=== PATIENT | female | born 1960 | race Caucasian/White ===

== ENCOUNTER 2020-12-08 20:52 | Emergency (ER) | payer BC, SELFPAY ==
[2020-12-08 21:22] VITALS: BMI 28.2
--- NOTE | 2020-12-08 21:22 | PC.NURSE ---
pt brought to [facility] while awaiting a room to be cleaned.
[2020-12-08 22:10] VITALS: BP 157/81; PULSE 82; RESP 16; TEMP 36.7; O2SAT 98; BMI 37.5
--- NOTE | 2020-12-08 22:42 | ED_ITS ---
HPI - Animal Bite General: Chief Complaint: Animal Bite Stated Complaint: Dog Bite Rt Pinky Time Seen by Provider: 12/08/20 22:42 History of Present Illness: HPI narrative: 60-year-old female comes in today with injury to the right index finger. Patient's 6-week-old puppy had become entrapped in the chair and they were working to get the pipe the out of the chair when it bit down on her right index finger. Patient had 3 superficial lacerations to the finger that she was unable to get to stop bleeding until she got to the ER. Patient was concerned that they may have further bleeding and waited to be seen by provider. Patient reports that her tetanus is up-to-date. 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 Review of Systems General: Reports: 10 or more systems reviewed and unremarkable except in HPI and below Skin/Breast: Reports: other (Laceration right index finger) Physical Exam Const: COMMON NORMALS: no acute distress and patient oriented x3 GENERAL APPEARANCE: cooperative HENMT: COMMON NORMALS: normocephalic and Normal external nose present HEAD & SCALP: normal to inspection and normocephalic NOSE: Normal external nose present Eye: GENERAL EYE: appearance normal, both eyes and all related structures Neck/C-Spine: COMMON NORMALS: full ROM Chest: COMMONS NORMALS: normal inspection of the chest Resp: COMMON NORMALS: normal respiratory effort EFFORT & INSPECTION: Yes able to speak in complete sentences Cardio: COMMON NORMALS: regular rate and regular rhythm RATE: regular rate RHYTHM: regular rhythm GI: COMMON NORMALS: non-tender Extremity: COMMON NORMALS: normal to inspection Neuro: COMMON NORMALS: patient oriented x3 and moves all extremities Psych: COMMON NORMALS: mental status grossly normal and cooperative Skin: NARRATIVE SKIN EXAM: 3 superficial lacerations are noted to the distal right finger on the pad. No foreign bodies are noted. Normal range of motion is noted. Course Vital Signs: Vital signs: Vital Signs Temperature 98.0 F 12/08/20 22:10 Pulse Rate 80 12/08/20 23:29 Respiratory Rate 22 H 12/08/20 23:29 Blood Pressure 157/81 12/08/20 22:10 Pulse Oximetry 94 12/08/20 23:29 MDM - Animal Bite MDM Narrative: Medical decision making narrative: Patient came in for evaluation of injuries sustained from her dog. On exam there is 3 superficial 5 to 10 mm lacerations to the distal pad of the right index finger. No tendon injury or foreign bodies were noted. Patient's tetanus shot was up-to-date. Patient was not concerned about rabies and did not wish for prophylaxis exposure therapy. Reviewed exam with patient with recommendations for treatment with Augmentin for prophylaxis antibiotic therapy. Wound was cleaned and approximated with Steri-Strips. Patient reported understanding of care plan and need for follow-up or return. Discharge Plan Discharge Patient Disposition: Home Clinical Impression: Dog bite Qualifiers: Encounter type: initial encounter Qualified Code(s): W54.0XXA - Bitten by dog, initial encounter Condition: Stable Prescriptions: New Augmentin 875-125 mg tablet 1 tab PO BID Qty: 10 RF: 0 Discharge Orders: Discharge ED (Routine); Ordered 12/08/20 Ordered By: Bobby Mendoza Discharge Diet: Usual diet Discharge Activity: Increase activity as tolerated Patient Instructions: Puncture Wound (ED), Opioid Safety Activity Restrictions/Additional Instructions: Monitor site for signs of infection. Monitor pet for signs of illness. Follow- up with primary care for further instruction. Return to the ER for new concerns. Coding Level of Care Code ED Adaptive Physical Education Teacher for Sylwia Coker
--- NOTE | 2020-12-08 22:49 | PC.NURSE ---
bleeding has now stopped
[2020-12-08 23:29] VITALS: PULSE 80; RESP 22; O2SAT 94
[2020-12-08] MEDS: amoxicillin-clav 875-125 mg Tablet 1 TAB PO (23:31)
== END 2020-12-08 23:31 | disposition home or self-care (01) ==
PROVIDERS: Emergency Provider Nurse Practitioner Family
DX: S60.470A Other superficial bite of right index finger, initial encounter (principal); W54.0XXA Bitten by dog, initial encounter
CPT/HCPCS: 99282

== ENCOUNTER 2023-01-17 08:57 | Outpatient (CLI) | payer BC, SELFPAY ==
--- NOTE | 2023-01-17 09:11 | MM_ITS ---
WS: [id number] BILATERAL SCREENING DIGITAL TOMOSYNTHESIS MAMMOGRAM WITH CAD HISTORY: SCREEN COMPARISON: 08/15/2019, 05/30/2018 Bilateral CC and MLO views with tomosynthesis and synthetic mammography submitted. Computer aided det ection analyzed. Breast composition: There are scattered areas of fibroglandular density. No suspicious masses, microc alcifications or architectural distortion. Several small nodules are noted within the upper outer nelsy drant of the RIGHT breast which are stable. No new mass or nodule or calcification. IMPRESSION: MM/[place] [id number] BI-RADS: 2-Benign FOLLOW UP: 1 Year Follow-up
== END 2023-01-17 08:58 | disposition home or self-care (01) ==
LOC: RAD 08:58
PROVIDERS: PCP Internal Medicine; Visit Provider Internal Medicine
DX: Z12.31 Encounter for screening mammogram for malignant neoplasm of breast (principal)
CPT/HCPCS: 77063; 77067

== ENCOUNTER 2024-02-25 10:53 | Outpatient (CLI) | payer BC, SELFPAY ==
--- NOTE | 2024-02-25 11:02 | XRR_ITS ---
PROCEDURE INFORMATION: Exam: XR Lumbosacral Spine Exam date and time: 02/25/2024 11:15 AM Age: 63 years old Clinical indication: Low back pain; Prior surgery; Surgery date: 6+ months; Surgery type: Low back discs, RT hip muscle; Additional info: Low back pain, verbal taken from [facility] TECHNIQUE: Imaging protocol: Radiologic exam of the lumbosacral spine. Views: 2 or 3 views. COMPARISON: CR XR hip BI 3-4V wo/[place] [id number] 02/25/2024 11:15 AM FINDINGS: Bones/joints: Disc space narrowing and spurring L2 through S1. Minimal anterolisthesis of L3 on L4. The pedicles are intact. There is no evidence of fracture or acute bone destruction. Soft tissues: Unremarkable. XR/XR lumbar spine 2-3V* [id number] IMPRESSION: Degenerative disc disease.
--- NOTE | 2024-02-25 11:05 | XRR_ITS ---
PROCEDURE INFORMATION: Exam: XR Bilateral Hips Exam date and time: 02/25/2024 11:15 AM Age: 63 years old Clinical indication: Hip pain; Bilateral; Prior surgery; Surgery date: 6+ months; Surgery type: Low back discs, RT hip muscle; Additional info: Pain in left and right hips, verbal taken from [facility] TECHNIQUE: Imaging protocol: Radiologic exam of the bilateral hips. Views: 2 views of hips with pelvis when performed. COMPARISON: CR XR lumbar spine 2-3V* [id number] 02/25/2024 11:15 AM FINDINGS: Bones/joints: Unremarkable. No acute fracture. No fracture, lytic, or sclerotic bone lesion. Only mild arthritic changes. Soft tissues: Unremarkable. XR/XR hip BI 3-4V wo/w pel [id number] IMPRESSION: No significant abnormality.
== END 2024-02-25 10:54 | disposition home or self-care (01) ==
LOC: RAD 10:55
PROVIDERS: PCP Nurse Practitioner Family; Visit Provider Nurse Practitioner Family
DX: M25.551 Pain in right hip (principal); M25.552 Pain in left hip; M51.379 Other intervertebral disc degeneration, lumbosacral region without mention of lumbar back pain or lower extremity pain; M48.07 Spinal stenosis, lumbosacral region; M43.16 Spondylolisthesis, lumbar region; Z98.890 Other specified postprocedural states; R93.89 Abnormal findings on diagnostic imaging of other specified body structures
CPT/HCPCS: 72100; 73522

== ENCOUNTER → 2024-03-18 08:26 | Outpatient (BNVA) | payer BC, SELFPAY | PROVIDERS: PCP Nurse Practitioner Family; Visit Provider Orthopaedic Surgery | DX: M54.50 Low back pain, unspecified (principal) | CPT/HCPCS: 72110 ==

== ENCOUNTER 2024-03-20 12:52 | Outpatient (CLI) | payer BC, SELFPAY ==
--- NOTE | 2024-03-20 13:00 | MR_ITS ---
WS: [id number] MRI LUMBAR SPINE NONCONTRAST HISTORY: Back Pain COMPARISON: Radiograph 03/18/2024 TECHNIQUE: Sagittal and axial multisequence imaging is submitted. Slight straightening of the normal lumbar lordosis with slight reversal of the curvature at L4-5. L2 anterolisthesis by 2 mm. L3 anterolisthesis by 3 mm. Disc spaces are narrowed and desiccated throughout the lumbar spine. No marrow edema or acute fracture. Conus terminates normally at L1-2 disc level. L1-L2: Mild facet arthritis. No stenosis. L2-L3: Large central disc extrusion migrating cephalad from the parent disc. Disc extends 1.6 cm superiorly from the parent disc. At the level of the parent disc there is a large central and bilateral subarticular disc protrusion completely effacing the thecal sac and distorting the nerve roots. Bilateral fluid in the facet joints. Additional LEFT foraminal disc protrusion causing moderate LEFT foraminal stenosis. Mild RIGHT foraminal stenosis. L3-L4: Severe annular disc bulging with marked ligamentum flavum and facet arthropathy. Thecal sac is being distorted. Small amount of fluid in the LEFT facet joint. RIGHT foraminal disc osteophyte complex causing severe stenosis. Severe central and bilateral subarticular recess and mild LEFT foraminal stenosis. L4-L5: Mild annular disc bulging with a central fissure. Large LEFT hemilaminectomy defect. Ligamentum flavum and facet arthritis. Encroachment upon the subarticular recesses with mild bilateral foraminal stenosis. L5-S1: Diffuse annular disc bulging asymmetric to the LEFT. Diffuse osteophytic ridging. There is significant contact on the bilateral S1 nerve roots, LEFT greater than RIGHT. Moderate central with mild bilateral foraminal stenosis. RIGHT hemilaminectomy defect. Paravertebral soft tissues are negative. MR/MR lumbar spine wo con* [id number] IMPRESSION: 1. L2-3: Large central disc extrusion has migrated cephalad from the parent di sc. Disc extends 1.6 cm superiorly. 2. L2-3: At the level of the disc there is a large disc protrusion extending s ubarticular with complete effacement of the thecal sac and distortion of the ne rve roots. Severe central stenosis and subarticular recess stenosis. Additional smaller LEFT foraminal disc protrusion causing moderate LEFT foraminal stenosi s. 3. L3-4: Severe central, bilateral subarticular recess and RIGHT foraminal martin nosis. Mild LEFT foraminal stenosis. Stenosis due to combination of facet joint arthritis disc disease and ligamentum flavum hypertrophy. 4. L4-5: Large LEFT hemilaminectomy defect. Subarticular recess encroachment b y facet joint arthritis. Mild foraminal stenosis. 5. L5-S1: RIGHT hemilaminectomy defect. Marked disc contact bilaterally on the S1 nerve roots, LEFT greater than RIGHT. Moderate central with bilateral subar ticular recess and mild foraminal stenosis. Greater stenosis contacting the LEF T S1 nerve root.
== END 2024-03-20 12:53 | disposition home or self-care (01) ==
PROVIDERS: PCP Nurse Practitioner Family; Visit Provider Orthopaedic Surgery
DX: M51.26 Other intervertebral disc displacement, lumbar region (principal); R93.7 Abnormal findings on diagnostic imaging of other parts of musculoskeletal system; M48.061 Spinal stenosis, lumbar region without neurogenic claudication; M47.896 Other spondylosis, lumbar region; M96.89 Other intraoperative and postprocedural complications and disorders of the musculoskeletal system; M48.07 Spinal stenosis, lumbosacral region; M25.78 Osteophyte, vertebrae; M51.369 Other intervertebral disc degeneration, lumbar region without mention of lumbar back pain or lower extremity pain; M51.379 Other intervertebral disc degeneration, lumbosacral region without mention of lumbar back pain or lower extremity pain
CPT/HCPCS: 72148

== ENCOUNTER → 2024-03-25 09:30 | Outpatient (BNVA) | payer BC, SELFPAY | PROVIDERS: PCP Nurse Practitioner Family; Visit Provider Orthopaedic Surgery | DX: M43.16 Spondylolisthesis, lumbar region (principal) | CPT/HCPCS: 36415; 80053; 81001; 83036; 85025 ==

== ENCOUNTER → 2024-04-22 09:09 | Outpatient (BNVA) | payer BC, SELFPAY | PROVIDERS: PCP Nurse Practitioner Family; Visit Provider Family Medicine | DX: Z01.818 Encounter for other preprocedural examination (principal); R94.31 Abnormal electrocardiogram [ECG] [EKG] | CPT/HCPCS: 80048; 81003; 85025; 93005 ==

== ENCOUNTER 2024-04-23 08:52 | Outpatient (CLI) | payer BC, SELFPAY ==
--- NOTE | 2024-04-23 08:54 | MM_ITS ---
WS: [id number] BILATERAL SCREENING DIGITAL TOMOSYNTHESIS MAMMOGRAM WITH CAD HISTORY: SCREENING COMPARISON: 01/17/2023, 08/15/2019 Bilateral CC and MLO views with tomosynthesis and synthetic mammography submitted. Computer aided detection analyzed. Breast composition: There are scattered areas of fibroglandular density. No suspicious masses, microcalcifications or architectural distortion. MM/MM scr BI tomosynthesis [id number] IMPRESSION: BI-RADS: 2 - Benign. FOLLOW UP: 1 Year Follow-up
== END 2024-04-23 08:53 | disposition home or self-care (01) ==
PROVIDERS: PCP Nurse Practitioner Family; Visit Provider Family Medicine
DX: Z12.31 Encounter for screening mammogram for malignant neoplasm of breast (principal); R92.323 Mammographic fibroglandular density, bilateral breasts
CPT/HCPCS: 77063; 77067

== ENCOUNTER 2024-05-28 16:12 | Outpatient (CLI) | payer BC, SELFPAY ==
[2024-05-28 16:40] LABS: Basophils # 0.1 10^3/uL (0.0-0.1); Basophils % 0.7 %; Eosinophils # 0.1 10^3/uL (0.0-0.8); Hematocrit 36.8 % (36-47); Lymphocytes # 2.1 10^3/uL (0.8-4.8); Lymphocytes % 30.3 %; Mean Corpuscular HGB Conc 32.6 g/dL (30-55); Mean Corpuscular Hemoglobin 29.3 pg (27-33); Mean Platelet Volume 10.9 fL (7.4-10.4); Monocytes # 0.5 10^3/uL (0.2-0.9); Monocytes % 6.6 %; Neutrophils # 4.17 10^3/uL (1.8-7.7); Neutrophils % 59.7 %; Nucleated Red Blood Cells % 0 %; Platelet Count 237 10^3/cmm (157-399); Red Blood Count 4.09 10^6/uL (3.85-5.65); Red Cell Distribution Width 12.8 % (12.1-15.1); White Blood Count 6.99 10^3/uL (3.29-11.43)
[2024-05-28 17:05] LABS: Bilirubin Urine Negative (Negative); Blood Urine Negative (Negative); Glucose Urine UA Negative (Normal); Ketones Urine Negative (Negative); Leukocyte Esterase Urine 1+ (Negative); Nitrate Urine Negative (Negative); Protein Urine Negative (Negative); Specific Gravity, Urine 1.011 (1.005-1.030); Urine Appearance Clear (CLEAR); Urine Color Yellow (Yellow)
[2024-05-28 17:11] LABS: Add Urine Microscopic? YES; Bacteria Urine None Seen /hpf; Hyaline Casts Urine 0-4 /lpf; RBC Urine 0-2 /hpf (0-2); Squamous Epithelial Cell Urine 0-5 /hpf (0-5)
[2024-05-28 17:47] LABS: Alanine Aminotransferase 25 U/L (0-33); Albumin Level 4.2 g/dL (3.5-5.2); Alkaline Phosphatase 99 U/L (35-105); Aspartate Amino Transferase 17 U/L (0-32); Blood Urea Nitrogen 12 mg/dL (8-23); Calcium 9.5 mg/dL (8.5-10.5); Carbon Dioxide 25 mmol/L (22-29); Chloride 100 mmol/L (98-107); Globulin 2.8 g/dL (1.3-4.6); Glomerular Filtration Rate 125.4 mL/min (90-130); Glucose 162 mg/dL (65-115); Osmolality Calculated 289 mOsm/kg (285-295); Sodium 138 mmol/L (136-145); Total Bilirubin 0.2 mg/dL (0.15-1.2)
[2024-05-28 20:45] LABS: Estmated Average Glucose 180; Hemoglobin A1C 7.9 % (4.0-6.0)
== END 2024-05-28 16:13 | disposition home or self-care (01) ==
LOC: LAB 16:15
PROVIDERS: PCP Nurse Practitioner Family; Visit Provider Orthopaedic Surgery
DX: Z01.818 Encounter for other preprocedural examination (principal)
CPT/HCPCS: 36415; 80053; 81001; 83036; 85025

== ENCOUNTER 2024-06-04 13:47 | Inpatient (IN) | payer BC, SELFPAY ==
[2024-06-04] VITALS (11 sets, daily range): BP systolic 126–160; BP diastolic 76–93; PULSE 84–102; RESP 16–18; TEMP 36.3–37.3; O2SAT 93–99; BMI 43.7; BMI 43.6
--- NOTE | 2024-06-04 | XR_ITS ---
WS: [id number] Lumbar spine, C-arm fluoroscopy views, 06/04/2024 Clinical Data: MICAELA PICS Comparison: Lumbar spine, 03/18/2024 Findings: Dr. Castro performed a posterior lumbar fusion. XR/XR lumbar spine 2-3V* [id number] Impression: Posterior lumbar fusion.
--- NOTE | 2024-06-04 10:16 | P.HP_ITS ---
Same Day Surgery H&P Indication for Procedure/HPI DATE OF PROCEDURE: June 04, 2024 CHIEF COMPLAINT/INDICATIONFOR SURGICAL PROCEDURE: Back and leg pain PREOP DIAGNOSIS: Lumbar stenosis with neurogenic claudication; L3-4 spondyl olisthesis PLANNED PROCEDURE: Operation Date: 06/04/24 12:05 Proposed Procedures p Posterior Lumbar Interbody Fusion PLIF(Not Applicable) - Laurent Castro DO s Lumbopelvic Fixation(Not Applicable) - Laurent Castro, DO Medications/Allergies* Home Medications ?Medication ?Instructions ?Recorded ?Confirmed ?Type atorvastatin 20 mg tablet 20 mg PO DAILY 08/18/2305/07 History carvedilol 3.125 mg tablet 3.125 mg PO BID 08/18/23 History cholecalciferol (vitamin D3) 1,250 1,250 mcg PO .WEEKL Y 08/18/23 06/03/24 History mcg (50,000 unit) capsule glipizide 10 mg tablet 10 mg PO DAILY 08/18/2305/07 History losartan 50 mg-hydrochlorothiazide 1 tab PO DAILY 08/0506/03/24 History 12.5 mg tablet meloxicam 7.5 mg tablet 7.5 mg PO BID 08/18/2306/03 History metformin 1,000 mg tablet 1,000 mg PO BID 08/18/23 History pioglitazone 45 mg tablet (Actos) 45 mg PO DAILY 08/1706/03/24 History antiarthritic combination no.2 900 1,500 mg PO DAILY 0 04/22/24 06/03/24 History mg tablet (glucosamine-chondroitin) gabapentin 100 mg capsule 200 mg PO BID 04/22/2406/03 History omeprazole 40 mg capsule,delayed 40 mg PO DAILY 06/03/24 History release semaglutide 1 mg/dose (4 mg/3 mL) 1 mg SUBCUT .WEEKLY 04/22/24 06/03/24 History subcutaneous pen injector (Ozempic) Allergies/Adverse Reactions Allergy/AdvReac Type Severity Reaction Status Date / Time codeine Allergy ADR-Nausea Verified 06/04/24 10:11 Pertinent History/Comorbid Conditions* Social History Smoking and tobacco/nicotine status: never used tobacco/nicotine Pertinent Exam Findings alert, oriented x 3 and procedure specific exam findings Recommendations Risks and benefits of procedure reviewed Surgery/Procedure today Coding Level of Care Code Acute Code for Chg Fwd
--- NOTE | 2024-06-04 10:16 | W.PM.OPSFHP ---
Same Day Surgery H&P Indication for Procedure/HPI DATE OF PROCEDURE: June 04, 2024 CHIEF COMPLAINT/INDICATIONFOR SURGICAL PROCEDURE: Back and leg pain PREOP DIAGNOSIS: Lumbar stenosis with neurogenic claudication; L3-4 spondylolisthesis PLANNED PROCEDURE: Operation Date: 06/04/24 12:05 Proposed Procedures p Posterior Lumbar Interbody Fusion PLIF(Not Applicable) - Laurent Castro DO s Lumbopelvic Fixation(Not Applicable) - Laurent Castro, DO Medications/Allergies* Home Medications ?Medication ?Instructions ?Recorded ?Confirmed ?Type atorvastatin 20 mg tablet 20 mg PO DAILY 08/18/23 06/03/24 History carvedilol 3.125 mg tablet 3.125 mg PO BID 08/18/23 06/03/24 History cholecalciferol (vitamin D3) 1,250 1,250 mcg PO .WEEKLY 08/18/23 06/03/24 History mcg (50,000 unit) capsule glipizide 10 mg tablet 10 mg PO DAILY 08/18/23 06/03/24 History losartan 50 mg-hydrochlorothiazide 1 tab PO DAILY 08/18/23 06/03/24 History 12.5 mg tablet meloxicam 7.5 mg tablet 7.5 mg PO BID 08/18/23 06/03/24 History metformin 1,000 mg tablet 1,000 mg PO BID 08/18/23 06/03/24 History pioglitazone 45 mg tablet (Actos) 45 mg PO DAILY 08/18/23 06/03/24 History antiarthritic combination no.2 900 1,500 mg PO DAILY 04/22/24 06/03/24 History mg tablet (glucosamine-chondroitin) gabapentin 100 mg capsule 200 mg PO BID 04/22/24 06/03/24 History omeprazole 40 mg capsule,delayed 40 mg PO DAILY 04/22/24 06/03/24 History release semaglutide 1 mg/dose (4 mg/3 mL) 1 mg SUBCUT .WEEKLY 04/22/24 06/03/24 History subcutaneous pen injector (Ozempic) Allergies/Adverse Reactions Allergy/AdvReac Type Severity Reaction Status Date / Time codeine Allergy ADR-Nausea Verified 06/04/24 10:11 Pertinent History/Comorbid Conditions* Social History Smoking and tobacco/nicotine status: never used tobacco/nicotine Pertinent Exam Findings alert, oriented x 3 and procedure specific exam findings Recommendations Risks and benefits of procedure reviewed Surgery/Procedure today Coding Level of Care Code Acute Code for Chg Fwd
--- NOTE | 2024-06-04 10:17 | ANES.PREANE2 ---
Pre-Anesthetic Assessment Height/Weight: Height 1.65 m Preop Diagnosis: Lumbar stenosis with neurogenic claudication; L3-4 spondylolisthesis Operation Date: 06/04/24 12:05 Proposed Procedures p Posterior Lumbar Interbody Fusion PLIF(Not Applicable) - Laurent Castro DO s Lumbopelvic Fixation(Not Applicable) - Laurent Castro DO Familial anesthetic complications: None Was Beta Marco taken within 24 hours: N/A Was Clonidine taken within 24 hours: N/A Last intake: > 8 hrs Social No alcohol and No tobacco Exam alert, oriented x 3, clear to auscultation bilaterally and regular rate & rhythm Airway Mallampati: Class III Dentition: full CV/HEM Coronary Artery Disease and Hypertension GI Gastroesophageal Reflux Disease Metabolic Diabetes Mellitus and Hyperlipidemia Anesthetic Plan ASA status: 3 Anesthesia: General Risk of > 500 ml blood loss (7ml/kg in children): Yes, adequate IV access and fluids planned Medications/Allergies Home Medications ?Medication ?Instructions ?Recorded ?Confirmed ?Last Taken ?Type atorvastatin 20 mg tablet 20 mg PO DAILY 08/18/23 06/03/24 06/03/24 History carvedilol 3.125 mg tablet 3.125 mg PO BID 08/18/23 06/04/24 06/04/24 History cholecalciferol (vitamin D3) 1,250 1,250 mcg PO .WEEKLY 08/18/23 06/03/24 06/01/24 History mcg (50,000 unit) capsule glipizide 10 mg tablet 10 mg PO DAILY 08/18/23 06/03/24 06/03/24 History ibuprofen 800 mg tablet 800 mg PO Q8H PRN pain #45 tabs 08/18/23 06/03/24 05/28/24 Rx losartan 50 mg-hydrochlorothiazide 1 tab PO DAILY 08/18/23 06/03/24 06/03/24 History 12.5 mg tablet meloxicam 7.5 mg tablet 7.5 mg PO BID 08/18/23 06/03/24 05/28/24 History metformin 1,000 mg tablet 1,000 mg PO BID 08/18/23 06/03/24 06/03/24 History methocarbamol 750 mg tablet 750 mg PO Q8H PRN pain #45 tabs 08/18/23 06/03/24 Unknown Rx pioglitazone 45 mg tablet (Actos) 45 mg PO DAILY 08/18/23 06/03/24 06/03/24 History Bone Growth Stimulator #1 ea 04/01/24 04/22/24 Unknown Rx antiarthritic combination no.2 900 1,500 mg PO DAILY 04/22/24 06/03/24 06/03/24 History mg tablet (glucosamine-chondroitin) gabapentin 100 mg capsule 200 mg PO BID 04/22/24 06/04/24 06/04/24 History omeprazole 40 mg capsule,delayed 40 mg PO DAILY 04/22/24 06/03/24 06/02/24 History release semaglutide 1 mg/dose (4 mg/3 mL) 1 mg SUBCUT .WEEKLY 04/22/24 06/03/24 05/25/24 History subcutaneous pen injector (Ozempic) Allergies Allergy/AdvReac Type Severity Reaction Status Date / Time codeine Allergy ADR-Nausea Verified 06/04/24 10:11 [facility] Anesthesia Social History Smoking and tobacco/nicotine status: never used tobacco/nicotine
[2024-06-04 10:38] LABS: Glucose Point of Care 168 mg/dL (70-110)
[2024-06-04] MEDS: sodium chloride 0.9% 1,000 ML 30 ML IV (10:48)
[2024-06-04] MEDS: ceFAZolin 2,000 mg SDV 2000 MG IVP ×3 (11:30→20:47)
--- NOTE | 2024-06-04 12:25 | PC.NURSE ---
called daughter and notified her of surgical start.
[2024-06-04] MEDS: lidocaine-epi 1% 20 mL INJ INJECTION (12:55)
[2024-06-04] MEDS: VANCOMYCIN ADD-Vantage 1,000 MG VIAL 1000 MG XX ×2 (12:56→18:20)
--- NOTE | 2024-06-04 13:35 | PC.NURSE ---
Patient's daughter called and notified of surgical progress
--- NOTE | 2024-06-04 14:46 | PC.NURSE ---
Patient's daughter called and notified of surgical progress
[2024-06-04] MEDS: heparin, porcine 1,000 unit/mL INJ 10 mL 10000 UNIT XX (14:56)
--- NOTE | 2024-06-04 16:05 | PC.NURSE ---
Family Update Called and spoke with patient's daughter, Noelle, with update on surgery. Questions answered, no further questions from family.
--- NOTE | 2024-06-04 18:37 | PM.OP ---
Operative Report Date of procedure: June 04, 2024 Pre-op diagnosis: Lumbar stenosis with neurogenic claudication; L3-4 spondylolisthesis Post-op diagnosis: same Procedure done: 1. L5/S1 Interbody fusion with posterolateral fusion 2. L3-4 interbody fusion with posterolateral fusion 3. L2-3 interbody fusion with posterior lateral fusion 4. Interbody cage at L2-3 5. Interbody cage at L 3/4 6. Interbody cage placed at L5-S1 7. L2 to pelvis fusion 8. L2-S1 posterior spine instrumentation 9. Lumbopelvic instrumentation 10. Use of computer navigation stereotactic for spine 11. Bone marrow aspirate from right iliac crest 12. L2-3 laminectomy with facetectomies for purpose of decompression 13. L3/4 laminectomy and facetectomies for purpose of decompression and removal of L4-5 14. L4/5 laminectomy with facetectomies and discectomy for purpose of decompression and removal of osteo mesh cage 15. Use of allograft Surgeon: Laurent Castro DO Estimated blood loss (mL): 450 Procedure: 1. L5/S1 Interbody fusion with posterolateral fusion 2. L3-4 interbody fusion with posterolateral fusion 3. L2-3 interbody fusion with posterior lateral fusion 4. Interbody cage at L2-3 5. Interbody cage at L 3/4 6. Interbody cage placed at L5-S1 7. L2 to pelvis fusion 8. L2-S1 posterior spine instrumentation 9. Lumbopelvic instrumentation 10. Use of computer navigation stereotactic for spine 11. Bone marrow aspirate from right iliac crest 12. L2-3 laminectomy with facetectomies for purpose of decompression 13. L3/4 laminectomy and facetectomies for purpose of decompression and removal of L4-5 14. L4/5 laminectomy with facetectomies and discectomy for purpose of decompression and removal of osteo mesh cage 15. Use of allograft Patient brought to the operative suite after undergoing anesthesia was placed in the prone position. All areas impingement well-padded. Patient is prepped and draped in normal sterile fashion. Skin incisions made using the previous skin incision extending slightly above and below. The thoracolumbar fascia was split and subperiosteal dissection was made out to the transverse process of L2 to L5 bilaterally as well as the sacral ala bilaterally. Attention was brought to doing the interbody cage at L5-S1. This was done by using the ostiaomesh from spineology. Skin incision was made lateral to the disc base on AP fluoroscopy. The starting pin was inserted this has the ability to have neurostimulation. Ensured that the nerve was not compromised during the procedure. The neurostimulator tube was docked in Codman's triangle. This was just anterior to the transverse process. And lateral to the facet joint. The tube was then placed over the neurostimulator. This is the working tube that I will be working through to place the cage. A drill was then inserted under AP and lateral fluoroscopy. This was then followed by mello. Shaver was backed in and out in order to get good endplate scraping. And then the forward pushing and the backward pushing scrapers of the endplates were then used. Pituitaries used to remove bone graft. The space was then irrigated. Then the Kingman mesh was then inserted into the disc base. AP lateral fluoroscopy ensured there is good position. And then the ostial mesh was packed with bone graft 12 segments or 2 tubes were used in order to facilitate placement of the L5-S1 interbody cage. Attention was brought to doing the interbody cage at L4/5. This was done by using the ostiaomesh from spineology. Skin incision was made lateral to the disc base on AP fluoroscopy. The starting pin was inserted this has the ability to have neurostimulation. Ensured that the nerve was not compromised during the procedure. The neurostimulator tube was docked in Codman's triangle. This was just anterior to the transverse process. And lateral to the facet joint. The tube was then placed over the neurostimulator. This is the working tube that I will be working through to place the cage. A drill was then inserted under AP and lateral fluoroscopy. This was then followed by mello. Shaver was backed in and out in order to get good endplate scraping. And then the forward pushing and the backward pushing scrapers of the endplates were then used. Pituitaries used to remove bone graft. The space was then irrigated. Then the Kingman mesh was then inserted into the disc base. AP lateral fluoroscopy ensured there is good position. And then the ostial mesh was packed with bone graft 12 segments or 3 tubes were used in order to facilitate placement of the L4/5 interbody cage. I was concerned over the break in the endplate there is going to loosen. When I went posteriorly my plan was to remove the osteo mesh cage and place a metal cage. Next attension was was brought to the bone marrow aspirate. This was done by using the [employer] bone marrow aspiration kit. The iliac crest was identified and through a separate incision through the fascia and the bone marrow aspiration kit was inserted into the right iliac crest. Bone marrow aspirate was taken 20 cc. This was mixed with the allograft. Next attention was brought to placing the fiducial for the C-arm. This is going to be used for the computer navigation. 2 pins were placed into the right iliac crest which were later moved to the end of the case. The fiducial was attached. C-arm was brought in and then spun around the patient. The information from C arm was then later used after is loaded the computer for the placement of pedicle screws. Next attention was brought to placing the pedicle screws. This was done at L2 bilaterally, L3 bilaterally L4 bilaterally, L5 bilaterally and S1 bilaterally. The computer navigated awl was inserted into the pedicle. Followed by the pedicle feeler. Followed by placement of the screws using the computer navigation. At all these levels. Next attention was placing the iliac screws. This was done using the computer navigated awl. This is placed through the ala across the SI joint into the iliac crest. Then followed by the pedicle feeler. Followed by computer navigated tap. 80 mm 9.5 millimeter pedicle screws were then placed into the iliac crest. This was done bilaterally. Once all the screws were placed attention was then brought to doing the laminectomy at L3-4. At this point the spinous process was taken down at L3-4. High-speed bur was used to take down the laminectomy. The facet joints were also taken down using the high-speed bur burring completely out so that the L3 nerves were identified. The facet was taken down and the medial aspect of the facet up to the pedicle was taken down bilaterally of the L4 pedicle. Using Kerrison rongeur. Ligamentum flavum was taken down as far as the kidney there was scarring. However the dura was completely opened and felt to be adequately decompressed. The L3 nerves were traced around the L3 pedicle out where the foramen was in the L4 nerves were traced around the L4 pedicles. The L4 nerve was reflected medially. Discectomy was performed nik used up to size 7. Starting with a 6 shaver. Size 8 trial was inserted felt to be good fit. A size 8 cage was then placed after placing the bone graft anteriorly and then bone graft in the cage. Laminectomy was performed at L4 at the L4-5 level. Lamina was taken down with a high-speed bur at L4 medial aspect of facet joints were taken down the high-speed bur curved. Kerrison we reviewed used to remove the remaining bone. The ligament flavum was taken down from L4-L5. The L4 nerve roots were traced out the L4-5 foramen and the L5 nerve was traced around the L5 pedicles bilaterally. The disc base was identified. In the ostia mesh cage was identified. And musty mesh was cut out with a knife cutting the mesh. And then the bone graft was removed along with the mesh cage. Attempts were made to place a cage with a shaver because it able to shave up to 15 it was loose I did not feel would be safe to place a cage with the endplate failure. At this point I just left the space open. Laminectomy was then performed L2/3. Again the high-speed bur was used to take down the lamina of L2 the medial aspect of facet joints were taken down with a high-speed bur curved curette and Kerrisons were used to take the remaining bone down the ligament flavum was taken down from L2/3. L3 nerve was traced around the L3 pedicle as the L2 nerve roots were traced out the L2/3 foramen. The L3 nerve root was then reflected medially on the left side. Discectomy was performed using a knife followed by nik. Nik were used starting at size [address] up to size 7. A size 8 trial was used felt to be good size cage and then a size 8 Maitland cage was inserted into the L2/3 disc space. This was then tamped into good position on the vertebral body which is confirmed under C-arm guidance. Wounds were then irrigated. The caroline was then attached from L2, L3, L4, L5, S1 and into the iliac screw completing the lumbopelvic fixation. This was done bilaterally. The screw caps were then torqued into position. This was done bilaterally. Next attention was brought to decorticating the transverse processes of L2 bilaterally L3 bilaterally L4 bilaterally L5 bilaterally and sacral ala bilaterally as well as the SI joints. Osteoamp bone graft was then packed into the gutters. Vancomycin powder was placed deep drain was placed and wound was closed in layered fashion with Vicryl and Monocryl. Sterile dressings were applied patient was transferred to the PACU in stable condition.
--- NOTE | 2024-06-04 18:54 | XRR_ITS ---
PROCEDURE INFORMATION: Exam: XR Lumbosacral Spine Exam date and time: 06/04/2024 8:27 PM Age: 63 years old Clinical indication: Pain; Other: Post op; Prior surgery; Surgery date: Post-operative (0-2 days); Surgery type: Lspine; Additional info: Postop TECHNIQUE: Imaging protocol: Radiologic exam of the lumbosacral spine. Views: 2 or 3 views. COMPARISON: MR lumbar spine wo con* [id number] 03/20/2024 1:24 PM FINDINGS: Limitations: Limited assessment of the lateral view due to patient body habitus. Bones/joints: Lumbosacral fusion as well as several interbody cage graft. Hardware appears intact without complication. No definite acute fracture. Vertebral body heights appear to be maintained. Soft tissues: Unremarkable. XR/XR lumbar spine 2-3V* [id number] IMPRESSION: Posterior instrumented lumbosacral fusion without apparent complication.
--- NOTE | 2024-06-04 19:40 | ANE.PACU2 ---
Inpatient post-anesthesia follow up: Airway intact: Yes Vital signs: Temperature 99.2 F Pulse Rate 121 Respiratory Rate 18 Blood Pressure 93/58 Pulse Oximetry 96 Oxygen Delivery Me thod Room Air Oxygen Flow Rate 3 Fraction of Inspir ed Oxygen Hydration adequate: Yes Nausea and vomiting: No Pain level: 4 Mental status: Baseline
[2024-06-04] MEDS: HYDROcodone-acetaminophen 5-325 mg Tablet PO (20:46)
[2024-06-04] MEDS: gabapentin 100 mg Capsule 200 MG PO (20:46)
[2024-06-04 20:47] LABS: Glucose Point of Care 248 mg/dL (70-110)
[2024-06-04] MEDS: methocarbamol 750 mg Tablet PO (20:47)
[2024-06-04] MEDS: metformin 500 mg Tablet 1000 MG PO (20:47)
[2024-06-04] MEDS: lactated ringers 1,000 ML 90 ML IV (21:00)
[2024-06-05] VITALS (14 sets, daily range): BP systolic 93–147; BP diastolic 55–93; PULSE 81–132; RESP 13–20; TEMP 36.6–38.1; O2SAT 92–99
[2024-06-05] MEDS: ketorolac 30 mg/mL INJ IVP ×2 (00:21→20:09)
[2024-06-05] MEDS: ondansetron 2 mg/ML SDV 2 mL 4 MG IVP ×2 (00:22→20:09)
[2024-06-05] MEDS: morphine 4 mg/mL SDV 1 mL 2 MG IVP ×2 (00:22→20:08)
[2024-06-05] MEDS: ceFAZolin 2,000 mg SDV 2000 MG IVP ×2 (04:55→13:51)
[2024-06-05] MEDS: lactated ringers 1,000 ML 90 ML IV ×2 (04:58→18:12)
--- NOTE | 2024-06-05 05:09 | PC.NURSE ---
This nurse contacted Dr. Castro that patient was complaining of not being able to move her left foot and toes. Patient has feeling in foot with good color and pulses. Dr. Castro said to keep kinney catheter until she is able to get up. This nurse will continue to monitor patient.
[2024-06-05 06:02] LABS: Hematocrit 25.9 % (36-47)
[2024-06-05 06:14] LABS: Glucose Point of Care 167 mg/dL (70-110)
[2024-06-05] MEDS: sodium chloride 0.9% 1,000 ML 999 ML IV (08:37)
--- NOTE | 2024-06-05 08:42 | P.PN_ITS ---
Subjective 2 Subjective: Patient is complaining of pain however blood pressure is less we can give her pain meds. Patient blood pressure is 95 over 50s. Vitals/I&O/Wt Last Vital Signs Temp 99.2 F 06/05/24 03:55 Pulse 124 H 06/05/24 08:19 Resp 20 H 06/05/24 08:19 BP 98/58 06/05/24 08:19 Pulse Ox 96 06/05/24 08:19 O2 Del Method Room Air 06/05/24 08:19 O2 Flow Rate 3 06/05/24 01:07 06/04/24 06/05/24 06/05/24 22:59 06:59 14:59 Intake Total 1900 / 1900 717 / 2617 120 / 120 Output Total 1650 / 1650 775 / 2425 Balance 250 / 250 -58 / 192 120 / 120 Weight last 48 hrs Weight 267 lb Weight 267 lb 1.6 oz Weight 262 lb 1.6 oz Weight 263 lb Physical Exam 2 Narrative: Patient unable to dorsiflex her left foot. Otherwise sensations intact. Urinary Catheter Management: Berger: Cath Placed During This Visit: yes Reason for Continuing Indwelling Catheter: Other Urinary Catheter Date of Insertion: 06/04/24 Urinary Catheter Time of Insertion: 11:30 Data 06/05/24 05:10 A&P Assessment and plan (1) Status post lumbar spinal fusion: Patient is postop day 1 lumbar fusion. Up with PT DC Berger DC Hemovac drain Hold blood pressure meds Fluid bolus PDMP PDMP Reviewed: Not Reviewed Attestations 2 Medical Necessity Statement*: Pain control Coding Level of Care Code Acute Code for Chg Fwd Diagnoses Status post lumbar spinal fusion Z98.1
[2024-06-05] MEDS: metformin 500 mg Tablet 1000 MG PO ×2 (09:04→18:10)
[2024-06-05] MEDS: docusate sodium 100 mg Capsule PO ×2 (09:05→18:10)
[2024-06-05] MEDS: gabapentin 100 mg Capsule 200 MG PO ×2 (09:05→18:12)
[2024-06-05] MEDS: atorvastatin 40 mg Tablet 20 MG PO (09:05)
[2024-06-05] MEDS: pantoprazole DR 40 mg Tablet PO (09:05)
--- NOTE | 2024-06-05 09:52 | PC.CHAP ---
Pastoral Care Encounter/Spiritual Assessment Type of Contact [] Declined print producer visit [] Patient/Family/Request visit [] Outpatient visit [] Follow-up visit [] Physician referral [] Code/Alert [x] Routine visit [] Staff referral [] Actively dying [] Patient sleeping [x] Family support [] [] Out of room [] Palliative care [] [] Receiving care in room [] Pre-surgical visit [] Trauma [] Long length of stay [] ICU visit [] Other: Relational/Emotional Strength [x] Patient feels connected with others/family/visitors/staff [] Distress [] Loneliness/isolation [] Abandonment Spirituality of Patient [x] Person of One[place] [] Attends Restorationism of their [place] [x] Believes in Prayer [] Reads Bible or Congregational materials [] There are Spiritual issues to be addressed Block Splitter Operator Interventions [x] Prayer [x] Active listening [] Non-anxious presence [x] Spiritual/emotional support [] Crisis/trauma care [] Spiritual counseling [] Bereavement support [] Provided bereavement packet [] Provided Bible/devotional materials [] Provided toy/stuffed animal, coloring book to patient or family member [] Provided Communion [] Anointing/Philipp [] Salvation [x] Completed spiritual assessment [] Other: Impact on Illness or Injury [] Angry [] Fearful [] Anxious [] Often cries [] Exhaustion [] Unable to work [] Unable to attend catholic [] Unable to walk/stand [] Unable to read [] Unable to drive [] Unable to eat/drink [] Unable to sleep [] Unable to be with family [] Patient intubated [] Other: Summary Time spent with patient 5 min
[2024-06-05 10:42] LABS: Glucose Point of Care 237 mg/dL (70-110)
[2024-06-05] MEDS: HYDROcodone-acetaminophen 5-325 mg Tablet PO (10:53)
--- OUTSIDE RECORDS SUMMARY | 2024-06-05 11:57 | XMS_ITS | Encounter Summary ---
Author Organization [facility] Address [address] 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
--- OUTSIDE RECORDS SUMMARY | 2024-06-05 11:57 | XMS_ITS | Encounter Summary ---
Author Organization [facility] Address [address] [place] [address] Care Team Providers Care Drafting Instructor Name Role Phone Unavailable Primary Care Provider Unavailabl e Encounter Details Date Type Department Care Team (Late st Contact Info) Description 08/17/2006 Outpatient Historical [facility] [address] [place] [address] Chiquita Lynne MD [address] [facility] [place] [address] LGSIL on Pap Smear (Primary Dx) Social History Tobacco Use Types Packs/Day Years Used Date Smoking Tobacco: Never Assessed Comments Unknown Sex and Gender Information Value Date Recorded Sex Assigned at Not on file 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
--- OUTSIDE RECORDS SUMMARY | 2024-06-05 11:57 | XMS_ITS | Encounter Summary ---
Author Organization [facility] Address [address] [place] [address] Care Team Providers Care Metal Room Dental Technician Name Role Phone Unavailable Primary Care Provider Unavailabl e Encounter Details Date Type Department Care Team (Latest Contact Info) Description 2006 Outpatient Historical [facility] [address] 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
--- OUTSIDE RECORDS SUMMARY | 2024-06-05 11:57 | XMS_ITS | Encounter Summary ---
Author Organization [facility] Address [address] [place] [address] Care Team Providers Care Station Usher Name Role Phone Unavailable Primary Care Provider Unavailabl e Encounter Details Date Type Department Care Team (Late st Contact Info) Description 08/17/2006 Outpatient Historical [facility] FY06 Rhona Tong, SUPERVISOR PROP MAKING [address] [place] [address] Social History Tobacco Use Types Packs/Day Years Used Date Smoking Tobacco: Never Assessed Comments Unknown Sex and Gender Information Value Date Recorded Sex Assigned at Not on file Legal 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
--- OUTSIDE RECORDS SUMMARY | 2024-06-05 11:58 | XMS_ITS | Encounter Summary ---
Author Organization [facility] Address [address] [place] [address] Care Team Providers Care Furniture Designer Name Role Phone Unavailable Primary Care Provider Unavailabl e Encounter Details Date Type Department Care Team (Late st Contact Info) Description 01/23/2006 Outpatient Historical [facility] [address] [place] [address] Chiquita Lynne MD [address] [address] [facility] [address] [place] [address] Dysplasia of Cervix, Unspecified (Primary Dx) Social History Tobacco Use Types Packs/Day Years Used Date Smoking Tobacco: Never Assessed Comments Unknown Sex and Gender Information Value Date Recorded Sex Assigned at Not on file Legal Sex Female 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 FINISHING 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 Gender Identity Not on file Sexual Orientation Not on file documented as of this encounter Plan of Treatment Not on file documented as of this encounter Procedures Procedure Name Priority Date/Time Associated Diagnosis Comments XR CHEST PA AND LATERAL 2 VW Routine 01/23/2006 10:50 AM FINISHING RANGE SUPERVISOR documented in this encounter Results * XR CHEST PA AND LATERAL (01/23/2006 10:50 AM FINISHING RANGE SUPERVISOR) Anatomical Region Laterality Modality Chest Other 01/23/2006 10:5 0 AM FINISHING RANGE SUPERVISOR Narrative 01/23/2006 10:50 AM FINISHING RANGE SUPERVISOR CHEST PA AND LATERAL: 01/23/2006 AT 1156COMPARISONS: None. CLINICAL HISTORY: None. FINDINGS: Heart size and mediastinal silhouette appear within normal limits. Lungs are clear withoutevidence for effusion, edema, or infiltrates. IMPRESSION: No acute cardiopulmonary disease. - Dictated By: Bobby Belcher M.D., Ph.D. Electronically Signed By: Bobby Belcher M.D., Ph.D. Date Signed: 01/24/06 Procedure Note Provider, Historical - 12/24/2008 CHEST PA AND LATERAL: 01/23/2006 AT 1156COMPARISONS: None. CLINICAL HISTORY: None. FINDINGS: Heart size and mediastinal silhouette appear within normal limits. Lungsare clear withoutevidence for effusion, edema, or infiltrates. IMPRESSION: No acute cardiopulmonary disease. - Dictated By: Bobby Belcher M.D., Ph.D. Electronically Signed By: Bobby Belcher M.D., Ph.D. Date Signed: 01/24/06 Chiquita Lynne MD DIAGNOSTIC IMAGING ORDERAB LES Final Result documented in this encounter Visit Diagnoses Diagnosis Dysplasia of cervix, unspecified- Primary documented in this encounter
--- OUTSIDE RECORDS SUMMARY | 2024-06-05 11:58 | XMS_ITS | Encounter Summary ---
Author Organization [facility] Address [address] [place] [address] Care Team Providers Care Paralegal Instructor Name Role Phone Unavailable Primary Care Provider Unavailabl e Encounter Details Date Type Department Care Team (Latest Contact Info) Description 06/28/2007 Abstract [id number] ABSTRACTION Chiquita Lynne MD [address] [facility] [facility] [address] [place] [address] Social History Tobacco Use Types Packs/Day Years Used Date Smoking Tobacco: Never Alcohol Use Standard Drinks/Week Comments No 0 (1 standard drink = 0.6 oz pur e alcohol) Comments No Sex and Gender Information Value Date Recorded Sex Assigned at Not on file Legal 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
--- OUTSIDE RECORDS SUMMARY | 2024-06-05 11:58 | XMS_ITS | Clinical Summary ---
Author Organization [facility] Address [address] [place] [address] Care Team Providers Care Systems Integration Engineer Name Role Phone Unavailable Primary Care Provider Unavailabl e Allergies Active Allergy Reactions Criticality Noted Date Comments Codeine Nausea and Vomiting Low 06/28/2007 Latex Rash Low 06/05/2007 Medications metformin (GLUCOPHAGE) 850 mg Oral Tab Take 850 mg by mouth 2 times daily with meals. Active MV,CA,MIN/FA/HE RBAL NO.159 (ESTROVEN REGULAR STRENGTH ORAL) Take by mouth. Active aspirin (MAIRA) 81 mg Oral Tab Take by mouth. Active naproxen (NAPROSYN) 500 mg Oral tablet Take 500 mg by mouth 2 times daily with meals. Active atorvastatin (LIPITOR) 10 mg Oral tablet Take 10 mg by mouth Daily LATE. Active dexlansoprazole (DEXILANT) 30 mg capsule Take 30 mg by mouth daily. Active meloxicam (MOBIC) 7.5 mg tablet Take 7.5 mg by mouth daily. Active glucosamine-cho ndroitin (ARTHX DS) 500-400 mg Capsule Take 1 Capsule by mouth. Active Saccharomyces boulardii (FLORASTOR) 250 mg Capsule Take 250 mg by mouth. Active Trulicity 0.75 mg/0.5 mL injection INJECT .75 MG SUB Q WEEKLY 09/02/2019 Active Active Problems Problem Noted Date Diagnosed Date Diabetes mellitus 08/25/2008 Family History Medical History Relation Name Comments Diabetes Brother Rhett Hypertension Father Breast Cancer Neg Hx Cancer Neg Hx Ovarian Cancer Neg Hx Relation Name Status Comments Brother Rhett Father Alive Maternal Grandfather Maternal Grandmother Mother Alive Paternal Grandfather Paternal Grandmother Social History Tobacco Use Types Packs/Day Years Used Date Smoking Tobacco: Never Alcohol Use Standard Drinks/Week Comments No 0 (1 standard drink = 0.6 oz pur e alcohol) Comments No Sex and Gender Information Value Date Recorded Sex Assigned at Not on file Legal Sex Female 5:03 AM EPIDEMIOLOGY INVESTIGATOR Gender Identity Not on file Sexual Orientation Not on file Last Filed Vital Signs Vital Sign Reading Time Taken Comments Blood Pressure 118/70 09/05/2019 10:27 AM CDT Pulse 65 12/21/2010 9:15 AM EPIDEMIOLOGY INVESTIGATOR Temperature 37.1 C (98.7 F) 04/13/2010 10:02 AM EPIDEMIOLOGY INVESTIGATOR Respiratory Rate 16 09/12/2010 2:54 PM CDT Oxygen Saturation 97% 08/11/2008 7:00 AM CDT Inhaled Oxygen Concentration - - Weight 104.8 kg (231 lb) 09/05/2019 10:27 AM CDT Height 167.6 cm (5' 6 ) 09/05/2019 10:27 AM CDT Body Mass Index 37.28 09/05/2019 10:27 AM CDT Plan of Treatment Health Maintenance Due Date Last Done Comments DIABETES ANNUAL FOOT EXAM 1980 DIABETES ANNUAL RETINAL EXAM 1980 DIABETES HBA1C Q 6 MONTHS 1980 DIABETES MICROALBUMIN ANNUAL SCREEN 1980 DTAP/TDAP/TD VACCINES (1 - Tdap) 1981 COLORECTAL SCREENING 09/11/2007 FIT/FOBT Q 1 year 09/11/2007 Flex Sig/CT Colonography Q 5 years 09/11/2007 LDL CHOLESTEROL ANNUAL 12/22/2009 12/22/2008 BREAST CANCER SCREENING 07/16/2011 07/15/2010, 08/14 ZOSTER VACCINE (1 of 2) 2012 Colorectal Cancer Screening 09/09/2021 FIT-DNA Q 3 years 09/09/2021 09/09/2018 INFLUENZA VACCINE (#1) 2023 RSV VACCINE (60+ or ) (1 - 1-dose 75+ series) 2037 Procedures Procedure Name Priority Date/Time Associated Diagnosis Comments COLON CANCER SCREEN, STOOL DNA Routine 09/09/2018 1:15 PM CDT Screening for colon cancer LIPID PANEL Routine 12/22/2008 8:00 AM EPIDEMIOLOGY INVESTIGATOR from Last 3 Months or Most Recently Relevant to Health Maintenance Results * COLON CANCER SCREEN, STOOL DNA (09/09/2018 1:15 PM CDT) COLOGUARD RESULT Negative Not Applicable Take the Interview LABORATORIES Comment: A negative result indicates a low likelihood that a colorectal cancer (CRC) or an advanced adenoma (adenomatous polyps with more advanced pre-malignant features) is present. The chance that a person with a negative Cologuard test has a colorectal cancer is less than 1 in 1500 (negative predictive value >99.9%) or has an advanced adenoma is less than 5.3% (negative predictive value 94.7%). These data are based on a prospective cross-sectional screening study of 10,000 individuals at average risk for colorectal cancer who were screened with both Cologuard and colonoscopy. (Eros Barros. et al, N Engl J Med 2014;370(14):2751-7727) COLOGUARD RE-SCREENING RECOMMENDATION: Periodic routine colorectal cancer screening is an important part of preventive healthcare for asymptomatic persons at average risk for colorectal cancer. Following a negative Cologuard result, the [place] Cancer Society and U.S. Multi-Society Task Force screening guidelines recommend a Cologuard re-screening interval of 3 years. References: [place] Cancer Society (ACS). Colorectal cancer prevention and early detection. [place], [place]: [place] Cancer Society; [updated 2015May 29]. https://www.cancer.org/cancer/vvbzj-tqxqrl-wemxhr/skuqvyhpm-wyerhwroz-lpkcxyy/ac s-rec ommendations.html. Accessed October 05, 2017; David DK, Adam CR, Mariana RayK, Colorectal Cancer Screening: Recommendations for Physicians and Patients from the U.S. Multi-Society Task Force on Colorectal Cancer Screening, Am J Gastroenterology 2017; 112:0953-5326. Test Type: Composite algorithmic analysis of stool DNA-biomarkers with hemoglobin immunoassay. Quantitative values of individual biomarkers are not reportable and are not associated with individual biomarker result reference ranges. Precautions and Limitations: Cologuard is intended for colorectal cancer screening of adults of either sex, 50 years or older, who are at typical average-risk for colorectal cancer. A negative Cologuard test result does not guarantee the absence of colorectal cancer or advanced adenoma (pre-cancer). Patients with a negative Cologuard test result should be advised to continue participating in a colorectal cancer screening program. Cologuard may produce a positive result, even though a colonoscopy may not find colorectal cancer or precancerous polyps. The performance of Cologuard has been established in a cross sectional study (i.e., single point in time). Performance has not been evaluated in adults who have been previously tested with Cologuard or in patients less than 50 years of age. Cologuard has been approved for use by the U.S. FDA. Cologuard performance data in a 10,000 patient pivotal study using colonoscopy as the reference method can be accessed at the following location: www.[employer].Fanergies/results. Additional description of the Cologuard test process, warnings and precautions can be found at www.cologuardtest.com. Rx Only. Stool STOOL SPECIMEN / Unknown 09/09/2018 1:15 PM CDT 09/11/2018 1:25 AM CDT Stephanie Villalobos HOSPICE PLAN ADMINISTRATOR BODY FLUIDS AND STOOLS Final Result Performing Organization Address City[facility] Co de Phone Number [facility] CLIA # [id number] [address] , [address] [place] [address] * (ABNORMAL) LIPID PANEL (12/22/2008 8:00 AM EPIDEMIOLOGY INVESTIGATOR) CHOLESTEROL 197 0 - 200 mg/dL [facility] GLUCOSE 110 70 - 110 mg/dL [facility] TRIGLYCERIDE 91 0 - 150 mg/dL [facility] HDL 49 40 - 60 mg/dL [facility] LDL CALCULATED 130(H) 0 - 100 mg/dL [facility] Comment: Calculated LDL Reference: <100 Optimal 100-129 Near Optimal 130-159 Borderline High >160 High Risk CALCULATED TOTAL CHOLESTEROL TO HDL RATIO 4.02 3.27 - 4.44 [facility] Blood specimen (specimen) 12/22/2008 8:00 AM EPIDEMIOLOGY INVESTIGATOR 12/22/2008 12:19 PM EPIDEMIOLOGY INVESTIGATOR [employer] [facility] CHEMISTRY ORDERABLES Final Result Performing Organization Address City/[facility]/ZIP Co de Phone Number INTERFACE SYSTEM Refer to clinic/hospital department [facility] CLIA# [id number] [address] [place] [address] from Last 3 Months or Most Recently Relevant to Health Maintenance Insurance BCBS Advance Directives For more information, please contact: [phone] * Full Code (Latest Code Status on File) Date Activated Date Inactivated Comments 08/10/2008 12:57 PM 08/11/2008 2:32 PM * Full Code Date Activated Date Inactivated Comments 08/10/2008 6:19 AM 08/10/2008 12:56 PM * Full Code Date Activated Date Inactivated Comments 08/10/2008 5:24 AM 08/10/2008 6:19 AM
--- OUTSIDE RECORDS SUMMARY | 2024-06-05 11:58 | XMS_ITS | Encounter Summary ---
Author Organization [facility] Address [address] [place] [address] Care Team Providers Care Business Transformation Consultant Name Role Phone Unavailable Primary Care Provider Unavailabl e Encounter Details Date Type Department Care Team (Late st Contact Info) Description 08/15/2007 Outpatient Historical [facility] [address] [facility] [address] [place] [address] Social History Tobacco Use Types Packs/Day Years Used Date Smoking Tobacco: Never Alcohol Use Standard Drinks/Week Comments No 0 (1 standard drink = 0.6 oz pur e alcohol) Comments No Sex and Gender Information Value Date Recorded Sex Assigned at Not on file Legal Sex Female 5:03 AM MAINSPRING TORQUE TESTER Gender Identity Not on file Sexual Orientation Not on file documented as of this encounter Plan of Treatment Not on file documented as of this encounter Visit Diagnoses Not on filedocumented in this encounter
--- OUTSIDE RECORDS SUMMARY | 2024-06-05 11:58 | XMS_ITS | Encounter Summary ---
Author Organization [facility] Address [address] [place] [address] Care Team Providers Care Human Resources Operations Director Name Role Phone Unavailable Primary Care Provider Unavailabl e Encounter Details Date Type Department Care Team (Late st Contact Info) Description 01/30/2007 Outpatient Historical [facility] Imaging Services-Esequiel Kumar [place] [address] [place] [address] Chiquita Lynne MD [address] [facility] [address] [place] [address] Social History Tobacco Use Types Packs/Day Years Used Date Smoking Tobacco: Never Assessed Comments Unknown Sex and Gender Information Value Date Recorded Sex Assigned at Not on file Legal Sex Female 5:03 AM AUTO CLOCKS REPAIRER Gender Identity Not on file Sexual Orientation Not on file documented as of this encounter Plan of Treatment Not on file documented as of this encounter Visit Diagnoses Not on filedocumented in this encounter
--- OUTSIDE RECORDS SUMMARY | 2024-06-05 11:58 | XMS_ITS | Encounter Summary ---
Author Organization [facility] Address [address] Attn: [place] [address] Care Team Providers Care Director Of Emergency Nursing Name Role Phone Unavailable Primary Care Provider Unavailabl e Encounter Details Date Type Department Care Team (Late st Contact Info) Description 10/09/2007 Outpatient Historical Trang Doyle NP NO ADDRESS ON FILE Nonspecific Abnormal Papanicolaou Smear of Other Site Social History Tobacco Use Types Packs/Day Years Used Date Smoking Tobacco: Never Alcohol Use Standard Drinks/Week Comments No 0 (1 standard drink = 0.6 oz pur e alcohol) Comments No Sex and Gender Information Value Date Recorded Sex Assigned at Not on file Legal Sex Female 5:03 AM E MARKETING SPECIALIST Gender Identity Not on file Sexual Orientation Not on file documented as of this encounter Plan of Treatment Not on file documented as of this encounter Procedures Procedure Name Priority Date/Time Associated Diagnosis Comments PATHOLOGY Routine 10/09/2007 5:23 PM CDT documented in this encounter Results * PATHOLOGY (10/09/2007 5:23 PM CDT) PATHOLOGY/CY TOLOGY REPORT [facility] [address] [facility] [address] Patient: KATHY CAMARGO Accn No: [id number] Collected: 10/09/2007 5:23:00 PM CYTOLOGY SUPERVISOR PRE WAVE FINAL REPORT - - SHAKE MAKER PAP History Specimen Source: None Provided LMP: None Provided Last Pap Date: None Provided Specimen Adequacy Satisfactory for interpretation. The smear shows sufficient numbers of endocervical or metaplastic cells. Diagnosis NEGATIVE FOR INTRAEPITHELIAL LESION OR MALIGNANCY. (Previously noted as Within Normal Limits) [place] Machine Feeder CINDY 10/10/07 Completed by: SANDI STEELE BSCT(ASCP) (Electronically signed by) 10/10/07 Comment Routine follow-up is suggested. Important Info About Pap Smears HPV Testing off the Thin Prep vial can be done as a means of further evaluating a Thin Prep Report. For information about ordering the HPV test, phone Cytology at . Treatment or follow-up recommendations (if any) that are considered within this report are based upon general recommendations as contained in 2001 Consensus Guidelines For Cervical Cytological Abnormalities DONNA: May 29, 2001, and are provided as a general guideline rather than as a specific recommendation. Final decisions about the most appropriate treatment and follow-up should be made on an individualized basis by the treating physician in consultation with his/her patient. INTERFACE SYSTEM 10/09/2007 5:23 PM CDT Trang Doyle NP PATHOLOGY/CYTOLOGY ORDERABLES Fi nal Result INTERFACE SYSTEM Refer to clinic/hospital department documented in this encounter Visit Diagnoses Diagnosis Abnormal Papanicolaou smear of vagina and vaginal HPV documented in this encounter
--- OUTSIDE RECORDS SUMMARY | 2024-06-05 11:58 | XMS_ITS | Clinical Summary ---
Author Organization [facility] Address [address] [facility] Attn: [place] [address] Care Team Providers Care Shot Blast Equipment Operator Name Role Phone Unavailable Primary Care Provider Unavailabl e Allergies Active Allergy Reactions Criticality Noted Date Comments Codeine Nausea and Vomiting Low 06/28/2007 Latex Rash Low 06/05/2007 Medications dulaglutide (Trulicity) 0.75 mg/0.5 mL injection INJECT .75 MG SUB Q WEEKLY 09/02/2019 Active Saccharomyces boulardii (FLORASTOR) 250 mg Capsule Take 250 mg by mouth. 08/23/2018 Active dexlansoprazole (DEXILANT) 30 mg capsule Take 30 mg by mouth daily. 08/23/2018 Active glucosamine-cho ndroitin (ARTHX DS) 500-400 mg Capsule Take 1 Capsule by mouth. 08/23/2018 Active meloxicam (MOBIC) 7.5 mg tablet Take 7.5 mg by mouth daily. 08/23/2018 Active olmesartan (Benicar) 5 mg tablet Take 10 mg by mouth daily. Active Active Problems Problem Noted Date Diagnosed Date Diabetes mellitus 08/25/2008 Family History Medical History Relation Name Comments Diabetes Brother Rhett Hypertension Father Bobby Silva (Bill) Breast Cancer Neg Hx Cancer Neg Hx Ovarian Cancer Neg Hx Relation Name Status Comments Brother Rhett Father Bobby Silva (Bill) Alive Maternal Grandfather Maternal Grandmother Mother Alive Paternal Grandfather Paternal Grandmother Social History Tobacco Use Types Packs/Day Years Used Date Smoking Tobacco: Never Alcohol Use Standard Drinks/Week Comments No 0 (1 standard drink = 0.6 oz pur e alcohol) Comments No Sex and Gender Information Value Date Recorded Sex Assigned at Not on file Legal Sex Female 7:29 AM AUDITOR MEDICAL CLAIMS Gender Identity Not on file Sexual Orientation Not on file Last Filed Vital Signs Vital Sign Reading Time Taken Comments Blood Pressure 120/66 01/10/2021 11:04 AM AUDITOR MEDICAL CLAIMS Pulse - - Temperature - - Respiratory Rate - - Oxygen Saturation - - Inhaled Oxygen Concentration - - Weight 104.4 kg (230 lb 3.2 oz) 021 11:04 AM AUDITOR MEDICAL CLAIMS Height 167.6 cm (5' 6 ) 01/10/2021 11:0 4 AM AUDITOR MEDICAL CLAIMS Body Mass Index 37.16 01/10/2021 11:04 AM AUDITOR MEDICAL CLAIMS Plan of Treatment Health Maintenance Due Date Last Done Comments DIABETES ANNUAL FOOT EXAM 1980 DIABETES ANNUAL RETINAL EXAM 1980 DIABETES HBA1C Q 6 MONTHS 1980 DIABETES MICROALBUMIN ANNUAL SCREEN 1980 LDL CHOLESTEROL ANNUAL 1980 DTAP/TDAP/TD VACCINES (1 - Tdap) 1981 BREAST CANCER SCREENING 2002 COLORECTAL SCREENING 09/11/2007 FIT/FOBT Q 1 year 09/11/2007 Flex Sig/CT Colonography Q 5 years 09/11/2007 ZOSTER VACCINE (1 of 2) 2012 Colorectal Cancer Screening 09/09/2021 FIT-DNA Q 3 years 09/09/2021 09/09/2018 INFLUENZA VACCINE (#1) 2023 RSV VACCINE (60+ or ) (1 - 1-dose 75+ series) 2037 Procedures Procedure Name Priority Date/Time Associated Diagnosis Comments COLON CANCER SCREEN, STOOL DNA Routine 09/09/2018 1:15 PM CDT from Last 3 Months or Most Recently Relevant to Health Maintenance Results * COLON CANCER SCREEN, STOOL DNA (09/09/2018 1:15 PM CDT) COLOGUARD RESULT Negative Not Applicable 09/19/2018 12:47 PM CDT [facility] Comment: A negative result indicates a low [...] screened with both Cologuard and colonoscopy. (Eros Sanchez et al, N Engl J Med 2014;370(14):7087-7888) COLOGUARD RE-SCREENING RECOMMENDATION: Periodic routine colorectal cancer screening is an important part of preventive healthcare for asymptomatic persons at average risk for colorectal cancer. Following a negative Cologuard result, the [place] Cancer Society and U.S. Multi-Society Task Force screening guidelines recommend a Cologuard re-screening interval of 3 years. References: [place] Cancer Society (ACS). Colorectal cancer prevention and early detection. [place], [place]: [place] Cancer Society; [updated 2015May 29]. https://www.cancer.org/cancer/wjdhg-wubgca-tiehhj/aukzofsth-scfmlgrsd-swzqvco/ac s-rec ommendations.html. Accessed October 05, 2017; David DK, Adam MARTINEZ, Mariana RayK, Colorectal Cancer Screening: Recommendations for Physicians and Patients from the U.S. Multi-Society Task Force on Colorectal Cancer Screening, Am J Gastroenterology 2017; 112:5352-5642. Test Type: Composite algorithmic analysis of stool [...] can be accessed at the following location: www.[employer]/results. Additional description of the Cologuard test process, warnings and precautions can be found at www.cologuardtest.com. Rx Only. Stool STOOL SPECIMEN / Unknown 09/09/2018 1:15 PM CDT 09/11/2018 1:25 AM CDT Stephanie Villalobos NP BODY FLUIDS AND STOOLS Final Result [facility] CLIA # [id number] [address] [facility] [facility], [address] [place] [address] from Last 3 Months or Most Recently Relevant to Health Maintenance Insurance [facility]
--- OUTSIDE RECORDS SUMMARY | 2024-06-05 11:58 | XMS_ITS | Encounter Summary ---
Author Organization [facility] Address [address] [place] [address] Care Team Providers Care Roller Man Name Role Phone Unavailable Primary Care Provider Unavailabl e Encounter Details Date Type Department Care Team (Latest Contact Info) Description 01/11/2006 Outpatient Historical [facility] [address] [place] [address] Chiquita Lynne MD [address] [facility] [place] [address] ASCUS Favor Benign (Primary Dx); Abnormal Glandular Papanicolaou Smear of Cervix Social History Tobacco Use Types Packs/Day Years Used Date Smoking Tobacco: Never Assessed Comments Unknown Sex and Gender Information Value Date Recorded Sex Assigned at Not on file Legal Sex Female 5:03 AM LOOM CLEANER Gender Identity Not on file Sexual Orientation Not on file documented as of this encounter Plan of Treatment Not on file documented as of this encounter Visit Diagnoses Diagnosis Papanicolaou smear of cervix with atypical squamous cells of undetermined significance (ASC-US)- Primary Abnormal glandular Papanicolaou smear of cervix documented in this encounter
--- OUTSIDE RECORDS SUMMARY | 2024-06-05 11:58 | XMS_ITS | Encounter Summary ---
Author Organization [facility] Address [address] [place] [address] Care Team Providers Care Note Taker Name Role Phone Unavailable Primary Care Provider Unavailabl e Encounter Details Date Type Department Care Team (Latest Contact Info) Description 01/11/2006 Outpatient Historical [facility] [address] [place] [address] [place] [address] Chiquita Lynne MD [address] [facility] [facility] [address] [place] [address] Abnormal Glandular Papanicolaou Smear of Cervix (Primary Dx) Social History Tobacco Use Types Packs/Day Years Used Date Smoking Tobacco: Never Assessed Comments Unknown Sex and Gender Information Value Date Recorded Sex Assigned at Not on file Legal Sex Female 5:03 AM FIGURE MODEL Gender Identity Not on file Sexual Orientation Not on file documented as of this encounter Plan of Treatment Not on file documented as of this encounter Visit Diagnoses Diagnosis Abnormal glandular Papanicolaou smear of cervix- Primary documented in this encounter
--- OUTSIDE RECORDS SUMMARY | 2024-06-05 11:58 | XMS_ITS | Encounter Summary ---
Author Organization [facility] Address [address] [place] [address] Care Team Providers Care Code And Test Clerk Name Role Phone Unavailable Primary Care Provider Unavailabl e Encounter Details Date Type Department Care Team (Late st Contact Info) Description 08/14/2006 Outpatient Historical [facility] [place] [address] [facility] [address] [place] [address] Marylin Arguelles MD NO ADDRESS ON FILE Other Sign and Symptom in Breast (Primary Dx) Social History Tobacco Use Types Packs/Day Years Used Date Smoking Tobacco: Never Assessed Comments Unknown Sex and Gender Information Value Date Recorded Sex Assigned at Not on file Legal Sex Female 5:03 AM BLACK LEATHER BUFFER Gender Identity Not on file Sexual Orientation Not on file documented as of this encounter Plan of Treatment Not on file documented as of this encounter Visit Diagnoses Diagnosis Other sign and symptom in breast- Primary documented in this encounter
--- OUTSIDE RECORDS SUMMARY | 2024-06-05 11:58 | XMS_ITS | Encounter Summary ---
Author Organization [facility] Address [address] [place] [address] Care Team Providers Care Composition Tile Layer Name Role Phone Unavailable Primary Care Provider Unavailabl e Encounter Details Date Type Department Care Team (Late st Contact Info) Description 07/02/2007 Outpatient Historical [facility] Chiquita Lynne MD [address] [facility] [place] [address] Mild Dysplasia of Cervix Social History Tobacco Use Types Packs/Day Years Used Date Smoking Tobacco: Never Alcohol Use Standard Drinks/Week Comments No 0 (1 standard drink = 0.6 oz pur e alcohol) Comments No Sex and Gender Information Value Date Recorded Sex Assigned at Not on file Legal Sex Female 5:03 AM HOG FEEDER Gender Identity Not on file Sexual Orientation Not on file documented as of this encounter Plan of Treatment Not on file documented as of this encounter Procedures Procedure Name Priority Date/Time Associated Diagnosis Comments PATHOLOGY Routine 07/02/2007 9:20 AM CDT documented in this encounter Results * PATHOLOGY (07/02/2007 9:20 AM CDT) PATHOLOGY/CYT OLOGY REPORT [facility] Anatomic Pathology Dept [address] [facility] [address] Patient: KATHY CAMARGO Accn No: [id number] Collected: 07/02/2007 9:20:00 AM SURGICAL PATHOLOGY FINAL REPORT Diagnosis A. Uterus, endocervix, curettings - endocervix with squamous metaplasia. / B. Uterus, cervix, 12 o'clock, biopsy - mild dysplasia (MISTY I/LSIL). Yamilet Huitron M.D. (Electronicall y signed by) Verified: 07/04/07 BETSY/HYUN Pathologist Comment The dysplastic cells seen on [id number] are represented in the current material. Clinical Information LMP 06/27/07. Pap 06/05/07 showed MISTY-I. The patient is not on hormones. Specimen Source AEndocervix BCervix, 12 O'CLOCK Microscopic Description Microscopic examination was performed. Gross Description Part A. Submitted in a container of formalin labelled Camargo - ECC is an aggregate of pinkish-gan soft tissue measuring 0.6 x 0.5 x 0.1 cm. The specimen is submitted entirely in A1. Part B. Submitted in a container of formalin labelled Camargo - 12 is a grayish-white soft tissue fragment measuring 0.4 x 0.4 x 0.2 cm. The specimen is submitted entirely in B1. DLS/WLS INTERFACE SYSTEM 07/02/2007 9:20 AM CDT us Chiquita Lynne MD PATHOLOGY/CYTOLOGY ORDERAB LES Final Result INTERFACE SYSTEM Refer to clinic/hospital department documented in this encounter Visit Diagnoses Diagnosis Mild dysplasia of cervix documented in this encounter
--- OUTSIDE RECORDS SUMMARY | 2024-06-05 11:58 | XMS_ITS | Encounter Summary ---
Author Organization [facility] Address [address] [place] [address] Care Team Providers Care Stock Crane Operator Name Role Phone Unavailable Primary Care Provider Unavailabl e Encounter Details Date Type Department Care Team (Late st Contact Info) Description 2006 Outpatient Historical [facility]BGYN-[place] [address] [facility] [address] [place] [address] Chiquita Lynne MD [address] [facility] [place] [address] LGSIL on Pap Smear (Primary Dx) Social History Tobacco Use Types Packs/Day Years Used Date Smoking Tobacco: Never Assessed Comments Unknown Sex and Gender Information Value Date Recorded Sex Assigned at Not on file Legal Sex Female 5:03 AM GLOBAL SALES EXECUTIVE Gender Identity Not on file Sexual Orientation Not on file documented as of this encounter Plan of Treatment Not on file documented as of this encounter Visit Diagnoses Diagnosis Papanicolaou smear of cervix with low grade squamous intraepithelial lesion (LGSIL)- Primary documented in this encounter
--- OUTSIDE RECORDS SUMMARY | 2024-06-05 11:58 | XMS_ITS | Encounter Summary ---
Author Organization [facility] Address [address] [place] [address] Care Team Providers Care Sales Marketing Director Name Role Phone Unavailable Primary Care Provider Unavailabl e Encounter Details Date Type Department Care Team (Latest Contact Info) Description 01/23/2006 Outpatient Historical [facility] PreAdmission Center [address] [place] [address] Chiquita Lynne MD [address] [facility] [place] [address] Pre-Operative Cardiovascular Examination (Primary Dx) Social History Tobacco Use Types Packs/Day Years Used Date Smoking Tobacco: Never Assessed Comments Unknown Sex and Gender Information Value Date Recorded Sex Assigned at Not on file Legal Sex Female 5:03 AM ARTIST AND REPERTOIRE MANAGER Gender Identity Not on file Sexual Orientation Not on file documented as of this encounter Plan of Treatment Not on file documented as of this encounter Procedures Procedure Name Priority Date/Time Associated Diagnosis Comments CBC WITH DIFFERENTIAL Routine 01/23/2006 11:30 AM ARTIST AND REPERTOIRE MANAGER HCG QUANTITATIVE, BLOOD Routine 01/23/2006 11:30 AM ARTIST AND REPERTOIRE MANAGER COMPREHENSIVE METABOLIC PANEL Routine 01/23/2006 11:30 AM ARTIST AND REPERTOIRE MANAGER documented in this encounter Results * HCG QUANTITATIVE, BLOOD (01/23/2006 11:30 AM ARTIST AND REPERTOIRE MANAGER) CHORIONIC GONADOTROPIN, TOTAL <2.0 0.0 - 10.0 mlU/ML INTERFACE SYSTEM Comment: Total HCG levels between 10 mIU/mL and 25 mIU/mL may be indicative of early but need to be correlated with other clinical findings. HCG ranges during normal , as reported by the putaway driver, are summarized as follows: Gestational Age Expected hCG Values (mIU/ml) 0.2-1 Weeks 5 - 50 1-2 Weeks 50 - 500 2-3 Weeks 100 - 5,000 3-4 Weeks 1,000 - 50,000 5-6 Weeks 10,000 - 100,000 6-8 Weeks 15,000 - 200,000 2-3 Months 10,000 - 100,000 01/23/2006 11:3 0 AM ARTIST AND REPERTOIRE MANAGER Chiquita Lynne MD CHEMISTRY ORDERABLES Final Result INTERFACE SYSTEM Refer to clinic/hospital department * (ABNORMAL) COMPREHENSIVE METABOLIC PANEL (01/23/2006 11:30 AM ARTIST AND REPERTOIRE MANAGER) GLUCOSE 122(H) 70 - 110 mg/dL INTERFACE SYSTEM BUN 11 7 - 17 mg/dL INTERFACE SYSTEM CREATININE 0.6(L) 0.7 - 1.2 mg/dL INTERFACE SYSTEM SODIUM 138 136 - 145 mEq/L INTERFACE SYSTEM POTASSIUM 4.1 3.5 - 5.0 mEq/L INTERFACE SYSTEM CHLORIDE 107 95 - 110 mEq/L INTERFACE SYSTEM CO2 28 22 - 32 mmol/l INTERFACE SYSTEM ANION GAP 7(L) 9 - 20 mEq/L INTERFACE SYSTEM OSMOLALITY, CALCULATED 285 275 - 295 mOsm/Kg INTERFACE SYSTEM CALCIUM 9.1 8.4 - 10.5 mg/dL INTERFACE SYSTEM TOTAL PROTEIN 6.9 6.3 - 8.2 g/dL INTERFACE SYSTEM ALBUMIN 4.0 3.5 - 5.0 g/dL INTERFACE SYSTEM GLOBULIN (CALC) 2.9 2.4 - 3.9 g/dL INTERFACE SYSTEM ALBUMIN/GLOBULIN RATIO 1.4 1.0 - 2.3 INTERFACE SYSTEM ALKALINE PHOSPHATASE 72 25 - 100 U/L INTERFACE SYSTEM AST 14 8 - 33 U/L INTERFACE SYSTEM ALT 13 4 - 36 IU/L INTERFACE SYSTEM BILIRUBIN TOTAL 0.2(L) 0.3 - 1.2 mg/dL INTERFACE SYSTEM 01/23/2006 11:3 0 AM ARTIST AND REPERTOIRE MANAGER Chiquita Lynne MD CHEMISTRY ORDERABLES Final Result INTERFACE SYSTEM Refer to clinic/hospital department * CBC WITH DIFFERENTIAL (01/23/2006 11:30 AM ARTIST AND REPERTOIRE MANAGER) WBC 6.3 4.5 - 11.0 K/ul INTERFACE SYSTEM RBC 4.48 4.20 - 5.40 Mil/ul INTERFACE SYSTEM HEMOGLOBIN 12.6 12.0 - 16.0 g/dL INTERFACE SYSTEM HEMATOCRIT 38.6 36.0 - 46.0 % INTERFACE SYSTEM MCV 86.2 84.0 - 103.0 Fl INTERFACE SYSTEM MCH 28.1 27.0 - 34.0 pg INTERFACE SYSTEM MCHC 32.6 30.0 - 35.0 g/dL INTERFACE SYSTEM RDW 13.4 11.0 - 14.5 % INTERFACE SYSTEM PLATELETS 227 140 - 440 K/ul INTERFACE SYSTEM MPV 10.3 8.9 - 12.8 Fl INTERFACE SYSTEM NEUTROPHILS 58.0 42.2 - 75.2 % INTERFACE SYSTEM LYMPHOCYTES 30.1 24.0 - 44.0 % INTERFACE SYSTEM MONOCYTES 8.7 2.0 - 10.0 % INTERFACE SYSTEM EOSINOPHILS 2.7 0.0 - 7.0 % INTERFACE SYSTEM BASOPHILS 0.5 0.0 - 1.0 % INTERFACE SYSTEM NEUTROPHIL ABSOLUTE 3.7 2.0 - 8.0 K/uL INTERFACE SYSTEM LYMPHOCYTE ABSOLUTE 1.9 1.2 - 4.0 K/ul INTERFACE SYSTEM MONOCYTE ABSOLUTE 0.6 0.1 - 0.6 K/ul INTERFACE SYSTEM EOSINOPHIL ABSOLUTE 0.2 0.0 - 0.7 K/ul INTERFACE SYSTEM BASOPHILS ABSOLUTE 0.0 0.0 - 0.2 K/ul INTERFACE SYSTEM 01/23/2006 11:3 0 AM ARTIST AND REPERTOIRE MANAGER Chiquita Lynne MD HEMATOLOGY ORDERABLES Amy l Result INTERFACE SYSTEM Refer to clinic/hospital department documented in this encounter Visit Diagnoses Diagnosis Pre-operative cardiovascular examination- Primary documented in this encounter
--- OUTSIDE RECORDS SUMMARY | 2024-06-05 11:58 | XMS_ITS | Patient Health Record ---
Author Organization [facility] Address [address] [place] [address] Support Name Relationship Address Phone Noelle Sood Emergency Contact [phone] [place] Child [id number] Kathy Sood Guarantor Unknown [phone] Reason For Referral No Information Medications Medication SIG (Take, Route, Frequency, Duration) Notes Start Date End Date Status Atorvastatin Calcium *please rev iew for potential update for e-prescription and drug interaction check* Active Januvia *please review f or potential update for e-prescription and drug interaction check* Active Vit D-Vit E-Safflower Oil *please review for potential update for e-prescription and drug interaction check* Active Glucosamine *please review f or potential update for e-prescription and drug interaction check* Active Meloxicam *please review f or potential update for e-prescription and drug interaction check* Active metFORMIN HCl *please review f or potential update for e-prescription and drug interaction check* Active Doxycycline Hyclate 100 MG 1 capsule Orally every 12 hrs for 10 days 02/11/2017 Active Sudafed 30 MG 1 tablet as needed Orally every 6 hrs for 5 days 02/11/2017 Active Plan Of Treatment No Information Medical (General) History Medical History History ICD Code T2DM arthritis
--- OUTSIDE RECORDS SUMMARY | 2024-06-05 11:58 | XMS_ITS | Encounter Summary ---
Author Organization [facility] Address [address] [place] [address] Care Team Providers Care Commercial Lines Account Manager Name Role Phone Unavailable Primary Care Provider Unavailabl e Encounter Details Date Type Department Care Team (Latest Contact Info) Description 01/25/2006 Outpatient Historical [facility] Operating Room [address] [place] [address] Chiquita Lynne MD [address] [facility] [place] [address] Mild Dysplasia of Cervix (Primary Dx) Social History Tobacco Use Types Packs/Day Years Used Date Smoking Tobacco: Never Assessed Comments Unknown Sex and Gender Information Value Date Recorded Sex Assigned at Not on file Legal Sex Female 5:03 AM AUTOMOTIVE GENERAL SALES MANAGER Gender Identity Not on file Sexual Orientation Not on file documented as of this encounter Plan of Treatment Not on file documented as of this encounter Visit Diagnoses Diagnosis Mild dysplasia of cervix- Primary documented in this encounter
--- OUTSIDE RECORDS SUMMARY | 2024-06-05 11:58 | XMS_ITS | Encounter Summary ---
Author Organization [facility] Address [address] [place] [address] Care Team Providers Care Editor Producer Name Role Phone Unavailable Primary Care Provider Unavailabl e Encounter Details Date Type Department Care Team (Late st Contact Info) Description 09/02/[address] [facility] Orthopedics- [address] [place] [address] Sha Ghosh MD NO ADDRESS ON FILE Hip Pain Social History Tobacco Use Types Packs/Day Years Used Date Smoking Tobacco: Never Alcohol Use Standard Drinks/Week Comments No 0 (1 standard drink = 0.6 oz pur e alcohol) Comments No Sex and Gender Information Value Date Recorded Sex Assigned at Not on file Legal Sex Female 5:03 AM SHIFT PRODUCTION ASSOCIATE Gender Identity Not on file Sexual Orientation Not on file documented as of this encounter Plan of Treatment Not on file documented as of this encounter Results * XR PELVIS 1 OR 2 VW (09/02/2008 1:03 PM CDT) Anatomical Region Laterality Modality Pelvis Computed Radiogr aphy Narrative 09/04/2008 1:06 PM CDT AP pelvis and lateral of the right hip show a normal-appearing right hip joint. No deformity of the femoral head is noted. Joint space is well maintained. There is some irregularity of the bone cortex at the greater trochanter. Procedure Note Sha Ghosh MD - 09/06/2008 AP pelvis and lateral of the right hip show a normal-appearing right hipjoint. No deformity of the femoral head is noted. Joint space is wellmaintained. There is some irregularity of the bone cortex at the greatertrochanter. Sha Ghosh MD DIAGNOSTIC IMAGING ORDERABLE S Final Result documented in this encounter Visit Diagnoses Diagnosis Hip pain Pain in joint, pelvic region and thigh documented in this encounter
--- OUTSIDE RECORDS SUMMARY | 2024-06-05 11:58 | XMS_ITS | Encounter Summary ---
Author Organization [facility] Address [address] Jjn: [place] [address] Care Team Providers Care Ad Terminal Makeup Operator Name Role Phone Unavailable Primary Care Provider Unavailabl e Encounter Details Date Type Department Care Team (Late st Contact Info) Description 06/05/2007 Outpatient Historical Chiquita Lynne MD [address] [facility] [place] [address] Social History Tobacco Use Types Packs/Day Years Used Date Smoking Tobacco: Never Alcohol Use Standard Drinks/Week Comments No 0 (1 standard drink = 0.6 oz pur e alcohol) Comments No Sex and Gender Information Value Date Recorded Sex Assigned at Not on file Legal Sex Female 5:03 AM OPERATIONS CONSULTANT Gender Identity Not on file Sexual Orientation Not on file documented as of this encounter Plan of Treatment Not on file documented as of this encounter Procedures Procedure Name Priority Date/Time Associated Diagnosis Comments PATHOLOGY Routine 06/05/2007 6:28 AM CDT documented in this encounter Results * PATHOLOGY (06/05/2007 6:28 AM CDT) PATHOLOGY/CY TOLOGY REPORT [facility] Anatomic Pathology Dept [address] [facility] [address] Patient: KATHY CAMARGO Accn No: [id number] Collected: 06/05/2007 6:28:00 AM CYTOLOGY VP DATA FINAL REPORT - - LIQUOR MERCHANT PAP History Specimen Source: Endocervical/Cervic al LMP: None Provided Last Pap Date: None Provided V72.31 Specimen Adequacy Satisfactory for interpretation. The smear shows sufficient numbers of endocervical or metaplastic cells. Diagnosis EPITHELIAL CELL ABNORMALITIES. Low grade squamous intraepithelial lesion (MISTY I). Elevator Repairer MEKA MIJARES 06/07/07 Completed by: Nadia Munoz MD (Electronically signed by) 06/10/07 Additional Diagnosis Rare cells are suspicioius for HGSIL. Comment Colposcopy and/or biopsy as clinically indicated. See [email or web address] for rcommended follow-up. Important Info About Pap Smears HPV Testing [...] in consultation with his/her patient. INTERFACE SYSTEM 06/05/2007 6:28 AM CDT us Chiquita Lynne MD PATHOLOGY/CYTOLOGY ORDERAB LES Final Result INTERFACE SYSTEM Refer to clinic/hospital department documented in this encounter Visit Diagnoses Not on filedocumented in this encounter
--- OUTSIDE RECORDS SUMMARY | 2024-06-05 11:58 | XMS_ITS | Encounter Summary ---
Author Organization [facility] Address [address] [place] [address] Care Team Providers Care Combine Driver Name Role Phone Unavailable Primary Care Provider Unavailabl e Encounter Details Date Type Department Care Team (Late st Contact Info) Description 01/12/2006 Outpatient Historical [facility] WOM[facility] CTR 06 Chiquita Lynne MD [address] [facility] [address] [place] [address] Social History Tobacco Use Types Packs/Day Years Used Date Smoking Tobacco: Never Assessed Comments Unknown Sex and Gender Information Value Date Recorded Sex Assigned at Not on file Legal Sex Female 5:03 AM SOCIAL MEDIA DEVELOPER Gender Identity Not on file Sexual Orientation Not on file documented as of this encounter Plan of Treatment Not on file documented as of this encounter Visit Diagnoses Not on filedocumented in this encounter
--- OUTSIDE RECORDS SUMMARY | 2024-06-05 11:58 | XMS_ITS | Encounter Summary ---
Author Organization [facility] Address [address] [place] [address] Care Team Providers Care Petal Cutter Name Role Phone Unavailable Primary Care Provider Unavailabl e Encounter Details Date Type Department Care Team (Late st Contact Info) Description 01/30/2007 Outpatient Historical [facility] OBGYN-[address] [place] [address] Chiquita Lynne MD [address] [facility] [place] [address] Social History Tobacco Use Types Packs/Day Years Used Date Smoking Tobacco: Never Assessed Comments Unknown Sex and Gender Information Value Date Recorded Sex Assigned at Not on file Legal Sex Female 5:03 AM NUCLEAR MEDICAL TECHNOLOGIST Gender Identity Not on file Sexual Orientation Not on file documented as of this encounter Plan of Treatment Not on file documented as of this encounter Visit Diagnoses Not on filedocumented in this encounter
--- OUTSIDE RECORDS SUMMARY | 2024-06-05 11:58 | XMS_ITS | Encounter Summary ---
Author Organization [facility] Address [address] [place] [address] Care Team Providers Care Silversmith Apprentice Name Role Phone Unavailable Primary Care Provider Unavailabl e Encounter Details Date Type Department Care Team (Late st Contact Info) Description 01/30/2007 Outpatient Historical [facility] OBGYN-[address] [place] [address] Chiquita Lynne MD [address] [facility] [place] [address] Social History Tobacco Use Types Packs/Day Years Used Date Smoking Tobacco: Never Assessed Comments Unknown Sex and Gender Information Value Date Recorded Sex Assigned at Not on file Legal Sex Female 5:03 AM MARINE SERVICE MANAGER Gender Identity Not on file Sexual Orientation Not on file documented as of this encounter Plan of Treatment Not on file documented as of this encounter Visit Diagnoses Not on filedocumented in this encounter
--- OUTSIDE RECORDS SUMMARY | 2024-06-05 11:58 | XMS_ITS | Encounter Summary ---
Author Organization [facility] Address [address] [place] [address] Care Team Providers Care Printing Estimator Name Role Phone Unavailable Primary Care Provider Unavailabl e Encounter Details Date Type Department Care Team (Late st Contact Info) Description 02/01/2007 Outpatient Historical [facility] [place] [address] [place] [address] Chiquita yLnne MD [address] [facility] [facility] [address] [place] [address] Social History Tobacco Use Types Packs/Day Years Used Date Smoking Tobacco: Never Assessed Comments Unknown Sex and Gender Information Value Date Recorded Sex Assigned at Not on file Legal Sex Female 5:03 AM PACKING FLOOR WORKER Gender Identity Not on file Sexual Orientation Not on file documented as of this encounter Plan of Treatment Not on file documented as of this encounter Visit Diagnoses Not on filedocumented in this encounter
--- OUTSIDE RECORDS SUMMARY | 2024-06-05 11:58 | XMS_ITS | Encounter Summary ---
Author Organization [facility] Address [address] [place] [address] Care Team Providers Care Oil Furnace Installer Name Role Phone Unavailable Primary Care Provider Unavailabl e Encounter Details Date Type Department Care Team (Late st Contact Info) Description 01/25/2006 Outpatient Historical [facility] OBGYN-[address] [place] [address] Chiquita Lynne MD [address] [facility] [place] [address] Dysplasia of Cervix, Unspecified (Primary Dx) Social History Tobacco Use Types Packs/Day Years Used Date Smoking Tobacco: Never Assessed Comments Unknown Sex and Gender Information Value Date Recorded Sex Assigned at Not on file Legal Sex Female 5:03 AM PROJECT LEADER Gender Identity Not on file Sexual Orientation Not on file documented as of this encounter Plan of Treatment Not on file documented as of this encounter Visit Diagnoses Diagnosis Dysplasia of cervix, unspecified- Primary documented in this encounter
--- OUTSIDE RECORDS SUMMARY | 2024-06-05 11:58 | XMS_ITS | Encounter Summary ---
Author Organization [facility] Address [address] [place] [address] Care Team Providers Care Outreach Director Name Role Phone Unavailable Primary Care Provider Unavailabl e Encounter Details Date Type Department Care Team (Late st Contact Info) Description 08/05/2007 Outpatient [facility] Breast Center [facility] [address] [place], [place] [id number] Chiquita Lynne MD [address] [facility], [facility] [address] [place] [address] Social History Tobacco Use Types Packs/Day Years Used Date Smoking Tobacco: Never Alcohol Use Standard Drinks/Week Comments No 0 (1 standard drink = 0.6 oz pur e alcohol) Comments No Sex and Gender Information Value Date Recorded Sex Assigned at Not on file Legal Sex Female 5:03 AM BIOLOGICAL LAB TECHNICIAN Gender Identity Not on file Sexual Orientation Not on file documented as of this encounter Plan of Treatment Not on file documented as of this encounter Visit Diagnoses Not on filedocumented in this encounter
--- OUTSIDE RECORDS SUMMARY | 2024-06-05 11:58 | XMS_ITS | Encounter Summary ---
Author Organization [facility] Address [address] [place] [address] Care Team Providers Care Byproducts Operator Name Role Phone Unavailable Primary Care Provider Unavailabl e Encounter Details Date Type Department Care Team (Latest Contact Info) Description 12/21/2006 Outpatient Historical [facility] [address] [place] [address] Trang Doyle, RESEARCH DIETITIAN NO ADDRESS ON FILE LGSIL on Pap Smear (Primary Dx) Social History Tobacco Use Types Packs/Day Years Used Date Smoking Tobacco: Never Assessed Comments Unknown Sex and Gender Information Value Date Recorded Sex Assigned at Not on file Legal Sex Female 5:03 AM SPECIALIST EMPLOYEE LABOR RELATIONS Gender Identity Not on file Sexual Orientation Not on file documented as of this encounter Plan of Treatment Not on file documented as of this encounter Visit Diagnoses Diagnosis Papanicolaou smear of cervix with low grade squamous intraepithelial lesion (LGSIL)- Primary documented in this encounter
--- OUTSIDE RECORDS SUMMARY | 2024-06-05 11:58 | XMS_ITS | Encounter Summary ---
Author Organization [facility] Address [address] [place] [address] Care Team Providers Care Pipe And Test Supervisor Name Role Phone Unavailable Primary Care Provider Unavailabl e Encounter Details Date Type Department Care Team (Late st Contact Info) Description 02/09/2006 Outpatient Historical [facility] [address] [facility] [address] [place] [address] Chiquita Lynne MD [address] [facility] [place] [address] Follow-Up Examination, Following Unspecified Surgery (Primary Dx); Dysplasia of Cervix, Unspecified Social History Tobacco Use Types Packs/Day Years Used Date Smoking Tobacco: Never Assessed Comments Unknown Sex and Gender Information Value Date Recorded Sex Assigned at Not on file Legal Sex Female 5:03 AM CLINICAL RESEARCH PHYSICIAN Gender Identity Not on file Sexual Orientation Not on file documented as of this encounter Plan of Treatment Not on file documented as of this encounter Visit Diagnoses Diagnosis Follow-up examination, following unspecified surgery- Primary Dysplasia of cervix, unspecified documented in this encounter
--- OUTSIDE RECORDS SUMMARY | 2024-06-05 11:58 | XMS_ITS | Encounter Summary ---
Author Organization [facility] Address [address] [place] [address] Care Team Providers Care Process Specialist Name Role Phone Unavailable Primary Care Provider Unavailabl e Encounter Details Date Type Department Care Team (Latest Contact Info) Description 08/14/2006 Outpatient [facility] [address] [place], [place] [id number] Chiquita Lynne MD [address] [facility], [facility] [address] [place] [address] Other Abnormal Findings on Radiological Examination of Breast (Primary Dx) Social History Tobacco Use Types Packs/Day Years Used Date Smoking Tobacco: Never Assessed Comments Unknown Sex and Gender Information Value Date Recorded Sex Assigned at Not on file Legal Sex Female 5:03 AM PRODUCT TRAINER Gender Identity Not on file Sexual Orientation Not on file documented as of this encounter Plan of Treatment Not on file documented as of this encounter Visit Diagnoses Diagnosis Other (abnormal) findings on radiological examination of breast- Primary documented in this encounter
--- OUTSIDE RECORDS SUMMARY | 2024-06-05 11:59 | XMS_ITS | Encounter Summary ---
Author Organization [facility] Address [address] [place] [address] Care Team Providers Care Theater Usher Name Role Phone Unavailable Primary Care Provider Unavailabl e Encounter Details Date Type Department Care Team (Late st Contact Info) Description 12/21/2006 Outpatient Historical [facility] Trang Doyle, HUMAN SERVICE WORKER NO ADDRESS ON FILE Social History Tobacco Use Types Packs/Day Years Used Date Smoking Tobacco: Never Assessed Comments Unknown Sex and Gender Information Value Date Recorded Sex Assigned at Not on file Legal Sex Female 5:03 AM BEHAVIORAL HEALTH TECH Gender Identity Not on file Sexual Orientation Not on file documented as of this encounter Plan of Treatment Not on file documented as of this encounter Visit Diagnoses Not on filedocumented in this encounter
[2024-06-05 15:13] LABS: Hematocrit 24.1 % (36-47)
[2024-06-05 16:39] LABS: Glucose Point of Care 226 mg/dL (70-110)
--- NOTE | 2024-06-05 16:48 | PC.NURSE ---
Dr. Castro verbally ordered patient to have a bolus due to low blood pressure. Dr. Castro gave orders at that time to hold bp medication. Notified Dr. Castro at 1107 of bp 130/[address] Castro did not want patient to have BP medications still at this time. Notified Dr. Castro at 1354 of Patients bp 107/65 and HR of 130. Dr. Castro gave verbal orders to order and H&H.
--- NOTE | 2024-06-05 16:53 | PC.NURSE ---
Dr. Castro gave verbal orders to pull hemovac drain and kinney catheter today.
--- NOTE | 2024-06-05 16:54 | PC.NURSE ---
Berger catheter pulled at 1600 as well as hemovac drain
[2024-06-05] MEDS: acetaminophen 325 mg Tablet 650 MG PO (19:47)
[2024-06-05 20:26] LABS: Glucose Point of Care 260 mg/dL (70-110)
[2024-06-05] MEDS: sodium chloride 0.9% 100 mL Bag 50 ML IV (21:10)
[2024-06-05] MEDS: carvedilol 3.125 mg Tablet PO (21:49)
[2024-06-06] VITALS (7 sets, daily range): BP systolic 119–143; BP diastolic 52–74; PULSE 99–117; RESP 16–21; TEMP 36.6–37.7; O2SAT 89–97; BMI 44.6
[2024-06-06 01:11] LABS: Hematocrit 25.7 % (36-47)
[2024-06-06] MEDS: HYDROcodone-acetaminophen 5-325 mg Tablet PO ×5 (04:26→21:41)
[2024-06-06 07:13] LABS: Glucose Point of Care 207 mg/dL (70-110)
--- NOTE | 2024-06-06 07:42 | P.PN_ITS ---
Subjective 2 Subjective: Patient is pain is improved today. Still needs assistance getting out of bed does not feel comfortable going home at this point yet. Vitals/I&O/Wt Last Vital Signs Temp 98.6 F 06/06/24 05:51 Pulse 101 H 06/06/24 05:51 Resp 19 H 06/06/24 05:51 BP 143/67 06/06/24 05:51 Pulse Ox 91 06/06/24 05:51 O2 Del Method Nasal Cannula 06/06/24 00:00 O2 Flow Rate 3 06/06/24 05:51 06/05/24 06/06/24 06/06/24 22:59 06:59 14:59 Intake Total 2735.5 / 2975.5 500 / 3475.5 Balance 2735.5 / 2975.5 500 / 3475.5 Weight last 48 hrs Weight 268 lb Weight 267 lb Weight 267 lb 1.6 oz Weight 262 lb 1.6 oz Weight 263 lb Physical Exam 2 Narrative: Shows weakness to dorsiflexion and left foot. Sensations intact. Urinary Catheter Management: Berger: Cath Placed During This Visit: yes Reason for Continuing Indwelling Catheter: Other Urinary Catheter Date of Insertion: 06/04/24 Urinary Catheter Time of Insertion: 11:30 Data 06/06/24 00:33 A&P Assessment and plan (1) Status post lumbar spinal fusion: Up with physical therapy PDMP PDMP Reviewed: Not Reviewed Attestations 2 Medical Necessity Statement*: Pain control Coding Level of Care Code Acute Code for Chg Fwd Diagnoses Status post lumbar spinal fusion Z98.1
[2024-06-06] MEDS: docusate sodium 100 mg Capsule PO ×2 (08:35→17:46)
[2024-06-06] MEDS: pantoprazole DR 40 mg Tablet PO (08:35)
[2024-06-06] MEDS: metformin 500 mg Tablet 1000 MG PO ×2 (08:35→17:46)
[2024-06-06] MEDS: gabapentin 100 mg Capsule 200 MG PO ×2 (08:35→17:46)
[2024-06-06] MEDS: losartan 50 mg Tablet PO (08:35)
[2024-06-06] MEDS: carvedilol 3.125 mg Tablet PO ×2 (08:36→17:46)
[2024-06-06] MEDS: hydroCHLOROthiazide 25 mg Tablet 12.5 MG PO (08:36)
[2024-06-06] MEDS: atorvastatin 40 mg Tablet 20 MG PO (08:39)
[2024-06-06] MEDS: pioglitazone 30 mg Tablet 45 MG PO (10:39)
[2024-06-06 10:42] LABS: Glucose Point of Care 284 mg/dL (70-110)
[2024-06-06 16:52] LABS: Glucose Point of Care 201 mg/dL (70-110)
[2024-06-06] MEDS: ketorolac 30 mg/mL INJ IVP (20:31)
[2024-06-06 20:38] LABS: Glucose Point of Care 260 mg/dL (70-110)
--- NOTE | 2024-06-07 00:07 | PC.NURSE ---
Charge nurse tried to assist patient to the commode to use the rest room, patient was having increased pain and was unable to get up out of the bed. The patient stated that they got up during the day 4 times with no issues. Nurse assessed patients dressing and it was saturated with blood. New dressing was applied and wound was cleaned with normal saline and 4x4 gauze. New [place] dressing applied. Dr. Castro was called and notifed of the change in the patient. Dr Castro stated change the dressing and I will see the patient tomorrow . Will continue to monitor the patients dressing and address pain levels.
[2024-06-07] MEDS: HYDROcodone-acetaminophen 5-325 mg Tablet PO ×2 (03:30→08:38)
[2024-06-07 04:11] VITALS: BP 107/56; PULSE 95; RESP 16; TEMP 36.7; O2SAT 98
[2024-06-07 06:19] LABS: Glucose Point of Care 174 mg/dL (70-110)
[2024-06-07 08:29] VITALS: BP 120/81; PULSE 86; RESP 16; TEMP 36.5; O2SAT 92
[2024-06-07] MEDS: pioglitazone 30 mg Tablet 45 MG PO (08:32)
[2024-06-07] MEDS: docusate sodium 100 mg Capsule PO ×2 (08:33→18:00)
[2024-06-07] MEDS: pantoprazole DR 40 mg Tablet PO (08:33)
[2024-06-07 08:34] VITALS: BP 120/81
[2024-06-07] MEDS: carvedilol 3.125 mg Tablet PO ×2 (08:34→18:00)
[2024-06-07] MEDS: losartan 50 mg Tablet PO (08:34)
[2024-06-07] MEDS: atorvastatin 40 mg Tablet 20 MG PO (08:35)
[2024-06-07] MEDS: hydroCHLOROthiazide 25 mg Tablet 12.5 MG PO (08:36)
[2024-06-07] MEDS: metformin 500 mg Tablet 1000 MG PO ×2 (08:37→18:00)
[2024-06-07] MEDS: gabapentin 100 mg Capsule 200 MG PO ×2 (08:39→18:00)
[2024-06-07 12:00] VITALS: BP 109/55; PULSE 112; RESP 14; TEMP 36.7; O2SAT 94
--- NOTE | 2024-06-07 12:25 | P.PN_ITS ---
Subjective 2 Subjective: Patient was in significant pain last night. Has some pain still this morning difficulty getting out of bed. Vitals/I&O/Wt Last Vital Signs Temp 98.0 F 06/07/24 12:00 Pulse 112 H 06/07/24 12:00 Resp 14 06/07/24 12:00 BP 109/55 06/07/24 12:00 Pulse Ox 94 06/07/24 12:00 O2 Del Method Room Air 06/07/24 12:00 O2 Flow Rate 3 06/06/24 05:51 06/06/24 06/07/24 06/07/24 22:59 06:59 14:59 Intake Total 240 / 600 120 / 120 Balance 240 / 600 120 / 120 Weight last 48 hrs Weight 267 lb 8 oz Weight 268 lb Physical Exam 2 Narrative: Sensation intact in lower extremities unable to dorsiflex her left ankle. Urinary Catheter Management: Berger: Cath Placed During This Visit: yes Reason for Continuing Indwelling Catheter: Other Urinary Catheter Date of Insertion: 06/04/24 Urinary Catheter Time of Insertion: 11:30 Data 06/06/24 00:33 A&P Assessment and plan (1) Status post lumbar spinal fusion: Postop day #3 lumbar fusion Up with physical therapy DC fluids Increased pain meds PDMP PDMP Reviewed: Not Reviewed Attestations 2 Medical Necessity Statement*: Pain control Coding Level of Care Code Acute Code for Chg Fwd Diagnoses Status post lumbar spinal fusion Z98.1
[2024-06-07 12:30] LABS: Hematocrit 27.3 % (36-47)
--- NOTE | 2024-06-07 13:30 | PC.NURSE ---
Follow up with Daughter Raina: Rec'd call from Alta Garduno. I went to follow up with the pt. The pt is sleeping soundly with no family present. I tried calling pt's daughter Raina at [phone]. I left a VM with the [facility] cell number or the option to call the direct hospital number and ask for [facility]. I also spoke with adelina Hearn, to follow up with the pt as well.
[2024-06-07] MEDS: HYDROcodone-acetaminophen 10-325 mg Tablet PO ×3 (14:38→22:51)
[2024-06-07 16:17] LABS: Glucose Point of Care 209 mg/dL (70-110)
[2024-06-07 16:26] LABS: Glucose Point of Care 233 mg/dL (70-110)
[2024-06-07 16:44] VITALS: BP 114/66; PULSE 123; RESP 15; TEMP 36.8; O2SAT 95
[2024-06-07 20:24] LABS: Glucose Point of Care 230 mg/dL (70-110)
[2024-06-07 20:59] VITALS: BP 99/64; PULSE 132; RESP 16; TEMP 37.3; O2SAT 93
[2024-06-08] VITALS (7 sets, daily range): BP systolic 100–146; BP diastolic 52–78; PULSE 92–106; RESP 16–20; TEMP 36.6–37.1; O2SAT 90–99
--- NOTE | 2024-06-08 00:07 | PC.NURSE ---
Patient used call light to have assistance to use the restroom. When this MARINE ENGINEERING TECHNICIANS asked the patient if she was going to use the bedside commode the patient stated I cant do that it hurts to bad. MARINE ENGINEERING TECHNICIANS then educated the patient on the importance of mobility after a surgery and patient insisted still on using bedpan Nurse Notified of the situation
[2024-06-08] MEDS: HYDROcodone-acetaminophen 10-325 mg Tablet PO ×5 (03:12→20:43)
[2024-06-08] MEDS: gabapentin 100 mg Capsule 200 MG PO ×2 (08:01→17:10)
[2024-06-08] MEDS: carvedilol 3.125 mg Tablet PO ×2 (08:01→17:10)
[2024-06-08] MEDS: docusate sodium 100 mg Capsule PO ×2 (08:01→17:10)
[2024-06-08] MEDS: metformin 500 mg Tablet 1000 MG PO ×2 (08:01→17:10)
[2024-06-08] MEDS: atorvastatin 40 mg Tablet 20 MG PO (08:01)
[2024-06-08] MEDS: pioglitazone 30 mg Tablet 45 MG PO (08:02)
[2024-06-08] MEDS: hydroCHLOROthiazide 25 mg Tablet 12.5 MG PO (08:02)
[2024-06-08] MEDS: losartan 50 mg Tablet PO (08:02)
[2024-06-08] MEDS: pantoprazole DR 40 mg Tablet PO (08:02)
[2024-06-08] MEDS: ketorolac 30 mg/mL INJ IVP (09:28)
[2024-06-08 11:48] LABS: Glucose Point of Care 220 mg/dL (70-110)
[2024-06-08 12:58] LABS: Hematocrit 29.8 % (36-47)
[2024-06-08 13:27] LABS: Glucose Point of Care 183 mg/dL (70-110)
[2024-06-08 16:48] LABS: Glucose Point of Care 205 mg/dL (70-110)
[2024-06-08] MEDS: methocarbamol 750 mg Tablet PO (17:10)
[2024-06-08 21:01] LABS: Glucose Point of Care 219 mg/dL (70-110)
[2024-06-09] VITALS (8 sets, daily range): BP systolic 108–134; BP diastolic 60–70; PULSE 69–109; RESP 16–20; TEMP 36.6–37.2; O2SAT 92–97
[2024-06-09] MEDS: HYDROcodone-acetaminophen 10-325 mg Tablet PO ×6 (00:57→22:12)
[2024-06-09 06:39] LABS: Glucose Point of Care 179 mg/dL (70-110)
[2024-06-09] MEDS: gabapentin 100 mg Capsule 200 MG PO (08:56)
[2024-06-09] MEDS: hydroCHLOROthiazide 25 mg Tablet 12.5 MG PO (08:56)
[2024-06-09] MEDS: losartan 50 mg Tablet PO (08:56)
[2024-06-09] MEDS: metformin 500 mg Tablet 1000 MG PO ×2 (08:56→18:09)
[2024-06-09] MEDS: docusate sodium 100 mg Capsule PO ×2 (08:56→18:09)
[2024-06-09] MEDS: carvedilol 3.125 mg Tablet PO ×2 (08:56→18:09)
[2024-06-09] MEDS: pantoprazole DR 40 mg Tablet PO (08:56)
[2024-06-09] MEDS: atorvastatin 40 mg Tablet 20 MG PO (08:57)
[2024-06-09] MEDS: pioglitazone 30 mg Tablet 45 MG PO (08:57)
--- NOTE | 2024-06-09 10:27 | P.PN_ITS ---
Subjective 2 Subjective: Patient is still working physical therapy still unable to get around as well as she would need to to go home. Will look into getting care home placement. Vitals/I&O/Wt Last Vital Signs Temp 98.6 F 06/09/24 08:00 Pulse 88 06/09/24 08:00 Resp 17 06/09/24 08:00 BP 130/69 06/09/24 08:56 Pulse Ox 95 06/09/24 08:00 O2 Del Method Room Air 06/09/24 08:00 O2 Flow Rate 3 06/06/24 05:51 06/08/24 06/09/24 06/09/24 22:59 06:59 14:59 Intake Total 120 / 240 120 / 120 Balance 120 / 240 120 / 120 Weight last 48 hrs Weight 267 lb 2 oz Weight 267 lb Physical Exam 2 Narrative: Patient still has dorsiflexion of the left ankle. Urinary Catheter Management: Berger: Cath Placed During This Visit: yes Reason for Continuing Indwelling Catheter: Other Urinary Catheter Date of Insertion: 06/04/24 Urinary Catheter Time of Insertion: 11:30 Data 06/08/24 12:52 A&P Assessment and plan (1) Status post lumbar spinal fusion: Up with therapy half-way placement Will increase Neurontin to 300 3 times daily PDMP PDMP Reviewed: Not Reviewed Attestations 2 Medical Necessity Statement*: Pain control Coding Level of Care Code Acute Code for Chg Fwd Diagnoses Status post lumbar spinal fusion Z98.1
[2024-06-09 10:29] LABS: Glucose Point of Care 272 mg/dL (70-110)
[2024-06-09] MEDS: gabapentin 300 mg Capsule PO ×2 (16:13→20:34)
[2024-06-09 16:33] LABS: Glucose Point of Care 190 mg/dL (70-110)
[2024-06-09] MEDS: methocarbamol 750 mg Tablet PO (18:08)
[2024-06-09 20:58] LABS: Glucose Point of Care 226 mg/dL (70-110)
[2024-06-10] VITALS (7 sets, daily range): BP systolic 98–178; BP diastolic 54–80; PULSE 78–119; RESP 17–24; TEMP 36.6–37.7; O2SAT 95–97
[2024-06-10] MEDS: HYDROcodone-acetaminophen 10-325 mg Tablet PO ×5 (02:24→20:46)
[2024-06-10] MEDS: methocarbamol 750 mg Tablet PO ×2 (02:24→16:32)
[2024-06-10 06:24] LABS: Glucose Point of Care 195 mg/dL (70-110)
[2024-06-10] MEDS: gabapentin 300 mg Capsule PO ×3 (08:02→20:46)
[2024-06-10] MEDS: pantoprazole DR 40 mg Tablet PO (08:02)
[2024-06-10] MEDS: losartan 50 mg Tablet PO (08:02)
[2024-06-10] MEDS: docusate sodium 100 mg Capsule PO ×2 (08:02→16:30)
[2024-06-10] MEDS: hydroCHLOROthiazide 25 mg Tablet 12.5 MG PO (08:02)
[2024-06-10] MEDS: carvedilol 3.125 mg Tablet PO ×2 (08:02→16:30)
[2024-06-10] MEDS: metformin 500 mg Tablet 1000 MG PO ×2 (08:02→16:30)
[2024-06-10] MEDS: pioglitazone 30 mg Tablet 45 MG PO (08:03)
[2024-06-10] MEDS: atorvastatin 40 mg Tablet 20 MG PO (08:03)
--- NOTE | 2024-06-10 10:20 | P.DS_ITS ---
Discharge Providers Date of Admission: 06/04/24 13:47 Date of Discharge: June 10, 2024 Attending Provider at Admission: Laurent Castro DO Attending Provider at Discharge: Laurent Castro DO Primary Care Provider: Candida Harris Diagnoses at Discharge Discharge Diagnosis (1) Status post lumbar spinal fusion: Status: Acute Reason for Visit Reason for Visit: K82.9 Physical Exam Narrative: Patient sitting up in chair. Still having foot drop on the left. Pain when sitting up. Urinary Catheter Management: Berger: Cath Placed During This Visit: yes Reason for Continuing Indwelling Catheter: Other Urinary Catheter Date of Insertion: 06/04/24 Urinary Catheter Time of Insertion: 11:30 Discharge Data Studies Completed and Pending Completed Studies During Hospitalization Category Date Time Status XR lumbar spine 2-3V* 03015 Routine Exams 06/04/24 00:00 Completed XR lumbar spine 2-3V* 16076 Routine Exams 06/04/24 18:54 Completed Radiology Impressions Lumbar Spine X-Ray 06/04/24 18:54 IMPRESSION: Posterior instrumented lumbosacral fusion without apparent complication. Laboratory Results Hgb 9.40 g/dL (11.27-16.99) L 06/08/24 12:52 Hct 29.8 % (36-47) L 06/08/24 12:52 POC Glucose 195 mg/dL (70-110) H 06/10/24 06:22 Blood Type A Negative 06/04/24 10:35 Rho(D) Type Rh negative 06/04/24 10:35 Antibody Screen Negative 06/04/24 10:35 Crossmatch See Detail 06/04/24 10:35 Vitals Last Vital Signs Temp 98.5 F 06/10/24 08:00 Pulse 111 H 06/10/24 08:00 Resp 24 H 06/10/24 08:00 BP 112/68 06/10/24 08:02 Pulse Ox 97 06/10/24 08:00 O2 Del Method Room Air 06/10/24 08:00 O2 Flow Rate 3 06/06/24 05:51 Discharge Plan Discharge Patient Disposition: Home Condition: Stable Prescriptions: New hydrocodone-acetaminophen 10-325 mg tablet 1 tab PO Q4H PRN (Reason: pain) 7 Days Qty: 42 0RF Continued omeprazole 40 mg capsule,delayed release(DR/EC) 40 mg PO DAILY gabapentin 100 mg capsule 200 mg PO BID glucosamine-chondroitin 900 mg tablet 1,500 mg PO DAILY Ozempic 1 mg/dose (4 mg/3 mL) pen injector 1 mg SUBCUT .WEEKLY metformin 1,000 mg tablet 1,000 mg PO BID pioglitazone [Actos] 45 mg tablet 45 mg PO DAILY glipizide 10 mg tablet 10 mg PO DAILY losartan-hydrochlorothiazide 50-12.5 mg tablet 1 tab PO DAILY carvedilol 3.125 mg tablet 3.125 mg PO BID Rx Instructions: must administer with a meal/food atorvastatin 20 mg tablet 20 mg PO DAILY cholecalciferol (vitamin D3) 1,250 mcg (50,000 unit) capsule 1,250 mcg PO .WEEKLY methocarbamol 750 mg tablet 750 mg PO Q8H PRN (Reason: pain) Qty: 45 0RF (DME) Bone Growth Stimulator See Rx Instructions .Route .MEDSUPPLY Qty: 1 0RF Rx Instructions: As directed Discontinued meloxicam 7.5 mg tablet 7.5 mg PO BID ibuprofen 800 mg tablet 800 mg PO Q8H PRN (Reason: pain) Qty: 45 0RF Discharge Orders: Discharge Order (Routine); Ordered 06/10/24 Ordered By: Laurent Castro Discharge Diet: Advance as tolerated Discharge Activity: Limit activity as instructed Patient Instructions: Acute Wound Care (DC), Opioid Safety, Post Anesthesia Care Activity Restrictions/Additional Instructions: Thank you for [facility] for your care! The following is a list of instructions, from your provider, to follow upon your discharge to ensure you have the optimal recovery from your recent injury orsurgery. Follow-up care is a russ part of your treatment and safety. Be sure to make and go to all appointments, and call your doctor if you are having problems. If you do not already have a follow-up appointment made, call Dr. Castro office in the next 1-3 days to make follow up appointment for 1 weeks at [phone]. It is also a good idea to know your test results and keep a list of the medicines you take. Medications will be prescribed for you at your provider's discretion. These medications are to be used as instructed; if they are taken more often that prescribed they will not be refilled early and in most cases will not be refilled at all. > When a refill is needed,you should contact ely dietrich 2-3 business days before your prescription runs out. Medications will NOT be refilled by immigration coordinator providers after hours! > Many pain medications contain Tylenol (Acetaminophen). Do not consume more than 4,000 mg of Tylenol per day in total with any combination ofmedications. > Pain medications can cause constipation. Please use an over the counter stool softener as directed, while taking pain medications. Consulty our local pharmacist with questions or recommendations on stool softeners. If constipation persists, contact our office or your primary care provider. > While under our care,you are not to receive pain medications or other controlled substances from any other provider unless our office is notified and approves. Any attempts to do so will result in refusal to prescribe any further pain medications and possible dismissal from our practice. ? Will change dressing in 1 week in the clinic. ? Showering is permitted, however we ask that you do not take a bath, sit in a whirlpool / Jacuzzi, or go swimming for 1 month. For only the first 2 days after surgery, lt wilt be necessary for you to cover your wound/dressing with plastic and tape to keep it dry. ? Walking is essential for the healing process after surgery. We would like you to slowly advance your walking. This should be done on relatively flat clear ground (inside or out) or can be done on a treadmill. Remember this goal does not have to happen all at once, slowly increase your distance and duration. This can be broken into more more than one walk per day as tolerated. Patients who walk as directed after surgery rarely require Physical Therapy. In the unlikely event this issue arises your provider will direct hospital staff to make the appropriate arrangements. ? No lifting over 5 pounds {a gallon of milk) or bending/twisting until further notice. Each of these activities places an unnecessary amount of stress onto the body and can impede the delicate healing process. > Instead of bending at the waist, keep your back straight and bend at the knees. > Instead of twisting your torso, keep your back straight and turn your entire body with your feet. ? You may sleep in any position which makes you comfortable. Many patients find comfort sleeping in a reclining chair. It is not abnormal to have difficulty sleeping for the first several weeks following your surgery. We recommend trying Benadry! or Tylenol PM as directed to help with your sleeping difficulties. Both medications are over the counter and available withoutprescription. ? NO SMOKING!!! Smoking dramatically increases the probability of developing postoperative wound infections. ? Common complaints after lumbar and/or thoracic spine surgery include, but are not limited to: numbness and/or tingling in the legs, pain around the incision and surrounding tissues, muscle spasms, or stiffness of the middle to low back. Contact our office if these symptoms persist or if an acute change occurs. ? No driving for the first 3-5days, and not while taking narcotics [] until seen at your follow-up appointment and cleared. There are no restrictions for riding on short trips, however if you take a longer trip, arrangements should be made to make regular stops to get out of the vehicle and stretch . ? Swelling is an unfortunate event that will take place with any surgery and is the primary source of your postoperative discomfort. While walking and regular approved activities helps control inflammation, there are additional steps you can take to minimizeswelling. > Place ice over the surgical site and surrounding tissue for twenty minutes, followed by applying a low/medium heat (heating pad) for an additional twenty minutes every 1-2 hours as needed for painrelief. > You may use of over the counter anti-inflammatory medications (Ibuprofen, Motrin, Aleve, Advil, etc) as directed on the package label. These types of medicines wm significantly reduce the amount of discomfort you experience after surgery from swelling. It should be noted that if you have and allergy to any of these medications, or a history of ulcers or kidney disease you should consult you primary care provider prior to starting these medications. Discharge Attestations Time Spent in Discharge Care*: less than 30 min Quality Metrics Clinical Quality Measures [ No reported AMI, CVA or VTE this stay] Coding Level of Care Code Acute Code for Chg Fwd Diagnoses Status post lumbar spinal fusion Z98.1
[2024-06-10 10:39] LABS: Glucose Point of Care 252 mg/dL (70-110)
[2024-06-10] MEDS: magnesium hydroxide 30 mL UDC PO (12:00)
[2024-06-10 16:32] LABS: Glucose Point of Care 292 mg/dL (70-110)
[2024-06-10 20:40] LABS: Glucose Point of Care 240 mg/dL (70-110)
--- NOTE | 2024-06-10 22:41 | PC.NURSE ---
Patient used call light and requested help using the bathroom. Patient stated that she was in too much pain to use the bedside commode and wanted to use the bedpan. This BELT MACHINE OPERATOR was informed by the charge nurse Rebekah Chaudhry that the patient should be ambulating to the bedside commode and should not use the bedpan. Patient was informed of this and educated on the importance of mobility and she agreed to get up. Patient used the bedside commode and returned to bed without incident.
[2024-06-11] MEDS: HYDROcodone-acetaminophen 10-325 mg Tablet PO ×3 (01:31→10:37)
[2024-06-11 04:00] VITALS: BP 130/63; PULSE 110; RESP 19; TEMP 37.4; O2SAT 98
--- NOTE | 2024-06-11 05:10 | PC.NURSE ---
Patient got up to use the bathroom at 2am and dressing looked good, and no complaints. At 5am patients dressing was saturated with bright red blood and saturating her sheets. The incision site looked good with one small spot bleeding at the bottom. was notified and updated on her being tachy overnight on telemetry and having a low grade fever with soft BP. no new orders at this time.
[2024-06-11 06:27] LABS: Glucose Point of Care 234 mg/dL (70-110)
[2024-06-11 07:08] VITALS: BP 152/82; PULSE 113; RESP 16; TEMP 37.8; O2SAT 97
[2024-06-11] MEDS: pioglitazone 30 mg Tablet 45 MG PO (08:51)
[2024-06-11 08:52] VITALS: BP 152/82
[2024-06-11] MEDS: atorvastatin 40 mg Tablet 20 MG PO (08:52)
[2024-06-11] MEDS: docusate sodium 100 mg Capsule PO (08:52)
[2024-06-11] MEDS: metformin 500 mg Tablet 1000 MG PO (08:52)
[2024-06-11] MEDS: magnesium hydroxide 30 mL UDC PO (08:52)
[2024-06-11] MEDS: carvedilol 3.125 mg Tablet PO (08:52)
[2024-06-11] MEDS: losartan 50 mg Tablet PO (08:52)
[2024-06-11] MEDS: pantoprazole DR 40 mg Tablet PO (08:53)
[2024-06-11] MEDS: gabapentin 300 mg Capsule PO (08:53)
[2024-06-11] MEDS: hydroCHLOROthiazide 25 mg Tablet 12.5 MG PO (08:53)
[2024-06-11 11:22] VITALS: BP 90/53; PULSE 117; RESP 16; TEMP 37.2; O2SAT 93
[2024-06-11 11:43] LABS: Glucose Point of Care 298 mg/dL (70-110)
--- NOTE | 2024-06-11 12:13 | PC.NURSE ---
Called [facility] and gave report to PRIMO Renae at 1214pm.
--- NOTE | 2024-06-11 12:51 | PC.NURSE ---
Discharge Note Patient discharged to [facility] via [facility] transport accompanied by [facility] ADMINISTRATOR. Discharge instructions reviewed with patient and/or sales representative printing paper. Mobile pharmacy medications and/or prescriptions provided. Belongings/home medications returned.
[2024-06-11 12:52] VITALS: BP 90/53; PULSE 117; RESP 16; TEMP 37.2; O2SAT 93
== END 2024-06-11 12:54 | disposition skilled nursing facility (03) | DRG 428 ==
LOC: MEDSURG 20:44
PROVIDERS: Admitting Provider Orthopaedic Surgery; PCP Nurse Practitioner Family; Visit Provider Orthopaedic Surgery
PROC: 0SG10AJ Fusion of 2 or more Lumbar Vertebral Joints with Interbody Fusion Device, Posterior Approach, Anterior Column, Open Approach (ICD-10-PCS; CPT 22612; principal; 2024-06-04 11:35)
PROC: 0SG10AJ Fusion of 2 or more Lumbar Vertebral Joints with Interbody Fusion Device, Posterior Approach, Anterior Column, Open Approach (ICD-10-PCS; 2024-06-04 11:35)
DX: M48.062 Spinal stenosis, lumbar region with neurogenic claudication (principal); M43.16 Spondylolisthesis, lumbar region; M21.372 Foot drop, left foot; I25.10 Atherosclerotic heart disease of native coronary artery without angina pectoris; I10 Essential (primary) hypertension; K21.9 Gastro-esophageal reflux disease without esophagitis; E11.9 Type 2 diabetes mellitus without complications; E78.5 Hyperlipidemia, unspecified; Z79.85 Long-term (current) use of injectable non-insulin antidiabetic drugs; Z79.84 Long term (current) use of oral hypoglycemic drugs; Z96.82 Presence of neurostimulator
CPT/HCPCS: 36415; 36416; 36430; 51702; 72100; 76000; 82962; 85014; 85018; 86850; 86900; 86920; 97110; 97116; 97162; 97530; C1713; C1762; C1781; J0131; J0690; J1171; J1644; J1885; J2270; J2405; J2704; J3010; J3370; J7030; J7120; J9999; P9016; P9045

== ENCOUNTER 2024-06-12 14:34 | Inpatient (IN) | payer BC, SELFPAY ==
[2024-06-12] VITALS (22 sets, daily range): BP systolic 85–136; BP diastolic 45–96; PULSE 83–117; RESP 16–29; TEMP 36.6–37.8; O2SAT 90–100; BMI 42.0; BMI 48.2
--- NOTE | 2024-06-12 14:56 | XR_ITS ---
WS: [id number] XR chest 1V portable [id number] REASON FOR EXAM: fever FINDINGS: The chest is unchanged compared to 08/06/2017. Mild tortuosity of the thoracic aorta and normal heart size. Calcified granulomatous disease bilaterally. No acute pulmonary parenchymal or pleural abnormality is identified. Moderate to significant degenerative spondylosis in the mid and lower thoracic spine. XR/XR chest 1V portable [id number] IMPRESSION: Stable chest without acute abnormality.
--- NOTE | 2024-06-12 15:05 | PC.PHAR ---
patient is from [facility]
[2024-06-12 15:12] LABS: Basophils % 0.5 %; Eosinophils % 0.1 %; Hematocrit 23.6 % (36-47); Lymphocytes # 0.4 10^3/uL (0.8-4.8); Lymphocytes % 4.5 %; Mean Corpuscular HGB Conc 32.2 g/dL (30-55); Mean Corpuscular Volume 90.1 fl (85-98); Mean Platelet Volume 10.8 fL (7.4-10.4); Monocytes # 0.3 10^3/uL (0.2-0.9); Monocytes % 3.9 %; Neutrophils # 7.24 10^3/uL (1.8-7.7); Neutrophils % 90.3 %; Nucleated Red Blood Cells % 0.2 %; Platelet Count 224 10^3/cmm (157-399); Red Blood Count 2.62 10^6/uL (3.85-5.65); Red Cell Distribution Width 13.3 % (12.1-15.1); White Blood Count 8.02 10^3/uL (3.29-11.43)
--- NOTE | 2024-06-12 15:12 | W.ED.WOUNDLC ---
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 Surgery was performed by Dr. Munson at this facility. Patient remained hospitalized post-operatively until yesterday, when they were transferred to [facility] rehabilitation facility. Patient reports bleeding from the surgical site. Patient has had dressing changes approximately three times at the rehabilitation facility today and was referred due to concern for amount of bleeding from incision.. Patient reports some back pain. Patient has a history of previous back surgery approximately 40 years ago, details unknown. Related Data Home Medications ?Medication ?Instructions ?Recorded ?Confirmed atorvastatin 20 mg tablet 20 mg PO DAILY 08/18/23 06/12/24 carvedilol 3.125 mg tablet 3.125 mg PO BID 08/18/23 06/12/24 cholecalciferol (vitamin D3) 1,250 1,250 mcg PO .WEEKLY 08/18/23 06/12/24 mcg (50,000 unit) capsule glipizide 10 mg tablet 10 mg PO DAILY 08/18/23 06/12/24 losartan 50 mg-hydrochlorothiazide 1 tab PO DAILY 08/18/23 06/12/24 12.5 mg tablet metformin 1,000 mg tablet 1,000 mg PO BID 08/18/23 06/12/24 pioglitazone 45 mg tablet (Actos) 45 mg PO DAILY 08/18/23 06/12/24 gabapentin 100 mg capsule 200 mg PO BID 04/22/24 06/12/24 omeprazole 40 mg capsule,delayed 40 mg PO DAILY 04/22/24 06/12/24 release semaglutide 1 mg/dose (4 mg/3 mL) 1 mg SUBCUT .WEEKLY 04/22/24 06/12/24 subcutaneous pen injector (Ozempic) bisacodyl 10 mg rectal suppository 10 mg ME DAILY PRN Constipation 06/12/24 06/12/24 (Dulcolax (bisacodyl)) bisacodyl 5 mg tablet,delayed 10 mg PO DAILY 06/12/24 06/12/24 release (Dulcolax (bisacodyl)) magnesium hydroxide 400 mg/5 mL 30 ml PO DAILY PRN Constipation 06/12/24 06/12/24 oral suspension (Milk of Magnesia) sodium phosphates 19 gram-7 118 ml ME DAILY PRN Constipation 06/12/24 06/12/24 gram/118 mL enema (Fleet Enema) Previous Rx's ?Medication ?Instructions ?Recorded methocarbamol 750 mg tablet 750 mg PO Q8H PRN pain #45 tabs 08/18/23 hydrocodone 10 mg-acetaminophen 1 tab PO Q4H PRN pain 7 days #42 06/10/24 325 mg tablet tabs Allergies Allergy/AdvReac Type Severity Reaction Status Date / Time codeine Allergy ADR-Nausea Verified 06/04/24 10:11 [facility] ED PFSH: Social History Smoking and tobacco/nicotine status: never used tobacco/nicotine Physical Exam Const: COMMON NORMALS: no acute distress, average body habitus, alert and well nourished GENERAL APPEARANCE: cooperative ORIENTATION/CONSCIOUSNESS: Yes awake OTHER: Morbidly obese 63-year-old female in no acute distress HENMT: COMMON NORMALS: normocephalic and atraumatic HEAD & SCALP: normocephalic and atraumatic Eye: COMMON NORMALS: conjunctivae normal CONJUNCTIVA: Yes conjunctivae normal Neck/C-Spine: GENERAL: Yes normal visual inspection Resp: COMMON NORMALS: normal respiratory effort, No retractions and No use of accessory muscles Cardio: COMMON NORMALS: regular rhythm and Peripheral pulses 2+ throughout RHYTHM: regular rhythm PERIPHERAL PULSES: Peripheral pulses 2+ throughout GI: COMMON NORMALS: Soft to palpation and non-tender PALPATION: Yes Soft to palpation Back/Pelvis: OTHER: Incisions of the low back is clean dry and intact. There is no active bleeding. There is no significant rounding erythema or warmth or any active drainage Extremity: COMMON NORMALS: full ROM and no pedal edema Neuro: COMMON NORMALS: no focal motor deficits SENSORIUM/ORIENTATION: Yes alert Skin: COMMON NORMALS: no rashes or lesions noted GENERAL SKIN EXAM: no rashes or lesions noted Course Vital Signs: Vital signs: Vital Signs Temperature 100.1 F H 06/12/24 14:38 Pulse Rate 93 06/12/24 17:15 Respiratory Rate 17 06/12/24 17:25 Blood Pressure 115/49 06/12/24 17:15 Pulse Oximetry 100 06/12/24 17:25 Oxygen Delivery Me thod Room Air 06/12/24 15:44 MDM - Wound/Laceration Medical Decision Making Review of Systems: Constitutional: Positive for fever (100.3?F) Musculoskeletal: Positive for back pain All other systems reviewed and negative Medications: No current medications documented Allergies: No known allergies documented Past Medical History: Previous back condition requiring surgery 40 years ago Past Surgical History: 1. Spinal fusion (6 levels) - 1 week ago 2. 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 Family History: No family history documented Vital Signs: Temperature: 100.3?F Notable for tachycardia Blood pressure described as 'soft' Physical Exam: BACK: - Surgical incision site examined - No active bleeding noted at time of examination - Possible minor separation of skin layer - No evidence of skin adhesive (Dermabond) noted - Dressing was changed during examination Lab Results: Blood cultures pending Medical Decision Making: Summary Statement: Post-operative patient one week status post 6-level spinal fusion presenting with concern for surgical site bleeding, low-grade fever, tachycardia, and soft blood pressures. Problem List: 1. Post-operative bleeding concern 2. Post-operative fever 3. Hemodynamic changes (tachycardia, soft BP) Differential Diagnosis: 1. Expected post-operative bleeding 2. Surgical site infection 3. Post-operative hematoma 4. Early sepsis ED Course: Patient evaluated, surgical site examined, blood cultures obtained, surgical team to be contacted for recommendations Assessment and Plan: 1. Post-operative bleeding concern: - Surgical site appears stable without active bleeding - Will contact Dr. Castro (surgeon) to discuss findings and recommendations - Continue wound care as directed 2. Post-operative fever/Hemodynamic changes: - Blood cultures obtained - Monitor vital signs Patient is 1 week postop from a spinal fusion. On exam she does not have any overt signs of infection of the wound or any cellulitis or active drainage. She denies any headache or neck pain. She did have a low-grade fever here with some mild tachycardia and a mild shock index. White blood cell count is normal. She does have an elevated lactic acid of 3.5. She was given 2 L of normal saline IV fluid bolus. Sepsis fluid reassessment was performed at 1630. Patient was started on vancomycin and Zosyn for broad-spectrum antibiotic coverage. She has a mild acute kidney injury with a creatinine of 1.4 and previous baseline of 1.5. She is also anemic with a hemoglobin of 7.6. I suspect this will further diluted with IV fluid hydration. She was typed and crossed for 1 unit of blood and certainly may require an additional unit of blood. I spoke with the orthopedic surgery, Dr. Castro as well as the hospitalist. Hospitalist requested the orthopedic surgery be primary admitting and they would consult. Dr. Tidwell will consult. Lab Data I reviewed the patient's lab results. 06/12/24 14:25 06/12/24 14:25 Radiology Impressions Chest X-Ray 06/12/24 14:56 IMPRESSION: Stable chest without acute abnormality. Laboratory Results WBC 8.02 10^3/uL (3.29-11.43) 06/12/24 14: RBC 2.62 10^6/uL (3.85-5.65) L 06/12/24 14:25 Hgb 7.60 g/dL (11.27-16.99) L 06/12/24 14:25 Hct 23.6 % (36-47) L 06/12/24 14:25 MCV 90.1 fl (85-98) 06/12/24 14:25 MCH 29.0 pg (27-33) 06/12/24 14:25 MCHC 32.2 g/dL (30-55) 06/12/24 14:25 RDW 13.3 % (12.1-15.1) 06/12/24 14:25 Plt Count 224 10^3/cmm (157-399) 06/12/24 14:25 MPV 10.8 fL (7.4-10.4) H 06/12/24 14:25 Neut % (Auto) 90.3 % 06/12/24 14:25 Lymph % (Auto) 4.5 % 06/12/24 14:25 [place] % (Auto) 3.9 % 06/12/24 14:25 Eos % (Auto) 0.1 % 06/12/24 14:25 Baso % (Auto) 0.5 % 06/12/24 14:25 Neut # (Auto) 7.24 10^3/uL (1.8-7.7) 06/12/24 14:25 Lymph # (Auto) 0.4 10^3/uL (0.8-4.8) L 06/12/24 14:25 [place] # (Auto) 0.3 10^3/uL (0.2-0.9) 06/12/24 14:25 Eos # (Auto) 0.0 10^3/uL (0.0-0.8) 06/12/24 14:25 Baso # (Auto) 0.0 10^3/uL (0.0-0.1) 06/12/24 14:25 Nucleated RBC % (auto) 0.2 % 06/12/24 14:25 Nucleated RBCs # 0.0 /100WBC 06/12/24 14:25 Sodium 128 mmol/L (136-145) L 06/12/24 14:25 Potassium 4.9 mmol/L (3.5-5.1) 06/12/24 14:25 Chloride 91 mmol/L (98-107) L 06/12/24 14:25 Carbon Dioxide 22 mmol/L (22-29) 06/12/24 14:25 Anion Gap 19.9 (5-19) H 06/12/24 14:25 BUN 44 mg/dL (8-23) H 06/12/24 14:25 Creatinine 1.4 mg/dL (0.5-0.9) H 06/12/24 14:25 GFR Calculation 38.2 mL/min (90-130) L 06/12/24 14:25 Glucose 272 mg/dL (65-115) H 06/12/24 14:25 Calculated Osmolality 287 mOsm/kg (285-295) 06/12/24 14:25 Lactic Acid 3.5 mmol/L (0.5-2.2) H 06/12/24 14:25 Calcium 8.5 mg/dL (8.5-10.5) 06/12/24 14:25 Total Bilirubin 0.4 mg/dL (0.15-1.2) 06/12/24 14:25 AST 22 U/L (0-32) 06/12/24 14:25 ALT 24 U/L (0-33) 06/12/24 14:25 Alkaline Phosphatase 222 U/L (35-105) H 06/12/24 14:25 Total Protein 6.1 g/dL (6.6-8.7) L 06/12/24 14:25 Albumin 3.0 g/dL (3.5-5.2) L 06/12/24 14:25 Globulin 3.1 g/dL (1.3-4.6) 06/12/24 14:25 Urine Color Dark yellow (Yellow) A 06/12/24 15:48 Urine Appearance Turbid (CLEAR) A 06/12/24 15:48 Urine pH 5.0 (5-7) 06/12/24 15:48 Ur Specific [place] 1.026 (1.005-1.030) 06/12/24 15:48 Urine Protein 1+ (Negative) A 06/12/24 15:48 Urine Glucose (UA) Trace (Normal) H 06/12/24 15:48 Urine Ketones Trace (Negative) 06/12/24 15:48 Urine Blood Negative (Negative) 06/12/24 15:48 Urine Nitrate Negative (Negative) 06/12/24 15:48 Urine Bilirubin 1+ (Negative) H 06/12/24 15:48 Urine Urobilinogen 1.0 mg/dL (Negative) 06/12/24 15:48 Ur Leukocyte Esterase Trace (Negative) A 06/12/24 15:48 Urine RBC 3-5 /hpf (0-2) 06/12/24 15:48 Urine WBC 0-5 /hpf (0-5) 06/12/24 15:48 Ur Squamous Epith Cells 11-20 /hpf (0-5) H 06/12/24 15:48 Amorphous Sediment Not Reportable 06/12/24 15:48 Urine Bacteria Trace /hpf (NONE) 06/12/24 15:48 Hyaline Casts 101.44 /lpf 06/12/24 15:48 Coarse Granular Casts 5-10 /lpf H 06/12/24 15:48 Crossmatch See Detail 06/12/24 16:42 All radiology interpretation(s) finalized by discharge Discharge Plan Discharge Patient Disposition: Admitted As Inpatient Clinical Impression: Anemia, PIPPA (acute kidney injury), Tachycardia, Acidosis, lactic Condition: Stable Coding Level of Care Code ED Rn Occupational for Sylwia Coker
[2024-06-12 15:23] LABS: Alanine Aminotransferase 24 U/L (0-33); Alkaline Phosphatase 222 U/L (35-105); Anion Gap 19.9 (5-19); Aspartate Amino Transferase 22 U/L (0-32); Blood Urea Nitrogen 44 mg/dL (8-23); Calcium 8.5 mg/dL (8.5-10.5); Carbon Dioxide 22 mmol/L (22-29); Chloride 91 mmol/L (98-107); Creatinine Clr Calc Pharmacy 53.3627; Globulin 3.1 g/dL (1.3-4.6); Glomerular Filtration Rate 38.2 mL/min (90-130); Glucose 272 mg/dL (65-115); Osmolality Calculated 287 mOsm/kg (285-295); Potassium 4.9 mmol/L (3.5-5.1); Sodium 128 mmol/L (136-145); Total Bilirubin 0.4 mg/dL (0.15-1.2); Total Protein 6.1 g/dL (6.6-8.7)
[2024-06-12 15:24] LABS: Lactic Sepsis W/Reflex 3.5 mmol/L (0.5-2.2)
[2024-06-12] MEDS: sodium chloride 0.9% 1,000 ML 999 ML IV ×2 (15:43→17:43)
[2024-06-12 16:13] LABS: Bilirubin Urine 1+ (Negative); Blood Urine Negative (Negative); Glucose Urine UA Trace (Normal); Ketones Urine Trace (Negative); Leukocyte Esterase Urine Trace (Negative); Nitrate Urine Negative (Negative); Protein Urine 1+ (Negative); Specific Gravity, Urine 1.026 (1.005-1.030); Urine Appearance Turbid (CLEAR); Urine Color Dark Yellow (Yellow)
[2024-06-12 16:15] LABS: Slide Review Slide Review Perform
[2024-06-12 16:19] LABS: Add Urine Microscopic? YES; Bacteria Urine Trace /hpf; Hyaline Casts Urine 101.44 /lpf; WBC Urine 0-5 /hpf (0-5)
--- NOTE | 2024-06-12 16:36 | ECG_ITS ---
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 Measurements Intervals [place] Rate: 113 P: 66 AK: 146 QRS: -22 QRSD: 88 T: 79 QT: 283 QTc: 389 Interpretive Statements SINUS TACHYCARDIA BORDERLINE LEFT AXIS DEVIATION [QRS AXIS < -20] NONSPECIFIC T-WAVE ABNORMALITY Compared to ECG 04/22/2024 09:25:55 T-wave abnormality now present Sinus rhythm no longer present Electronically Signed On 06-13-2024 13:37:25 CDT by Cesar Tom M.D. [id number]
--- NOTE | 2024-06-12 16:48 | PC.NURSE ---
consent form signed, in chart
[2024-06-12] MEDS: sodium chloride 0.9% 1,000 ML 150 ML IV (16:54)
[2024-06-12 17:00] LABS: Reflex Lactate Order REFLEX LACTIC ORDERD
[2024-06-12] MEDS: morphine 4 mg/mL SDV 1 mL IVP (17:25)
[2024-06-12] MEDS: piperacillin-tazobactam 4.5 GM in sodium chloride 0.9% (plus) 50 ML IV (17:43)
[2024-06-12 17:47] LABS: Lactic Acid level (Lactate) 2.3 mmol/L (0.5-2.2)
[2024-06-12] MEDS: vancomycin 2,000 MG/400 ML PIGGYBACK 200 MG IV (18:10)
--- NOTE | 2024-06-12 19:13 | PM.CONSULT ---
Providers/Reason For Consult Consulting Physician/Specialty*: Internal Medicien Reason for Consult*: Medical management Requesting Physician: Dr Castro Attending Physician: Laurent Castro DO Primary Care Provider: Candida Harris History of Present Illness History of Present Illness Kathy Sood is a 63 year old female with a past medical history significant for lumbar stenosis status post recent low back surgery on 06/04/[address] Castro who presents from nursing facility with increased bleeding from surgical site x1 day. Patient endorses associated generalized weakness and decreased oral intake. Reports exertion worsens symptoms. Denies other alleviating or aggravating factors. In the emergency department, patient was found to have temperature of 100.1 Fahrenheit. She is being started on broad-spectrum antibiotics. Patient denies urinary symptoms. Denies cough. She reports associated chills. Review of Systems Narrative: A complete review of systems was obtained and is negative except as stated in HPI. Medications/Allergies Home Medications ?Medication ?Instructions ?Recorded ?Confirmed ?Last Taken ?Type atorvastatin 20 mg tablet 20 mg PO DAILY 08/18/23 06/12/24 06/12/24 History carvedilol 3.125 mg tablet 3.125 mg PO BID 08/18/23 06/12/24 06/12/24 History cholecalciferol (vitamin D3) 1,250 1,250 mcg PO .WEEKLY 08/18/23 06/12/24 06/01/24 History mcg (50,000 unit) capsule glipizide 10 mg tablet 10 mg PO DAILY 08/18/23 06/12/24 06/12/24 History losartan 50 mg-hydrochlorothiazide 1 tab PO DAILY 08/18/23 06/12/24 06/12/24 History 12.5 mg tablet metformin 1,000 mg tablet 1,000 mg PO BID 08/18/23 06/12/24 06/12/24 History methocarbamol 750 mg tablet 750 mg PO Q8H PRN pain #45 tabs 08/18/23 06/12/24 06/12/24 Rx pioglitazone 45 mg tablet (Actos) 45 mg PO DAILY 08/18/23 06/12/24 06/12/24 History gabapentin 100 mg capsule 200 mg PO BID 04/22/24 06/12/24 06/12/24 History omeprazole 40 mg capsule,delayed 40 mg PO DAILY 04/22/24 06/12/24 06/12/24 History release semaglutide 1 mg/dose (4 mg/3 mL) 1 mg SUBCUT .WEEKLY 04/22/24 06/12/24 05/25/24 History subcutaneous pen injector (Ozempic) hydrocodone 10 mg-acetaminophen 1 tab PO Q4H PRN pain 7 days #42 06/10/24 06/12/24 06/12/24 Rx 325 mg tablet tabs bisacodyl 10 mg rectal suppository 10 mg UT DAILY PRN Constipation 06/12/24 06/12/24 Unknown History (Dulcolax (bisacodyl)) bisacodyl 5 mg tablet,delayed 10 mg PO DAILY 06/12/24 06/12/24 Unknown History release (Dulcolax (bisacodyl)) magnesium hydroxide 400 mg/5 mL 30 ml PO DAILY PRN Constipation 06/12/24 06/12/24 Unknown History oral suspension (Milk of Magnesia) sodium phosphates 19 gram-7 118 ml UT DAILY PRN Constipation 06/12/24 06/12/24 Unknown History gram/118 mL enema (Fleet Enema) Allergies Allergy/AdvReac Type Severity Reaction Status Date / Time codeine Allergy ADR-Nausea Verified 06/04/24 10:11 Current Medications Generic Name Dose Route Start Last Admin Trade Name Freq PRN Reason Stop Dose Admin Sodium Chloride 1,000 mls @ 150 mls/hr 06/12/24 16:45 06/12/24 16:54 Sodium Chloride 0.9% IV 150 mls/hr .Q6H40M SONG Administration Vancomycin HCl 2,000 mg in 400 mls @ 200 mls/hr 06/12/24 17:34 06/12/24 18:10 Vancocin IV 06/12/24 19:33 200 mls/hr ONCE ONE Administration Protocol PFSH Acute PFSH: Medical History Type 2 diabetes mellitus Hyperlipidemia GERD (gastroesophageal reflux disease) Hypertension Diabetes mellitus Surgical History History of back surgery Social History Smoking and tobacco/nicotine status: never used tobacco/nicotine Vitals/I&O/Wt Last Vital Signs Temp 100.1 F H 06/12/24 14:38 Pulse 83 06/12/24 18:59 Resp 17 06/12/24 18:59 BP 136/96 06/12/24 18:59 Pulse Ox 100 06/12/24 18:59 O2 Del Method Room Air 06/12/24 15:44 06/12/24 06/12/24 06/12/24 06:59 14:59 22:59 Intake Total 1000 / 1000 Balance 1000 / 1000 Weight last 48 hrs Weight 114.759 kg Physical Exam Narrative: General: Patient is awake. Appears fatigued. Head: Normocephalic. Atraumatic. EOM intact. Dry mucous membranes Neck: No JVD. Cardiovascular: RRR. No gallops. No murmurs. Lungs: Clear to auscultation, no use of accessory muscles, no crackles or wheezes. Skin: No jaundice. No rashes. Abdomen: Normal bowel sounds, abdomen soft and nontender. Extremities: No cyanosis or clubbing. Musculoskeletal:No erythematous joints. Neurological: Moves all 4 extremities. No myoclonus. Data 06/12/24 14:25 06/12/24 14:25 Micro: Microbiology 06/12/24 15:28 Blood Culture - Preliminary Blood SPECIMEN COLLECTED 06/12/24 15:00 Blood Culture - Preliminary Blood SPECIMEN COLLECTED A&P Assessment and plan (1) Fever: (2) PIPPA (acute kidney injury): (3) Hyponatremia: (4) Anemia: (5) Hyperglycemia: (6) Type 2 diabetes mellitus: Plan Reported postop fevers - Tmax 100.1 Fahrenheit - Blood cultures x 2 - Urinalysis with only trace leukocyte esterase, squamous cells noted - Chest x-ray negative for pneumonia - Blood cultures collected - Check inflammatory markers - Screen with MRSA nasal screening - Start cefepime Acute kidney injury Hypovolemic hyponatremia - Start low-dose fluids - Hold losartan-HCTZ - Repeat labs in a.m. Postop anemia - Hemoglobin 7.6 - Trend H&H - Monitor surgical site bleeding Lumbar stenosis status post recent surgery - Management per primary - Continue gabapentin Type 2 diabetes mellitus with hyperglycemia - Hold oral agents - SSI Hypertension - BP soft - Hold Coreg for now - Monitor hemodynamics Hyperlipidemia - Continue statin Thank you for this consultation. Hospitalist/Internal Medicine Service will continue to follow. PDMP PDMP Reviewed: Not Reviewed Consult Attestations Medical Necessity Statement: Pt requires admission for IV, IV abx, further work up and supportive care. Coding Level of Care Code Acute Code for Chg Fwd Diagnoses Fever R50.9 PIPPA (acute kidney injury) N17.9 Hyponatremia E87.1 Anemia D64.9 Hyperglycemia R73.9 Type 2 diabetes mellitus E11.9
--- NOTE | 2024-06-12 20:15 | PHA.VACGOAL ---
Vancomycin Goal - Goal Vancomycin Goal:: 15-20 mg/L Vancomycin Indication:: Other - Therapy Current therapy:: Cefepime Day of therpy:: Day []of [] . Actual body weight (kg): 272 lb 8 oz - Data Labs: WBC 8.02 10^3/uL (3.29-11.43) 06/12/24 14:25 RBC 2.62 10^6/uL (3.85-5.65) L 06/12/24 14:25 Hgb 7.60 g/dL (11.27-16.99) L 06/12/24 14:25 Hct 23.6 % (36-47) L 06/12/24 14: MCV 90.1 fl (85-98) 06/12/24 14: MCH 29.0 pg (27-33) 06/12/24 14: MCHC 32.2 g/dL (30-55) 06/12/24 14: RDW 13.3 % (12.1-15.1) 06/12/24 14:25 Sodium 128 mmol/L (136-145) L 06/12/24 14:25 Potassium 4.9 mmol/L (3.5-5.1) 06/12/24 14:25 Chloride 91 mmol/L (98-107) L 06/12/24 14:25 Carbon Dioxide 22 mmol/L (22-29) 06/12/24 14:25 Anion Gap 19.9 (5-19) H 06/12/24 14:25 BUN 44 mg/dL (8-23) H 06/12/24 14:25 Creatinine 1.4 mg/dL (0.5-0.9) H 06/12/24 14:25 GFR Calculation 38.2 mL/min (90-130) L 06/12/24 14:25 Last dialysis session:: N/A Treatment plan:: new consult Regimen:: INITIAL LOADING DOSE OF 2000 MG GIVEN IN ER. MAINTENANCE DOSE OF 1250 MG Q12H PER DOSING PROTOCOL. Follow up:: WILL CONTINUE TO MONITOR AND FOLLOW UP DAILY.
[2024-06-12 20:24] LABS: Erythrocyte Sedimentation Rate 28 mm/hr (0-15)
[2024-06-12 20:36] LABS: C Reactive Protein 216.8 mg/L (0.0-4.9)
[2024-06-12 20:44] LABS: Procalcitonin 3.75 ng/mL (0-0.5)
[2024-06-12 21:22] LABS: Glucose Point of Care 195 mg/dL (70-110)
[2024-06-12] MEDS: insulin lispro 100 unit/1 mL SUBCUT (22:03)
[2024-06-12] MEDS: insulin glargine 100 units/1 mL 5 UNIT SUBCUT (22:04)
[2024-06-12] MEDS: ATORVASTATIN 10 MG TABLET 20 MG PO (22:04)
[2024-06-12] MEDS: cefepime 2,000 mg SDV 2000 MG IVP (22:05)
[2024-06-12 23:38] LABS: MRSA PCR OZH (swab) NOT DETECTED (Not Detecte)
[2024-06-13] VITALS (8 sets, daily range): BP systolic 100–156; BP diastolic 59–78; PULSE 88–105; RESP 18–20; TEMP 36.6–37.8; O2SAT 91–99
[2024-06-13] MEDS: sodium chloride 0.9% 1,000 ML 150 ML IV (00:27)
[2024-06-13] MEDS: HYDROcodone-acetaminophen 10-325 mg Tablet 1 TAB PO ×5 (03:14→20:31)
[2024-06-13 05:08] LABS: Basophils % 0.3 %; Eosinophils % 0.4 %; Lymphocytes # 0.6 10^3/uL (0.8-4.8); Lymphocytes % 7.4 %; Mean Corpuscular HGB Conc 31.7 g/dL (30-55); Mean Corpuscular Hemoglobin 28.5 pg (27-33); Mean Corpuscular Volume 89.9 fl (85-98); Mean Platelet Volume 10.9 fL (7.4-10.4); Monocytes # 0.6 10^3/uL (0.2-0.9); Monocytes % 8.3 %; Neutrophils # 6.37 10^3/uL (1.8-7.7); Neutrophils % 82.9 %; Nucleated Red Blood Cells % 0 %; Platelet Count 192 10^3/cmm (157-399); Red Blood Count 2.67 10^6/uL (3.85-5.65); Red Cell Distribution Width 13.7 % (12.1-15.1); White Blood Count 7.68 10^3/uL (3.29-11.43)
[2024-06-13] MEDS: cefepime 2,000 mg SDV 2000 MG IVP ×3 (05:08→20:30)
[2024-06-13] MEDS: vancomycin 1,250 MG/250 ML PIGGYBACK 166.67 MG IV ×2 (05:09→17:53)
[2024-06-13 05:29] LABS: Alanine Aminotransferase 19 U/L (0-33); Albumin Level 2.5 g/dL (3.5-5.2); Alkaline Phosphatase 164 U/L (35-105); Aspartate Amino Transferase 20 U/L (0-32); Blood Urea Nitrogen 32 mg/dL (8-23); Calcium 7.7 mg/dL (8.5-10.5); Carbon Dioxide 22 mmol/L (22-29); Chloride 100 mmol/L (98-107); Creatinine Clr Calc Pharmacy 83.8148; Globulin 3.2 g/dL (1.3-4.6); Glomerular Filtration Rate 63.7 mL/min (90-130); Glucose 129 mg/dL (65-115); Magnesium 1.7 mg/dL (1.7-2.3); Osmolality Calculated 283 mOsm/kg (285-295); Phosphorus 1.7 mg/dL (2.5-4.5); Sodium 132 mmol/L (136-145); Total Bilirubin 0.5 mg/dL (0.15-1.2); Total Protein 5.7 g/dL (6.6-8.7)
[2024-06-13 05:42] LABS: HIV 1 & 2 Antibody Non-Reactive (Non-Reactiv); HIV 1 & 2 Antigen Non-Reactive (Non-Reactiv)
[2024-06-13 05:43] LABS: Slide Review Slide Review Perform
[2024-06-13 07:32] LABS: Glucose Point of Care 129 mg/dL (70-110)
[2024-06-13] MEDS: gabapentin 100 mg Capsule 200 MG PO ×2 (08:52→17:52)
[2024-06-13] MEDS: pantoprazole DR 40 mg Tablet PO (08:52)
[2024-06-13] MEDS: bisacodyl 5 mg Tablet 10 MG PO (08:52)
[2024-06-13 08:54] LABS: Hepatitis C Virus Antibody Non-Reactive (Nonreactive)
[2024-06-13 08:55] LABS: Hepatitis B Surface Antigen Non-Reactive (Nonreactive)
--- NOTE | 2024-06-13 10:05 | PM.HP ---
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 Patient was not quite as alert. Was sent to the ER. She is status post lumbar fusion from 2 weeks ago. Review of Systems General: Reports: 10 or more systems reviewed and unremarkable except in HPI and below Const: Denies: fever(s), chills or body aches Eyes: Denies: change in vision Card: Denies: chest pain, dyspnea on exertion or orthopnea Resp: Denies: dyspnea, productive cough or wheezing GI: Denies: abdominal pain, nausea or vomiting Musc: Denies: neck pain, back pain, extremity pain, joint pain, joint swelling or limited range of motion Skin/Breast: Denies: changes in skin color or dry skin Neuro: Denies: numbness in extremities or weakness in extremities Psych: Denies: anxiety or depression Terence/Lymph: Denies: easy bruising or easy bleeding Medications/Allergies Home Medications ?Medication ?Instructions ?Recorded ?Confirmed ?Last Taken ?Type atorvastatin 20 mg tablet 20 mg PO DAILY 08/18/23 06/12/24 06/12/24 History carvedilol 3.125 mg tablet 3.125 mg PO BID 08/18/23 06/12/24 06/12/24 History cholecalciferol (vitamin D3) 1,250 1,250 mcg PO .WEEKLY 08/18/23 06/12/24 06/01/24 History mcg (50,000 unit) capsule glipizide 10 mg tablet 10 mg PO DAILY 08/18/23 06/12/24 06/12/24 History losartan 50 mg-hydrochlorothiazide 1 tab PO DAILY 08/18/23 06/12/24 06/12/24 History 12.5 mg tablet metformin 1,000 mg tablet 1,000 mg PO BID 08/18/23 06/12/24 06/12/24 History methocarbamol 750 mg tablet 750 mg PO Q8H PRN pain #45 tabs 08/18/23 06/12/24 06/12/24 Rx pioglitazone 45 mg tablet (Actos) 45 mg PO DAILY 08/18/23 06/12/24 06/12/24 History gabapentin 100 mg capsule 200 mg PO BID 04/22/24 06/12/24 06/12/24 History omeprazole 40 mg capsule,delayed 40 mg PO DAILY 04/22/24 06/12/24 06/12/24 History release semaglutide 1 mg/dose (4 mg/3 mL) 1 mg SUBCUT .WEEKLY 04/22/24 06/12/24 05/25/24 History subcutaneous pen injector (Ozempic) hydrocodone 10 mg-acetaminophen 1 tab PO Q4H PRN pain 7 days #42 06/10/24 06/12/24 06/12/24 Rx 325 mg tablet tabs bisacodyl 10 mg rectal suppository 10 mg MN DAILY PRN Constipation 06/12/24 06/12/24 Unknown History (Dulcolax (bisacodyl)) bisacodyl 5 mg tablet,delayed 10 mg PO DAILY 06/12/24 06/12/24 Unknown History release (Dulcolax (bisacodyl)) magnesium hydroxide 400 mg/5 mL 30 ml PO DAILY PRN Constipation 06/12/24 06/12/24 Unknown History oral suspension (Milk of Magnesia) sodium phosphates 19 gram-7 118 ml [place] DAILY PRN Constipation 06/12/24 06/12/24 Unknown History gram/118 mL enema (Fleet Enema) Allergies Allergy/AdvReac Type Severity Reaction Status Date / Time codeine Allergy ADR-Nausea Verified 06/04/24 10:11 PFSH Acute PFSH: Medical History Type 2 diabetes mellitus Hyperlipidemia GERD (gastroesophageal reflux disease) Hypertension Diabetes mellitus Surgical History History of back surgery Social History Smoking and tobacco/nicotine status: never used tobacco/nicotine Vitals/I&O/Wt Last Vital Signs Temp 98.2 F 06/13/24 07:36 Pulse 90 06/13/24 07:36 Resp 20 H 06/13/24 07:36 BP 121/71 06/13/24 07:36 Pulse Ox 95 06/13/24 07:36 O2 Del Method Room Air 06/13/24 07:36 O2 Flow Rate 2 06/13/24 04:00 06/12/24 06/13/24 06/13/24 22:59 06:59 14:59 Intake Total 2690 / 2690 2720 / 5410 240 / 240 Balance 2690 / 2690 2720 / 5410 240 / 240 Weight last 48 hrs Weight 278 lb 12.8 oz Weight 272 lb 8 oz Weight 253 lb Physical Exam Narrative: Patient continues to have dropfoot on the left side. Otherwise sensation is intact bilaterally good strength in right leg and rest of leg on the left. Wound does not look infected there is significant amount of drainage which is serosanguineous in nature Data 06/13/24 04:30 06/13/24 04:30 Micro: Microbiology 06/12/24 15:00 Blood Culture - Preliminary Blood Klebsiella pneumoniae 06/12/24 15:28 Blood Culture - Preliminary Blood SPECIMEN COLLECTED A&P Assessment and plan (1) Status post lumbar spinal fusion: Patient is status post lumbar fusion Patient had a positive blood culture for Klebsiella. She is currently on antibiotics for this. Hospitalist were consulted for medical management Will change dressing She is currently getting blood her current hemoglobin is 7.6 PDMP PDMP Reviewed: Not Reviewed Attestations Medical Necessity Statement*: Pain control Coding Level of Care Code Acute Code for Chg Fwd Diagnoses Status post lumbar spinal fusion Z98.1
[2024-06-13 10:22] LABS: Hepatitis B Surface AB < 3.5 (11.5-1000)
[2024-06-13 10:36] LABS: Hematocrit 28.4 % (36-47)
[2024-06-13 11:25] LABS: Glucose Point of Care 122 mg/dL (70-110)
--- NOTE | 2024-06-13 11:27 | PC.NURSE ---
r ac iv removed, pt turning and came out. l ac iv removed. pt requested to turn, this nurse stated, hang on just a moment and let me get an aide to help me. pts family member in room stated, i will do it, i have been for 2 weeks. she then proceeded to turn pt.
--- NOTE | 2024-06-13 11:59 | CT_ITS ---
WS: [id number] CT LUMBAR SPINE TECHNIQUE: Contrast-enhanced CT of the lumbar spine with coronal and sagittal reformatted images. CLINICAL INFORMATION: cant dorsiflex left foot COMPARISON: MRI 03/20/2024 DLP: 1470.[address] scans at [facility] use at least one of these dose optimization techniques: automated exposure control; mA and/or kV adjustment per patient size (includes targeted exams where dose is matched to clinical indication); or iterative reconstruction. FINDINGS: Postoperative changes pedicle screw fixation L2-S1 with laminectomy defects and dorsal lateral bone graft material. Interbody fusion grafts L2-3 and L3-4. Bilateral sacroiliac screw fixation. Spinal canal appears patent with wide decompressive laminectomies. Hardware degrades some images. Tiny innumerable scattered pockets of air throughout the paravertebral soft tissues and extending into the bilateral psoas musculature. Pockets of air extend along the midline laminectomy defects and about the dorsal aspect of the thecal sac. Some of this may be postoperative and may be due to prior drain placement or possibly Surgicel but recommend correlation for gas producing infection. Postoperative fluid and edema within the laminectomy defects although no well-defined fluid collections at this time.No evidence of subcutaneous abscess or fluid collection along the surgical tract. LEFT adrenal nodule likely adenoma. Urine distended bladder. Prominent renal pelvis sees bilaterally. CT/CT lumbar spine w con [id number] IMPRESSION: 1. Recent postoperative changes described above. 2. No high-grade central canal stenosis considering hardware artifact. Wide de compressive laminectomies. 3. No subcutaneous fluid collections. 4. Innumerable scattered small punctate foci of air within the paravertebral s oft tissues extending to the psoas bilaterally and laminectomy defects. Some of this may be postoperative or due to prior surgical drain or possibly Surgicel. Gas-producing infection is an additional consideration.
[2024-06-13] MEDS: iohexol 350 mg/mL 500 mL Btl (per mL) IV (13:23)
--- NOTE | 2024-06-13 13:37 | P.PN_ITS ---
Subjective 2 Subjective: seen this am patient complains of back pain has not had a BM since june 03 as per pt states she cannot dorsiflex foot on left side (since surgery) Vitals/I&O/Wt Last Vital Signs Temp 98.1 F 06/13/24 11:37 Pulse 105 H 06/13/24 11:37 Resp 20 H 06/13/24 11:37 BP 134/69 06/13/24 11:37 Pulse Ox 95 06/13/24 11:37 O2 Del Method Room Air 06/13/24 11:37 O2 Flow Rate 2 06/13/24 04:00 06/12/24 06/13/24 06/13/24 22:59 06:59 14:59 Intake Total 2690 / 2690 2720 / 5410 240 / 240 Balance 2690 / 2690 2720 / 5410 240 / 240 Weight last 48 hrs Weight 126.462 kg Weight 123.604 kg Weight 114.759 kg Physical Exam 2 Narrative: General: Patient is awake. Head: Normocephalic. Atraumatic. EOM intact. Cardiovascular: RRR. No gallops. No murmurs. Lungs: Clear to auscultation, no crackles or wheezes. Abdomen: Normal bowel sounds, abdomen soft and nontender. Extremities: No cyanosis or clubbing. Neuro: no saddle anesthesia, sensation intact b/l LE, unable to dorsiflex on left size, complains of back pain Data 06/13/24 10:29 06/13/24 04:30 Micro: Microbiology 06/12/24 15:00 Blood Culture - Preliminary Blood Klebsiella pneumoniae Staphylococcus epidermidis 06/13/24 10:30 Blood Culture - Preliminary Blood SPECIMEN COLLECTED 06/13/24 10:29 Blood Culture - Preliminary Blood SPECIMEN COLLECTED 06/12/24 15:28 Blood Culture - Preliminary Blood SPECIMEN COLLECTED A&P Assessment and plan (1) Post op infection: (2) Status post lumbar spinal fusion: (3) Gram-negative bacteremia: (4) Fever: (5) PIPPA (acute kidney injury): (6) Hyponatremia: (7) Anemia: (8) Hyperglycemia: (9) Type 2 diabetes mellitus: (10) Constipation: (11) Elevated C-reactive protein (CRP): (12) Hyperlipidemia: (13) Postoperative anemia due to acute blood loss: (14) Acute blood loss anemia: Plan Reported postop fevers - Tmax 100.1 Fahrenheit - Blood cultures x 2 - Urinalysis with only trace leukocyte esterase, squamous cells noted - Chest x-ray negative for pneumonia - Blood cultures collected - Check inflammatory markers - Screen with MRSA nasal screening - Start cefepime Acute kidney injury Hypovolemic hyponatremia - Start low-dose fluids - Hold losartan-HCTZ - Repeat labs in a.m. Postop anemia - Hemoglobin 7.6 - Trend H&H - Monitor surgical site bleeding Lumbar stenosis status post recent surgery - Management per primary - Continue gabapentin Type 2 diabetes mellitus with hyperglycemia - Hold oral agents - SSI Hypertension - BP soft - Hold Coreg for now - Monitor hemodynamics Hyperlipidemia - Continue statin Thank you for this consultation. Hospitalist/Internal Medicine Service will continue to follow. 06/13/2024 bcx positive for kleb pnuemonia, staph epi repeat bcx today will need ID consultation Sunday will need IV abx for alteast 2 weeks or as per ID recs check CT lumbar spine w/ contrast to rule out hematoma, abscess, potential infection source. pt is 1 week post op, unsure if imaging will be super helpful given recent surgery, discussed at length with radiologist and Dr. Castro. Hemoglobin improved to 8.8, continue to monitor q12h, pressure bandage applied to lumbar incision area continue iv abx vancomycin and cefepime pt complains of constipation, start miralax 17 g daily, docusate senna 100 BID check urine culture stop IV fluids replace IV at left antecubital area due to it leaking. - notified RN PDMP PDMP Reviewed: Not Reviewed Attestations 2 Medical Necessity Statement*: > 48-72 hour stay for mgmt of bacteremia, post op blood loss, infection, Diagnoses Post op infection T81.40XA Status post lumbar spinal fusion Z98.1 Gram-negative bacteremia R78.81 Fever R50.9 PIPPA (acute kidney injury) N17.9 Hyponatremia E87.1 Anemia D64.9 Hyperglycemia R73.9 Type 2 diabetes mellitus E11.9 Constipation K59.00 Elevated C-reactive protein (CRP) R79.82 Hyperlipidemia E78.5 Postoperative anemia due to acute blood loss D62 Acute blood loss anemia D62
[2024-06-13] MEDS: sodium chloride 0.9% 1,000 ML 100 ML IV (13:45)
[2024-06-13 14:56] LABS: Basophils % 0.6 %; Eosinophils % 0.3 %; Lymphocytes # 0.6 10^3/uL (0.8-4.8); Lymphocytes % 8.1 %; Mean Corpuscular HGB Conc 32.6 g/dL (30-55); Mean Corpuscular Hemoglobin 29.3 pg (27-33); Mean Platelet Volume 10.5 fL (7.4-10.4); Monocytes # 0.5 10^3/uL (0.2-0.9); Monocytes % 7.4 %; Neutrophils # 5.62 10^3/uL (1.8-7.7); Neutrophils % 82.9 %; Nucleated Red Blood Cells % 0 %; Platelet Count 168 10^3/cmm (157-399); Red Cell Distribution Width 13.9 % (12.1-15.1); White Blood Count 6.78 10^3/uL (3.29-11.43)
[2024-06-13] MEDS: polyethylene glycol 3350 Pkt 17 gm PO (15:01)
--- NOTE | 2024-06-13 16:23 | PC.NURSE ---
pts daughter stated, her pain is never under control. pt was given po pain meds at approx. 1515. at approx 1620 pt was resting what appeared to be very comfortably, appears to be snoring.
[2024-06-13 17:38] LABS: Glucose Point of Care 151 mg/dL (70-110)
[2024-06-13] MEDS: sennosides-docusate Tablet 1 TAB PO (17:52)
[2024-06-13] MEDS: methocarbamol 750 mg Tablet PO (20:31)
[2024-06-13] MEDS: ATORVASTATIN 10 MG TABLET 20 MG PO (20:31)
[2024-06-13 20:53] LABS: Glucose Point of Care 272 mg/dL (70-110)
[2024-06-13] MEDS: insulin lispro 100 unit/1 mL SUBCUT (21:04)
[2024-06-13] MEDS: insulin glargine 100 units/1 mL 5 UNIT SUBCUT (21:04)
[2024-06-13] MEDS: magnesium hydroxide 30 mL UDC PO (21:46)
[2024-06-14] VITALS: BP 115/79; PULSE 93; RESP 18; TEMP 36.6; O2SAT 90
[2024-06-14] MEDS: HYDROcodone-acetaminophen 10-325 mg Tablet 1 TAB PO ×5 (01:52→22:17)
--- NOTE | 2024-06-14 02:15 | PC.NURSE ---
This nurse was made aware by insulator apprentice that patients dressing was saturated. This nurse placed a new pressure dressing on surgical sight.
[2024-06-14] MEDS: bisacodyl 10 mg Supp PR (02:42)
[2024-06-14 04:00] VITALS: BP 138/76; PULSE 94; RESP 20; TEMP 36.8; O2SAT 92
[2024-06-14 04:24] LABS: Basophils % 0.5 %; Eosinophils # 0.1 10^3/uL (0.0-0.8); Eosinophils % 1.4 %; Hematocrit 26.9 % (36-47); Lymphocytes # 0.7 10^3/uL (0.8-4.8); Lymphocytes % 10.8 %; Mean Corpuscular Hemoglobin 28.9 pg (27-33); Mean Corpuscular Volume 90.3 fl (85-98); Monocytes # 0.6 10^3/uL (0.2-0.9); Monocytes % 9.1 %; Neutrophils # 4.87 10^3/uL (1.8-7.7); Neutrophils % 77.4 %; Nucleated Red Blood Cells % 0 %; Platelet Count 176 10^3/cmm (157-399); Red Blood Count 2.98 10^6/uL (3.85-5.65); Red Cell Distribution Width 14.4 % (12.1-15.1); White Blood Count 6.29 10^3/uL (3.29-11.43)
[2024-06-14 04:46] LABS: Alanine Aminotransferase 25 U/L (0-33); Albumin Level 2.6 g/dL (3.5-5.2); Alkaline Phosphatase 178 U/L (35-105); Anion Gap 16.1 (5-19); Aspartate Amino Transferase 34 U/L (0-32); Blood Urea Nitrogen 15 mg/dL (8-23); Calcium 8.2 mg/dL (8.5-10.5); Carbon Dioxide 22 mmol/L (22-29); Chloride 103 mmol/L (98-107); Glomerular Filtration Rate 125.4 mL/min (90-130); Glucose 148 mg/dL (65-115); Magnesium 1.9 mg/dL (1.7-2.3); Osmolality Calculated 288 mOsm/kg (285-295); Potassium 4.1 mmol/L (3.5-5.1); Sodium 137 mmol/L (136-145); Total Bilirubin 0.7 mg/dL (0.15-1.2); Total Protein 5.6 g/dL (6.6-8.7)
[2024-06-14] MEDS: cefepime 2,000 mg SDV 2000 MG IVP ×3 (04:55→21:19)
[2024-06-14] MEDS: vancomycin 1,250 MG/250 ML PIGGYBACK 166 MG IV ×2 (04:56→17:58)
[2024-06-14] MEDS: sodium chloride 0.9% 1,000 ML 100 ML IV ×2 (05:00→17:59)
[2024-06-14] MEDS: Fleet Enema 133 mL Enema 118 ML PR (06:41)
[2024-06-14] MEDS: methocarbamol 750 mg Tablet PO ×3 (06:49→23:18)
[2024-06-14 06:59] LABS: Glucose Point of Care 176 mg/dL (70-110)
[2024-06-14 07:59] VITALS: BP 146/88; PULSE 67; RESP 18; TEMP 36.6
[2024-06-14] MEDS: insulin lispro 100 unit/1 mL SUBCUT ×4 (09:08→21:19)
[2024-06-14] MEDS: sennosides-docusate Tablet 1 TAB PO ×2 (09:09→17:59)
[2024-06-14] MEDS: polyethylene glycol 3350 Pkt 17 gm PO (09:09)
[2024-06-14] MEDS: gabapentin 100 mg Capsule 200 MG PO ×3 (09:09→21:19)
[2024-06-14] MEDS: pantoprazole DR 40 mg Tablet PO (09:09)
[2024-06-14 10:58] LABS: Glucose Point of Care 207 mg/dL (70-110)
[2024-06-14 11:09] VITALS: BP 132/66; PULSE 86; RESP 18; TEMP 36.8; O2SAT 96
--- NOTE | 2024-06-14 12:20 | P.PN_ITS ---
Subjective 2 Subjective: Patient is laying in bed complaining of muscle spasms and pain. At this point we will add Valium to help with the muscle spasms. Vitals/I&O/Wt Last Vital Signs Temp 98.2 F 06/14/24 11:09 Pulse 86 06/14/24 11:09 Resp 18 06/14/24 11:09 BP 132/66 06/14/24 11:09 Pulse Ox 96 06/14/24 11:09 O2 Del Method Room Air 06/14/24 11:09 O2 Flow Rate 2 06/13/24 04:00 06/13/24 06/14/24 06/14/24 22:59 06:59 14:59 Intake Total 970 / 1450 1000 / 2450 490 / 490 Balance 970 / 1450 1000 / 2450 490 / 490 Weight last 48 hrs Weight 274 lb 6.4 oz Weight 278 lb 12.8 oz Weight 272 lb 8 oz Weight 253 lb Physical Exam 2 Narrative: Continued foot drop. CT was reviewed screws and hardware in good position. Alignment of spine is improved from preoperatively. This point do not see any abscesses or any indications of infection. Patient has postop changes that I can tell. Data 06/14/24 03:41 06/14/24 03:41 Micro: Microbiology 06/13/24 10:30 Blood Culture - Preliminary Blood NEGATIVE TO DATE 06/13/24 10:29 Blood Culture - Preliminary Blood NEGATIVE TO DATE 06/12/24 15:28 Blood Culture - Preliminary Blood NEGATIVE TO DATE 06/12/24 15:00 Blood Culture - Preliminary Blood Klebsiella pneumoniae Staphylococcus epidermidis A&P Assessment and plan (1) Status post lumbar spinal fusion: Patient is status post lumbar fusion. Continues to have back pain and difficulty getting out of bed because of pain. Complaining of muscle spasms. Will give her Valium for the muscle spasms. Up with physical therapy Up to chair is much as possible Dressing changes twice a day Awaiting cultures Infectious disease consult tomorrow PDMP PDMP Reviewed: Not Reviewed Attestations 2 Medical Necessity Statement*: Pain control Coding Level of Care Code Acute Code for Chg Fwd Diagnoses Status post lumbar spinal fusion Z98.1
--- NOTE | 2024-06-14 13:04 | P.PN_ITS ---
Subjective 2 Subjective: seen today pt feels better today hb 8.[address] lumbar shows post-op changes, discussed with dr castro had a bm yesterday as well Vitals/I&O/Wt Last Vital Signs Temp 98.2 F 06/14/24 11:09 Pulse 86 06/14/24 11:09 Resp 18 06/14/24 11:09 BP 132/66 06/14/24 11:09 Pulse Ox 96 06/14/24 11:09 O2 Del Method Room Air 06/14/24 11:09 O2 Flow Rate 2 06/13/24 04:00 06/13/24 06/14/24 06/14/24 22:59 06:59 14:59 Intake Total 970 / 1450 1000 / 2450 490 / 490 Balance 970 / 1450 1000 / 2450 490 / 490 Weight last 48 hrs Weight 124.466 kg Weight 126.462 kg Weight 123.604 kg Weight 114.759 kg Physical Exam 2 Narrative: General: Patient is awake. Head: Normocephalic. Atraumatic. EOM intact. Cardiovascular: RRR. No gallops. No murmurs. Lungs: Clear to auscultation, no crackles or wheezes. Abdomen: Normal bowel sounds, abdomen soft and nontender. Extremities: No cyanosis or clubbing. Neuro: no saddle anesthesia, sensation intact b/l LE, left foot drop Data 06/14/24 03:41 06/14/24 03:41 Micro: Microbiology 06/13/24 10:30 Blood Culture - Preliminary Blood NEGATIVE TO DATE 06/13/24 10:29 Blood Culture - Preliminary Blood NEGATIVE TO DATE 06/12/24 15:28 Blood Culture - Preliminary Blood NEGATIVE TO DATE 06/12/24 15:00 Blood Culture - Preliminary Blood Klebsiella pneumoniae Staphylococcus epidermidis A&P Assessment and plan (1) Post op infection: (2) Status post lumbar spinal fusion: (3) Gram-negative bacteremia: (4) Fever: (5) PIPPA (acute kidney injury): (6) Hyponatremia: (7) Anemia: (8) Hyperglycemia: (9) Type 2 diabetes mellitus: (10) Constipation: (11) Elevated C-reactive protein (CRP): (12) Hyperlipidemia: (13) Postoperative anemia due to acute blood loss: (14) Acute blood loss anemia: Plan Reported postop fevers - Tmax 100.1 Fahrenheit - Blood cultures x 2 - Urinalysis with only trace leukocyte esterase, squamous cells noted - Chest x-ray negative for pneumonia - Blood cultures collected - Check inflammatory markers - Screen with MRSA nasal screening - Start cefepime Acute kidney injury Hypovolemic hyponatremia - Start low-dose fluids - Hold losartan-HCTZ - Repeat labs in a.m. Postop anemia - Hemoglobin 7.6 - Trend H&H - Monitor surgical site bleeding Lumbar stenosis status post recent surgery - Management per primary - Continue gabapentin Type 2 diabetes mellitus with hyperglycemia - Hold oral agents - SSI Hypertension - BP soft - Hold Coreg for now - Monitor hemodynamics Hyperlipidemia - Continue statin Thank you for this consultation. Hospitalist/Internal Medicine Service will continue to follow. 06/13/2024 bcx positive for kleb pnuemonia, staph epi repeat bcx today will need ID consultation Sunday will need IV abx for alteast 2 weeks or as per ID recs check CT lumbar spine w/ contrast to rule out hematoma, abscess, potential infection source. pt is 1 week post op, unsure if imaging will be super helpful given recent surgery, discussed at length with radiologist and Dr. Castro. Hemoglobin improved to 8.8, continue to monitor q12h, pressure bandage applied to lumbar incision area continue iv abx vancomycin and cefepime pt complains of constipation, start miralax 17 g daily, docusate senna 100 BID check urine culture stop IV fluids replace IV at left antecubital area due to it leaking. - notified RN 06/14/2024 bcx positive for kleb pnuemonia, staph epi repeat bcx today will need ID consultation Sunday will need IV abx for alteast 2 weeks or as per ID recs Ct lumbar spine: 1. Recent postoperative changes described above. 2. No high-grade central canal stenosis considering hardware artifact. Wide decompressive laminectomies. 3. No subcutaneous fluid collections. 4. Innumerable scattered small punctate foci of air within the paravertebral soft tissues extending to the psoas bilaterally and laminectomy defects. Some of this may be postoperative or due to prior surgical drain or possibly Surgicel. Gas-producing infection is an additional consideration. Discussed CT results with Dr. Castro. post op changes. Pt did have a drain post- op, foci of air most likely 2/2 to that. Hemoglobin improved to 8.8, continue to monitor q12h, pressure bandage applied to lumbar incision area continue iv abx vancomycin and cefepime consitpation: continue miralax 17 g daily, docusate senna 100 BID check urine culture PDMP PDMP Reviewed: Not Reviewed Attestations 2 Medical Necessity Statement*: > 48-72 hour stay for mgmt of bacteremia, post op blood loss, infection, Diagnoses Post op infection T81.40XA Status post lumbar spinal fusion Z98.1 Gram-negative bacteremia R78.81 Fever R50.9 PIPPA (acute kidney injury) N17.9 Hyponatremia E87.1 Anemia D64.9 Hyperglycemia R73.9 Type 2 diabetes mellitus E11.9 Constipation K59.00 Elevated C-reactive protein (CRP) R79.82 Hyperlipidemia E78.5 Postoperative anemia due to acute blood loss D62 Acute blood loss anemia D62
[2024-06-14] MEDS: diazePAM 5 mg Tablet PO (13:22)
[2024-06-14 14:43] LABS: Basophils % 0.4 %; Eosinophils # 0.1 10^3/uL (0.0-0.8); Eosinophils % 1.6 %; Hematocrit 29.4 % (36-47); Lymphocytes # 0.9 10^3/uL (0.8-4.8); Lymphocytes % 12.7 %; Mean Corpuscular Hemoglobin 28.4 pg (27-33); Mean Corpuscular Volume 88.8 fl (85-98); Mean Platelet Volume 10.8 fL (7.4-10.4); Monocytes # 0.5 10^3/uL (0.2-0.9); Monocytes % 7.3 %; Neutrophils # 5.34 10^3/uL (1.8-7.7); Neutrophils % 76.4 %; Nucleated Red Blood Cells % 0 %; Platelet Count 196 10^3/cmm (157-399); Red Blood Count 3.31 10^6/uL (3.85-5.65); Red Cell Distribution Width 14.3 % (12.1-15.1); White Blood Count 6.99 10^3/uL (3.29-11.43)
[2024-06-14 16:00] VITALS: BP 110/78
[2024-06-14 16:42] LABS: Glucose Point of Care 191 mg/dL (70-110)
[2024-06-14 16:46] LABS: Vancomycin Trough 15.5 ug/mL (10-15)
[2024-06-14 20:13] VITALS: BP 98/61; PULSE 115; RESP 17; TEMP 36.9; O2SAT 92
[2024-06-14 21:03] LABS: Glucose Point of Care 282 mg/dL (70-110)
[2024-06-14] MEDS: ATORVASTATIN 10 MG TABLET 20 MG PO (21:19)
[2024-06-14] MEDS: insulin glargine 100 units/1 mL 5 UNIT SUBCUT (21:20)
[2024-06-15 00:51] VITALS: BP 110/68; PULSE 79; RESP 18; TEMP 36.7; O2SAT 97
[2024-06-15] MEDS: HYDROcodone-acetaminophen 10-325 mg Tablet 1 TAB PO ×5 (03:52→21:28)
[2024-06-15] MEDS: cefepime 2,000 mg SDV 2000 MG IVP ×3 (03:53→21:16)
[2024-06-15] MEDS: vancomycin 1,250 MG/250 ML PIGGYBACK 166 MG IV ×2 (05:16→17:28)
[2024-06-15] MEDS: sodium chloride 0.9% 1,000 ML 100 ML IV ×2 (05:17→17:29)
[2024-06-15 05:21] VITALS: BP 111/69; PULSE 91; RESP 17; TEMP 36.4; O2SAT 94
--- NOTE | 2024-06-15 05:23 | PC.NURSE ---
This IVORY POLISHER has attempted to educate the client on the importance of mobility multiple time to help as non-pharmaceutical interventions Client stated I am unable to due to the pain and immobility of her left leg
[2024-06-15 05:25] LABS: Basophils # 0.1 10^3/uL (0.0-0.1); Basophils % 0.5 %; Eosinophils # 0.1 10^3/uL (0.0-0.8); Hematocrit 26.5 % (36-47); Lymphocytes # 1.4 10^3/uL (0.8-4.8); Lymphocytes % 13.5 %; Mean Corpuscular HGB Conc 32.5 g/dL (30-55); Mean Corpuscular Volume 89.2 fl (85-98); Mean Platelet Volume 11.2 fL (7.4-10.4); Monocytes # 0.9 10^3/uL (0.2-0.9); Monocytes % 8.9 %; Neutrophils # 7.84 10^3/uL (1.8-7.7); Neutrophils % 74.7 %; Nucleated Red Blood Cells % 0.2 %; Platelet Count 208 10^3/cmm (157-399); Red Blood Count 2.97 10^6/uL (3.85-5.65); Red Cell Distribution Width 14.2 % (12.1-15.1); White Blood Count 10.48 10^3/uL (3.29-11.43)
[2024-06-15 06:26] LABS: Anion Gap 14.1 (5-19); Blood Urea Nitrogen 12 mg/dL (8-23); Calcium 8.3 mg/dL (8.5-10.5); Carbon Dioxide 21 mmol/L (22-29); Chloride 104 mmol/L (98-107); Glomerular Filtration Rate 162.3 mL/min (90-130); Glucose 185 mg/dL (65-115); Magnesium 1.6 mg/dL (1.7-2.3); Osmolality Calculated 285 mOsm/kg (285-295); Potassium 4.1 mmol/L (3.5-5.1); Sodium 135 mmol/L (136-145)
[2024-06-15 06:28] LABS: Creatinine Clr Calc Pharmacy 189.2175
[2024-06-15 07:45] VITALS: BP 124/75; PULSE 97; RESP 19; TEMP 36.6; O2SAT 94
[2024-06-15] MEDS: pantoprazole DR 40 mg Tablet PO (07:59)
[2024-06-15] MEDS: gabapentin 100 mg Capsule 200 MG PO ×3 (07:59→21:16)
[2024-06-15] MEDS: insulin lispro 100 unit/1 mL SUBCUT ×4 (07:59→21:16)
[2024-06-15] MEDS: sennosides-docusate Tablet 1 TAB PO ×2 (07:59→17:23)
[2024-06-15] MEDS: magnesium sulfate premix 4 GM/100 ML PREMIX IV (08:05)
--- NOTE | 2024-06-15 08:33 | PC.NURSE ---
Upon morning assessment, pt c/o of pain. PO Oxycodone given and this nurse encouraged pt to get up to chair. Daughter is at bedside speaking on behalf of pt. Pt says she is willing to get up to chair, but requires 2 assist. This nurse received help from LEIGHANN Chavez. This nurse as well as Kathy, assisted pt with the sit to stand to transfer her to the recliner. Patients daughter refused pt to get up to the recliner stating that it is uncomfortable for her and that her legs are too short to reach the ground. Kathy and Lizzy assisted pt up to a regular chair. Daughter is at bedside trying to inform this nurse and LEIGHANN Chavez how to transfer pt. This nurse explained to pt and to patients daughter, respectfully, that we were going to transfer pt how we were trained and what was in the best interest and safety of the pt. Pt safely transferred to bed via sit to stand as pt says she is having difficulty using her legs. Bedside table and call light within reach.
[2024-06-15] MEDS: polyethylene glycol 3350 Pkt 17 gm PO (09:27)
--- NOTE | 2024-06-15 09:43 | PC.NURSE ---
Addendum entered by Domonique Navarro LPN 06/15/24 09:57: This nurse also had to lock IV pump as patients daughter was pressing buttons on the IV pump as well as inserting the rsus to take the tubing out when I walked in the room as the IV pump was sounding. Original Note: Pt refused SONG 9:00am miralax at 8:00am. This nurse did not administer per patients request. Shortly after 9:00am, patients daughter came out of the room and stood outside of room 260 where I was tending to another pt and informed me that pt would like her miralax now.
[2024-06-15] MEDS: methocarbamol 750 mg Tablet PO ×2 (11:07→21:16)
[2024-06-15 11:15] LABS: Glucose Point of Care 226 mg/dL (70-110)
[2024-06-15 11:42] VITALS: BP 111/73; PULSE 98; RESP 19; TEMP 36.7; O2SAT 97
--- NOTE | 2024-06-15 12:52 | P.PN_ITS ---
Subjective 2 Subjective: seen today hb stable pt sitting up in chair feels better Vitals/I&O/Wt Last Vital Signs Temp 98.0 F 06/15/24 11:42 Pulse 98 06/15/24 11:42 Resp 19 H 06/15/24 11:42 BP 111/73 06/15/24 11:42 Pulse Ox 97 06/15/24 11:42 O2 Del Method Room Air 06/15/24 11:42 O2 Flow Rate 2 06/13/24 04:00 06/14/24 06/15/24 06/15/24 22:59 06:59 14:59 Intake Total 1590 / 2320 1360 / 3680 590 / 590 Balance 1590 / 2320 1360 / 3680 590 / 590 Weight last 48 hrs Weight 124.284 kg Weight 124.466 kg Physical Exam 2 Narrative: General: Patient is awake. Head: Normocephalic. Atraumatic. EOM intact. Cardiovascular: RRR. No gallops. No murmurs. Lungs: Clear to auscultation, no crackles or wheezes. Abdomen: Normal bowel sounds, abdomen soft and nontender. Extremities: No cyanosis or clubbing. Neuro: no saddle anesthesia, sensation intact b/l LE, left foot drop Data 06/15/24 05:03 06/15/24 06:02 Micro: Microbiology 06/13/24 10:30 Blood Culture - Preliminary Blood NEGATIVE TO DATE 06/13/24 10:29 Blood Culture - Preliminary Blood NEGATIVE TO DATE A&P Assessment and plan (1) Post op infection: (2) Status post lumbar spinal fusion: (3) Gram-negative bacteremia: (4) Fever: (5) PIPPA (acute kidney injury): (6) Hyponatremia: (7) Anemia: (8) Hyperglycemia: (9) Type 2 diabetes mellitus: (10) Constipation: (11) Elevated C-reactive protein (CRP): (12) Hyperlipidemia: (13) Postoperative anemia due to acute blood loss: (14) Acute blood loss anemia: Plan Reported postop fevers - Tmax 100.1 Fahrenheit - Blood cultures x 2 - Urinalysis with only trace leukocyte esterase, squamous cells noted - Chest x-ray negative for pneumonia - Blood cultures collected - Check inflammatory markers - Screen with MRSA nasal screening - Start cefepime Acute kidney injury Hypovolemic hyponatremia - Start low-dose fluids - Hold losartan-HCTZ - Repeat labs in a.m. Postop anemia - Hemoglobin 7.6 - Trend H&H - Monitor surgical site bleeding Lumbar stenosis status post recent surgery - Management per primary - Continue gabapentin Type 2 diabetes mellitus with hyperglycemia - Hold oral agents - SSI Hypertension - BP soft - Hold Coreg for now - Monitor hemodynamics Hyperlipidemia - Continue statin Thank you for this consultation. Hospitalist/Internal Medicine Service will continue to follow. 06/13/2024 bcx positive for kleb pnuemonia, staph epi repeat bcx today will need ID consultation Sunday will need IV abx for alteast 2 weeks or as per ID recs check CT lumbar spine w/ contrast to rule out hematoma, abscess, potential infection source. pt is 1 week post op, unsure if imaging will be super helpful given recent surgery, discussed at length with radiologist and Dr. Castro. Hemoglobin improved to 8.8, continue to monitor q12h, pressure bandage applied to lumbar incision area continue iv abx vancomycin and cefepime pt complains of constipation, start miralax 17 g daily, docusate senna 100 BID check urine culture stop IV fluids replace IV at left antecubital area due to it leaking. - notified RN 06/14/2024 bcx positive for kleb pnuemonia, staph epi repeat bcx today will need ID consultation Sunday will need IV abx for alteast 2 weeks or as per ID recs Ct lumbar spine: 1. Recent postoperative changes described above. 2. No high-grade central canal stenosis considering hardware artifact. Wide decompressive laminectomies. 3. No subcutaneous fluid collections. 4. Innumerable scattered small punctate foci of air within the paravertebral soft tissues extending to the psoas bilaterally and laminectomy defects. Some of this may be postoperative or due to prior surgical drain or possibly Surgicel. Gas-producing infection is an additional consideration. Discussed CT results with Dr. Castro. post op changes. Pt did have a drain post- op, foci of air most likely 2/2 to that. Hemoglobin improved to 8.8, continue to monitor q12h, pressure bandage applied to lumbar incision area continue iv abx vancomycin and cefepime consitpation: continue miralax 17 g daily, docusate senna 100 BID check urine culture 06/15/2024 continue IV vanc and zosyn await sensitivities from blood culture blood culture pending repeat culture so far neg to date consult ID hB stable lumbar incision does not appear infected continue stool softeners urine culture pending will need NH at dc PDMP PDMP Reviewed: Not Reviewed Attestations 2 Medical Necessity Statement*: awaiting blood culture results for dc planning Diagnoses Post op infection T81.40XA Status post lumbar spinal fusion Z98.1 Gram-negative bacteremia R78.81 Fever R50.9 PIPPA (acute kidney injury) N17.9 Hyponatremia E87.1 Anemia D64.9 Hyperglycemia R73.9 Type 2 diabetes mellitus E11.9 Constipation K59.00 Elevated C-reactive protein (CRP) R79.82 Hyperlipidemia E78.5 Postoperative anemia due to acute blood loss D62 Acute blood loss anemia D62
--- NOTE | 2024-06-15 13:55 | P.PN_ITS ---
Subjective 2 Subjective: Patient is in the room with and friends. Patient seems to be doing well was up this morning the chair has not ambulated yet. Vitals/I&O/Wt Last Vital Signs Temp 98.0 F 06/15/24 11:42 Pulse 98 06/15/24 11:42 Resp 19 H 06/15/24 11:42 BP 111/73 06/15/24 11:42 Pulse Ox 97 06/15/24 11:42 O2 Del Method Room Air 06/15/24 11:42 O2 Flow Rate 2 06/13/24 04:00 06/14/24 06/15/24 06/15/24 22:59 06:59 14:59 Intake Total 1590 / 2320 1360 / 3680 1070 / 1070 Balance 1590 / 2320 1360 / 3680 1070 / 1070 Weight last 48 hrs Weight 274 lb Weight 274 lb 6.4 oz Physical Exam 2 Narrative: Sensation tact bilateral lower extremities patient stated that the left leg she feels like it moves a little bit now continues to have foot drop. Wound continues to have drainage however just looks like serous fluid. Data 06/15/24 05:03 06/15/24 06:02 Micro: Microbiology 06/13/24 10:30 Blood Culture - Preliminary Blood NEGATIVE TO DATE 06/13/24 10:29 Blood Culture - Preliminary Blood NEGATIVE TO DATE A&P Assessment and plan (1) Status post lumbar spinal fusion: Patient is status post lumbar fusion Continue working with therapy Continue to monitor hemoglobin Continue twice daily dressing changes PDMP PDMP Reviewed: Not Reviewed Attestations 2 Medical Necessity Statement*: Pain control Coding Level of Care Code Acute Code for Chg Fwd Diagnoses Status post lumbar spinal fusion Z98.1
[2024-06-15 16:00] VITALS: BP 115/76; PULSE 116; RESP 19; TEMP 36.8; O2SAT 93
[2024-06-15 17:08] LABS: Glucose Point of Care 201 mg/dL (70-110)
[2024-06-15 20:00] VITALS: BP 120/74; PULSE 123; RESP 17; TEMP 36.6; O2SAT 94
[2024-06-15 20:04] LABS: Glucose Point of Care 221 mg/dL (70-110)
[2024-06-15] MEDS: ATORVASTATIN 10 MG TABLET 20 MG PO (21:16)
[2024-06-15] MEDS: insulin glargine 100 units/1 mL 5 UNIT SUBCUT (21:17)
[2024-06-15] MEDS: metoprolol tartrate 25 mg Tablet 12.5 MG PO (21:27)
[2024-06-16] VITALS: BP 113/72; PULSE 120; RESP 17; TEMP 36.7; O2SAT 90
[2024-06-16] MEDS: HYDROcodone-acetaminophen 10-325 mg Tablet 1 TAB PO ×3 (01:48→12:02)
[2024-06-16] MEDS: sodium chloride 0.9% 1,000 ML 100 ML IV (02:41)
[2024-06-16 04:00] VITALS: BP 128/69; PULSE 132; RESP 16; TEMP 37; O2SAT 95
[2024-06-16] MEDS: cefepime 2,000 mg SDV 2000 MG IVP (04:08)
[2024-06-16] MEDS: vancomycin 1,250 MG/250 ML PIGGYBACK 166 MG IV (05:23)
[2024-06-16 06:30] LABS: Glucose Point of Care 205 mg/dL (70-110)
[2024-06-16] MEDS: polyethylene glycol 3350 Pkt 17 gm PO (07:43)
[2024-06-16] MEDS: insulin lispro 100 unit/1 mL SUBCUT ×4 (07:44→21:35)
[2024-06-16] MEDS: metoprolol tartrate 25 mg Tablet 12.5 MG PO (07:45)
[2024-06-16] MEDS: gabapentin 100 mg Capsule 200 MG PO ×3 (07:45→20:39)
[2024-06-16 07:46] VITALS: BP 107/69; PULSE 124; RESP 18; TEMP 36.8; O2SAT 92
[2024-06-16] MEDS: pantoprazole DR 40 mg Tablet PO (07:46)
[2024-06-16] MEDS: sennosides-docusate Tablet 1 TAB PO ×2 (07:46→17:05)
[2024-06-16 07:53] LABS: Basophils # 0.1 10^3/uL (0.0-0.1); Basophils % 0.3 %; Eosinophils # 0.1 10^3/uL (0.0-0.8); Eosinophils % 0.3 %; Hematocrit 28.9 % (36-47); Lymphocytes # 1.9 10^3/uL (0.8-4.8); Lymphocytes % 10.5 %; Mean Corpuscular HGB Conc 31.8 g/dL (30-55); Mean Corpuscular Hemoglobin 28.8 pg (27-33); Mean Corpuscular Volume 90.3 fl (85-98); Mean Platelet Volume 10.7 fL (7.4-10.4); Monocytes # 0.9 10^3/uL (0.2-0.9); Monocytes % 5.2 %; Neutrophils # 13.91 10^3/uL (1.8-7.7); Neutrophils % 78.7 %; Nucleated Red Blood Cells # 0.1 /100WBC; Nucleated Red Blood Cells % 0.4 %; Platelet Count 307 10^3/cmm (157-399); Red Cell Distribution Width 14.3 % (12.1-15.1); White Blood Count 17.69 10^3/uL (3.29-11.43)
[2024-06-16 08:21] LABS: Blood Urea Nitrogen 10 mg/dL (8-23); Carbon Dioxide 17 mmol/L (22-29); Chloride 102 mmol/L (98-107); Creatinine Clr Calc Pharmacy 154.0816; Glomerular Filtration Rate 125.4 mL/min (90-130); Glucose 203 mg/dL (65-115); Osmolality Calculated 283 mOsm/kg (285-295); Sodium 134 mmol/L (136-145)
[2024-06-16 08:31] LABS: Anion Gap 19.1 (5-19); Potassium 4.1 mmol/L (3.5-5.1)
[2024-06-16 08:42] LABS: Slide Review Slide Review Perform
[2024-06-16] MEDS: methocarbamol 750 mg Tablet PO ×2 (08:59→21:35)
--- NOTE | 2024-06-16 10:31 | P.CONIM_ITS ---
Providers/Reason For Consult 2 Consulting Physician/Specialty*: Cassandra Bryson MD / Infectious Disease Reason for Consult*: Klebsiella bacteremia Requesting Physician: Taya Shell MD Attending Physician: Laurent Castro DO Primary Care Provider: Candida Harris History of Present Illness History of Present Illness Kathy Sood is a 63 year old female who underwent an elective L5-S1 interbody fusion with posterolateral fusion with instrumentation for diagnosis of lumbar stenosis with neurogenic claudication on June 04, 2024. Postop course was complicated by pain and postop fever up to 100.5 Fahrenheit. Fever was resolved by the time of discharge. She discharged to long term facility on 06/10/2024. She returned to the emergency room on June 12, 2024 with increased bleeding at the surgical site which started a day prior. He was found to be febrile in the emergency room and admitted due to concern for infection. A blood culture from admission returned positive for Klebsiella pneumoniae and Staph epidermidis in 1 out of 4 bottles. Subsequent blood culture from 06/13/2024 is negative to date. Urine culture remains pending. It has been taken only on June 15, 2024 after several days of antibiotics. Urine analysis upon admission had shown squamous epithelial cells 11-20 therefore this was not a clean-catch specimen. Positive leukocyte Estrace was noted on the specimen. Kidney function is stable. Lumbar spine CT with contrast was performed which showed multiple scattered small punctate foci of air within the paravertebral soft tissues extending to the psoas bilaterally and laminectomy defects. These were considered to be postoperative changes versus related to prior surgical drain. Chest x-ray showed a stable chest without any acute abnormalities. She has been on empiric antibiotic coverage with piperacillin/tazobactam and vancomycin. Review of fever curve shows that she was last febrile on 06/13/2024 with a Tmax of 100.1 Fahrenheit. WBC count was normal on admission, however today has trended up to 17,000. Heart rate is additionally 124-132. Hospital course has been recurrent anemia for which she has received blood transfusion. CRP on admission 216; ESR 28 Review of Systems 2 General: Reports: 10 or more systems reviewed and unremarkable except in HPI and below Const: Denies: fever(s), chills or body aches Eyes: Denies: change in vision, blurry vision or photophobia ENMT: Reports: hoarseness; Denies: throat pain, enlarged tonsils, odynophagia or nasal congestion Card: Denies: chest pain, palpitations, irregular heart rhythm, edema, swelling of feet/ankles, lightheadedness, pre-syncope, dyspnea on exertion or orthopnea Resp: Denies: dyspnea, productive cough, non-productive cough, wheezing, stridor, pain on inspiration, change in phlegm color, hemoptysis or chest congestion GI: Denies: abdominal pain, nausea, vomiting, hematemesis, coffee ground emesis, dysphagia, heartburn, diarrhea, constipation, GI cramping, change in stool character, hematochezia or melena : Denies: flank pain, difficulty voiding, dysuria, urinary frequency, urinary urgency, urinary hesitancy or hematuria Musc: Denies: neck pain, back pain, extremity pain, joint swelling, joint warmth or deformity Neuro: Denies: headache(s), numbness in extremities, weakness in extremities, sensory changes, difficulty walking, frequent falls, dizziness, vertigo, behavioral changes, Slurred speech present or seizure-like activity Psych: Denies: anxiety, depression, suicidal ideation or homicidal ideation Endo: Denies: polyuria, polydipsia, tired all the time, cold intolerance or hot flashes Terence/Lymph: Denies: easy bruising or easy bleeding Medications/Allergies Home Medications ?Medication ?Instructions ?Recorded ?Confirmed ?Last Taken ?Type atorvastatin 20 mg tablet 20 mg PO DAILY 08/18/2309/2906/12/24 History carvedilol 3.125 mg tablet 3.125 mg PO BID 08/18/2306/12/24 History cholecalciferol (vitamin D3) 1,250 1,250 mcg PO .WEEKL Y 08/18/23 06/12/24 06/01/24 History mcg (50,000 unit) capsule glipizide 10 mg tablet 10 mg PO DAILY 08/18/2309/2906/12/24 History losartan 50 mg-hydrochlorothiazide 1 tab PO DAILY 08/0506/12/24 06/12/24 History 12.5 mg tablet metformin 1,000 mg tablet 1,000 mg PO BID 08/18/2309/2906/12/24 History methocarbamol 750 mg tablet 750 mg PO Q8H PRN pain #45 tabs 08/18/23 06/12/24 06/12/24 Rx pioglitazone 45 mg tablet (Actos) 45 mg PO DAILY 08/1706/12/24 06/12/24 History gabapentin 100 mg capsule 200 mg PO BID 04/22/2406/1206/12/24 History omeprazole 40 mg capsule,delayed 40 mg PO DAILY 06/12/24 06/12/24 History release semaglutide 1 mg/dose (4 mg/3 mL) 1 mg SUBCUT .WEEKLY 04/22/24 06/12/24 05/25/24 History subcutaneous pen injector (Ozempic) hydrocodone 10 mg-acetaminophen 1 tab PO Q4H PRN pain 7 days #42 06/10/24 06/12/24 06/12/24 Rx 325 mg tablet tabs bisacodyl 10 mg rectal suppository 10 mg ME DAILY PRN Constipation 06/12/24 06/12/24 Unknown History (Dulcolax (bisacodyl)) bisacodyl 5 mg tablet,delayed 10 mg PO DAILY 06/12/24 06/12/24 Unknown History release (Dulcolax (bisacodyl)) magnesium hydroxide 400 mg/5 mL 30 ml PO DAILY PRN Con stipation 06/12/24 06/12/24 Unknown History oral suspension (Milk of Magnesia) sodium phosphates 19 gram-7 118 ml ME DAILY PRN Consti pation 06/12/24 06/12/24 Unknown History gram/118 mL enema (Fleet Enema) Allergies Allergy/AdvReac Type Severity Reaction Status Date / Time codeine Allergy ADR-Nausea Verified 06/04/24 10:11 Current Medications Generic Name Dose Route Start Last Admin Trade Name Freq PRN Reason Stop Dose Admin Hydrocodone Bitart/Acetaminophen 1 tab 06/12/24 20:03 06/16/24 07:46 Hydrocodone-Acetaminophen 10-325 Mg Tablet PO 1 tab Q4H PRN Administration PAIN Atorvastatin Calcium 20 mg 06/12/24 21:00 06/15/24 21:16 Atorvastatin 10 Mg Tablet PO 20 mg BEDTIME SONG Administration Bisacodyl 10 mg 06/12/24 20:03 06/14/24 02:42 Bisacodyl 10 Mg Supp ME 10 mg DAILY PRN Administration CONSTIPATION Cefepime HCl 2,000 mg 06/12/24 20:30 06/16/24 04:08 Cefepime 2,000 Mg Sdv IVP 2,000 mg Q8H SONG Administration Protocol Gabapentin 200 mg 06/14/24 15:00 06/16/24 07:45 Gabapentin 100 Mg Capsule PO 200 mg TID SONG Administration Sodium Chloride 1,000 mls @ 100 mls/hr 06/12/24 16:45 06/16/24 02:41 Sodium Chloride 0.9% IV 100 mls/hr .Q10H SONG Administration Vancomycin HCl 1,250 mg in 250 mls @ 166.667 mls/hr 06/13/24 06:00 06/16/24 06:54 Vancocin IV Infused Q12H SONG Infusion Insulin Glargine 5 unit 06/12/24 21:00 06/15/24 21:17 Insulin Glargine 100 Units/1 Ml SUBCUT 5 unit BEDTIME SONG Administration Insulin Human Lispro 0 unit 06/12/24 21:00 06/16/24 07:44 Insulin Lispro 100 Unit/1 Ml SUBCUT 6 unit WM&BEDTIME SONG Administration Protocol Magnesium Hydroxide 30 ml 06/12/24 20:03 06/13/24 21:46 Magnesium Hydroxide 30 Ml Udc PO 30 ml DAILY PRN Administration CONSTIPATION Methocarbamol 750 mg 06/12/24 20:03 06/16/24 08:59 Methocarbamol 750 Mg Tablet PO 750 mg Q8H PRN Administration PAIN Metoprolol Tartrate 12.5 mg 06/15/24 21:00 06/16/24 07:45 Metoprolol Tartrate 25 Mg Tablet PO 12.5 mg BID@0900,2100 SONG Administration Pantoprazole Sodium 40 mg 06/13/24 09:00 06/16/24 07:[address] 40 Mg Tablet PO 40 mg DAILY SONG Administration Polyethylene Glycol 17 gm 06/13/24 13:50 06/16/24 07:43 Polyethylene Glycol 3350 Pkt 17 Gm PO 17 gm DAILY SONG Administration Senna/Docusate Sodium 1 tab 06/13/24 18:00 06/16/24 07:46 Sennosides-Docusate Tablet PO 1 tab BID SONG Administration Sodium Phosphate 118 ml 06/12/24 20:03 06/14/24 06:41 Fleet Enema 133 Ml Enema ME 118 ml DAILY PRN Administration CONSTIPATION PFSH Acute 2 PFSH: Medical History Type 2 diabetes mellitus Hyperlipidemia GERD (gastroesophageal reflux disease) Hypertension Diabetes mellitus Surgical History History of back surgery Social History Smoking and tobacco/nicotine status: never used tobacco/nicotine 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 Vitals/I&O/Wt Last Vital Signs Temp 98.3 F 06/16/24 07:46 Pulse 124 H 06/16/24 07:46 Resp 18 06/16/24 07:46 BP 107/69 06/16/24 07:46 Pulse Ox 92 06/16/24 07:46 O2 Del Method Room Air 06/16/24 07:46 O2 Flow Rate 2 06/13/24 04:00 06/15/24 06/16/24 06/16/24 22:59 06:59 14:59 Intake Total 1610 / 2680 1170 / 3850 240 / 240 Balance 1610 / 2680 1170 / 3850 240 / 240 Weight last 48 hrs Weight 127.913 kg Weight 124.284 kg Physical Exam 2 Narrative: General: No acute distress, AO x3 HEENT: PERRLA, pupils bilaterally equal and reactive, pallors not present Chest: Normal vesicular breath sounds, no added sounds, equal good air entry bilaterally CVS: S1-S2 regular, no murmurs, no tachycardia, no gallops, no rubs Abdomen: Soft, nontender, no organomegaly, bowel sounds present Neuro: No focal deficits, no facial deformity, AO x3, power 5/5 in all limbs Extremities: mild dependent edema B/L Data 06/16/24 14:47 06/16/24 07:16 Micro: Microbiology 06/12/24 15:00 Blood Culture - Preliminary Blood Klebsiella pneumoniae Staphylococcus epidermidis NAME: Kathy Sood LOC: [facility] #: [id number] AGE/SX: 63/F ROOM: 258 R E06/12/[address]: Laurent Castro DO : 1960 BED: 1 D IS: FAX #: STATUS: ADM IN TLOC: Spec #: [id number] Isaias: 06/12/24 Status: RES Req #: [id number] Recd: 06/12/[address]: Rhett Villareal MD Src: Blood SpDesc: Ordered: Bcult Procedure Result Verified Site Blood Culture Preliminary 06/15/24 1 OF 4 BOTTLES POSITIVE DIRECT GRAM STAIN: GRAM NEGATIVE RODS IDENTIFICATIONS BY DIRECT PCR RESULTS TO FOLLOW Organism 1 Klebsiella pneumoniae Growth 1 BOTTLE Organism 2 Staphylococcus epidermidis Growth SAME BOTTLE #1 Gram Stain Charge Charge for Gram Stain CRITICAL RESULT YES/NO: YES CRITICAL CALLED BY: JUWAN TO AND READ BACK BY: ROCIO DATE: 06/13/24 TIME: 842 Kleb pneum M.I.C. RX --------- ------ * Amikacin <=16 S * Amoxicillin/Clavulanate <=8/4 S * Ampicillin/Sulbactam <=8/4 S * Aztreonam <=4 S * Cefepime <=8 S * Ceftriaxone <=1 S * Cefuroxime <=4 S * Ciprofloxacin <=1 S * Gentamicin <=2 S * Imipenem <=1 S * Levofloxacin <=2 S * Tetracycline <=4 S * Trimethoprim/Sulfamethoxazole <=2/38 S * Piperacillin/Tazobactam <=16 S NAME: Kathy Sood [facility] #: [id number] LOC: [facility] #: [id number] AGE/SX: 63/F ROOM: [facility] R E06/12/[address]: Laurent Castro DO : 1960 BED: 1 D IS: FAX #: STATUS: ADM IN TLOC: Spec #: [id number] Isaias: 06/13/24 Status: RES Req #: [id number] Recd: 06/13/[address]: Taya Shell MD Src: Blood SpDesc: Ordered: Bcult Procedure Result Verified Site Blood Culture Preliminary 06/14/24 NEGATIVE TO DATE Blood Culture Preliminary (changed) 05/09/25-1039 SPECIMEN COLLECTED NAME: Kathy Sood LOC: [facility] U #: [id number] AGE/SX: 63/F ROOM: 258 R E06/12/[address]: Laurent Castro DO : 1960 BED: 1 D IS: FAX #: STATUS: ADM IN TLOC: Spec #: [id number] Isaias: 06/15/24-1816 Status: RECD Req #: [id number] Recd: 06/15/24-[address]: Taya Shell MD Src: URINE,VOID SpDesc: Ordered: Procedure Result Verified Site PENDING Other data: Radiology Impressions Chest X-Ray 06/12/24 14:56 IMPRESSION: Stable chest without acute abnormality. Lumbar Spine CT 06/13/24 11:59 IMPRESSION: 1. Recent postoperative changes described above. 2. No high-grade central canal stenosis considering hardware artifact. Wide decompressive laminectomies. 3. No subcutaneous fluid collections. 4. Innumerable scattered small punctate foci of air within the paravertebral soft tissues extending to the psoas bilaterally and laminectomy defects. Some of this may be postoperative or due to prior surgical drain or possibly Surgicel. Gas-producing infection is an additional consideration. Laboratory Results WBC 17.69 10^3/uL (3.29-11.43) H 06/16/24 07:16 RBC 3.20 10^6/uL (3.85-5.65) L 06/16/24 07:16 Hgb 9.20 g/dL (11.27-16.99) L 06/16/24 07:16 Hct 28.9 % (36-47) L 06/16/24 07:16 MCV 90.3 fl (85-98) 06/16/24 07:16 MCH 28.8 pg (27-33) 06/16/24 07:16 MCHC 31.8 g/dL (30-55) 06/16/24 07:16 RDW 14.3 % (12.1-15.1) 06/16/24 07:16 Plt Count 307 10^3/cmm (157-399) D 06/16/24 07:16 MPV 10.7 fL (7.4-10.4) H 06/16/24 07:16 Neut % (Auto) 78.7 % 06/16/24 07:16 Lymph % (Auto) 10.5 % 06/16/24 07:16 [place] % (Auto) 5.2 % 06/16/24 07:16 Eos % (Auto) 0.3 % 06/16/24 07:16 Baso % (Auto) 0.3 % 06/16/24 07:16 Neut # (Auto) 13.91 10^3/uL (1.8-7.7) H 06/16/24 07:16 Lymph # (Auto) 1.9 10^3/uL (0.8-4.8) 06/16/24 07:16 [place] # (Auto) 0.9 10^3/uL (0.2-0.9) 06/16/24 07:16 Eos # (Auto) 0.1 10^3/uL (0.0-0.8) 06/16/24 07:16 Baso # (Auto) 0.1 10^3/uL (0.0-0.1) 06/16/24 07:16 Nucleated RBC % (auto) 0.4 % 06/16/24 07:16 Nucleated RBCs # 0.1 /100WBC 06/16/24 07:16 ESR 28 mm/hr (0-15) H 06/12/24 14:25 Sodium 134 mmol/L (136-145) L 06/16/24 07:16 Potassium 4.1 mmol/L (3.5-5.1) 06/16/24 07:16 Chloride 102 mmol/L (98-107) 06/16/24 07:16 Carbon Dioxide 17 mmol/L (22-29) L 06/16/24 07:16 Anion Gap 19.1 (5-19) H 06/16/24 07:16 BUN 10 mg/dL (8-23) 06/16/24 07:16 Creatinine 0.5 mg/dL (0.5-0.9) 06/16/24 07:16 GFR Calculation 125.4 mL/min (90-130) 06/16/24 07:16 Glucose 203 mg/dL (65-115) H 06/16/24 07:16 POC Glucose 205 mg/dL (70-110) H 06/16/24 06:26 Calculated Osmolality 283 mOsm/kg (285-295) L 06/16/24 07:16 Lactic Acid 3.5 mmol/L (0.5-2.2) H 06/12/24 14:25 Lactic Acid (Sepsis) 2.3 mmol/L (0.5-2.2) H 06/12/24 17:19 Calcium 8.0 mg/dL (8.5-10.5) L 06/16/24 07:16 Phosphorus 1.7 mg/dL (2.5-4.5) L 06/13/24 04:30 Magnesium 1.6 mg/dL (1.7-2.3) L 06/15/24 06:02 Total Bilirubin 0.7 mg/dL (0.15-1.2) 06/14/24 03:41 AST 34 U/L (0-32) H 06/14/24 03:41 ALT 25 U/L (0-33) 06/14/24 03:41 Alkaline Phosphatase 178 U/L (35-105) H 06/14/24 03:41 C-Reactive Protein 216.8 mg/L (0.0-4.9) H 06/12/24 14:25 Total Protein 5.6 g/dL (6.6-8.7) L 06/14/24 03:41 Albumin 2.6 g/dL (3.5-5.2) L 06/14/24 03:41 Globulin 3.0 g/dL (1.3-4.6) 06/14/24 03:41 Procalcitonin 3.75 ng/mL (0-0.5) H 06/12/24 14:25 Urine Color Dark yellow (Yellow) A 06/12/24 15:48 Urine Appearance Turbid (CLEAR) A 06/12/24 15:48 Urine pH 5.0 (5-7) 06/12/24 15:48 Ur Specific [place] 1.026 (1.005-1.030) 06/12/24 15:48 Urine Protein 1+ (Negative) A 06/12/24 15:48 Urine Glucose (UA) Trace (Normal) H 06/12/24 15:48 Urine Ketones Trace (Negative) 06/12/24 15:48 Urine Blood Negative (Negative) 06/12/24 15:48 Urine Nitrate Negative (Negative) 06/12/24 15:48 Urine Bilirubin 1+ (Negative) H 06/12/24 15:48 Urine Urobilinogen 1.0 mg/dL (Negative) 06/12/24 15:48 Ur Leukocyte Esterase Trace (Negative) A 06/12/24 15:48 Urine RBC 3-5 /hpf (0-2) 06/12/24 15:48 Urine WBC 0-5 /hpf (0-5) 06/12/24 15:48 Ur Squamous Epith Cells 11-20 /hpf (0-5) H 06/12/24 15:48 Amorphous Sediment Not Reportable 06/12/24 15:48 Urine Bacteria Trace /hpf (NONE) 06/12/24 15:48 Hyaline Casts 101.44 /lpf 06/12/24 15:48 Coarse Granular Casts 5-10 /lpf H 06/12/24 15:48 Nasal MRSA (PCR) Not detected (Not Detecte) 06/12/24 22:22 Vancomycin Trough 15.5 ug/mL (10-15) H 06/14/24 16:08 Hep Bs Antigen Non-reactive (Nonreactive) 06/13/24 04:30 Hep Bs Antibody < 3.5 (11.5-1000) L 06/13/24 04:30 Hepatitis C Antibody Non-reactive (Nonreactive) 06/13/24 04:30 HIV 1&2 Ab & HIV 1 Ag Non-reactive (Non-Reactiv) 06/13/24 04:30 HIV 1&2 Antibody Non-reactive (Non-Reactiv) 06/13/24 04:30 Blood Type A Negative 06/12/24 16:42 Rho(D) Type Rh negative 06/12/24 16:42 Antibody Screen Negative 06/12/24 16:42 Antibody Identification Cancelled 06/12/24 16:42 Crossmatch See Detail 06/12/24 16:42 A&P Assessment and plan (1) Gram-negative bacteremia: Patient with recent HPI as above currently admitted to the hospital with fever, found to have Klebsiella pneumonia bacteremia. Source of infection is not entirely clear at this time. Patient does not appear to have had any or GI symptoms. Denies any nausea vomiting diarrhea prior to the onset of symptoms. States that she had a bowel movement after several days when she got an enema at the hospital. Denies any dysuria. On admission UA was performed which was not a clean-catch specimen therefore difficult to interpret. Urine culture was taken on 06/15/2024, results may be clouded by the fact that she has been on antibiotic for several days Chest x-ray without any signs of consolidation Follow-up blood cultures so far negative to date. She recently had back surgery on June 04, 2024, at this present time she has copious amount of serous discharge with blood-tinge from her back wound however there is no noted signs of wound dehiscence or cellulitic changes all around. It is nontender to palpation currently. CT with contrast of the lumbar spine shows postoperative changes. Patient has been on antibiotic treatment with piperacillin/tazobactam and vancomycin as far. Can discontinue both of the above antibiotics and switch to ciprofloxacin 500 mg p.o. twice daily in keeping with sensitivities. Staph epidermidis seen on 1 out of 4 cultures is likely a contaminant White blood cell count is noted to be trending up today to 17,000, from having previously been normal. Will closely monitor. Repeat CRP with a.m. labs. If WBC count continues to trend up will need dedicated CT imaging of the abdomen and pelvis to rule out any underlying abdominal pathology and we may need to revisit the possibility of surgical bed infection. For now anticipate 2 weeks of oral antibiotics Will follow PDMP PDMP Reviewed: Not Reviewed Coding Level of Care Code Acute Code for [facility] Fwd Diagnoses Gram-negative bacteremia R78.81
--- NOTE | 2024-06-16 11:12 | P.PN_ITS ---
Subjective 2 Subjective: White count 17,000 today. Unclear etiology. Patient denies nausea vomiting diarrhea pain or coughing. Afebrile overnight Blood cultures sensitive to ciprofloxacin. Repeat cultures negative Hemoglobin stable at 9.2. Incision no longer bleeding. Vitals/I&O/Wt Last Vital Signs Temp 98.3 F 06/16/24 07:46 Pulse 124 H 06/16/24 07:46 Resp 18 06/16/24 07:46 BP 107/69 06/16/24 07:46 Pulse Ox 92 06/16/24 07:46 O2 Del Method Room Air 06/16/24 07:46 O2 Flow Rate 2 06/13/24 04:00 06/15/24 06/16/24 06/16/24 22:59 06:59 14:59 Intake Total 1610 / 2680 1170 / 3850 240 / 240 Balance 1610 / 2680 1170 / 3850 240 / 240 Weight last 48 hrs Weight 127.913 kg Weight 124.284 kg Physical Exam 2 Narrative: General: Patient is awake. Head: Normocephalic. Atraumatic. EOM intact. Cardiovascular: RRR. No gallops. No murmurs. Lungs: Clear to auscultation, no crackles or wheezes. Abdomen: Normal bowel sounds, abdomen soft and nontender. Extremities: No cyanosis or clubbing. Neuro: no saddle anesthesia, sensation intact b/l LE, left foot drop Data 06/16/24 07:16 06/16/24 07:16 Micro: Microbiology 06/12/24 15:00 Blood Culture - Preliminary Blood Klebsiella pneumoniae Staphylococcus epidermidis A&P Assessment and plan (1) Post op infection: (2) Status post lumbar spinal fusion: (3) Gram-negative bacteremia: (4) Fever: (5) PIPPA (acute kidney injury): (6) Hyponatremia: (7) Anemia: (8) Hyperglycemia: (9) Type 2 diabetes mellitus: (10) Constipation: (11) Elevated C-reactive protein (CRP): (12) Hyperlipidemia: (13) Postoperative anemia due to acute blood loss: (14) Acute blood loss anemia: Plan Reported postop fevers - Tmax 100.1 Fahrenheit - Blood cultures x 2 - Urinalysis with only trace leukocyte esterase, squamous cells noted - Chest x-ray negative for pneumonia - Blood cultures collected - Check inflammatory markers - Screen with MRSA nasal screening - Start cefepime Acute kidney injury Hypovolemic hyponatremia - Start low-dose fluids - Hold losartan-HCTZ - Repeat labs in a.m. Postop anemia - Hemoglobin 7.6 - Trend H&H - Monitor surgical site bleeding Lumbar stenosis status post recent surgery - Management per primary - Continue gabapentin Type 2 diabetes mellitus with hyperglycemia - Hold oral agents - SSI Hypertension - BP soft - Hold Coreg for now - Monitor hemodynamics Hyperlipidemia - Continue statin Thank you for this consultation. Hospitalist/Internal Medicine Service will continue to follow. 06/13/2024 bcx positive for kleb pnuemonia, staph epi repeat bcx today will need ID consultation Sunday will need IV abx for alteast 2 weeks or as per ID recs check CT lumbar spine w/ contrast to rule out hematoma, abscess, potential infection source. pt is 1 week post op, unsure if imaging will be super helpful given recent surgery, discussed at length with radiologist and Dr. Castro. Hemoglobin improved to 8.8, continue to monitor q12h, pressure bandage applied to lumbar incision area continue iv abx vancomycin and cefepime pt complains of constipation, start miralax 17 g daily, docusate senna 100 BID check urine culture stop IV fluids replace IV at left antecubital area due to it leaking. - notified RN 06/14/2024 bcx positive for kleb pnuemonia, staph epi repeat bcx today will need ID consultation Sunday will need IV abx for alteast 2 weeks or as per ID recs Ct lumbar spine: 1. Recent postoperative changes described above. 2. No high-grade central canal stenosis considering hardware artifact. Wide decompressive laminectomies. 3. No subcutaneous fluid collections. 4. Innumerable scattered small punctate foci of air within the paravertebral soft tissues extending to the psoas bilaterally and laminectomy defects. Some of this may be postoperative or due to prior surgical drain or possibly Surgicel. Gas-producing infection is an additional consideration. Discussed CT results with Dr. Castro. post op changes. Pt did have a drain post- op, foci of air most likely 2/2 to that. Hemoglobin improved to 8.8, continue to monitor q12h, pressure bandage applied to lumbar incision area continue iv abx vancomycin and cefepime consitpation: continue miralax 17 g daily, docusate senna 100 BID check urine culture 06/15/2024 continue IV vanc and zosyn await sensitivities from blood culture blood culture pending repeat culture so far neg to date consult ID hB stable lumbar incision does not appear infected continue stool softeners urine culture pending will need NH at [facility] 06/16/2024 Coreg has been on hold since admission. Metoprolol tartrate 12.5 twice daily started yesterday Patient has been tachycardic 116-132 range. Increase metoprolol to 25 twice daily Continue to hold Coreg Order normal saline bolus 500 cc x 1 White count up to 17,000 today. Unclear etiology. Will await recommendations from infectious disease Patient does have gram-negative bacteremia with Klebsiella. Culture is pansensitive. Hemoglobin stable 9.6. Urine culture is pending. Broad-spectrum antibiotics have been stopped. Continue on oral Cipro twice daily. Discussed with ID. Since patient's incision a longer bleeding and hemoglobin is stable I will add DVT prophylaxis with Lovenox 40 daily. PDMP PDMP Reviewed: Not Reviewed Attestations 2 Medical Necessity Statement*: tachycardic today, leukocytosis [id number]. may need further investigation continue to monitor await ID recs possible dc in AM Diagnoses Post op infection T81.40XA Status post lumbar spinal fusion Z98.1 Gram-negative bacteremia R78.81 Fever R50.9 PIPPA (acute kidney injury) N17.9 Hyponatremia E87.1 Anemia D64.9 Hyperglycemia R73.9 Type 2 diabetes mellitus E11.9 Constipation K59.00 Elevated C-reactive protein (CRP) R79.82 Hyperlipidemia E78.5 Postoperative anemia due to acute blood loss D62 Acute blood loss anemia D62
[2024-06-16 11:37] LABS: Glucose Point of Care 364 mg/dL (70-110)
[2024-06-16 11:47] VITALS: BP 109/64; PULSE 106; RESP 18; TEMP 36.7; O2SAT 95
[2024-06-16] MEDS: enoxaparin 40 mg/0.4 mL Syringe SUBCUT (12:02)
--- NOTE | 2024-06-16 13:12 | P.PN_ITS ---
Subjective 2 Subjective: Patient sitting up better today able to move better. Pain little better controlled. Waiting for case management to discuss further placement for next place. She is talking about going to a swing bed. Vitals/I&O/Wt Last Vital Signs Temp 98.0 F 06/16/24 11:47 Pulse 106 H 06/16/24 11:47 Resp 18 06/16/24 11:47 BP 109/64 06/16/24 11:47 Pulse Ox 95 06/16/24 11:47 O2 Del Method Room Air 06/16/24 11:47 O2 Flow Rate 2 06/13/24 04:00 06/15/24 06/16/24 06/16/24 22:59 06:59 14:59 Intake Total 1610 / 2680 1170 / 3850 1238.333 / 1238.333 Balance 1610 / 2680 1170 / 3850 1238.333 / 1238.333 Weight last 48 hrs Weight 282 lb Weight 274 lb Physical Exam 2 Narrative: Wound continue drainage does not look infected. Continues to be serous in nature. Wound photo a bit more today. Data 06/16/24 07:16 06/16/24 07:16 Micro: Microbiology 06/12/24 15:00 Blood Culture - Preliminary Blood Klebsiella pneumoniae Staphylococcus epidermidis A&P Assessment and plan (1) Status post lumbar spinal fusion: Patient is status post lumbar fusion Follow-up with physical therapy Discharge planning PDMP PDMP Reviewed: Not Reviewed Attestations 2 Medical Necessity Statement*: Pain control Coding Level of Care Code Acute Code for Chg Fwd Diagnoses Status post lumbar spinal fusion Z98.1
[2024-06-16 15:10] LABS: Basophils # 0.1 10^3/uL (0.0-0.1); Basophils % 0.4 %; Eosinophils # 0.1 10^3/uL (0.0-0.8); Eosinophils % 0.3 %; Hematocrit 28.9 % (36-47); Lymphocytes # 2.9 10^3/uL (0.8-4.8); Lymphocytes % 15.7 %; Mean Corpuscular HGB Conc 32.2 g/dL (30-55); Mean Corpuscular Hemoglobin 28.6 pg (27-33); Mean Corpuscular Volume 88.9 fl (85-98); Monocytes # 0.9 10^3/uL (0.2-0.9); Monocytes % 4.7 %; Neutrophils # 13.86 10^3/uL (1.8-7.7); Neutrophils % 75.3 %; Nucleated Red Blood Cells # 0.1 /100WBC; Nucleated Red Blood Cells % 0.3 %; Platelet Count 316 10^3/cmm (157-399); Red Blood Count 3.25 10^6/uL (3.85-5.65); Red Cell Distribution Width 14.4 % (12.1-15.1)
[2024-06-16 15:37] LABS: Slide Review Slide Review Perform
[2024-06-16 16:00] VITALS: BP 138/85; PULSE 114; RESP 19; TEMP 36.7; O2SAT 97
[2024-06-16 16:25] LABS: Adenovirus Not Detected (NOT DETECT); Chlamydia Pneumoniae Not Detected (NOT DETECT); Coronavirus 229E,HKU1,NL63,OC4 Not Detected (NOT DETECT); Human Metapneumovirus Not Detected (NOT DETECT); Human Rhinovirus/Enterovirus Not Detected (NOT DETECT); Influenza A Not Detected (NOT DETECT); Influenza A H1 Not Detected (NOT DETECT); Influenza A H1-2009 Not Detected (NOT DETECT); Influenza A H3 Not Detected (NOT DETECT); Influenza B Not Detected (NOT DETECT); Mycoplasma Pneumoniae Not Detected (NOT DETECT); Parainfluenza Virus Type 1 Not Detected (NOT DETECT); Parainfluenza Virus Type 2 Not Detected (NOT DETECT); Parainfluenza Virus Type 3 Not Detected (NOT DETECT); Parainfluenza Virus Type 4 Not Detected (NOT DETECT); Respiratory Syncytial Virus A Not Detected (NOT DETECT); Respiratory Syncytial Virus B Not Detected (NOT DETECT); SARS-COV-2 Not Detected (NOT DETECT)
[2024-06-16 16:29] LABS: Glucose Point of Care 209 mg/dL (70-110)
[2024-06-16] MEDS: HYDROcodone-acetaminophen 5-325 mg Tablet 1 TAB PO (17:05)
[2024-06-16 20:00] VITALS: BP 110/72; PULSE 115; RESP 17; TEMP 36.6; O2SAT 94
--- NOTE | 2024-06-16 20:13 | CTR_ITS ---
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 Radiation optimization: All CT scans at this facility use at least one of these dose optimization techniques: automated exposure control; mA and/or kV adjustment per patient size (includes targeted exams where dose is matched to clinical indication); or iterative reconstruction. Contrast material: OPTI 350; Contrast volume: 100 ml; Contrast route: INTRAVENOUS (IV); COMPARISON: CR XR chest 1V portable [id number] 06/12/2024 3:07 PM RADIATION DOSE METRICS: Total DLP (mGy-cm): 688 FINDINGS: Lungs: Mild dependent atelectasis in both lungs. No consolidation. Left lower lobe calcified granuloma. Pleural spaces: Small left and trace right pleural effusions. No pneumothorax. Heart: Unremarkable. No cardiomegaly. No pericardial effusion. Lymph nodes: Prominent mediastinal and hilar lymph nodes are most likely reactive. Calcified left hilar lymph nodes. Vasculature: Unremarkable. No aortic aneurysm. Bones/joints: Degenerative changes in the thoracic and cervical spine. No acute fracture. Soft tissues: Unremarkable. 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 Radiation optimization: All CT scans at this facility use at least one of these dose optimization techniques: automated exposure control; mA and/or kV adjustment per patient size (includes targeted exams where dose is matched to clinical indication); or iterative reconstruction. Contrast material: OPTI 350; Contrast volume: 100 ml; Contrast route: INTRAVENOUS (IV); COMPARISON: CR XR hip BI 3-4V wo/w pel [id number] 02/25/2024 11:15 AM RADIATION DOSE METRICS: Total DLP (mGy-cm): 1066.8 FINDINGS: Liver: Normal. No mass. Gallbladder and biliary ducts: Cholecystectomy. The bile ducts are normal. Pancreas: Normal. No ductal dilation. Spleen: Normal. No splenomegaly. Adrenal glands: Normal. No mass. Kidneys and ureters: Normal. No hydronephrosis. Stomach and bowel: Diverticulosis of the colon. No diverticulitis. The stomach and small bowel are unremarkable. No wall thickening or obstruction. Appendix: The appendix is visualized and is normal. Intraperitoneal space: Unremarkable. No free air. No significant fluid collection. Vasculature: Splenic hilar varices. Calcified arterial plaque. No aneurysm. Lymph nodes: Unremarkable. No enlarged lymph nodes. Urinary bladder: Unremarkable as visualized. Reproductive: Hysterectomy. The ovaries are not visualized and may be surgically absent. Bones/joints: Degenerative changes in the thoracolumbar spine. Posterior mechanical fusion L2-S1 with decompressive laminectomies. Anterior spacers at L2-L3 and L3-L4. Anterior bone plug at L5-S1. No acute fracture. Soft tissues: Diffuse body wall edema. Lumbar surgical incision with gas bubbles and a small amount of fluid within the incision, along the posterior lumbar spine, and in the paravertebral region. Gas bubbles in the lower right abdominal wall, consistent with medication injection site. CT/CT chest abdpel w/*[id number] IMPRESSION: 1. No acute pulmonary findings. 2. Small left and trace right pleural effusions. IMPRESSION: 1. No acute findings in the abdomen or pelvis. 2. Soft tissue gas bubbles in the posterior and paravertebral lumbar region. This is presumably from recent spine surgery, although there is no mention of this in the history. Correlation with surgical history is recommended. If the patient's spine surgery was greater than 10 days ago, soft tissue infection in the surgical site can not be excluded.
[2024-06-16] MEDS: ATORVASTATIN 10 MG TABLET 20 MG PO (20:39)
[2024-06-16] MEDS: ciprofloxacin 500 mg Tablet PO (20:39)
[2024-06-16] MEDS: metoprolol tartrate 25 mg Tablet PO (20:39)
[2024-06-16] MEDS: insulin glargine 100 units/1 mL 5 UNIT SUBCUT (20:40)
[2024-06-16 20:56] LABS: Glucose Point of Care 323 mg/dL (70-110)
[2024-06-16] MEDS: iohexol 350 mg/mL 500 mL Btl (per mL) IV (22:40)
--- NOTE | 2024-06-16 22:58 | PC.NURSE ---
patients daughter told me to leave the PRN medications in cart so they had them when it was time told the patient i can not do that, she said just for us I again said no i will not do that for anyone we are to pull them when we give them. Daughter told me nursing is an easy job and your stupid, I said ok and asked I had done something to offend them? they said no your just stupid. they told me they wanted Armand to do the dressing change because hes the more competent nurse, he knows what to do. Daughter told the FORMULATOR's they're staying her to be sure mother is taken care of correctly by nurses.
[2024-06-17] VITALS: BP 102/68; PULSE 110; RESP 16; TEMP 36.6; O2SAT 94
[2024-06-17] MEDS: HYDROcodone-acetaminophen 5-325 mg Tablet 1 TAB PO ×5 (00:45→22:01)
[2024-06-17 04:00] VITALS: BP 112/70; PULSE 118; RESP 18; TEMP 36.7; O2SAT 93
[2024-06-17 05:56] LABS: Basophils # 0.1 10^3/uL (0.0-0.1); Basophils % 0.4 %; Eosinophils # 0.1 10^3/uL (0.0-0.8); Eosinophils % 0.5 %; Hematocrit 26.9 % (36-47); Lymphocytes # 2.5 10^3/uL (0.8-4.8); Lymphocytes % 16.3 %; Mean Corpuscular Volume 90.6 fl (85-98); Monocytes # 0.9 10^3/uL (0.2-0.9); Monocytes % 5.6 %; Neutrophils # 11.18 10^3/uL (1.8-7.7); Nucleated Red Blood Cells # 0.1 /100WBC; Nucleated Red Blood Cells % 0.3 %; Platelet Count 367 10^3/cmm (157-399); Red Blood Count 2.97 10^6/uL (3.85-5.65); Red Cell Distribution Width 14.5 % (12.1-15.1); White Blood Count 15.31 10^3/uL (3.29-11.43)
[2024-06-17 06:20] LABS: Alanine Aminotransferase 22 U/L (0-33); Albumin Level 2.4 g/dL (3.5-5.2); Alkaline Phosphatase 200 U/L (35-105); Aspartate Amino Transferase 25 U/L (0-32); Blood Urea Nitrogen 12 mg/dL (8-23); Calcium 7.6 mg/dL (8.5-10.5); Carbon Dioxide 18 mmol/L (22-29); Chloride 100 mmol/L (98-107); Creatinine Clr Calc Pharmacy 128.4014; Glomerular Filtration Rate 101.6 mL/min (90-130); Glucose 267 mg/dL (65-115); Osmolality Calculated 283 mOsm/kg (285-295); Sodium 132 mmol/L (136-145); Total Bilirubin 0.7 mg/dL (0.15-1.2); Total Protein 5.4 g/dL (6.6-8.7)
[2024-06-17 06:24] LABS: C Reactive Protein 149.3 mg/L (0.0-4.9)
[2024-06-17 06:29] LABS: Procalcitonin 2.06 ng/mL (0-0.5)
[2024-06-17 06:36] LABS: Glucose Point of Care 286 mg/dL (70-110)
[2024-06-17 07:19] VITALS: BP 99/72; PULSE 104; RESP 16; TEMP 36.9; O2SAT 97
[2024-06-17 07:19] LABS: Erythrocyte Sedimentation Rate 60 mm/hr (0-15)
[2024-06-17 07:22] LABS: Slide Review Slide Review Perform
--- NOTE | 2024-06-17 07:49 | P.PN_ITS ---
Subjective 2 Subjective: Patient is resting in bed. Vitals/I&O/Wt Last Vital Signs Temp 98.5 F 06/17/24 07:19 Pulse 104 H 06/17/24 07:19 Resp 16 06/17/24 07:19 BP 99/72 06/17/24 07:19 Pulse Ox 97 06/17/24 07:19 O2 Del Method Room Air 06/17/24 07:19 O2 Flow Rate 3 06/17/24 00:00 06/16/24 06/17/24 06/17/24 22:59 06:59 14:59 Intake Total 720 / 2438.333 Balance 720 / 2438.333 Weight last 48 hrs Weight 283 lb Weight 282 lb Physical Exam 2 Narrative: Dressing is clean dry intact do not see any drainage on the bed at this point. Data 06/17/24 05:19 06/17/24 05:19 Micro: Microbiology 06/12/24 15:00 Blood Culture - Preliminary Blood Klebsiella pneumoniae Staphylococcus epidermidis A&P Assessment and plan (1) Status post lumbar spinal fusion: Continue physical therapy Continue twice daily dressing changes Consult to behavioral health case manager for possible swing bed PDMP PDMP Reviewed: Not Reviewed Attestations 2 Medical Necessity Statement*: Pain control Coding Level of Care Code Acute Code for Chg Fwd Diagnoses Status post lumbar spinal fusion Z98.1
[2024-06-17] MEDS: gabapentin 100 mg Capsule 200 MG PO ×3 (08:31→22:01)
[2024-06-17] MEDS: ciprofloxacin 500 mg Tablet PO (08:31)
[2024-06-17] MEDS: polyethylene glycol 3350 Pkt 17 gm PO (08:31)
[2024-06-17] MEDS: methocarbamol 750 mg Tablet PO ×2 (08:31→17:22)
[2024-06-17] MEDS: sennosides-docusate Tablet 1 TAB PO ×2 (08:32→17:22)
[2024-06-17] MEDS: metoprolol tartrate 25 mg Tablet PO ×2 (08:32→22:00)
[2024-06-17] MEDS: pantoprazole DR 40 mg Tablet PO (08:32)
[2024-06-17] MEDS: insulin lispro 100 unit/1 mL SUBCUT ×4 (08:32→22:03)
--- NOTE | 2024-06-17 09:36 | MRR_ITS ---
PROCEDURE INFORMATION: Exam: MR Lumbar Spine Without and With Contrast Exam date and time: 06/17/2024 4:05 PM Age: 63 years old Clinical indication: Abnormal findings; Abnormal lab test; Other; Leukocytosis, high crp; Prior surgery; Surgery date: <1 month; Surgery type: Low back 06/04/24; Low back surgery 06/04/24. Post op infection; Additional info: Post op infection, leukocytosis, high crp, procal TECHNIQUE: Imaging protocol: Magnetic resonance imaging of the lumbar spine without and with contrast. Contrast material: MULTIHANCE; Contrast volume: 20 ml; Contrast route: INTRAVENOUS (IV); COMPARISON: CT lumbar spine w con [id number] 06/13/2024 1:14 PM FINDINGS: Bones/joints: There is evidence of recent posterior decompression and fusion surgery from L2-S1. The metallic hardware appear to be in good position and overall bony alignment is normal. Spinal cord: Visualized cord, conus medullaris and cauda equina are unremarkable without compression. L1-L2: No significant disc bulge or herniation. No severe spinal canal stenosis. No significant neural foraminal narrowing. L2-L3: No significant disc bulge or herniation. No severe spinal canal stenosis. No significant neural foraminal narrowing. L3-L4: No significant disc bulge or herniation. No severe spinal canal stenosis. No significant neural foraminal narrowing. L4-L5: No significant disc bulge or herniation. No severe spinal canal stenosis. No significant neural foraminal narrowing. L5-S1: No significant disc bulge or herniation. No severe spinal canal stenosis. No significant neural foraminal narrowing. Soft tissues: There is soft tissue edema noted in the surgical bed extending down to the posterior epidural space. However, I see no fluid collection. MR/MR lumbar spine wo/w con [id number] IMPRESSION: Normal expected postoperative changes. I see no evidence abscess.
[2024-06-17] MEDS: enoxaparin 40 mg/0.4 mL Syringe SUBCUT (11:18)
[2024-06-17] MEDS: cefTRIAXone 1,000 mg SDV 1000 MG IVP (11:18)
[2024-06-17] MEDS: vancomycin 1,250 MG/250 ML PIGGYBACK 166.67 MG IV (11:19)
[2024-06-17 11:20] VITALS: BP 98/69; PULSE 103; RESP 16; TEMP 37.1; O2SAT 94
[2024-06-17 11:33] LABS: Glucose Point of Care 307 mg/dL (70-110)
--- NOTE | 2024-06-17 12:53 | P.PN_ITS ---
Subjective 2 Subjective: sittin up in chair feels better afebrile overnight wbc 15K crp elevated procalcitonin elevated Vitals/I&O/Wt Last Vital Signs Temp 98.8 F 06/17/24 11:20 Pulse 103 H 06/17/24 11:20 Resp 16 06/17/24 11:20 BP 98/69 06/17/24 11:20 Pulse Ox 94 06/17/24 11:20 O2 Del Method Room Air 06/17/24 11:20 O2 Flow Rate 3 06/17/24 00:00 06/16/24 06/17/24 06/17/24 22:59 06:59 14:59 Intake Total 720 / 2438.333 134.446 / 134.446 Balance 720 / 2438.333 134.446 / 134.446 Weight last 48 hrs Weight 128.367 kg Weight 127.913 kg Physical Exam 2 Narrative: General: Patient is awake. Head: Normocephalic. Atraumatic. EOM intact. Cardiovascular: RRR. No gallops. No murmurs. Lungs: Clear to auscultation, no crackles or wheezes. Abdomen: Normal bowel sounds, abdomen soft and nontender. Extremities: No cyanosis or clubbing. Neuro: no saddle anesthesia, sensation intact b/l LE, left foot drop Data 06/17/24 05:19 06/17/24 05:19 Micro: Microbiology 06/15/24 18:17 Urine Culture - Preliminary Urine,Voided 06/12/24 15:00 Blood Culture - Preliminary Blood Klebsiella pneumoniae Staphylococcus epidermidis A&P Assessment and plan (1) Post op infection: (2) Status post lumbar spinal fusion: (3) Gram-negative bacteremia: (4) Fever: (5) PIPPA (acute kidney injury): (6) Hyponatremia: (7) Anemia: (8) Hyperglycemia: (9) Type 2 diabetes mellitus: (10) Constipation: (11) Elevated C-reactive protein (CRP): (12) Hyperlipidemia: (13) Postoperative anemia due to acute blood loss: (14) Acute blood loss anemia: Plan Reported postop fevers - Tmax 100.1 Fahrenheit - Blood cultures x 2 - Urinalysis with only trace leukocyte esterase, squamous cells noted - Chest x-ray negative for pneumonia - Blood cultures collected - Check inflammatory markers - Screen with MRSA nasal screening - Start cefepime Acute kidney injury Hypovolemic hyponatremia - Start low-dose fluids - Hold losartan-HCTZ - Repeat labs in a.m. Postop anemia - Hemoglobin 7.6 - Trend H&H - Monitor surgical site bleeding Lumbar stenosis status post recent surgery - Management per primary - Continue gabapentin Type 2 diabetes mellitus with hyperglycemia - Hold oral agents - SSI Hypertension - BP soft - Hold Coreg for now - Monitor hemodynamics Hyperlipidemia - Continue statin Thank you for this consultation. Hospitalist/Internal Medicine Service will continue to follow. 06/13/2024 bcx positive for kleb pnuemonia, staph epi repeat bcx today will need ID consultation Sunday will need IV abx for alteast 2 weeks or as per ID recs check CT lumbar spine w/ contrast to rule out hematoma, abscess, potential infection source. pt is 1 week post op, unsure if imaging will be super helpful given recent surgery, discussed at length with radiologist and Dr. Castro. Hemoglobin improved to 8.8, continue to monitor q12h, pressure bandage applied to lumbar incision area continue iv abx vancomycin and cefepime pt complains of constipation, start miralax 17 g daily, docusate senna 100 BID check urine culture stop IV fluids replace IV at left antecubital area due to it leaking. - notified RN 06/14/2024 bcx positive for kleb pnuemonia, staph epi repeat bcx today will need ID consultation Sunday will need IV abx for alteast 2 weeks or as per ID recs Ct lumbar spine: 1. Recent postoperative changes described above. 2. No high-grade central canal stenosis considering hardware artifact. Wide decompressive laminectomies. 3. No subcutaneous fluid collections. 4. Innumerable scattered small punctate foci of air within the paravertebral soft tissues extending to the psoas bilaterally and laminectomy defects. Some of this may be postoperative or due to prior surgical drain or possibly Surgicel. Gas-producing infection is an additional consideration. Discussed CT results with Dr. Castro. post op changes. Pt did have a drain post- op, foci of air most likely 2/2 to that. Hemoglobin improved to 8.8, continue to monitor q12h, pressure bandage applied to lumbar incision area continue iv abx vancomycin and cefepime consitpation: continue miralax 17 g daily, docusate senna 100 BID check urine culture 06/15/2024 continue IV vanc and zosyn await sensitivities from blood culture blood culture pending repeat culture so far neg to date consult ID hB stable lumbar incision does not appear infected continue stool softeners urine culture pending will need NH at dc 06/16/2024 Coreg has been on hold since admission. Metoprolol tartrate 12.5 twice daily started yesterday Patient has been tachycardic 116-132 range. Increase metoprolol to 25 twice daily Continue to hold Coreg Order normal saline bolus 500 cc x 1 White count up to 17,000 today. Unclear etiology. Will await recommendations from infectious disease Patient does have gram-negative bacteremia with Klebsiella. Culture is pansensitive. Hemoglobin stable 9.6. Urine culture is pending. Broad-spectrum antibiotics have been stopped. Continue on oral Cipro twice daily. Discussed with ID. Since patient's incision a longer bleeding and hemoglobin is stable I will add DVT prophylaxis with Lovenox 40 daily. 06/17/2024 surgery was 06/04 pt is [address] chest abd pelvis: 1. No acute pulmonary findings. 2. Small left and trace right pleural effusions. 1. No acute findings in the abdomen or pelvis. 2. Soft tissue gas bubbles in the posterior and paravertebral lumbar region. This is presumably from recent spine surgery, although there is no mention of this in the history. Correlation with surgical history is recommended. If the patient's spine surgery was greater than 10 days ago, soft tissue infection in the surgical site can not be excluded. MRI L-spine ordered today WBC 15K procal, crp elevated hb stable most likely wound infection as other sources has been ruled out dicussed with dr. castro, will keep pt npo at midnight incase of surgical intervention planned in am however before making a final decision, will await mri results continue dvt ppx urine culture neg ID on board, appreciate recommendations discussed with ID and primary spine surgeon continue vanc and ceftriaxone PDMP PDMP Reviewed: Not Reviewed Attestations 2 Medical Necessity Statement*: post op wound infection, requires continued hospitalization Diagnoses Post op infection T81.40XA Status post lumbar spinal fusion Z98.1 Gram-negative bacteremia R78.81 Fever R50.9 PIPPA (acute kidney injury) N17.9 Hyponatremia E87.1 Anemia D64.9 Hyperglycemia R73.9 Type 2 diabetes mellitus E11.9 Constipation K59.00 Elevated C-reactive protein (CRP) R79.82 Hyperlipidemia E78.5 Postoperative anemia due to acute blood loss D62 Acute blood loss anemia D62
--- NOTE | 2024-06-17 13:05 | XR_ITS ---
WS: [id number] Exam: XR chest 1V portable [id number] Date/Time of Exam: 06/17/2024 1:05 PM Reason For Exam: Post PICC insertion Comparison 06/12/2024. A right-sided PICC line ends at the cavoatrial junction in satisfactory position. Mild cardiac enlargement. The lungs are fully inflated. No consolidating infiltrates. No pleural effusion. XR/XR chest 1V portable [id number] IMPRESSION: 1. Right-sided PICC line in satisfactory position. 2. Mild cardiomegaly
--- NOTE | 2024-06-17 13:17 | PC.NURSE ---
Patient back dressing changed per orders. Upon inspection, RN notes that purulent drainage is coming from the distal area of wound. Wound culture obtained, labeled, and sent to lab. Some maceration noted along the wound border. Images sent to Dr. Shell, via secure messaging, for the chart. Notified Dr. Bryson in person. Poor peripheral access noted. Due to IV positioning, RN does not feel confident in current IVs ability to safely administer contrast for MRI. Dr. Bryson and Dr. Shell anticipate patient needing antibiotics for 2 weeks. PICC line ordered by Dr. Bryson. PICC being placed by Karli Lindsey at this time.
--- NOTE | 2024-06-17 14:05 | PICC.NOTE ---
Double lumen PICC placed to right basilic vein. Referred to vascular access nurse for PICC placement due to poor access and provider request. Risks and benefits discussed and informed consent obtained from pt. Right arm assessed with right basilic vein measuring 5.2 mm, straight, and apparent best choice for placement. Using sterile technique and MST, right basilic vein accessed x 1 stick. Mid-arm circumference measured 10 cm from right AC 33 cm. Trimmed cath 44 cm with 1 cm external length noted. CXR shows tip in cavoatrial junction, in good position for use per radiologist. Line secured with stat-lock. Insertion site covered with Biopatch and TSM. Report given to bedside nurse, GURVINDER Goldberg.
--- NOTE | 2024-06-17 14:29 | PM.PN ---
Subjective Subjective: Continues to have persistent leukocytosis today at 15,000. Additionally CRP has not improved for expected lines. Continues to be at 150. Patient states that today the discharge appears to be changing into a thicker almost puslike discharge. Cultures were taken and sent to micro lab. Medications: Reviewed: Yes Vitals/I&O/Wt Last Vital Signs Temp 98.8 F 06/17/24 11:20 Pulse 103 H 06/17/24 11:20 Resp 16 06/17/24 11:20 BP 98/69 06/17/24 11:20 Pulse Ox 94 06/17/24 11:20 O2 Del Method Room Air 06/17/24 11:20 O2 Flow Rate 3 06/17/24 00:00 06/16/24 06/17/24 06/17/24 22:59 06:59 14:59 Intake Total 720 / 2438.333 134.446 / 134.446 Balance 720 / 2438.333 134.446 / 134.446 Weight last 48 hrs Weight 128.367 kg Weight 127.913 kg Physical Exam Narrative: General: No acute distress, AO x3 HEENT: PERRLA, pupils bilaterally equal and reactive, pallors not present Chest: Normal vesicular breath sounds, no added sounds, equal good air entry bilaterally CVS: S1-S2 regular, no murmurs, no tachycardia, no gallops, no rubs Abdomen: Soft, nontender, no organomegaly, bowel sounds present Neuro: No focal deficits, no facial deformity, AO x3, power 5/5 in all limbs Extremities: mild dependent edema B/L Data 06/17/24 05:19 06/17/24 05:19 Micro: Microbiology 06/15/24 18:17 Urine Culture - Preliminary Urine,Voided 06/12/24 15:00 Blood Culture - Preliminary Blood Klebsiella pneumoniae Staphylococcus epidermidis Kleb pneum S epidermi M.I.C. RX M.I.C. RX --------- ------ --------- ------ * Amikacin <=16 S * Amoxicillin/Clavulanate <=8/4 S * Ampicillin/Sulbactam <=8/4 S * Aztreonam <=4 S * Cefepime <=8 S * Ceftriaxone <=1 S * Cefuroxime <=4 S * Ciprofloxacin <=1 S <=1 S * Clindamycin 4 R * Erythromycin >4 R * Gentamicin <=2 S * Imipenem <=1 S * Levofloxacin <=2 S <=1 S * Linezolid <=1 S * Moxifloxacin <=0.5 S * Oxacillin >2 R * Penicillin 8 R * Rifampin <=1 S * Tetracycline <=4 S <=4 S * Trimethoprim/Sulfamethoxazole <= S > R Vancomycin 2 S * Piperacillin/Tazobactam <=16 S Daptomycin <=0.5 S A&P Assessment and plan (1) Gram-negative bacteremia: Patient with recent HPI as above currently admitted to the hospital with fever, found to have Klebsiella pneumonia bacteremia. Source of infection is not entirely clear at this time. Patient does not appear to have had any or GI symptoms. Denies any nausea vomiting diarrhea prior to the onset of symptoms. States that she had a bowel movement after several days when she got an enema at the hospital. Denies any dysuria. On admission UA was performed which was not a clean-catch specimen therefore difficult to interpret. Urine culture was taken on 06/15/2024, results may be clouded by the fact that she has been on antibiotic for several days Chest x-ray without any signs of consolidation Follow-up blood cultures so far negative to date. She recently had back surgery on June 04, 2024, at this present time she has copious amount of serous discharge with blood-tinge from her back wound however there is no noted signs of wound dehiscence or cellulitic changes all around. It is nontender to palpation currently. CT with contrast of the lumbar spine shows postoperative changes. Patient has been on antibiotic treatment with piperacillin/tazobactam and vancomycin as far. Can discontinue both of the above antibiotics and switch to ciprofloxacin 500 mg p.o. twice daily in keeping with sensitivities. Staph epidermidis seen on 1 out of 4 cultures is likely a contaminant White blood cell count is noted to be trending up today to 17,000, from having previously been normal. Will closely monitor. Repeat CRP with a.m. labs. If WBC count continues to trend up will need dedicated CT imaging of the abdomen and pelvis to rule out any underlying abdominal pathology and we may need to revisit the possibility of surgical bed infection. For now anticipate 2 weeks of oral antibiotics Will follow June 17, 2024 Leukocytosis is persistent today at 15,000. Additionally CRP persisting to be at 150. Patient states neither of discharge has changed today to be thicker and more yellow. CT of the chest abdomen and pelvis performed overnight was negative for any pneumonia or other abdominal sources of infection. She is having some diarrheal bowel movements, however relates this to receiving stool softeners. Will check C. difficile PCR today. No obvious enhancing abscess was encountered on the CT performed overnight over the back. However at this point would be concerned about persisting source of infection perhaps, over the back. Recommend dedicated MRI of the lumbar spine. While awaiting culture results taken today and MRI of the spine, change antibiotic coverage to IV ceftriaxone 1 g every 24 hours and IV vancomycin with target trough of 15-20. Discontinue ciprofloxacin as started yesterday for now. Midline for iv access PDMP PDMP Reviewed: Not Reviewed Attestations Medical Necessity Statement*: per admitting Coding Level of Care Code Acute Code for [facility] Diagnoses Gram-negative bacteremia R78.81
[2024-06-17 15:30] VITALS: BP 118/76; PULSE 117; TEMP 36.7; O2SAT 95
[2024-06-17] MEDS: LORazepam 1 MG/0.5 ML injection 2 MG IVP (15:35)
[2024-06-17 15:40] VITALS: BP 126/72
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
[2024-06-17] MEDS: VANCOMYCIN ADD-Vantage 1,000 MG in 0.9% NaCl ADD-Vantage 250 ML 250 MG IV (17:20)
[2024-06-17 17:31] LABS: Glucose Point of Care 206 mg/dL (70-110)
[2024-06-17 20:24] LABS: Glucose Point of Care 180 mg/dL (70-110)
[2024-06-17] MEDS: ATORVASTATIN 10 MG TABLET 20 MG PO (22:02)
[2024-06-17] MEDS: insulin glargine 100 units/1 mL 5 UNIT SUBCUT (22:03)
[2024-06-18] VITALS (7 sets, daily range): BP systolic 95–143; BP diastolic 54–77; PULSE 96–123; RESP 17–18; TEMP 36.5–37.2; O2SAT 91–95
[2024-06-18] MEDS: HYDROcodone-acetaminophen 5-325 mg Tablet 1 TAB PO ×5 (03:00→20:59)
[2024-06-18] MEDS: vancomycin 1,250 MG/250 ML PIGGYBACK 166.67 MG IV ×2 (03:00→15:57)
[2024-06-18 05:35] LABS: Basophils % 0.3 %; Eosinophils % 0.3 %; Hematocrit 26.5 % (36-47); Lymphocytes # 1.5 10^3/uL (0.8-4.8); Lymphocytes % 11.4 %; Mean Corpuscular HGB Conc 31.7 g/dL (30-55); Mean Corpuscular Hemoglobin 28.8 pg (27-33); Mean Corpuscular Volume 90.8 fl (85-98); Mean Platelet Volume 12.9 fL (7.4-10.4); Monocytes # 0.8 10^3/uL (0.2-0.9); Monocytes % 5.7 %; Neutrophils # 10.52 10^3/uL (1.8-7.7); Neutrophils % 79.2 %; Nucleated Red Blood Cells % 0.3 %; Platelet Count 207 10^3/cmm (157-399); Red Blood Count 2.92 10^6/uL (3.85-5.65); Red Cell Distribution Width 14.9 % (12.1-15.1); White Blood Count 13.27 10^3/uL (3.29-11.43)
[2024-06-18 06:03] LABS: Slide Review Slide Review Perform
--- NOTE | 2024-06-18 06:20 | PC.NURSE ---
Patient and Daughter told the nurse she didn't want dressing changed because she had Valium and is too weak and cant sit to have it changed and cleaned. Nurse asked her later if she would like it changed later and she still said no still too weak to sit at side of bed.
[2024-06-18 06:34] LABS: Glucose Point of Care 190 mg/dL (70-110)
[2024-06-18 06:35] LABS: Anion Gap 16.2 (5-19); Blood Urea Nitrogen 10 mg/dL (8-23); Calcium 8.2 mg/dL (8.5-10.5); Carbon Dioxide 21 mmol/L (22-29); Chloride 102 mmol/L (98-107); Creatinine Clr Calc Pharmacy 155.4351; Glomerular Filtration Rate 125.4 mL/min (90-130); Glucose 164 mg/dL (65-115); Magnesium 1.7 mg/dL (1.7-2.3); Osmolality Calculated 283 mOsm/kg (285-295); Potassium 4.2 mmol/L (3.5-5.1); Sodium 135 mmol/L (136-145)
--- NOTE | 2024-06-18 06:53 | PC.NURSE ---
This nurse answered the call light and the pt was on the bedside commode ready to get back to bed. Pt began to pull on the walker to lift herself up, this nurse educated the pt on the correct way to stand from the commode, pt replied I know and I can do it when I am not in as much pain . Pt family stated that the pt was supposed to have her dressing changed last night and it never got done. This nurse addressed the dressing change comment with the pt care nurse, Beatriz. Beatriz stated that she offered twice and the pt declined both times saying that she was too weak to sit at the side of the bed due to her Valium. Went back into the room and told the patient and family what Beatriz relayed to marketing underwriter about offering to do the dressing change. The patient's response was yeah well, I just get so confused, ok . Ensured them both that we weren't just not doing the dressing change.
--- NOTE | 2024-06-18 07:16 | PC.NURSE ---
while helping turn patient she told nurse shake my boobies just bounce them nurse ignored comment and asked if they were comfortable and then exited the room
[2024-06-18] MEDS: metoprolol tartrate 25 mg Tablet PO ×2 (09:35→20:59)
[2024-06-18] MEDS: gabapentin 100 mg Capsule 200 MG PO ×3 (09:35→20:59)
[2024-06-18] MEDS: pantoprazole DR 40 mg Tablet PO (09:35)
[2024-06-18] MEDS: sennosides-docusate Tablet 1 TAB PO ×2 (09:36→18:34)
--- NOTE | 2024-06-18 10:01 | PC.NURSE ---
Verbal order to start patients diet order per Dr. Castro. Patient not going to surgery.
--- NOTE | 2024-06-18 10:03 | PC.NURSE ---
Notified Chelsi of patients blood sugar is 190, requires 6 units of insulin. Held due to patient NPO for possible surgery.
[2024-06-18] MEDS: methocarbamol 750 mg Tablet PO (11:03)
[2024-06-18] MEDS: cefTRIAXone 1,000 mg SDV 1000 MG IVP (11:03)
[2024-06-18 11:04] LABS: Glucose Point of Care 201 mg/dL (70-110)
[2024-06-18] MEDS: enoxaparin 40 mg/0.4 mL Syringe SUBCUT (11:50)
[2024-06-18] MEDS: insulin lispro 100 unit/1 mL SUBCUT ×3 (12:26→21:00)
[2024-06-18 12:59] LABS: C.Diff PCR (Lab) NEGATIVE (Negative)
--- NOTE | 2024-06-18 13:18 | P.PN_ITS ---
Subjective 2 Subjective: MRI lumbar spine negative for abscess WBC count trending down 13,000 today. Hemoglobin 8.4 Patient has had good bowel movements and is happy her constipation is getting better. Vitals/I&O/Wt Last Vital Signs Temp 98.3 F 06/18/24 11:13 Pulse 96 06/18/24 11:13 Resp 18 06/18/24 11:13 BP 108/62 06/18/24 11:13 Pulse Ox 95 06/18/24 11:13 O2 Del Method Room Air 06/18/24 11:13 O2 Flow Rate 3 06/17/24 00:00 06/17/24 06/18/24 06/18/24 22:59 06:59 14:59 Intake Total 250 / 624.446 250 / 874.446 480 / 480 Output Total 300 / 300 Balance 250 / 624.446 250 / 874.446 180 / 180 Weight last 48 hrs Weight 129.727 kg Weight 128.367 kg Physical Exam 2 Narrative: General: Patient is awake. Head: Normocephalic. Atraumatic. EOM intact. Cardiovascular: RRR. No gallops. No murmurs. Lungs: Clear to auscultation, no crackles or wheezes. Abdomen: Normal bowel sounds, abdomen soft and nontender. Extremities: No cyanosis or clubbing. Neuro: no saddle anesthesia, sensation intact b/l LE, left foot drop Data 06/18/24 05:14 06/18/24 05:55 Micro: Microbiology 06/17/24 15:13 Wound Culture - Preliminary Other Source 06/13/24 10:30 Blood Culture - Final Blood NO GROWTH AFTER 5 DAYS 06/13/24 10:29 Blood Culture - Final Blood NO GROWTH AFTER 5 DAYS 06/15/24 18:17 Urine Culture - Final Urine,Voided 06/12/24 15:28 Blood Culture - Final Blood NO GROWTH AFTER 5 DAYS A&P Assessment and plan (1) Post op infection: (2) Status post lumbar spinal fusion: (3) Gram-negative bacteremia: (4) Fever: (5) PIPPA (acute kidney injury): (6) Hyponatremia: (7) Anemia: (8) Hyperglycemia: (9) Type 2 diabetes mellitus: (10) Constipation: (11) Elevated C-reactive protein (CRP): (12) Hyperlipidemia: (13) Postoperative anemia due to acute blood loss: (14) Acute blood loss anemia: Plan Reported postop fevers - Tmax 100.1 Fahrenheit - Blood cultures x 2 - Urinalysis with only trace leukocyte esterase, squamous cells noted - Chest x-ray negative for pneumonia - Blood cultures collected - Check inflammatory markers - Screen with MRSA nasal screening - Start cefepime Acute kidney injury Hypovolemic hyponatremia - Start low-dose fluids - Hold losartan-HCTZ - Repeat labs in a.m. Postop anemia - Hemoglobin 7.6 - Trend H&H - Monitor surgical site bleeding Lumbar stenosis status post recent surgery - Management per primary - Continue gabapentin Type 2 diabetes mellitus with hyperglycemia - Hold oral agents - SSI Hypertension - BP soft - Hold Coreg for now - Monitor hemodynamics Hyperlipidemia - Continue statin Thank you for this consultation. Hospitalist/Internal Medicine Service will continue to follow. 06/13/2024 bcx positive for kleb pnuemonia, staph epi repeat bcx today will need ID consultation Sunday will need IV abx for alteast 2 weeks or as per ID recs check CT lumbar spine w/ contrast to rule out hematoma, abscess, potential infection source. pt is 1 week post op, unsure if imaging will be super helpful given recent surgery, discussed at length with radiologist and Dr. Castro. Hemoglobin improved to 8.8, continue to monitor q12h, pressure bandage applied to lumbar incision area continue iv abx vancomycin and cefepime pt complains of constipation, start miralax 17 g daily, docusate senna 100 BID check urine culture stop IV fluids replace IV at left antecubital area due to it leaking. - notified RN 06/14/2024 bcx positive for kleb pnuemonia, staph epi repeat bcx today will need ID consultation Sunday will need IV abx for alteast 2 weeks or as per ID recs Ct lumbar spine: 1. Recent postoperative changes described above. 2. No high-grade central canal stenosis considering hardware artifact. Wide decompressive laminectomies. 3. No subcutaneous fluid collections. 4. Innumerable scattered small punctate foci of air within the paravertebral soft tissues extending to the psoas bilaterally and laminectomy defects. Some of this may be postoperative or due to prior surgical drain or possibly Surgicel. Gas-producing infection is an additional consideration. Discussed CT results with Dr. Castro. post op changes. Pt did have a drain post- op, foci of air most likely 2/2 to that. Hemoglobin improved to 8.8, continue to monitor q12h, pressure bandage applied to lumbar incision area continue iv abx vancomycin and cefepime consitpation: continue miralax 17 g daily, docusate senna 100 BID check urine culture 06/15/2024 continue IV vanc and zosyn await sensitivities from blood culture blood culture pending repeat culture so far neg to date consult ID hB stable lumbar incision does not appear infected continue stool softeners urine culture pending will need NH at id 06/16/2024 Coreg has been on hold since admission. Metoprolol tartrate 12.5 twice daily started yesterday Patient has been tachycardic 116-132 range. Increase metoprolol to 25 twice daily Continue to hold Coreg Order normal saline bolus 500 cc x 1 White count up to 17,000 today. Unclear etiology. Will await recommendations from infectious disease Patient does have gram-negative bacteremia with Klebsiella. Culture is pansensitive. Hemoglobin stable 9.6. Urine culture is pending. Broad-spectrum antibiotics have been stopped. Continue on oral Cipro twice daily. Discussed with ID. Since patient's incision a longer bleeding and hemoglobin is stable I will add DVT prophylaxis with Lovenox 40 daily. 06/17/2024 surgery was 06/04 pt is [address] chest abd pelvis: 1. No acute pulmonary findings. 2. Small left and trace right pleural effusions. 1. No acute findings in the abdomen or pelvis. 2. Soft tissue gas bubbles in the posterior and paravertebral lumbar region. This is presumably from recent spine surgery, although there is no mention of this in the history. Correlation with surgical history is recommended. If the patient's spine surgery was greater than 10 days ago, soft tissue infection in the surgical site can not be excluded. MRI L-spine ordered today WBC 15K procal, crp elevated hb stable most likely wound infection as other sources has been ruled out dicussed with dr. castro, will keep pt npo at midnight incase of surgical intervention planned in am however before making a final decision, will await mri results continue dvt ppx urine culture neg ID on board, appreciate recommendations discussed with ID and primary spine surgeon continue vanc and ceftriaxone 06/18/2024 MRI L-spine negative for abscess, shows postop changes WBC trending down to 13,000 today. Will check Pro-Hiram CRP in a.m. Continue DVT prophylaxis Urine culture negative Constipation has improved. Will continue MiraLAX. Stop docusate senna. If patient starts to have worsening diarrhea we will stop stool softeners completely. Patient is on hydrocodone/oral opioids Gram-negative and positive bacteremia with Staphylococcus epidermidis and Klebsiella. Wound culture obtained 06/17. Await results Appreciate ID recommendations. Continue to monitor in hospital at this time with IV antibiotics. Patient is not medically ready for discharge. PDMP PDMP Reviewed: Not Reviewed Attestations 2 Medical Necessity Statement*: Gram-negative and positive bacteremia, requires continued hospitalization Diagnoses Post op infection T81.40XA Status post lumbar spinal fusion Z98.1 Gram-negative bacteremia R78.81 Fever R50.9 PIPPA (acute kidney injury) N17.9 Hyponatremia E87.1 Anemia D64.9 Hyperglycemia R73.9 Type 2 diabetes mellitus E11.9 Constipation K59.00 Elevated C-reactive protein (CRP) R79.82 Hyperlipidemia E78.5 Postoperative anemia due to acute blood loss D62 Acute blood loss anemia D62
--- NOTE | 2024-06-18 14:24 | P.PN_ITS ---
Subjective 2 Subjective: Patient has a myles drain placed today over the back and is happy with the results so far. States that the drainage has reduced since the drain went on Medications: Reviewed: Yes Vitals/I&O/Wt Last Vital Signs Temp 98.3 F 06/18/24 11:13 Pulse 96 06/18/24 11:13 Resp 18 06/18/24 11:13 BP 108/62 06/18/24 11:13 Pulse Ox 95 06/18/24 11:13 O2 Del Method Room Air 06/18/24 11:13 O2 Flow Rate 3 06/17/24 00:00 06/17/24 06/18/24 06/18/24 22:59 06:59 14:59 Intake Total 250 / 624.446 250 / 874.446 480 / 480 Output Total 300 / 300 Balance 250 / 624.446 250 / 874.446 180 / 180 Weight last 48 hrs Weight 129.727 kg Weight 128.367 kg Physical Exam 2 Narrative: General: No acute distress, AO x3 HEENT: PERRLA, pupils bilaterally equal and reactive, pallors not present Chest: Normal vesicular breath sounds, no added sounds, equal good air entry bilaterally CVS: S1-S2 regular, no murmurs, no tachycardia, no gallops, no rubs Abdomen: Soft, nontender, no organomegaly, bowel sounds present Neuro: No focal deficits, no facial deformity, AO x3, power 5/5 in all limbs Data 06/18/24 05:14 06/18/24 05:55 Micro: Microbiology 06/17/24 15:13 Wound Culture - Preliminary Other Source 06/13/24 10:30 Blood Culture - Final Blood NO GROWTH AFTER 5 DAYS 06/13/24 10:29 Blood Culture - Final Blood NO GROWTH AFTER 5 DAYS 06/15/24 18:17 Urine Culture - Final Urine,Voided 06/12/24 15:28 Blood Culture - Final Blood NO GROWTH AFTER 5 DAYS A&P Assessment and plan (1) Gram-negative bacteremia: Patient with recent HPI as above currently admitted to the hospital with fever, found to have Klebsiella pneumonia bacteremia. Source of infection is not entirely clear at this time. Patient does not appear to have had any or GI symptoms. Denies any nausea vomiting diarrhea prior to the onset of symptoms. States that she had a bowel movement after several days when she got an enema at the hospital. Denies any dysuria. On admission UA was performed which was not a clean-catch specimen therefore difficult to interpret. Urine culture was taken on 06/15/2024, results may be clouded by the fact that she has been on antibiotic for several days Chest x-ray without any signs of consolidation Follow-up blood cultures so far negative to date. She recently had back surgery on June 04, 2024, at this present time she has copious amount of serous discharge with blood-tinge from her back wound however there is no noted signs of wound dehiscence or cellulitic changes all around. It is nontender to palpation currently. CT with contrast of the lumbar spine shows postoperative changes. Patient has been on antibiotic treatment with piperacillin/tazobactam and vancomycin as far. Can discontinue both of the above antibiotics and switch to ciprofloxacin 500 mg p.o. twice daily in keeping with sensitivities. Staph epidermidis seen on 1 out of 4 cultures is likely a contaminant White blood cell count is noted to be trending up today to 17,000, from having previously been normal. Will closely monitor. Repeat CRP with a.m. labs. If WBC count continues to trend up will need dedicated CT imaging of the abdomen and pelvis to rule out any underlying abdominal pathology and we may need to revisit the possibility of surgical bed infection. For now anticipate 2 weeks of oral antibiotics Will follow June 17, 2024 Leukocytosis is persistent today at 15,000. Additionally CRP persisting to be at 150. Patient states neither of discharge has changed today to be thicker and more yellow. CT of the chest abdomen and pelvis performed overnight was negative for any pneumonia or other abdominal sources of infection. She is having some diarrheal bowel movements, however relates this to receiving stool softeners. Will check C. difficile PCR today. No obvious enhancing abscess was encountered on the CT performed overnight over the back. However at this point would be concerned about persisting source of infection perhaps, over the back. Recommend dedicated MRI of the lumbar spine. While awaiting culture results taken today and MRI of the spine, change antibiotic coverage to IV ceftriaxone 1 g every 24 hours and IV vancomycin with target trough of 15-20. Discontinue ciprofloxacin as started yesterday for now. Midline for iv access 06/18/2024 Leukocytosis downtrending at 13,000 today. She is afebrile. Tmax 99 Fahrenheit last 24 hours. Myles drain has been placed over her back today which appears to be helping contain some of her discharge. MRI of the lumbar spine performed yesterday showed normal expected postoperative changes without any evidence of abscess. urine Culture unremarkable with 10- 20,000 colonies of mixed urogenital asim. Wound culture taken on 06/17/2024 with scant mixed facial asim. C diff negative. Overall no obvious infectious residual source appears to be evident based on available data. Possible leukocytosis and persistent CRP elevation may be related to SSTI at site. Continue treatment with ceftriaxone 1g iv every 2hrs and Vancomycin while awaiting wound cx taken on 06/17. If wound cx shows bacteria resistant to current abx, would anticipate d/c on ertapenem 1g iv every 24 hrs. Else, plan to change to oral Cipro + linezolid at discharge. PDMP PDMP Reviewed: Not Reviewed Attestations 2 Medical Necessity Statement*: per admitting Coding Level of Care Code Acute Code for [facility] Diagnoses Gram-negative bacteremia R78.81
--- NOTE | 2024-06-18 15:39 | P.PN_ITS ---
Subjective 2 Subjective: Patient is doing better and she has been up and ambulating with physical therapy. Vitals/I&O/Wt Last Vital Signs Temp 98.3 F 06/18/24 11:13 Pulse 96 06/18/24 11:13 Resp 18 06/18/24 11:13 BP 108/62 06/18/24 11:13 Pulse Ox 95 06/18/24 11:13 O2 Del Method Room Air 06/18/24 11:13 O2 Flow Rate 3 06/17/24 00:00 06/18/24 06/18/24 06/18/24 06:59 14:59 22:59 Intake Total 250 / 874.446 480 / 480 Output Total 300 / 300 Balance 250 / 874.446 180 / 180 Weight last 48 hrs Weight 286 lb Weight 283 lb Physical Exam 2 Narrative: Dressing was changed with myles dressing. MRIs reviewed does not show any pockets of fluid. Data 06/18/24 05:14 06/18/24 05:55 Micro: Microbiology 06/17/24 15:13 Wound Culture - Preliminary Other Source 06/13/24 10:30 Blood Culture - Final Blood NO GROWTH AFTER 5 DAYS 06/13/24 10:29 Blood Culture - Final Blood NO GROWTH AFTER 5 DAYS 06/15/24 18:17 Urine Culture - Final Urine,Voided 06/12/24 15:28 Blood Culture - Final Blood NO GROWTH AFTER 5 DAYS A&P Assessment and plan (1) Status post lumbar spinal fusion: Status post lumbar fusion Dressing changes Up with physical therapy Discharge planning/okay to discharge as long as antibiotics are set up. She is discharged to [facility] or swing bed. PDMP PDMP Reviewed: Not Reviewed Attestations 2 Medical Necessity Statement*: Pain control Coding Level of Care Code Acute Code for [facility] Diagnoses Status post lumbar spinal fusion Z98.1
[2024-06-18 16:31] LABS: Glucose Point of Care 196 mg/dL (70-110)
[2024-06-18 17:26] LABS: Bilirubin Urine Negative (Negative); Blood Urine Negative (Negative); Glucose Urine UA 1+ (Normal); Ketones Urine Negative (Negative); Leukocyte Esterase Urine Negative (Negative); Nitrate Urine Negative (Negative); Protein Urine Trace (Negative); Specific Gravity, Urine 1.014 (1.005-1.030); Urine Appearance Clear (CLEAR); Urine Color Yellow (Yellow); pH Urine 5.5 (5-7)
[2024-06-18 17:30] LABS: Add Urine Microscopic? YES; Bacteria Urine None Seen /hpf; Hyaline Casts Urine 2.87 /lpf; RBC Urine 0-2 /hpf (0-2); Squamous Epithelial Cell Urine 0-5 /hpf (0-5); WBC Urine 0-5 /hpf (0-5)
[2024-06-18 18:57] LABS: Add Urine Culture? No
--- NOTE | 2024-06-18 19:02 | PC.NURSE ---
Went in patients room approximate 1015 this am to help patient get up to the bedside commode. Patients daughter was holding on to the walker so patient could pull self up by the walker. I ask the daughter not to do that please we needed to let the patient push up from the chair so it does not hurt her back any worse. The daughter instantly got defensive and stated PT has let them do it. I told the daughter I would talk to Bin with PT and see if that was okay. This nurse spoke with PT. Bin stated the patient has not been being corrected for the improper way to push self up due to daughter stating that is how patient gets up. This nurse went back to the patients room and explained what PT stated and we could use the walker.
[2024-06-18 20:32] LABS: Glucose Point of Care 221 mg/dL (70-110)
[2024-06-18] MEDS: ATORVASTATIN 10 MG TABLET 20 MG PO (20:59)
[2024-06-18] MEDS: insulin glargine 100 units/1 mL 5 UNIT SUBCUT (21:00)
[2024-06-19] MEDS: vancomycin 1,250 MG/250 ML PIGGYBACK 166.67 MG IV ×2 (03:02→18:36)
[2024-06-19] MEDS: HYDROcodone-acetaminophen 5-325 mg Tablet 1 TAB PO ×5 (03:02→21:31)
[2024-06-19 04:00] VITALS: BP 139/74; PULSE 119; RESP 18; TEMP 37.1; O2SAT 94
[2024-06-19 05:17] LABS: Basophils # 0.1 10^3/uL (0.0-0.1); Basophils % 0.4 %; Eosinophils # 0.1 10^3/uL (0.0-0.8); Eosinophils % 0.5 %; Hematocrit 26.5 % (36-47); Lymphocytes # 1.3 10^3/uL (0.8-4.8); Lymphocytes % 10.2 %; Mean Corpuscular HGB Conc 30.9 g/dL (30-55); Mean Corpuscular Hemoglobin 28.8 pg (27-33); Mean Platelet Volume 10.1 fL (7.4-10.4); Monocytes # 0.9 10^3/uL (0.2-0.9); Monocytes % 6.9 %; Neutrophils # 9.89 10^3/uL (1.8-7.7); Neutrophils % 79.8 %; Nucleated Red Blood Cells # 0.1 /100WBC; Nucleated Red Blood Cells % 0.5 %; Platelet Count 365 10^3/cmm (157-399); Red Blood Count 2.85 10^6/uL (3.85-5.65); Red Cell Distribution Width 14.8 % (12.1-15.1); White Blood Count 12.39 10^3/uL (3.29-11.43)
--- NOTE | 2024-06-19 05:27 | PC.NURSE ---
THIS RN WENT IN TO GIVE THE PT THEIR PAIN MEDICINE AT 2100, DAUGHTER WAS AT THE BEDSIDE AT THIS TIME. PT STARTED TO EXPLAIN TO THIS RN HOW DR BILL WANTED THE PT TO MOVE. THIS RN GRABBED A ROAD CROSSING GUARD AND WE ROLLED THE PT ON THEIR SIDE. DAUGHTER LEFT THE BESIDE AROUND 0100. PT HIT HER CALL LIGHT AT 0300 TO USE THE BEDSIDE COMMODE. THE ROAD CROSSING GUARD ANSWERED THE LIGHT AND WHEN THIS RN WALKED IN PT WAS STANDING AND PIVOTING TO THE BSC USING ONLY THE WALKER. PT PROCEEDED TO HAVE A BM. WHEN PT WAS DONE THIS RN AND ROAD CROSSING GUARD HELPED THE PT BACK INTO BED. THE PT WAS ABLE TO STAND UP AND PIVOT TO THE BED WITHOUT ASSISTANCE. THE PT ONLY REQUIRED HELP LIFTING THE LEFT LEG ONTO THE BED. PT ALSO ASKED FOR SOME PAIN MEDICINE AND ASKED IF THIS RN COULD PUT THE NEXT DUE TIME ON THE BOARD BECAUSE SINCE MY DAUGHTER ISN'T HERE TO WAKE ME UP TO GET MY PAIN MEDS I NEED TO KEEP TRACK OF IT. THIS RN WROTE THE NEXT AVAILABLE TIME AND EDUCATED HER THAT PAIN MEDICINE IS NOT SCHEDULED AND TO HAVE HER ASK FOR IT WHEN SHE REALLY NEEDS IT.
[2024-06-19 05:38] LABS: Alanine Aminotransferase 15 U/L (0-33); Albumin Level 2.1 g/dL (3.5-5.2); Alkaline Phosphatase 168 U/L (35-105); Anion Gap 14.9 (5-19); Aspartate Amino Transferase 14 U/L (0-32); Blood Urea Nitrogen 10 mg/dL (8-23); Calcium 8.1 mg/dL (8.5-10.5); Carbon Dioxide 21 mmol/L (22-29); Chloride 102 mmol/L (98-107); Creatinine Clr Calc Pharmacy 129.5292; Globulin 3.8 g/dL (1.3-4.6); Glomerular Filtration Rate 101.6 mL/min (90-130); Glucose 211 mg/dL (65-115); Magnesium 1.7 mg/dL (1.7-2.3); Osmolality Calculated 283 mOsm/kg (285-295); Potassium 3.9 mmol/L (3.5-5.1); Sodium 134 mmol/L (136-145); Total Bilirubin 0.8 mg/dL (0.15-1.2); Total Protein 5.9 g/dL (6.6-8.7)
[2024-06-19 06:34] LABS: Glucose Point of Care 246 mg/dL (70-110)
[2024-06-19 07:42] VITALS: BP 99/58; PULSE 103; RESP 16; TEMP 36.8; O2SAT 94
--- NOTE | 2024-06-19 08:18 | P.PN_ITS ---
Subjective 2 Subjective: Patient is laying in bed complaining of diarrhea at this point. Says she is feels she is getting around better. Vitals/I&O/Wt Last Vital Signs Temp 98.2 F 06/19/24 07:42 Pulse 103 H 06/19/24 07:42 Resp 16 06/19/24 07:42 BP 99/58 06/19/24 07:42 Pulse Ox 94 06/19/24 07:42 O2 Del Method Room Air 06/19/24 07:42 O2 Flow Rate 3 06/18/24 20:00 06/18/24 06/19/24 06/19/24 22:59 06:59 14:59 Intake Total 250 / 730 370.000 / 1100.000 Balance 250 / 430 370.000 / 800.000 Weight last 48 hrs Weight 280 lb Weight 286 lb Physical Exam 2 Narrative: Pain is controlled. She has myles dressing intact still has a foot drop. Data 06/19/24 05:03 06/19/24 05:03 Micro: Microbiology 06/17/24 15:13 Wound Culture - Preliminary Other Source 06/13/24 10:30 Blood Culture - Final Blood NO GROWTH AFTER 5 DAYS 06/13/24 10:29 Blood Culture - Final Blood NO GROWTH AFTER 5 DAYS 06/15/24 18:17 Urine Culture - Final Urine,Voided A&P Assessment and plan (1) Status post lumbar spinal fusion: Patient is status post lumbar fusion Discharge planning Up with physical therapy PDMP PDMP Reviewed: Not Reviewed Attestations 2 Medical Necessity Statement*: Okay to discharge when okay with the hospitalist and patient has placement Coding Level of Care Code Acute Code for Chg Fwd Diagnoses Status post lumbar spinal fusion Z98.1
[2024-06-19] MEDS: insulin lispro 100 unit/1 mL SUBCUT ×4 (08:33→21:31)
[2024-06-19] MEDS: gabapentin 100 mg Capsule 200 MG PO ×3 (08:34→21:31)
[2024-06-19] MEDS: pantoprazole DR 40 mg Tablet PO (08:34)
--- NOTE | 2024-06-19 09:31 | P.PN_ITS ---
Subjective 2 Subjective: wbc trending down complains of diarrhea, discussed with her to stop stool softeners, pt agreeable overall, feeling better awaitng wound culture Vitals/I&O/Wt Last Vital Signs Temp 98.2 F 06/19/24 07:42 Pulse 103 H 06/19/24 07:42 Resp 16 06/19/24 07:42 BP 99/58 06/19/24 07:42 Pulse Ox 94 06/19/24 07:42 O2 Del Method Room Air 06/19/24 07:42 O2 Flow Rate 3 06/18/24 20:00 06/18/24 06/19/24 06/19/24 22:59 06:59 14:59 Intake Total 250 / 730 370.000 / 1100.000 Balance 250 / 430 370.000 / 800.000 Weight last 48 hrs Weight 127.006 kg Weight 129.727 kg Physical Exam 2 Narrative: General: Patient is awake. Head: Normocephalic. Atraumatic. EOM intact. Cardiovascular: RRR. No gallops. No murmurs. Lungs: Clear to auscultation, no crackles or wheezes. Abdomen: Normal bowel sounds, abdomen soft and nontender. Extremities: No cyanosis or clubbing. Neuro: no saddle anesthesia, sensation intact b/l LE, left foot drop Data 06/19/24 05:03 06/19/24 05:03 Micro: Microbiology 06/17/24 15:13 Wound Culture - Preliminary Other Source 06/13/24 10:30 Blood Culture - Final Blood NO GROWTH AFTER 5 DAYS 06/13/24 10:29 Blood Culture - Final Blood NO GROWTH AFTER 5 DAYS 06/15/24 18:17 Urine Culture - Final Urine,Voided A&P Assessment and plan (1) Post op infection: (2) Status post lumbar spinal fusion: (3) Gram-negative bacteremia: (4) Fever: (5) PIPPA (acute kidney injury): (6) Hyponatremia: (7) Anemia: (8) Hyperglycemia: (9) Type 2 diabetes mellitus: (10) Constipation: (11) Elevated C-reactive protein (CRP): (12) Hyperlipidemia: (13) Postoperative anemia due to acute blood loss: (14) Acute blood loss anemia: Plan Reported postop fevers - Tmax 100.1 Fahrenheit - Blood cultures x 2 - Urinalysis with only trace leukocyte esterase, squamous cells noted - Chest x-ray negative for pneumonia - Blood cultures collected - Check inflammatory markers - Screen with MRSA nasal screening - Start cefepime Acute kidney injury Hypovolemic hyponatremia - Start low-dose fluids - Hold losartan-HCTZ - Repeat labs in a.m. Postop anemia - Hemoglobin 7.6 - Trend H&H - Monitor surgical site bleeding Lumbar stenosis status post recent surgery - Management per primary - Continue gabapentin Type 2 diabetes mellitus with hyperglycemia - Hold oral agents - SSI Hypertension - BP soft - Hold Coreg for now - Monitor hemodynamics Hyperlipidemia - Continue statin Thank you for this consultation. Hospitalist/Internal Medicine Service will continue to follow. 06/13/2024 bcx positive for kleb pnuemonia, staph epi repeat bcx today will need ID consultation Sunday will need IV abx for alteast 2 weeks or as per ID recs check CT lumbar spine w/ contrast to rule out hematoma, abscess, potential infection source. pt is 1 week post op, unsure if imaging will be super helpful given recent surgery, discussed at length with radiologist and Dr. Castro. Hemoglobin improved to 8.8, continue to monitor q12h, pressure bandage applied to lumbar incision area continue iv abx vancomycin and cefepime pt complains of constipation, start miralax 17 g daily, docusate senna 100 BID check urine culture stop IV fluids replace IV at left antecubital area due to it leaking. - notified RN 06/14/2024 bcx positive for kleb pnuemonia, staph epi repeat bcx today will need ID consultation Sunday will need IV abx for alteast 2 weeks or as per ID recs Ct lumbar spine: 1. Recent postoperative changes described above. 2. No high-grade central canal stenosis considering hardware artifact. Wide decompressive laminectomies. 3. No subcutaneous fluid collections. 4. Innumerable scattered small punctate foci of air within the paravertebral soft tissues extending to the psoas bilaterally and laminectomy defects. Some of this may be postoperative or due to prior surgical drain or possibly Surgicel. Gas-producing infection is an additional consideration. Discussed CT results with Dr. Castro. post op changes. Pt did have a drain post- op, foci of air most likely 2/2 to that. Hemoglobin improved to 8.8, continue to monitor q12h, pressure bandage applied to lumbar incision area continue iv abx vancomycin and cefepime consitpation: continue miralax 17 g daily, docusate senna 100 BID check urine culture 06/15/2024 continue IV vanc and zosyn await sensitivities from blood culture blood culture pending repeat culture so far neg to date consult ID hB stable lumbar incision does not appear infected continue stool softeners urine culture pending will need NH at [place] 06/16/2024 Coreg has been on hold since admission. Metoprolol tartrate 12.5 twice daily started yesterday Patient has been tachycardic 116-132 range. Increase metoprolol to 25 twice daily Continue to hold Coreg Order normal saline bolus 500 cc x 1 White count up to 17,000 today. Unclear etiology. Will await recommendations from infectious disease Patient does have gram-negative bacteremia with Klebsiella. Culture is pansensitive. Hemoglobin stable 9.6. Urine culture is pending. Broad-spectrum antibiotics have been stopped. Continue on oral Cipro twice daily. Discussed with ID. Since patient's incision a longer bleeding and hemoglobin is stable I will add DVT prophylaxis with Lovenox 40 daily. 06/17/2024 surgery was 06/04 pt is [address] chest abd pelvis: 1. No acute pulmonary findings. 2. Small left and trace right pleural effusions. 1. No acute findings in the abdomen or pelvis. 2. Soft tissue gas bubbles in the posterior and paravertebral lumbar region. This is presumably from recent spine surgery, although there is no mention of this in the history. Correlation with surgical history is recommended. If the patient's spine surgery was greater than 10 days ago, soft tissue infection in the surgical site can not be excluded. MRI L-spine ordered today WBC 15K procal, crp elevated hb stable most likely wound infection as other sources has been ruled out dicussed with dr. castro, will keep pt npo at midnight incase of surgical intervention planned in am however before making a final decision, will await mri results continue dvt ppx urine culture neg ID on board, appreciate recommendations discussed with ID and primary spine surgeon continue vanc and ceftriaxone 06/18/2024 MRI L-spine negative for abscess, shows postop changes WBC trending down to 13,000 today. Will check Pro-Hiram CRP in a.m. Continue DVT prophylaxis Urine culture negative Constipation has improved. Will continue MiraLAX. Stop docusate senna. If patient starts to have worsening diarrhea we will stop stool softeners completely. Patient is on hydrocodone/oral opioids Gram-negative and positive bacteremia with Staphylococcus epidermidis and Klebsiella. Wound culture obtained 06/17. Await results Appreciate ID recommendations. Continue to monitor in hospital at this time with IV antibiotics. Patient is not medically ready for discharge. 06/19/2024 MRI L-spine negative for abscess, shows postop changes WBC trending down to 13,000 today. pro-hiram, crp pending stop stool softeners, c.diff neg Wound culture obtained 06/17. Await results Appreciate ID recommendations. Continue to monitor in hospital at this time with IV antibiotics. will await for ID recommendations PDMP PDMP Reviewed: Not Reviewed Attestations 2 Medical Necessity Statement*: Gram-negative and positive bacteremia, requires continued hospitalization Diagnoses Post op infection T81.40XA Status post lumbar spinal fusion Z98.1 Gram-negative bacteremia R78.81 Fever R50.9 PIPPA (acute kidney injury) N17.9 Hyponatremia E87.1 Anemia D64.9 Hyperglycemia R73.9 Type 2 diabetes mellitus E11.9 Constipation K59.00 Elevated C-reactive protein (CRP) R79.82 Hyperlipidemia E78.5 Postoperative anemia due to acute blood loss D62 Acute blood loss anemia D62
[2024-06-19 09:38] VITALS: BP 119/67; PULSE 103
[2024-06-19] MEDS: metoprolol tartrate 25 mg Tablet PO ×2 (09:38→21:31)
[2024-06-19 10:07] LABS: C Reactive Protein 124.3 mg/L (0.0-4.9)
[2024-06-19 10:12] LABS: Procalcitonin 0.68 ng/mL (0-0.5)
[2024-06-19 11:32] VITALS: BP 104/63; PULSE 87; RESP 16; TEMP 36.8; O2SAT 94
[2024-06-19 11:40] LABS: Glucose Point of Care 228 mg/dL (70-110)
[2024-06-19] MEDS: cefTRIAXone 1,000 mg SDV 1000 MG IVP (11:49)
[2024-06-19] MEDS: enoxaparin 40 mg/0.4 mL Syringe SUBCUT (11:50)
--- NOTE | 2024-06-19 15:06 | P.MISC_ITS ---
Miscellaneous Note Purpose of Documentation: Leukocytosis is downtrending today. Wound cultures from the back remain ne gative thus far. She remains afebrile. Procalcitonin downtrending at 0.68. CRP at 124, downtrending. She had diarrhea however tested C. difficile PCR negative. Patient planned for discharge today Overall no residual source of infection apparent at this time Ordaz transition patient to oral ciprofloxacin 500mg BID and linezolid 600mg PO BID at discharge
[2024-06-19 16:09] VITALS: BP 101/60; PULSE 93; RESP 16; TEMP 36.8; O2SAT 92
[2024-06-19 17:56] LABS: Glucose Point of Care 219 mg/dL (70-110)
[2024-06-19 18:18] LABS: Vancomycin Trough 10.7 ug/mL (10-15)
[2024-06-19 21:21] LABS: Glucose Point of Care 228 mg/dL (70-110)
[2024-06-19 21:24] VITALS: BP 123/83; PULSE 104; RESP 17; TEMP 37.1; O2SAT 93
[2024-06-19] MEDS: ATORVASTATIN 10 MG TABLET 20 MG PO (21:30)
[2024-06-19] MEDS: methocarbamol 750 mg Tablet PO (21:31)
[2024-06-19] MEDS: insulin glargine 100 units/1 mL 5 UNIT SUBCUT (21:31)
[2024-06-20] MEDS: HYDROcodone-acetaminophen 5-325 mg Tablet 1 TAB PO ×5 (01:31→21:32)
[2024-06-20 01:35] VITALS: BP 107/67; PULSE 92; RESP 18; TEMP 37; O2SAT 96
[2024-06-20 05:34] VITALS: PULSE 71; RESP 115; TEMP 36.5
[2024-06-20 05:46] LABS: Basophils % 0.3 %; Eosinophils % 0.4 %; Hematocrit 26.9 % (36-47); Lymphocytes # 1.2 10^3/uL (0.8-4.8); Lymphocytes % 10.9 %; Mean Corpuscular HGB Conc 30.5 g/dL (30-55); Mean Corpuscular Hemoglobin 28.4 pg (27-33); Mean Corpuscular Volume 93.1 fl (85-98); Monocytes # 0.6 10^3/uL (0.2-0.9); Monocytes % 5.6 %; Neutrophils # 8.53 10^3/uL (1.8-7.7); Neutrophils % 80.3 %; Nucleated Red Blood Cells # 0.1 /100WBC; Nucleated Red Blood Cells % 0.6 %; Platelet Count 310 10^3/cmm (157-399); Red Blood Count 2.89 10^6/uL (3.85-5.65); Red Cell Distribution Width 14.8 % (12.1-15.1); White Blood Count 10.62 10^3/uL (3.29-11.43)
[2024-06-20] MEDS: vancomycin 1,250 MG/250 ML PIGGYBACK 166.67 MG IV ×2 (06:12→18:12)
[2024-06-20 06:28] LABS: Glucose Point of Care 222 mg/dL (70-110)
[2024-06-20 06:58] LABS: Alanine Aminotransferase 13 U/L (0-33); Albumin Level 2.2 g/dL (3.5-5.2); Alkaline Phosphatase 159 U/L (35-105); Aspartate Amino Transferase 17 U/L (0-32); Blood Urea Nitrogen 9 mg/dL (8-23); Calcium 8.1 mg/dL (8.5-10.5); Carbon Dioxide 19 mmol/L (22-29); Chloride 104 mmol/L (98-107); Creatinine Clr Calc Pharmacy 191.7562; Globulin 3.6 g/dL (1.3-4.6); Glomerular Filtration Rate 162.3 mL/min (90-130); Glucose 191 mg/dL (65-115); Magnesium 1.6 mg/dL (1.7-2.3); Osmolality Calculated 288 mOsm/kg (285-295); Sodium 137 mmol/L (136-145); Total Bilirubin 0.7 mg/dL (0.15-1.2); Total Protein 5.8 g/dL (6.6-8.7)
[2024-06-20 08:05] VITALS: BP 123/77; PULSE 107; RESP 16; TEMP 36.7; O2SAT 94
[2024-06-20] MEDS: insulin lispro 100 unit/1 mL SUBCUT ×4 (09:44→21:17)
[2024-06-20] MEDS: metoprolol tartrate 25 mg Tablet PO ×2 (09:45→19:59)
[2024-06-20] MEDS: gabapentin 100 mg Capsule 200 MG PO ×3 (09:45→19:59)
[2024-06-20] MEDS: cefTRIAXone 1,000 mg SDV 1000 MG IVP (09:45)
[2024-06-20] MEDS: pantoprazole DR 40 mg Tablet PO (09:45)
--- NOTE | 2024-06-20 11:07 | P.PN_ITS ---
Subjective 2 Subjective: Seen this morning. Patient has a wound VAC in place with drainage. It had to be repositioned a few times. She feels better. White count has resolved this morning. Daughter at bedside Diarrhea is improved. Vitals/I&O/Wt Last Vital Signs Temp 98.1 F 06/20/24 08:05 Pulse 107 H 06/20/24 08:05 Resp 16 06/20/24 08:05 BP 123/77 06/20/24 08:05 Pulse Ox 94 06/20/24 08:05 O2 Del Method Room Air 06/20/24 08:05 O2 Flow Rate 3 06/18/24 20:00 06/19/24 06/20/24 06/20/24 22:59 06:59 14:59 Intake Total 490 / 610 240 / 850 480 / 480 Balance 490 / 610 240 / 850 480 / 480 Weight last 48 hrs Weight 127.006 kg Weight 127.006 kg Physical Exam 2 Narrative: General: Patient is awake. Head: Normocephalic. Atraumatic. EOM intact. Cardiovascular: RRR. No gallops. No murmurs. Lungs: Clear to auscultation, no crackles or wheezes. Abdomen: Normal bowel sounds, abdomen soft and nontender. Extremities: No cyanosis or clubbing. Neuro: no saddle anesthesia, sensation intact b/l LE, left foot drop Data 06/20/24 04:41 06/20/24 04:41 Micro: Microbiology 06/17/24 15:13 Wound Culture - Preliminary Other Source A&P Assessment and plan (1) Post op infection: (2) Status post lumbar spinal fusion: (3) Gram-negative bacteremia: (4) Fever: (5) PIPPA (acute kidney injury): (6) Hyponatremia: (7) Anemia: (8) Hyperglycemia: (9) Type 2 diabetes mellitus: (10) Constipation: (11) Elevated C-reactive protein (CRP): (12) Hyperlipidemia: (13) Postoperative anemia due to acute blood loss: (14) Acute blood loss anemia: Plan Reported postop fevers - Tmax 100.1 Fahrenheit - Blood cultures x 2 - Urinalysis with only trace leukocyte esterase, squamous cells noted - Chest x-ray negative for pneumonia - Blood cultures collected - Check inflammatory markers - Screen with MRSA nasal screening - Start cefepime Acute kidney injury Hypovolemic hyponatremia - Start low-dose fluids - Hold losartan-HCTZ - Repeat labs in a.m. Postop anemia - Hemoglobin 7.6 - Trend H&H - Monitor surgical site bleeding Lumbar stenosis status post recent surgery - Management per primary - Continue gabapentin Type 2 diabetes mellitus with hyperglycemia - Hold oral agents - SSI Hypertension - BP soft - Hold Coreg for now - Monitor hemodynamics Hyperlipidemia - Continue statin Thank you for this consultation. Hospitalist/Internal Medicine Service will continue to follow. 06/13/2024 bcx positive for kleb pnuemonia, staph epi repeat bcx today will need ID consultation Sunday will need IV abx for alteast 2 weeks or as per ID recs check CT lumbar spine w/ contrast to rule out hematoma, abscess, potential infection source. pt is 1 week post op, unsure if imaging will be super helpful given recent surgery, discussed at length with radiologist and Dr. Castro. Hemoglobin improved to 8.8, continue to monitor q12h, pressure bandage applied to lumbar incision area continue iv abx vancomycin and cefepime pt complains of constipation, start miralax 17 g daily, docusate senna 100 BID check urine culture stop IV fluids replace IV at left antecubital area due to it leaking. - notified RN 06/14/2024 bcx positive for kleb pnuemonia, staph epi repeat bcx today will need ID consultation Sunday will need IV abx for alteast 2 weeks or as per ID recs Ct lumbar spine: 1. Recent postoperative changes described above. 2. No high-grade central canal stenosis considering hardware artifact. Wide decompressive laminectomies. 3. No subcutaneous fluid collections. 4. Innumerable scattered small punctate foci of air within the paravertebral soft tissues extending to the psoas bilaterally and laminectomy defects. Some of this may be postoperative or due to prior surgical drain or possibly Surgicel. Gas-producing infection is an additional consideration. Discussed CT results with Dr. Castro. post op changes. Pt did have a drain post- op, foci of air most likely 2/2 to that. Hemoglobin improved to 8.8, continue to monitor q12h, pressure bandage applied to lumbar incision area continue iv abx vancomycin and cefepime consitpation: continue miralax 17 g daily, docusate senna 100 BID check urine culture 06/15/2024 continue IV vanc and zosyn await sensitivities from blood culture blood culture pending repeat culture so far neg to date consult ID hB stable lumbar incision does not appear infected continue stool softeners urine culture pending will need NH at [place] 06/16/2024 Coreg has been on hold since admission. Metoprolol tartrate 12.5 twice daily started yesterday Patient has been tachycardic 116-132 range. Increase metoprolol to 25 twice daily Continue to hold Coreg Order normal saline bolus 500 cc x 1 White count up to 17,000 today. Unclear etiology. Will await recommendations from infectious disease Patient does have gram-negative bacteremia with Klebsiella. Culture is pansensitive. Hemoglobin stable 9.6. Urine culture is pending. Broad-spectrum antibiotics have been stopped. Continue on oral Cipro twice daily. Discussed with ID. Since patient's incision a longer bleeding and hemoglobin is stable I will add DVT prophylaxis with Lovenox 40 daily. 06/17/2024 surgery was 06/04 pt is [address] chest abd pelvis: 1. No acute pulmonary findings. 2. Small left and trace right pleural effusions. 1. No acute findings in the abdomen or pelvis. 2. Soft tissue gas bubbles in the posterior and paravertebral lumbar region. This is presumably from recent spine surgery, although there is no mention of this in the history. Correlation with surgical history is recommended. If the patient's spine surgery was greater than 10 days ago, soft tissue infection in the surgical site can not be excluded. MRI L-spine ordered today WBC 15K procal, crp elevated hb stable most likely wound infection as other sources has been ruled out dicussed with dr. castro, will keep pt npo at midnight incase of surgical intervention planned in am however before making a final decision, will await mri results continue dvt ppx urine culture neg ID on board, appreciate recommendations discussed with ID and primary spine surgeon continue vanc and ceftriaxone 06/18/2024 MRI L-spine negative for abscess, shows postop changes WBC trending down to 13,000 today. Will check Pro-Hiram CRP in a.m. Continue DVT prophylaxis Urine culture negative Constipation has improved. Will continue MiraLAX. Stop docusate senna. If patient starts to have worsening diarrhea we will stop stool softeners completely. Patient is on hydrocodone/oral opioids Gram-negative and positive bacteremia with Staphylococcus epidermidis and Klebsiella. Wound culture obtained 06/17. Await results Appreciate ID recommendations. Continue to monitor in hospital at this time with IV antibiotics. Patient is not medically ready for discharge. 06/19/2024 MRI L-spine negative for abscess, shows postop changes WBC trending down to 13,000 today. pro-hiram, crp pending stop stool softeners, c.diff neg Wound culture obtained 06/17. Await results Appreciate ID recommendations. Continue to monitor in hospital at this time with IV antibiotics. will await for ID recommendations 06/20/2024 White count has normalized Pro-Hiram CRP trending down C. difficile negative Wound culture obtained 06/17 await results Appreciate ID recommendations Patient will be discharged with a wound VAC at this point. She does have serous drainage from wound. Plan to order oral ciprofloxacin 500 twice daily and linezolid 600 twice daily at time of discharge Awaiting placement to rehab. PDMP PDMP Reviewed: Not Reviewed Attestations 2 Medical Necessity Statement*: Gram-negative and positive bacteremia, requires continued hospitalization Diagnoses Post op infection T81.40XA Status post lumbar spinal fusion Z98.1 Gram-negative bacteremia R78.81 Fever R50.9 PIPPA (acute kidney injury) N17.9 Hyponatremia E87.1 Anemia D64.9 Hyperglycemia R73.9 Type 2 diabetes mellitus E11.9 Constipation K59.00 Elevated C-reactive protein (CRP) R79.82 Hyperlipidemia E78.5 Postoperative anemia due to acute blood loss D62 Acute blood loss anemia D62
[2024-06-20 11:16] LABS: Glucose Point of Care 251 mg/dL (70-110)
[2024-06-20] MEDS: methocarbamol 750 mg Tablet PO ×2 (11:25→19:59)
[2024-06-20] MEDS: magnesium sulfate premix 4 GM/100 ML PREMIX IV (11:25)
[2024-06-20] MEDS: enoxaparin 40 mg/0.4 mL Syringe SUBCUT (11:25)
[2024-06-20 11:27] VITALS: BP 113/66; PULSE 98; RESP 16; TEMP 36.9; O2SAT 93
--- NOTE | 2024-06-20 11:51 | P.CONIM_ITS ---
<Statement entered by Bobby Redd MD - 06/23/24 07:56> I have reviewed the documentation and plan of care and agree with the assessment and plan of care as written. If the remains concerns of CSF leak, beta-2 transferrin testing may be considered. Dr. Bobby Redd Providers/Reason For Consult 2 Consulting Physician/Specialty*: wound care Reason for Consult*: Dehisced wound to lumbar region s/p lumbar fusion 06/04/24 Requesting Physician: Dr. Shell Attending Physician: Laurent Castro DO Primary Care Provider: Candida Harris History of Present Illness History of Present Illness Kathy Sood is a 63 year old female with a past medical history that includes hyperlipidemia, GERD, type 2 diabetes, hypertension, lumbar stenosis, spondylolisthesis at L3-L4, acute kidney injury, and anemia. She is status post lumbar fusion on June [address] Castro. She was most recently admitted on June 12 for complaints of bleeding from the wound. She was found to have bacteremia. A wound culture was collected with preliminary results showing few mixed superficial asim on day 2. She has a PICC line and is receiving vancomycin and ceftriaxone IV. Her leukocytosis has resolved as of today. She is being managed by infectious disease as well as Dr. Castro, orthopedic spine surgeon. She is being medically managed by hospitalist service. Wound care was consulted for wound care recommendations. Per my conversation with Dr. Castro in person, ABD pads had been used for fluid collection though it was saturating this very quickly. They have attempted to use a myles VAC dressing though she fills the canister too quickly, therefore a hospital wound VAC was placed. Unfortunately, a good seal could not be maintained due to drainage. He is agreeable with wound care consult. Review of Systems 2 Const: Denies: fever(s), chills, body aches or change in appetite Card: Denies: chest pain or palpitations Resp: Denies: dyspnea, productive cough or non-productive cough GI: Denies: abdominal pain, nausea or vomiting Musc: Reports: back pain (Postsurgical) Skin/Breast: Reports: surgical incision (Midline lower back) Medications/Allergies Home Medications ?Medication ?Instructions ?Recorded ?Confirmed ?Last Taken ?Type atorvastatin 20 mg tablet 20 mg PO DAILY 08/18/2309/2906/12/24 History carvedilol 3.125 mg tablet 3.125 mg PO BID 08/18/2306/12/24 History cholecalciferol (vitamin D3) 1,250 1,250 mcg PO .WEEKL Y 08/18/23 06/12/24 06/01/24 History mcg (50,000 unit) capsule glipizide 10 mg tablet 10 mg PO DAILY 08/18/23 05/09/2906/12/24 History losartan 50 mg-hydrochlorothiazide 1 tab PO DAILY 08/0506/12/24 06/12/24 History 12.5 mg tablet metformin 1,000 mg tablet 1,000 mg PO BID 08/18/2309/2906/12/24 History methocarbamol 750 mg tablet 750 mg PO Q8H PRN pain #45 tabs 08/18/23 06/12/24 06/12/24 Rx pioglitazone 45 mg tablet (Actos) 45 mg PO DAILY 08/1706/12/24 06/12/24 History gabapentin 100 mg capsule 200 mg PO BID 04/22/2406/1206/12/24 History omeprazole 40 mg capsule,delayed 40 mg PO DAILY 06/12/24 06/12/24 History release semaglutide 1 mg/dose (4 mg/3 mL) 1 mg SUBCUT .WEEKLY 04/22/24 06/12/24 05/25/24 History subcutaneous pen injector (Ozempic) hydrocodone 10 mg-acetaminophen 1 tab PO Q4H PRN pain 7 days #42 06/10/24 06/12/24 06/12/24 Rx 325 mg tablet tabs bisacodyl 10 mg rectal suppository 10 mg NC DAILY PRN Constipation 06/12/24 06/12/24 Unknown History (Dulcolax (bisacodyl)) bisacodyl 5 mg tablet,delayed 10 mg PO DAILY 06/12/24 06/12/24 Unknown History release (Dulcolax (bisacodyl)) magnesium hydroxide 400 mg/5 mL 30 ml PO DAILY PRN Con stipation 06/12/24 06/12/24 Unknown History oral suspension (Milk of Magnesia) sodium phosphates 19 gram-7 118 ml NC DAILY PRN Consti pation 06/12/24 06/12/24 Unknown History gram/118 mL enema (Fleet Enema) Allergies Allergy/AdvReac Type Severity Reaction Status Date / Time codeine Allergy ADR-Nausea Verified 06/04/24 10:11 Current Medications Generic Name Dose Route Start Last Admin Trade Name Freq PRN Reason Stop Dose Admin Hydrocodone Bitart/Acetaminophen 1 tab 06/16/24 14:35 06/20/24 09:50 Hydrocodone-Acetaminophen 5-325 Mg Tablet PO 1 tab Q4H PRN Administration MODERATE PAIN Atorvastatin Calcium 20 mg 06/12/24 21:00 06/19/24 21:30 Atorvastatin 10 Mg Tablet PO 20 mg BEDTIME SONG Administration Bisacodyl 10 mg 06/12/24 20:03 06/14/24 02:42 Bisacodyl 10 Mg Supp NC 10 mg DAILY PRN Administration CONSTIPATION Ceftriaxone Sodium 1,000 mg 06/17/24 10:00 06/20/24 09:45 Ceftriaxone 1,000 Mg Sdv IVP 1,000 mg Q24H SONG Administration Protocol Enoxaparin Sodium 40 mg 06/16/24 11:25 06/20/24 11:25 Enoxaparin 40 Mg/0.4 Ml Syringe SUBCUT 40 mg Q24H SONG Administration Gabapentin 200 mg 06/14/24 15:00 06/20/24 09:45 Gabapentin 100 Mg Capsule PO 200 mg TID SONG Administration Vancomycin HCl 1,250 mg in 250 mls @ 166.667 mls/hr 06/19/24 18:30 06/20/24 06:12 Vancocin IV 166.67 mls/hr Q12H SONG Administration Magnesium Sulfate 4 gm in 100 mls @ 50 mls/hr 06/20/24 10:59 06/20/24 11:25 Magnesium Sulfate Premix IV 06/20/24 12:58 50 mls/hr ONCE ONE Administration Insulin Glargine 5 unit 06/12/24 21:00 06/19/24 21:31 Insulin Glargine 100 Units/1 Ml SUBCUT 5 unit BEDTIME SONG Administration Insulin Human Lispro 0 unit 06/12/24 21:00 06/20/24 11:26 Insulin Lispro 100 Unit/1 Ml SUBCUT 8 unit WM&BEDTIME SONG Administration Protocol Magnesium Hydroxide 30 ml 06/12/24 20:03 06/13/24 21:46 Magnesium Hydroxide 30 Ml Udc PO 30 ml DAILY PRN Administration CONSTIPATION Methocarbamol 750 mg 06/12/24 20:03 06/20/24 11:25 Methocarbamol 750 Mg Tablet PO 750 mg Q8H PRN Administration PAIN Metoprolol Tartrate 25 mg 06/16/24 21:00 06/20/24 09:45 Metoprolol Tartrate 25 Mg Tablet PO 25 mg BID@0900,2100 SONG Administration Pantoprazole Sodium 40 mg 06/13/24 09:00 06/20/24 09:[address] 40 Mg Tablet PO 40 mg DAILY SONG Administration Senna/Docusate Sodium 1 tab 06/13/24 18:00 06/20/24 09:45 Sennosides-Docusate Tablet PO Not Given BID SONG PFSH Acute 2 PFSH: Medical History Type 2 diabetes mellitus Hyperlipidemia GERD (gastroesophageal reflux disease) Hypertension Diabetes mellitus Surgical History History of back surgery Social History Smoking and tobacco/nicotine status: never used tobacco/nicotine 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 Vitals/I&O/Wt Last Vital Signs Temp 98.5 F 06/20/24 11:27 Pulse 98 06/20/24 11:27 Resp 16 06/20/24 11:27 BP 113/66 06/20/24 11:27 Pulse Ox 93 06/20/24 11:27 O2 Del Method Room Air 06/20/24 11:27 O2 Flow Rate 3 06/18/24 20:00 06/19/24 06/20/24 06/20/24 22:59 06:59 14:59 Intake Total 490 / 610 240 / 850 480 / 480 Balance 490 / 610 240 / 850 480 / 480 Weight last 48 hrs Weight 127.006 kg Weight 127.006 kg Physical Exam 2 Const: COMMON NORMALS: no acute distress, patient oriented x3 and alert G ENERAL APPEARANCE: cooperative and comfortable NUTRITIONAL APPEARANCE: obese ORIENTATION/CONSCIOUSNESS: Yes awake, Yes oriented to person, Yes oriented to place and Yes oriented to time HENMT: COMMON NORMALS: Normal external nose present HEAD & SCALP: normal to inspection NOSE: Normal external nose present Eye: GENERAL EYE: appearance normal, both eyes and all related structures Neck/C-Spine: GENERAL: Yes normal visual inspection and Yes trachea midline Chest: CHEST: Yes Symmetrical chest wall rise Resp: COMMON NORMALS: normal respiratory effort and No use of accessory muscles EFFORT & INSPECTION: Yes able to speak in complete sentences and Yes symmetric chest movement Cardio: COMMON NORMALS: regular rate RATE: regular rate Back/Pelvis: LUMBAR SPINE/LOWER BACK: No mass present and Yes other soft tissue findings (Dehisced surgical incision to midline lumbar region) Neuro: COMMON NORMALS: patient oriented x3 SENSORIUM/ORIENTATION: Yes alert, Yes oriented to person, Yes oriented to place and Yes oriented to time Psych: COMMON NORMALS: mental status grossly normal, Normal thought process present and speech normal APPEARANCE: Yes grossly normal ATTITUDE: Yes calm ACTIVITY/MOTOR BEHAVIOR: Yes appropriate eye contact SPEECH: Yes normal speech MOOD & AFFECT: Yes euthymic mood THOUGHT PROCESS: Normal thought process present THOUGHT CONTENT: Yes Normal thought content present ATTENTION/CONCENTRATION: Yes attention grossly intact MEMORY/COGNITION: Yes memory grossly intact INSIGHT: Good insight present (Psych) JUDGEMENT: G ood judgement present (Psych) Skin: WOUNDS: Yes wounds noted (See wound assessment) Data 06/20/24 04:41 06/20/24 04:41 Micro: Microbiology 06/17/24 15:13 Wound Culture - Preliminary Other Source A&P Assessment and plan (1) Disruption of external operation (surgical) wound, not elsewhere classified, initial encounter: Wound dehiscence to midline lower back status post lumbar fusion on June 04. No active signs or symptoms of infection in the wound including periwound erythema, warmth, fluctuance to the periwound, palpable mass to the periwound, purulent drainage, or malodor. [place] radiology ct technologist for Dr. Castro present during entire evaluation and VAC placement. Wound VAC was not functioning properly and drainage is seeping from edges of drape upon arrival to the patient's room. A large amount of thin serosanguineous fluid was noted to the draining from the wound after the VAC dressing was removed. Measurements of the wound were 17.5 cm in length by 0.5 cm in width. The majority of the wound dehiscence is superficial. There is a small area approximately 3.5 cm from the top of the incision that measures 4 cm deep. Approximately 1 cm below this there is another small area that is 2.5 cm deep. No tunneling was appreciated. During evaluation of the wound, the drainage was actively exuding from the wound most notably in the areas of depth. I called and relayed all findings of the exam with Dr. Castro on the phone regarding this. We discussed treatment options including wet-to-dry dressings though these would need to be changed very frequently which will be challenging. We also discussed placing white foam in these areas as a wick for better drainage management. Dr. Castro agreed with white foam to the deeper areas used as a wick with the wound VAC device for drainage management. I recommend this be changed in 2 days. He was in agreement with this. A staff nurse who will be working again in 2 days came and assisted with VAC placement and will be the nurse that changes the dressing on Sunday. A small amount of white foam was placed in both of the areas of depth. Adaptic was placed over the remainder of the wound per recommendations from Dr. Castro and radiology ct technologist. The wound edges were protected with VAC drape and black foam was placed over the entire length of the incisional dehiscence. Good seal and suction was achieved. [place] tac drape was used due to periwound skin irritation. I discussed with her the importance of optimized nutrition during wound healing. She drinks 1-2 ensures per day. We also discussed the need to offload the area of dehiscence to promote wound healing while still maintaining all precautions provided by Dr. Castro. Any further wound care recommendations will need to be guided by Dr. Castro, orthopedic spine surgeon or hospitalist. If the patient is still admitted on June 23, wound care will follow-up with her at this time. If she is discharged, outpatient wound care will need to be set up for ongoing wound care. I discussed my exam findings in completeness with Dr. Redd, my collaborative provider, as well as Dr. Shell, hospitalist provider. PDMP PDMP Reviewed: Not Reviewed Consult Attestations 2 Time Spent in Patient Care: Greater than 35 minutes (>than 50% of time spent in counselling and/or direct pt care on unit) . Evaluation, wound VAC application, patient counseling Coding Level of Care Code Acute Code for Chg Fwd Diagnoses Disruption of external operation (surgical) wound, not elsewhere classified, initial encounter T81.31XA Wound Assessment Wound Assessment Wound Number 1 Back: Descriptor: Midline and Inferior Primary Etiology:: Dehisced Wound Length: (cm): 17.5 cm Width: (cm): 0.5 cm Depth: (cm): 4 cm Epithelialization:: Small (1-33%) Exudate Amount:: Large Drainage Type: Serosanguineous (Thin, clear) Foul Odor After Cleansing:: No Slough/Fibrin?: Yes Granulation Amount: None Necrotic Amount:: Medium (34-66%) Necrotic Type:: Adherent Slough Wound Orders Wound Number 1: Midline lower back Primary Wound Care Dressing: White foam, Adaptic, black foam Secondary Wound Care Dressing: Negative pressure wound therapy Bathing/Showering/Hygiene: Do not shower or bathe in tub. Sponge bath only. Negative Pressure Wound Therapy: Wound Vac to wound continuously at 125mm/hg pressure, Black Foam and White Foam
--- NOTE | 2024-06-20 12:19 | P.PN_ITS ---
Subjective 2 Subjective: Patient is slowly improving every day. She had a leak and a wound VAC. Vitals/I&O/Wt Last Vital Signs Temp 98.5 F 06/20/24 11:27 Pulse 98 06/20/24 11:27 Resp 16 06/20/24 11:27 BP 113/66 06/20/24 11:27 Pulse Ox 93 06/20/24 11:27 O2 Del Method Room Air 06/20/24 11:27 O2 Flow Rate 3 06/18/24 20:00 06/19/24 06/20/24 06/20/24 22:59 06:59 14:59 Intake Total 490 / 610 240 / 850 480 / 480 Balance 490 / 610 240 / 850 480 / 480 Weight last 48 hrs Weight 280 lb Weight 280 lb Physical Exam 2 Narrative: Unchanged Data 06/20/24 04:41 06/20/24 04:41 Micro: Microbiology 06/17/24 15:13 Wound Culture - Preliminary Other Source A&P Assessment and plan (1) Status post lumbar spinal fusion: Wound with drainage with leak. Wound service consulted to take care of wound VAC. Up with physical therapy Discharge planning PDMP PDMP Reviewed: Not Reviewed Attestations 2 Medical Necessity Statement*: Okay to discharge when has placement Coding Level of Care Code Acute Code for Chg Fwd Diagnoses Status post lumbar spinal fusion Z98.1
[2024-06-20 15:58] VITALS: BP 142/74; PULSE 101; RESP 16; TEMP 37.3; O2SAT 96
[2024-06-20 16:40] LABS: Glucose Point of Care 151 mg/dL (70-110)
[2024-06-20] MEDS: sennosides-docusate Tablet 1 TAB PO (17:19)
[2024-06-20 17:56] LABS: Vancomycin Trough 13.6 ug/mL (10-15)
[2024-06-20] MEDS: ATORVASTATIN 10 MG TABLET 20 MG PO (19:58)
[2024-06-20 20:00] VITALS: BP 111/67; PULSE 119; RESP 18; TEMP 37.4; O2SAT 93
[2024-06-20 21:13] LABS: Glucose Point of Care 263 mg/dL (70-110)
[2024-06-20] MEDS: insulin glargine 100 units/1 mL 5 UNIT SUBCUT (21:17)
[2024-06-21] VITALS: BP 113/67; PULSE 96; RESP 19; TEMP 37.3; O2SAT 98
[2024-06-21] MEDS: HYDROmorphone 0.5 MG/0.5 ML INJ IVP (00:34)
[2024-06-21 04:00] VITALS: BP 120/70; PULSE 107; RESP 19; TEMP 37.6; O2SAT 95
[2024-06-21] MEDS: HYDROcodone-acetaminophen 5-325 mg Tablet 1 TAB PO ×4 (04:40→18:30)
[2024-06-21] MEDS: vancomycin 1,250 MG/250 ML PIGGYBACK 166.67 MG IV (05:53)
[2024-06-21 06:24] LABS: Basophils % 0.2 %; Eosinophils # 0.1 10^3/uL (0.0-0.8); Eosinophils % 0.8 %; Hematocrit 25.1 % (36-47); Lymphocytes # 1.5 10^3/uL (0.8-4.8); Lymphocytes % 16.8 %; Mean Corpuscular HGB Conc 31.1 g/dL (30-55); Mean Corpuscular Hemoglobin 28.6 pg (27-33); Mean Corpuscular Volume 91.9 fl (85-98); Mean Platelet Volume 9.7 fL (7.4-10.4); Monocytes # 0.7 10^3/uL (0.2-0.9); Monocytes % 7.8 %; Neutrophils # 6.54 10^3/uL (1.8-7.7); Nucleated Red Blood Cells % 0.4 %; Platelet Count 291 10^3/cmm (157-399); Red Blood Count 2.73 10^6/uL (3.85-5.65); White Blood Count 9.09 10^3/uL (3.29-11.43)
[2024-06-21 06:46] LABS: Alanine Aminotransferase 11 U/L (0-33); Albumin Level 2.3 g/dL (3.5-5.2); Alkaline Phosphatase 157 U/L (35-105); Aspartate Amino Transferase 15 U/L (0-32); Blood Urea Nitrogen 8 mg/dL (8-23); Calcium 7.9 mg/dL (8.5-10.5); Carbon Dioxide 22 mmol/L (22-29); Chloride 102 mmol/L (98-107); Globulin 3.3 g/dL (1.3-4.6); Glomerular Filtration Rate 162.3 mL/min (90-130); Glucose 181 mg/dL (65-115); Magnesium 1.9 mg/dL (1.7-2.3); Osmolality Calculated 281 mOsm/kg (285-295); Sodium 134 mmol/L (136-145); Total Bilirubin 0.7 mg/dL (0.15-1.2); Total Protein 5.6 g/dL (6.6-8.7)
[2024-06-21 06:48] LABS: Creatinine Clr Calc Pharmacy 192.8557
[2024-06-21 07:21] LABS: Glucose Point of Care 204 mg/dL (70-110)
[2024-06-21 07:58] VITALS: BP 123/69; PULSE 101; RESP 16; TEMP 36.7; O2SAT 95
[2024-06-21] MEDS: gabapentin 100 mg Capsule 200 MG PO ×3 (08:46→20:09)
[2024-06-21] MEDS: metoprolol tartrate 25 mg Tablet PO ×2 (08:46→20:09)
[2024-06-21] MEDS: pantoprazole DR 40 mg Tablet PO (08:46)
[2024-06-21] MEDS: insulin lispro 100 unit/1 mL SUBCUT ×4 (08:46→20:50)
[2024-06-21] MEDS: sennosides-docusate Tablet 1 TAB PO (08:46)
[2024-06-21] MEDS: methocarbamol 750 mg Tablet PO ×2 (10:16→20:09)
--- NOTE | 2024-06-21 10:16 | P.PN_ITS ---
Subjective 2 Subjective: Patient with continued drainage wound VAC in place. It is functioning well when she sits and lays down but when she stands up it looks at the bottom. Awaiting placement to skilled nursing Vitals/I&O/Wt Last Vital Signs Temp 98.0 F 06/21/24 07:58 Pulse 101 H 06/21/24 07:58 Resp 16 06/21/24 07:58 BP 123/69 06/21/24 07:58 Pulse Ox 95 06/21/24 07:58 O2 Del Method Room Air 06/21/24 07:58 O2 Flow Rate 3 06/18/24 20:00 06/20/24 06/21/24 06/21/24 22:59 06:59 14:59 Intake Total 370 / 1680 360 / 360 Balance 370 / 1680 360 / 360 Weight last 48 hrs Weight 282 lb 9.6 oz Weight 280 lb Physical Exam 2 Narrative: Patient is currently laying in bed. Wound VAC is working. No leak when she is laying there. Is reported that it leaks when she stands up. There is drainage. Data 06/21/24 06:16 06/21/24 06:16 Micro: Microbiology 06/12/24 15:00 Blood Culture - Final Blood Klebsiella pneumoniae Staphylococcus epidermidis 06/17/24 15:13 Wound Culture - Final Other Source A&P Assessment and plan (1) Status post lumbar spinal fusion: Patient is awaiting placement to skilled nursing. Continue work with physical therapy When patient stands up the wound VAC is leaking reapply dressing sealant PDMP PDMP Reviewed: Not Reviewed Attestations 2 Medical Necessity Statement*: Awaiting placement to skilled nursing Coding Level of Care Code Acute Code for Chg Fwd Diagnoses Status post lumbar spinal fusion Z98.1
[2024-06-21] MEDS: cefTRIAXone 1,000 mg SDV 1000 MG IVP (10:39)
[2024-06-21 11:19] LABS: Glucose Point of Care 224 mg/dL (70-110)
[2024-06-21 11:45] VITALS: BP 111/62; PULSE 76; RESP 16; TEMP 37; O2SAT 94
[2024-06-21] MEDS: enoxaparin 40 mg/0.4 mL Syringe SUBCUT (12:46)
--- NOTE | 2024-06-21 13:02 | PM.PN ---
Subjective Subjective: Patient seen lying in bed with in the room. Patient states the muscle spasms in her back are improved they are becoming less and more manageable on current medication. She is anxious about where she will receive appropriate rehab unfortunately these questions cannot be answered until business hours on Sunday when case management is present and nursing homes are available to discuss Vitals/I&O/Wt Last Vital Signs Temp 98.6 F 06/21/24 11:45 Pulse 76 06/21/24 11:45 Resp 16 06/21/24 11:45 BP 111/62 06/21/24 11:45 Pulse Ox 94 06/21/24 11:45 O2 Del Method Room Air 06/21/24 11:45 O2 Flow Rate 3 06/18/24 20:00 06/20/24 06/21/24 06/21/24 22:59 06:59 14:59 Intake Total 370 / 1680 480 / 480 Balance 370 / 1680 480 / 480 Weight last 48 hrs Weight 128.185 kg Weight 127.006 kg Physical Exam Narrative: General: Patient is awake, alert and oriented Cardiovascular: RRR. No gallops. No murmurs. Lungs: Clear to auscultation, no crackles or wheezes. Abdomen: Normal bowel sounds, abdomen soft and nontender. Extremities: No edema Data 06/21/24 06:16 06/21/24 06:16 Micro: Microbiology 06/12/24 15:00 Blood Culture - Final Blood Klebsiella pneumoniae Staphylococcus epidermidis 06/17/24 15:13 Wound Culture - Final Other Source A&P Assessment and plan (1) Post op infection: With Gram negative bacteremia. Currently on vancomycin and ceftriaxone. ID following (2) Status post lumbar spinal fusion: Management per orthopedics. Continue PT (3) Gram-negative bacteremia: Klebsiella pneumonia bacteremia Treatment as above (4) PIPPA (acute kidney injury): Acute kidney injury. Resolved with fluid resuscitation and holding home dose losartan hydrochlorothiazide. (5) Hyponatremia: Low sodium during this hospitalization was 128 and it has been mostly hovering around 134 135. Overall improving (6) Anemia: Blood loss anemia. Hemoglobin 7.8 (7) Hyperglycemia: (8) Type 2 diabetes mellitus: On glipizide and metformin at home These agents are currently on hold Sliding scale insulin (9) Hyperlipidemia: On atorvastatin 20 mg p.o. daily as home dose (10) Postoperative anemia due to acute blood loss: Hemoglobin stable (11) Acute blood loss anemia: Postop anemia hemoglobin 7.8 Plan Hypertension - BP soft - Hold Coreg for now - Continue to monitor PDMP PDMP Reviewed: Not Reviewed Attestations Medical Necessity Statement*: Gram-negative and positive bacteremia, requires continued hospitalization Coding Level of Care Code Acute Code for Chg Fwd Diagnoses Post op infection T81.40XA Status post lumbar spinal fusion Z98.1 Gram-negative bacteremia R78.81 PIPPA (acute kidney injury) N17.9 Hyponatremia E87.1 Anemia D64.9 Hyperglycemia R73.9 Type 2 diabetes mellitus without complication, without long-term current use of insulin E11.9 Diabetes mellitus complication status: without complication 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
[2024-06-21 16:00] VITALS: BP 111/58; PULSE 89; RESP 16; TEMP 37; O2SAT 96
--- NOTE | 2024-06-21 16:32 | PC.NURSE ---
Gabapentin delayed due to patient sleeping.
[2024-06-21 16:40] LABS: Glucose Point of Care 185 mg/dL (70-110)
[2024-06-21] MEDS: vancomycin 1,500 MG/300 ML PIGGYBACK 200 MG IV (18:14)
--- NOTE | 2024-06-21 18:16 | PC.NURSE ---
Patient refused. Had three bowel movements today
[2024-06-21 20:00] VITALS: BP 111/67; PULSE 114; RESP 18; TEMP 37.1; O2SAT 92
[2024-06-21] MEDS: ATORVASTATIN 10 MG TABLET 20 MG PO (20:09)
[2024-06-21] MEDS: insulin glargine 100 units/1 mL 5 UNIT SUBCUT (20:50)
[2024-06-21 20:57] LABS: Glucose Point of Care 319 mg/dL (70-110)
[2024-06-22] VITALS: BP 125/70; PULSE 100; RESP 19; TEMP 37.3; O2SAT 98
[2024-06-22] MEDS: HYDROcodone-acetaminophen 5-325 mg Tablet 1 TAB PO ×4 (01:02→19:58)
--- NOTE | 2024-06-22 03:47 | PC.NURSE ---
For most of the shift, the patient was cooperative with the nursing staff with getting up to the commode and back into bed. around 1am, patient refused to want to get up and wanted to use the bed roberts instead. Nurse educated the patient about the importance of getting up and moving more like getting up and using the commode. At 0330, patient stated that they needed to use the bathroom again and after speaking with the nurse, agreed to allow staff to assist them up and onto the commode. The nurse also applied new tegaderm to patients wound vac and is now working with no complications at this moment in time. Will continue to monitor.
[2024-06-22 04:00] VITALS: BP 114/76; PULSE 93; RESP 19; TEMP 36.8; O2SAT 94
[2024-06-22] MEDS: methocarbamol 750 mg Tablet PO ×2 (05:00→16:35)
[2024-06-22] MEDS: vancomycin 1,500 MG/300 ML PIGGYBACK 200 MG IV ×2 (05:52→17:40)
[2024-06-22 06:54] LABS: Glucose Point of Care 194 mg/dL (70-110)
[2024-06-22 07:52] VITALS: BP 173/94; PULSE 95; RESP 18; TEMP 36.8; O2SAT 95
[2024-06-22] MEDS: sennosides-docusate Tablet 1 TAB PO ×2 (08:40→17:40)
[2024-06-22] MEDS: gabapentin 100 mg Capsule 200 MG PO ×3 (08:40→19:57)
[2024-06-22] MEDS: metoprolol tartrate 25 mg Tablet PO ×2 (08:40→19:57)
[2024-06-22] MEDS: insulin lispro 100 unit/1 mL SUBCUT ×4 (08:40→20:47)
--- NOTE | 2024-06-22 08:47 | P.PN_ITS ---
Subjective 2 Subjective: Getting around better with less pain. Vitals/I&O/Wt Last Vital Signs Temp 98.3 F 06/22/24 07:52 Pulse 95 06/22/24 07:52 Resp 18 06/22/24 07:52 BP 173/94 06/22/24 07:52 Pulse Ox 95 06/22/24 07:52 O2 Del Method Room Air 06/22/24 07:52 O2 Flow Rate 3 06/18/24 20:00 06/21/24 06/22/24 06/22/24 22:59 06:59 14:59 Intake Total 540 / 1020 780 / 780 Output Total 1000 / 1000 Balance 540 / 1020 -1000 / 20 780 / 780 Weight last 48 hrs Weight 282 lb 9.6 oz Physical Exam 2 Narrative: Wound VAC in place. Patient sitting up in chair comfortable. Data 06/21/24 06:16 06/21/24 06:16 A&P Assessment and plan (1) Status post lumbar spinal fusion: Patient is approximately 2 and half weeks status post lumbar fusion. Wound VAC in place Discharge planning PDMP PDMP Reviewed: Not Reviewed Attestations 2 Medical Necessity Statement*: Finding placement Coding Level of Care Code Acute Code for Chg Fwd Diagnoses Status post lumbar spinal fusion Z98.1
[2024-06-22] MEDS: cefTRIAXone 1,000 mg SDV 1000 MG IVP (10:21)
[2024-06-22 11:27] LABS: Glucose Point of Care 274 mg/dL (70-110)
[2024-06-22 11:32] VITALS: BP 131/76; PULSE 101; RESP 19; TEMP 36.7; O2SAT 96
--- NOTE | 2024-06-22 11:51 | PM.PN ---
Subjective Subjective: Reports getting better and better every day. Vitals/I&O/Wt Last Vital Signs Temp 98.1 F 06/22/24 11:32 Pulse 101 H 06/22/24 11:32 Resp 19 H 06/22/24 11:32 BP 131/76 06/22/24 11:32 Pulse Ox 96 06/22/24 11:32 O2 Del Method Room Air 06/22/24 11:32 O2 Flow Rate 3 06/18/24 20:00 06/21/24 06/22/24 06/22/24 22:59 06:59 14:59 Intake Total 540 / 1020 780 / 780 Output Total 1000 / 1000 Balance 540 / 1020 -1000 / 20 780 / 780 Weight last 48 hrs Weight 128.185 kg Physical Exam Narrative: General: Patient is awake, alert and oriented Cardiovascular: RRR. No gallops. No murmurs. Lungs: Clear to auscultation, no crackles or wheezes. Abdomen: Normal bowel sounds, abdomen soft and nontender. Extremities: 1+ pitting edema bilaterally Data 06/21/24 06:16 06/21/24 06:16 A&P Assessment and plan (1) Post op infection: With Gram negative bacteremia. Currently on vancomycin and ceftriaxone. Discussed with Dr. Bryson. Changed to Zyvox and Cipro on upon discharge. Can change ceftriaxone to Cipro currently. Please refer to Dr. Bryson's last note dated 06/16/2024 (2) Status post lumbar spinal fusion: Management per orthopedics. Continue PT (3) Gram-negative bacteremia: Klebsiella pneumonia bacteremia Treatment as above (4) PIPPA (acute kidney injury): Acute kidney injury. Resolved with fluid resuscitation and holding home dose losartan hydrochlorothiazide. Patient has had 1 elevated blood pressure today of 173/94 otherwise patient has been around 1 10-1 20s. (5) Hyponatremia: Low sodium during this hospitalization was 128 and it has been mostly hovering around 134 135. Overall improving Follow-up labs tomorrow (6) Anemia: Blood loss anemia. Hemoglobin 7.8 Check CBC tomorrow (7) Hyperglycemia: On glipizide and metformin at home these have been on hold. Blood sugars are over 200 with an open wound. Will start insulin. (8) Type 2 diabetes mellitus: As above (9) Hyperlipidemia: On atorvastatin 20 mg p.o. daily as home dose (10) Postoperative anemia due to acute blood loss: Hemoglobin stable Plan Prepare for discharge to [facility]-Per case management Will start insulin. Lantus 10 units q. H S Continue sliding scale insulin Check labs for tomorrow Vancomycin being continued and the hospital but changed to Zyvox on discharge. Changed to oral Cipro today Continue wound VAC PDMP PDMP Reviewed: Not Reviewed Attestations Medical Necessity Statement*: Gram-negative and positive bacteremia, requires continued hospitalization. 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
[2024-06-22] MEDS: enoxaparin 40 mg/0.4 mL Syringe SUBCUT (11:53)
--- NOTE | 2024-06-22 12:07 | PC.NURSE ---
When gathering up supplies there was no white foam noted to be in the room. Contacted hospital housekeeper and she was unable to find any white foam as well. Contacted Dr. Castro and explained the issue. They are using the white foam as a wick to help with the drainage because she has so much that it keeps breaking the seal on the wound vac. Dr. Castro states to wait until tomorrow to change it then.
--- NOTE | 2024-06-22 12:21 | PC.NURSE ---
Wound vac ordered to be changed today. White foam ordered, no white foam found. Verified by 2nd nurse Jenny HOLLINS. CN notified Dr. Castro, Dr. Castro states have it changed tomorrow.
[2024-06-22 17:09] VITALS: BP 136/80; PULSE 97; RESP 19; TEMP 37.3; O2SAT 96
[2024-06-22 17:10] LABS: Glucose Point of Care 163 mg/dL (70-110)
[2024-06-22] MEDS: metformin 500 mg Tablet 1000 MG PO (17:40)
[2024-06-22] MEDS: ATORVASTATIN 10 MG TABLET 20 MG PO (19:57)
[2024-06-22] MEDS: ciprofloxacin 500 mg Tablet PO (19:57)
[2024-06-22 20:15] VITALS: BP 102/52; PULSE 116; RESP 20; TEMP 36.7; O2SAT 95
[2024-06-22] MEDS: insulin glargine 100 units/1 mL 10 UNIT SUBCUT (20:47)
[2024-06-22 20:56] LABS: Glucose Point of Care 202 mg/dL (70-110)
[2024-06-23] VITALS (8 sets, daily range): BP systolic 104–132; BP diastolic 54–71; PULSE 68–99; RESP 17–19; TEMP 36.5–36.7; O2SAT 92–96
[2024-06-23] MEDS: HYDROcodone-acetaminophen 5-325 mg Tablet 1 TAB PO ×4 (03:13→19:48)
[2024-06-23] MEDS: methocarbamol 750 mg Tablet PO ×3 (03:13→19:49)
[2024-06-23 03:41] LABS: Basophils % 0.4 %; Eosinophils # 0.1 10^3/uL (0.0-0.8); Eosinophils % 0.6 %; Hematocrit 24.9 % (36-47); Lymphocytes % 10.2 %; Mean Corpuscular HGB Conc 30.1 g/dL (30-55); Mean Corpuscular Hemoglobin 28.1 pg (27-33); Mean Corpuscular Volume 93.3 fl (85-98); Mean Platelet Volume 11.3 fL (7.4-10.4); Monocytes # 0.5 10^3/uL (0.2-0.9); Monocytes % 5.6 %; Neutrophils # 7.92 10^3/uL (1.8-7.7); Neutrophils % 82.3 %; Nucleated Red Blood Cells % 0.3 %; Platelet Count 221 10^3/cmm (157-399); Red Blood Count 2.67 10^6/uL (3.85-5.65); Red Cell Distribution Width 15.1 % (12.1-15.1); White Blood Count 9.63 10^3/uL (3.29-11.43)
[2024-06-23 04:07] LABS: Anion Gap 13.5 (5-19); Blood Urea Nitrogen 7 mg/dL (8-23); Calcium 8.1 mg/dL (8.5-10.5); Carbon Dioxide 25 mmol/L (22-29); Chloride 103 mmol/L (98-107); Creatinine Clr Calc Pharmacy 192.8557; Glomerular Filtration Rate 162.3 mL/min (90-130); Glucose 170 mg/dL (65-115); Osmolality Calculated 286 mOsm/kg (285-295); Potassium 4.5 mmol/L (3.5-5.1); Sodium 137 mmol/L (136-145)
--- NOTE | 2024-06-23 06:11 | PC.NURSE ---
Nurse called pharmacy to talk about patients vancomycin that was scheduled at 0600. Patients vanc trough wasnt drawn until 0545. Spoke with Thom in pharmacy and suggested to wait and see what the vanc trough says before do anything with the vancomycin. Charge nurse and patient has been notified.
[2024-06-23 06:19] LABS: Vancomycin Trough 14.2 ug/mL (10-15)
[2024-06-23] MEDS: vancomycin 1,500 MG/300 ML PIGGYBACK 200 MG IV ×2 (06:31→18:07)
[2024-06-23 07:04] LABS: Glucose Point of Care 192 mg/dL (70-110)
[2024-06-23] MEDS: insulin lispro 100 unit/1 mL SUBCUT ×3 (09:04→21:37)
[2024-06-23] MEDS: ciprofloxacin 500 mg Tablet PO ×2 (09:04→19:49)
[2024-06-23] MEDS: metformin 500 mg Tablet 1000 MG PO ×2 (09:04→18:06)
[2024-06-23] MEDS: gabapentin 100 mg Capsule 200 MG PO ×3 (09:05→19:50)
[2024-06-23] MEDS: metoprolol tartrate 25 mg Tablet PO (09:13)
--- NOTE | 2024-06-23 09:41 | P.PN_ITS ---
Subjective 2 Subjective: Patient's pain is improving significantly. Vitals/I&O/Wt Last Vital Signs Temp 97.9 F 06/23/24 09:18 Pulse 94 06/23/24 09:18 Resp 18 06/23/24 09:18 BP 132/54 06/23/24 09:18 Pulse Ox 96 06/23/24 09:18 O2 Del Method Room Air 06/23/24 09:18 O2 Flow Rate 3 06/18/24 20:00 06/22/24 06/23/24 06/23/24 22:59 06:59 14:59 Intake Total 1040 / 1940 Balance 1040 / 1940 Weight last 48 hrs Weight 282 lb 4 oz Physical Exam 2 Narrative: Patient sitting up in chair wound VAC has a leak. Will be changed this afternoon by wound care Data 06/23/24 02:52 06/23/24 02:52 A&P Assessment and plan (1) Status post lumbar spinal fusion: Change wound VAC today Okay to discharge today if placement available PDMP PDMP Reviewed: Not Reviewed Attestations 2 Medical Necessity Statement*: Okay to discharge today if placement available Coding Level of Care Code Acute Code for Chg Fwd Diagnoses Status post lumbar spinal fusion Z98.1
[2024-06-23 10:44] LABS: Glucose Point of Care 246 mg/dL (70-110)
[2024-06-23] MEDS: enoxaparin 40 mg/0.4 mL Syringe SUBCUT (11:21)
--- NOTE | 2024-06-23 14:06 | P.PN_ITS ---
Subjective 2 Subjective: Patient was resting in bed comfortably with at bedside. No complaints at this time. Unfortunately, wound VAC dressing was not changed on Sunday as ordered as nurse could not find white foam. This was located today. According to staff nurse today, the wound VAC was not functioning when she arrived and she removed entire wound VAC dressing covered with gauze and ABD pad. Patient is currently afebrile white blood cell count is 9.6. [facility] She is planning to go to [facility] upon discharge. Vitals/I&O/Wt Last Vital Signs Temp 97.9 F 06/23/24 13:33 Pulse 81 06/23/24 13:33 Resp 19 H 06/23/24 13:33 BP 117/71 06/23/24 13:33 Pulse Ox 95 06/23/24 13:33 O2 Del Method Room Air 06/23/24 13:33 O2 Flow Rate 3 06/18/24 20:00 06/22/24 06/23/24 06/23/24 22:59 06:59 14:59 Intake Total 1040 / 1940 720 / 720 Balance 1040 / 1940 720 / 720 Weight last 48 hrs Weight 128.026 kg Physical Exam 2 Const: COMMON NORMALS: no acute distress, patient oriented x3 and alert G ENERAL APPEARANCE: cooperative and comfortable NUTRITIONAL APPEARANCE: obese ORIENTATION/CONSCIOUSNESS: Yes awake, Yes oriented to person, Yes oriented to place and Yes oriented to time HENMT: COMMON NORMALS: Normal external nose present HEAD & SCALP: normal to inspection NOSE: Normal external nose present Eye: GENERAL EYE: appearance normal, both eyes and all related structures Neck/C-Spine: GENERAL: Yes normal visual inspection and Yes trachea midline Chest: CHEST: Yes Symmetrical chest wall rise Resp: COMMON NORMALS: normal respiratory effort and No use of accessory muscles EFFORT & INSPECTION: Yes able to speak in complete sentences and Yes symmetric chest movement Cardio: COMMON NORMALS: regular rate RATE: regular rate Back/Pelvis: LUMBAR SPINE/LOWER BACK: No mass present and Yes other soft tissue findings (Dehisced surgical incision to midline lumbar region) Neuro: COMMON NORMALS: patient oriented x3 SENSORIUM/ORIENTATION: Yes alert, Yes oriented to person, Yes oriented to place and Yes oriented to time Psych: COMMON NORMALS: mental status grossly normal, Normal thought process present and speech normal APPEARANCE: Yes grossly normal ATTITUDE: Yes calm ACTIVITY/MOTOR BEHAVIOR: Yes appropriate eye contact SPEECH: Yes normal speech MOOD & AFFECT: Yes euthymic mood THOUGHT PROCESS: Normal thought process present THOUGHT CONTENT: Yes Normal thought content present ATTENTION/CONCENTRATION: Yes attention grossly intact MEMORY/COGNITION: Yes memory grossly intact INSIGHT: Good insight present (Psych) JUDGEMENT: G ood judgement present (Psych) Skin: WOUNDS: Yes wounds noted (See wound assessment) Data 06/23/24 02:52 06/23/24 02:52 A&P Assessment and plan (1) Disruption of external operation (surgical) wound, not elsewhere classified, initial encounter: Wound dehiscence to midline lower back status post lumbar fusion on June 04. Remains without active signs or symptoms of infection in the wound including warmth, fluctuance to the periwound, palpable mass to the periwound, purulent drainage, or malodor. There is a small amount of surrounding blanchable periwound erythema without warmth or streaking. This is likely due to wound exudate irritating her periwound. Staff nurse present during entire evaluation and VAC placement. The deeper areas noted on Sunday remain the same. No tunneling was appreciated. A large amount of thin serosanguineous fluid continues to exude from the wound. We have opted to apply a peel and place wound VAC dressing to the incision in hopes that it will better manage the exudate and adhere better to her skin. The periwound was protected with VAC drape and the dressing was applied. Good suction and seal was achieved. This will need to be changed June 26 or sooner if a leak occurs or it becomes dislodged. Thorough education was provided to the patient, family, and staff nurse that if the wound VAC is on and not functioning for more than 2 hours the entire dressing needs to be removed as this places her at an increased risk for infection. If this wound VAC dressing needs to be removed, nursing staff should apply dry gauze, ABD pads, and secured with tape. I discussed my exam findings and plan with Dr. Castro, orthopedic spine surgeon. He discussed that if the wound VAC did not show a positive response, she may have to undergo another surgery to open the wound and apply wound VAC directly to the wound base. I discussed with her the importance of optimized nutrition during wound healing. She drinks 1-2 ensures per day. We also discussed the need to offload the area of dehiscence to promote wound healing while still maintaining all precautions provided by Dr. Castro. Small area of dehiscense to incision on left back. This is likely due to increased moisture in the area. Will recommend hydrofera blue ready secured with a bordered gauze. This may be changed with the wound vac on June 26 or sooner if soiled or dislodged. (2) Dermatitis associated with moisture: Plan Small area noted to sacrum just below where the dressing for her midline lower back wound stops. This area is noted to have increased moisture leading to skin breakdown in the area. Does not appear acutely infected at this time. Will recommend applying Hydrofera Blue secured with the wound VAC drape. This may be changed with the wound VAC dressing on , June 26 or sooner if soiled or dislodged. It would be important for her to offload this area is much as possible as pressure can complicate healing. Case management is currently working on longterm facility placement. Wound care will follow-up daily during admission. Wound care arrangements will need to be made prior to discharge. PDMP PDMP Reviewed: Not Reviewed Attestations 2 Medical Necessity Statement*: Time Spent in Patient Care: Greater than 35 minutes Patient and family education, wound VAC application Coding Level of Care Code Acute Code for Chg Fwd Diagnoses Disruption of external operation (surgical) wound, not elsewhere classified, initial encounter T81.31XA Dermatitis associated with moisture L30.8 Wound Assessment Wound Assessment Wound Number 1 Back: Descriptor: Midline and Inferior Primary Etiology:: Dehisced Wound Length: (cm): 19 cm Width: (cm): 0.6 cm Depth: (cm): 4 cm Epithelialization:: Small (1-33%) Exudate Amount:: Large Drainage Type: Serosanguineous (Thin, clear) Foul Odor After Cleansing:: No Slough/Fibrin?: Yes Granulation Amount: None Necrotic Amount:: Small (1-33%) Necrotic Type:: Adherent Slough Wound Number 2 Sacrum: Cluster Wound: Yes Primary Etiology:: MASD Length: (cm): 1.2 cm Width: (cm): 4 cm Depth: (cm): 0.1 cm Epithelialization:: Medium (34-66%) Tunneling:: No Undermining:: No Limited to Skin Breakdown: Yes Exudate Amount:: None Present: Granulation Amount: None Necrotic Amount:: Small (1-33%) Necrotic Type:: Adherent Slough Wound Number 3 Back: Descriptor: Left Primary Etiology:: Dehisced Wound Length: (cm): 0.5 cm Width: (cm): 1 cm Depth: (cm): 0.1 cm Epithelialization:: Small (1-33%) Tunneling:: No Undermining:: No Limited to Skin Breakdown: Yes Exudate Amount:: Small Drainage Type: Serosanguineous Foul Odor After Cleansing:: No Slough/Fibrin?: Yes Granulation Amount: None Necrotic Amount:: Medium (34-66%) Necrotic Type:: Adherent Slough Wound Orders Wound Number 1: Midline lower back Primary Wound Care Dressing: White foam, Adaptic, black foam Secondary Wound Care Dressing: Negative pressure wound therapy Bathing/Showering/Hygiene: Do not shower or bathe in tub. Sponge bath only. Negative Pressure Wound Therapy: Wound Vac to wound continuously at 125mm/hg pressure, Black Foam and White Foam Wound Number 2: Wound Number 2 and Wound Number 3: Sacrum and left back Dressing change frequency: Other (with wound vac change and PRN if soiled or dislodged) Wound Cleansing: Saline Primary Wound Care Dressing: hydrofera blue Secondary Wound Care Dressing: bordered gauze
[2024-06-23 16:22] LABS: Glucose Point of Care 136 mg/dL (70-110)
--- NOTE | 2024-06-23 17:00 | P.PN_ITS ---
Subjective 2 Subjective: 63-year-old female has history of lumbar spinal stenosis and surgery years ago underwent 5 level fusion and surgery on June 04. She had fever about a week later and then blood cultures were positive so she was admitted for wound VAC and IV antibiotics. She states she has had serous drainage but not pus. Patient states she had tonsillectomy and uvulectomy previously but that did not help that much. She states she had a apnea hypopnea index of 90 in the past but has only been on oxygen. She is wanted to be switched over to CPAP but has not yet done the testing. We discussed that AirSense 10 machines are available for private purchase at 499 new all the time and used as low as 100. Patient states she is interested in obtaining when she Medications: Reviewed: Yes Vitals/I&O/Wt Last Vital Signs Temp 98.1 F 06/23/24 16:53 Pulse 95 06/23/24 16:53 Resp 18 06/23/24 16:53 BP 106/59 06/23/24 16:53 Pulse Ox 92 06/23/24 16:53 O2 Del Method Room Air 06/23/24 16:53 O2 Flow Rate 3 06/18/24 20:00 06/23/24 06/23/24 06/23/24 06:59 14:59 22:59 Intake Total 720 / 720 Balance 720 / 720 Weight last 48 hrs Weight 128.026 kg Physical Exam 2 Narrative: General well-developed well-nourished morbidly obese female in no acute cardiopulmonary stress CV regular rate and rhythm Lungs clear to auscultation bilaterally Abdomen positive bowel sounds soft Back wound VAC in place there is no erythema surrounding the large area covered by the sponge. There is no discharge. The wound VAC shows serosanguineous discharge Oropharynx she is post uvulectomy. She has [id number] narrowed airway. Semirecumbent her breathing is on rare occasion partially obstruct sounding with a snore even while away happened twice in 15 minutes of disc Data 06/23/24 02:52 06/23/24 02:52 A&P Assessment and plan (1) Post op infection: With Gram negative bacteremia. Currently on vancomycin and ceftriaxone. Discussed with Dr. Bryson. Changed to Zyvox and Cipro on upon discharge. Can change ceftriaxone to Cipro currently. Please refer to Dr. Bryson's last note dated 06/16/2024 (2) Status post lumbar spinal fusion: Management per orthopedics. Continue PT (3) Gram-negative bacteremia: Klebsiella pneumonia bacteremia Treatment as above (4) PIPPA (acute kidney injury): Acute kidney injury. Resolved with fluid resuscitation and holding home dose losartan hydrochlorothiazide. Patient has had 1 elevated blood pressure today of 173/94 otherwise patient has been around 1 10-1 20s. (5) Hyponatremia: Low sodium during this hospitalization was 128 and it has been mostly hovering around 134 135. Overall improving sodium now 137 (6) Anemia: Blood loss anemia. Hemoglobin 7.5 (7) Hyperglycemia: On glipizide and metformin at home these have been on hold. Blood sugars are over 200 with an open wound. Will start insulin. (8) Type 2 diabetes mellitus: As above (9) Hyperlipidemia: On atorvastatin 20 mg p.o. daily as home dose (10) Postoperative anemia due to acute blood loss: Hemoglobin stable (11) Sleep apnea in adult: Recommend the patient's start CPAP treatment. She is currently on 3 L/min nasal cannula at night Plan Prepare for discharge to halfway-Per case management Will start insulin. Lantus 10 units q. H S Continue sliding scale insulin Check labs for tomorrow Vancomycin being continued and the hospital but changed to Zyvox on discharge. Changed to oral Cipro today Continue wound VAC PDMP PDMP Reviewed: Not Reviewed Attestations 2 Medical Necessity Statement*: Continue with wound VAC and transfer to nursing facility once wound VAC can be continued there Coding Level of Care Code Acute Code for Chg Fwd Diagnoses Post op infection T81.40XA Status post lumbar spinal fusion Z98.1 Gram-negative bacteremia R78.81 PIPPA (acute kidney injury) N17.9 Hyponatremia E87.1 Anemia D64.9 Hyperglycemia R73.9 Type 2 diabetes mellitus without complication, without long-term current use of insulin E11.9 Diabetes mellitus watermaster insulin use: without longterm use Diabetes mellitus complication status: without complication Mixed hyperlipidemia E78.2 Hyperlipidemia type: mixed hyperlipidemia Postoperative anemia due to acute blood loss D62 Sleep apnea in adult G47.30 Time Spent (min) 35
[2024-06-23] MEDS: ATORVASTATIN 10 MG TABLET 20 MG PO (19:49)
[2024-06-23] MEDS: insulin glargine 100 units/1 mL 10 UNIT SUBCUT (19:53)
[2024-06-23 20:54] LABS: Glucose Point of Care 259 mg/dL (70-110)
[2024-06-24] MEDS: HYDROcodone-acetaminophen 5-325 mg Tablet 1 TAB PO ×6 (00:01→21:54)
[2024-06-24 03:22] VITALS: BP 108/62; PULSE 76; RESP 19; TEMP 36.7; O2SAT 95
[2024-06-24] MEDS: vancomycin 1,500 MG/300 ML PIGGYBACK 200 MG IV ×2 (05:03→17:46)
[2024-06-24] MEDS: methocarbamol 750 mg Tablet PO (05:07)
[2024-06-24 06:55] LABS: Glucose Point of Care 190 mg/dL (70-110)
[2024-06-24 07:36] VITALS: BP 126/67; PULSE 105; RESP 15; TEMP 37.1; O2SAT 94
[2024-06-24] MEDS: insulin lispro 100 unit/1 mL SUBCUT ×3 (09:07→21:24)
[2024-06-24] MEDS: metformin 500 mg Tablet 1000 MG PO ×2 (09:08→17:46)
[2024-06-24] MEDS: gabapentin 100 mg Capsule 200 MG PO ×3 (09:08→20:06)
[2024-06-24] MEDS: ciprofloxacin 500 mg Tablet PO ×2 (09:14→20:06)
[2024-06-24] MEDS: metoprolol tartrate 25 mg Tablet PO ×2 (09:14→20:06)
--- NOTE | 2024-06-24 10:22 | P.PN_ITS ---
Subjective 2 Subjective: Patient is status quo wound VAC needs to be placed they tried a different dressing and did not work Vitals/I&O/Wt Last Vital Signs Temp 98.7 F 06/24/24 07:36 Pulse 105 H 06/24/24 07:36 Resp 15 06/24/24 07:36 BP 126/67 06/24/24 07:36 Pulse Ox 94 06/24/24 07:36 O2 Del Method Room Air 06/24/24 07:36 O2 Flow Rate 3 06/18/24 20:00 06/23/24 06/24/24 06/24/24 22:59 06:59 14:59 Intake Total 570 / 1590 480 / 2070 240 / 240 Output Total 475 / 475 Balance 570 / 1590 5 / 1595 240 / 240 Weight last 48 hrs Weight 282 lb 9 oz Weight 282 lb 4 oz Physical Exam 2 Narrative: Patient is laying in bed complaining of muscle spasm Data 06/23/24 02:52 06/23/24 02:52 A&P Assessment and plan (1) Status post lumbar spinal fusion: Patient is status post lumbar fusion Wound VAC needs to be placed Okay to discharge once wound VAC is placed Will change muscle relaxant to Flexeril PDMP PDMP Reviewed: Not Reviewed Attestations 2 Medical Necessity Statement*: Discharge after wound VAC is placed Coding Level of Care Code Acute Code for Chg Fwd Diagnoses Status post lumbar spinal fusion Z98.1
[2024-06-24 11:14] VITALS: BP 129/64; PULSE 97; RESP 17; TEMP 36.6; O2SAT 97
[2024-06-24 11:53] LABS: Glucose Point of Care 185 mg/dL (70-110)
--- NOTE | 2024-06-24 12:57 | P.PN_ITS ---
<Statement entered by Bobby Redd MD - 06/24/24 16:36> I have reviewed the documentation and plan of care and agree with the assessment and plan of care as written. Dr. Bobby Redd Subjective 2 Subjective: Patient evaluated on [facility] today. Unfortunately, peel and place wound VAC dressing did not stay in place. It became dislodged yesterday evening. The nurse today cleaned the wound, applied dry gauze and ABD pad to the wound. The dressing was clean dry and intact upon entering the room today. Mrs. Sood was sitting up in her chair. She transferred to the bed with 3 assist. Vitals/I&O/Wt Last Vital Signs Temp 97.9 F 06/24/24 11:14 Pulse 97 06/24/24 11:14 Resp 17 06/24/24 11:14 BP 129/64 06/24/24 11:14 Pulse Ox 97 06/24/24 11:14 O2 Del Method Room Air 06/24/24 11:14 O2 Flow Rate 3 06/18/24 20:00 06/23/24 06/24/24 06/24/24 22:59 06:59 14:59 Intake Total 570 / 1590 480 / 2070 240 / 240 Output Total 475 / 475 Balance 570 / 1590 5 / 1595 240 / 240 Weight last 48 hrs Weight 128.168 kg Weight 128.026 kg Physical Exam 2 Const: COMMON NORMALS: no acute distress, patient oriented x3 and alert G ENERAL APPEARANCE: cooperative and comfortable NUTRITIONAL APPEARANCE: obese ORIENTATION/CONSCIOUSNESS: Yes awake, Yes oriented to person, Yes oriented to place and Yes oriented to time HENMT: COMMON NORMALS: Normal external nose present HEAD & SCALP: normal to inspection NOSE: Normal external nose present Eye: GENERAL EYE: appearance normal, both eyes and all related structures Neck/C-Spine: GENERAL: Yes normal visual inspection and Yes trachea midline Chest: CHEST: Yes Symmetrical chest wall rise Resp: COMMON NORMALS: normal respiratory effort and No use of accessory muscles EFFORT & INSPECTION: Yes able to speak in complete sentences and Yes symmetric chest movement Cardio: COMMON NORMALS: regular rate RATE: regular rate Back/Pelvis: LUMBAR SPINE/LOWER BACK: No mass present and Yes other soft tissue findings (Dehisced surgical incision to midline lumbar region) Neuro: COMMON NORMALS: patient oriented x3 SENSORIUM/ORIENTATION: Yes alert, Yes oriented to person, Yes oriented to place and Yes oriented to time Psych: COMMON NORMALS: mental status grossly normal, Normal thought process present and speech normal APPEARANCE: Yes grossly normal ATTITUDE: Yes calm ACTIVITY/MOTOR BEHAVIOR: Yes appropriate eye contact SPEECH: Yes normal speech MOOD & AFFECT: Yes euthymic mood THOUGHT PROCESS: Normal thought process present THOUGHT CONTENT: Yes Normal thought content present ATTENTION/CONCENTRATION: Yes attention grossly intact MEMORY/COGNITION: Yes memory grossly intact INSIGHT: Good insight present (Psych) JUDGEMENT: G ood judgement present (Psych) Skin: WOUNDS: Yes wounds noted (See wound assessment) Data 06/23/24 02:52 06/23/24 02:52 A&P Assessment and plan (1) Disruption of external operation (surgical) wound, not elsewhere classified, initial encounter: Wound dehiscence to midline lower back status post lumbar fusion on June 04. Wound remains without signs or symptoms of active infection. The erythema surrounding the wound has not increased from yesterday. Again, likely from exudate material irritating her periwound skin. There is no warmth, streaking, purulent drainage, or palpable mass to the periwound. Staff nurse present during entire evaluation and VAC placement. The superior portion of the wound continues to measure 4 cm. The area just beneath this is also measuring 4 cm. There is a small area between the 2 deeper areas impeding connection, which could be an internal suture vs tissue. No tunneling was appreciated. There is less drainage noted during the evaluation and wound VAC application today. Patient was sitting on side of bed during VAC application. White foam was applied into the two areas of depth at the superior portion of the wound. Skin edges were protected utilizing Skin-Prep and DuoDERM. Black foam was applied over the entire length of the dehiscence. Good suction and seal was achieved. Edges were reinforced with VAC drape. I discussed with her the importance of optimized nutrition during wound healing. She drinks 1-2 ensures per day. We also discussed the need to offload the area of dehiscence to promote wound healing while still maintaining all precautions provided by Dr. Castro. Small area of dehiscense to incision on left back appears slightly improved today. Will continue hydrofera blue ready. This may be changed with the wound vac on Sunday, June 27 or sooner if soiled or dislodged. (2) Dermatitis associated with moisture: Plan Small area noted to sacrum just below where the dressing for her midline lower back wound stops appears stable today. It is without signs or symptoms of active infection. Will recommend continuing Hydrofera Blue secured with the wound VAC drape. This may be changed with the wound VAC dressing on SundayJune 27 or sooner if soiled or dislodged. It will be important for her to offload this area is much as possible as pressure can complicate healing. Case management is currently working on half-way facility placement at [facility]. Given her complex comorbidities and complex wound requiring wound VAC therapy it would be most advantageous for her to discharge to a half-way facility. Wound care will follow-up daily during admission. Wound care arrangements will need to be made prior to discharge. PDMP PDMP Reviewed: Not Reviewed Attestations 2 Medical Necessity Statement*: Time Spent in Patient Care: Greater than 35 minutes Evaluation, wound VAC application, and education Coding Level of Care Code Acute Code for Chg Fwd Diagnoses Disruption of external operation (surgical) wound, not elsewhere classified, initial encounter T81.31XA Dermatitis associated with moisture L30.8 CPT Codes Billing Codes - Wound Vac Placement/Change Billing Codes: 50 sq cm or less [id number] ([id number]) Wound Assessment Wound Assessment Wound Number 1 Back: Descriptor: Midline and Inferior Primary Etiology:: Dehisced Wound Length: (cm): 19 cm Width: (cm): 0.6 cm Depth: (cm): 4 cm Epithelialization:: Small (1-33%) Exudate Amount:: Large Drainage Type: Serosanguineous (Thin, clear) Foul Odor After Cleansing:: No Slough/Fibrin?: Yes Granulation Amount: None Necrotic Amount:: Small (1-33%) Necrotic Type:: Adherent Slough Wound Number 2 Sacrum: Cluster Wound: Yes Primary Etiology:: MASD Length: (cm): 1.2 cm Width: (cm): 4 cm Depth: (cm): 0.1 cm Epithelialization:: Small (1-33%) Tunneling:: No Undermining:: No Limited to Skin Breakdown: Yes Exudate Amount:: Small Drainage Type: Serosanguineous Granulation Amount: None Necrotic Amount:: Small (1-33%) Necrotic Type:: Adherent Slough Wound Number 3 Back: Descriptor: Left Primary Etiology:: Dehisced Wound Length: (cm): 0.5 cm Width: (cm): 0.8 cm Depth: (cm): 0.1 cm Epithelialization:: Small (1-33%) Tunneling:: No Undermining:: No Limited to Skin Breakdown: Yes Exudate Amount:: Small Drainage Type: Serosanguineous Foul Odor After Cleansing:: No Slough/Fibrin?: Yes Granulation Amount: Small (1-33%) Granulation Quality:: [place] Necrotic Amount:: Small (1-33%) Necrotic Type:: Adherent Slough Wound Orders Wound Number 1: Midline lower back Dressing change frequency: Other (2 times weekly, next change will be Sunday, June 27 and as needed if leaking or dislodged) Skin Barriers/Esther-Wound Care: Skin Prep and Other (DuoDERM) Primary Wound Care Dressing: White foam black foam Secondary Wound Care Dressing: Negative pressure wound therapy Bathing/Showering/Hygiene: Do not shower or bathe in tub. Sponge bath only. Negative Pressure Wound Therapy: Wound Vac to wound continuously at 125mm/hg pressure, Black Foam (Entire length of dehiscence) and White Foam (Wick to deeper areas at superior portion of wound) Wound Number 2: Wound Number 2 and Wound Number 3: Sacrum and left back Dressing change frequency: Other (with wound vac change and PRN if soiled or dislodged) Wound Cleansing: Saline Primary Wound Care Dressing: hydrofera blue Secondary Wound Care Dressing: bordered gauze Wound Vac Placement/Change Procedure midline lower back: Additional Injuries Covered?: No Performed By: Marissa Poole Type: GERRY Wound Height: 19 Wound Depth: 4 Wound Width: 0.6 Pressure Type: Continuous Pressure Settinmmhg Sponge/Dressing Type: Foam-White Quantity of Sponges/Gauze Inserted: 3 Billing Codes Wound Vac Placement/Change Billing Codes: 50 sq cm or less [id number]
[2024-06-24] MEDS: enoxaparin 40 mg/0.4 mL Syringe SUBCUT (13:06)
[2024-06-24] MEDS: cyclobenzaprine 10 mg Tablet PO ×2 (13:07→20:06)
--- NOTE | 2024-06-24 13:48 | P.PN_ITS ---
Subjective 2 Subjective: 63-year-old female admitted wi th postoperative wound infection on the back has some dehiscence of her wound at the upper portion about an inch from the top this is a treating serous fluid but with odor. She has had a wound VAC which falls off when she gets up and down to use the bathroom Patient states she was in too much pain to use the CPAP machine last night but she was fitted with a small nasal CPAP mask which she is going to try tonight. She is accompanied by her daughter Vitals/I&O/Wt Last Vital Signs Temp 97.9 F 06/24/24 11:14 Pulse 97 06/24/24 11:14 Resp 17 06/24/24 11:14 BP 129/64 06/24/24 11:14 Pulse Ox 97 06/24/24 11:14 O2 Del Method Room Air 06/24/24 11:14 O2 Flow Rate 3 06/18/24 20:00 06/23/24 06/24/24 06/24/24 22:59 06:59 14:59 Intake Total 570 / 1590 480 / 2070 480 / 480 Output Total 475 / 475 Balance 570 / 1590 5 / 1595 480 / 480 Weight last 48 hrs Weight 128.168 kg Weight 128.026 kg Physical Exam 2 Narrative: General well-developed well-nourished morbidly obese female in no acute cardiopulmonary stress CV regular rate and rhythm Lungs clear to auscultation bilaterally Back she has an ABD pad taped on which I removed and does demonstrate clear drainage with foul odor. The incision is dehisced over approximately three- quarter inch length. There is erythema approximately 2 and stripe going down the back overlying the incision which is otherwise closed Data 06/23/24 02:52 06/23/24 02:52 Micro: Grew Klebsiella and staph epidermidis A&P Assessment and plan (1) Post op infection: With Gram negative bacteremia. Currently on vancomycin and ceftriaxone. Discussed with Dr. Bryson. Change to Zyvox and Cipro on upon discharge. Can change ceftriaxone to Cipro currently. Please refer to Dr. Bryson's last note dated 06/16/2024 Awaiting group home facility that has capacity to provide wound VAC (2) Status post lumbar spinal fusion: Management per orthopedics. Continue PT (3) Gram-negative bacteremia: Klebsiella pneumonia bacteremia Treatment as above (4) PIPPA (acute kidney injury): Acute kidney injury. Resolved with fluid resuscitation and holding home dose losartan hydrochlorothiazide. Blood pressure improved to 129/64 heart rate 97 today. He is on single agent metoprolol 25 mg twice a day (5) Hyponatremia: Low sodium during this hospitalization was 128 and it has been mostly hovering around 134 135. Overall improving sodium now 137 (6) Anemia: Blood loss anemia. Hemoglobin 7.5 (7) Hyperglycemia: Metformin has been resumed along with insulin glargine 10 units subcu nightly (8) Type 2 diabetes mellitus: As above (9) Hyperlipidemia: On atorvastatin 20 mg p.o. daily as home dose (10) Postoperative anemia due to acute blood loss: Hemoglobin stable (11) Sleep apnea in adult: Recommend the patient's start CPAP treatment. She is currently on 3 L/min nasal cannula at night Start CPAP 7 cmH2O here to titrate to effect Plan Prepare for discharge to [facility]-Per case management Continue Lantus 10 units q. H S and metformin. May use home semaglutide Continue sliding scale insulin Check labs for tomorrow Vancomycin being continued and the hospital but changed to Zyvox on discharge. Changed to oral Cipro and continue that here Continue wound VAC PDMP PDMP Reviewed: Not Reviewed Attestations 2 Medical Necessity Statement*: Will need to be hospitalized for wound VAC until this can be provided at group home facility Coding Level of Care Code 27808 Diagnoses Post op infection T81.40XA Status post lumbar spinal fusion Z98.1 Gram-negative bacteremia R78.81 PIPPA (acute kidney injury) N17.9 Hyponatremia E87.1 Anemia D64.9 Hyperglycemia R73.9 Type 2 diabetes mellitus without complication, without long-term current use of insulin E11.9 Diabetes mellitus complication status: without complication 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
[2024-06-24 16:19] VITALS: BP 124/63; PULSE 106; RESP 16; TEMP 37.1; O2SAT 98
[2024-06-24 17:18] LABS: Glucose Point of Care 140 mg/dL (70-110)
[2024-06-24] MEDS: ATORVASTATIN 10 MG TABLET 20 MG PO (20:06)
[2024-06-24 20:15] LABS: Glucose Point of Care 159 mg/dL (70-110)
[2024-06-24 20:26] VITALS: BP 120/63; PULSE 80; RESP 19; TEMP 36.6; O2SAT 94
[2024-06-24] MEDS: insulin glargine 100 units/1 mL 15 UNIT SUBCUT (21:24)
[2024-06-25 00:25] VITALS: BP 122/64; PULSE 84; RESP 19; TEMP 36.8; O2SAT 94
[2024-06-25 04:45] VITALS: BP 120/86; PULSE 68; RESP 19; TEMP 36.8; O2SAT 94
[2024-06-25] MEDS: vancomycin 1,500 MG/300 ML PIGGYBACK 200 MG IV ×2 (05:06→16:59)
[2024-06-25] MEDS: HYDROcodone-acetaminophen 5-325 mg Tablet 1 TAB PO ×4 (05:06→20:21)
[2024-06-25] MEDS: cyclobenzaprine 10 mg Tablet PO ×2 (06:51→16:59)
[2024-06-25 06:58] LABS: Glucose Point of Care 151 mg/dL (70-110)
[2024-06-25 07:38] VITALS: BP 125/62; PULSE 101; RESP 17; TEMP 36.7; O2SAT 95
[2024-06-25] MEDS: insulin lispro 100 unit/1 mL SUBCUT ×3 (09:08→21:58)
[2024-06-25] MEDS: gabapentin 100 mg Capsule 200 MG PO ×3 (09:09→20:21)
[2024-06-25] MEDS: ciprofloxacin 500 mg Tablet PO ×2 (09:09→20:21)
[2024-06-25] MEDS: metoprolol tartrate 25 mg Tablet PO ×2 (09:09→20:21)
[2024-06-25] MEDS: metformin 500 mg Tablet 1000 MG PO ×2 (09:10→16:58)
--- NOTE | 2024-06-25 10:08 | P.PN_ITS ---
Subjective 2 Subjective: Patient complaining of spasm okay to discharge today wound VAC working well Vitals/I&O/Wt Last Vital Signs Temp 98.0 F 06/25/24 07:38 Pulse 101 H 06/25/24 07:38 Resp 17 06/25/24 07:38 BP 125/62 06/25/24 07:38 Pulse Ox 95 06/25/24 07:38 O2 Del Method Room Air 06/25/24 07:38 O2 Flow Rate 3 06/18/24 20:00 06/24/24 06/25/24 06/25/24 22:59 06:59 14:59 Intake Total 840 / 1320 800 / 2120 236 / 236 Balance 840 / 1320 800 / 2120 236 / 236 Weight last 48 hrs Weight 282 lb Weight 282 lb 9 oz Physical Exam 2 Narrative: In bed comfortable wound VAC working Data 06/23/24 02:52 06/23/24 02:52 A&P Assessment and plan (1) Status post lumbar spinal fusion: Wound care per wound service Discharge today PDMP PDMP Reviewed: Not Reviewed Attestations 2 Medical Necessity Statement*: Discharge today if placement available she is ready to go Coding Level of Care Code Acute Code for Chg Fwd Diagnoses Status post lumbar spinal fusion Z98.1
[2024-06-25 11:30] VITALS: BP 124/66; PULSE 101; RESP 15; TEMP 36.8; O2SAT 96
[2024-06-25] MEDS: enoxaparin 40 mg/0.4 mL Syringe SUBCUT (11:57)
--- NOTE | 2024-06-25 12:36 | P.PN_ITS ---
Subjective 2 Subjective: Patient is sitting in chair upon arrival today. Wound VAC has a leak. It was noted to be functioning with good suction and seal until approximately 1 hour before evaluation. It appears the drape has rolled up at the bottom portion of the drape near her intergluteal cleft. Patient is still pending discharge to [facility] fdc. Vitals/I&O/Wt Last Vital Signs Temp 98.3 F 06/25/24 11:30 Pulse 101 H 06/25/24 11:30 Resp 15 06/25/24 11:30 BP 124/66 06/25/24 11:30 Pulse Ox 96 06/25/24 11:30 O2 Del Method Room Air 06/25/24 11:30 O2 Flow Rate 3 06/18/24 20:00 06/24/24 06/25/24 06/25/24 22:59 06:59 14:59 Intake Total 840 / 1320 800 / 2120 236 / 236 Balance 840 / 1320 800 / 2120 236 / 236 Weight last 48 hrs Weight 127.913 kg Weight 128.168 kg Physical Exam 2 Const: COMMON NORMALS: no acute distress, patient oriented x3 and alert G ENERAL APPEARANCE: cooperative and comfortable NUTRITIONAL APPEARANCE: obese ORIENTATION/CONSCIOUSNESS: Yes awake, Yes oriented to person, Yes oriented to place and Yes oriented to time HENMT: COMMON NORMALS: Normal external nose present HEAD & SCALP: normal to inspection NOSE: Normal external nose present Eye: GENERAL EYE: appearance normal, both eyes and all related structures Neck/C-Spine: GENERAL: Yes normal visual inspection and Yes trachea midline Chest: CHEST: Yes Symmetrical chest wall rise Resp: COMMON NORMALS: normal respiratory effort and No use of accessory muscles EFFORT & INSPECTION: Yes able to speak in complete sentences and Yes symmetric chest movement Cardio: COMMON NORMALS: regular rate RATE: regular rate Back/Pelvis: OTHER: Wound VAC dressing to midline inferior lower back. Drainage noted from bottom of dressing where it has rolled up causing a leak. Hydrofera Blue to wound left back and sacrum. Neuro: COMMON NORMALS: patient oriented x3 SENSORIUM/ORIENTATION: Yes alert, Yes oriented to person, Yes oriented to place and Yes oriented to time Psych: COMMON NORMALS: mental status grossly normal, Normal thought process present and speech normal APPEARANCE: Yes grossly normal ATTITUDE: Yes calm ACTIVITY/MOTOR BEHAVIOR: Yes appropriate eye contact SPEECH: Yes normal speech MOOD & AFFECT: Yes euthymic mood THOUGHT PROCESS: Normal thought process present THOUGHT CONTENT: Yes Normal thought content present ATTENTION/CONCENTRATION: Yes attention grossly intact MEMORY/COGNITION: Yes memory grossly intact INSIGHT: Good insight present (Psych) JUDGEMENT: G ood judgement present (Psych) Skin: WOUNDS: Yes wounds noted (Open wounds were not assessed today as dressings remain intact) without odor; without any surrounding erythema Data 06/23/24 02:52 06/23/24 02:52 A&P Assessment and plan (1) Disruption of external operation (surgical) wound, not elsewhere classified, initial encounter: Wound dehiscence to midline lower back status post lumbar fusion on June 04. She remains negative for signs or symptoms of active infection including fevers, chills, nausea, or vomiting. No erythema was noted to areas visible under VAC drape. Wound VAC dressing in place to midline inferior back. There is a leak noted at the bottom of the dressing near the top of her intergluteal cleft. It appears the wound VAC dressing had rolled up from her repositioning in her chair. The rolled up portion of the drape was removed and new drape was applied. Good suction and seal was achieved. We helped Ms. Sood put on her underwear which will hopefully prevent the dressing from rolling up again. Staff nurse present during entire evaluation and VAC placement. I educated nursing staff that if a leak was present again and it could not be patched with good suction and seal achieved, to remove the entire dressing and cover with dry gauze and an ABD pad which will need to be changed frequently when any drainage strikethrough is present on the dressing. Given that I have placed a wound VAC 3 separate times, the [facility] applied 1 wound VAC dressing, and 2 myles wound vacs have been utilized without being able to maintain the dressings longer than 24 to 48 hours -less and most cases, it may be advantageous to consider other options for addressing the wound. If this wound VAC does not stay in place, I will confer with Dr. Castro about plans going forward. I discussed with her the importance of optimized nutrition during wound healing. She drinks 1-2 ensures per day. We also discussed the need to offload the area of dehiscence to promote wound healing while still maintaining all precautions provided by Dr. Castro. (2) Dermatitis associated with moisture: Plan Hydrofera Blue covering the moisture associated skin breakdown to the sacrum was removed and replaced to ensure good suction and seal was achieved. This was secured under VAC drape. This may be changed with the wound VAC dressing on SundayJune 27 or sooner if soiled or dislodged. It will be important for her to offload this area is much as possible as pressure can complicate healing. Case management [place] [facility] [place] [facility] at [facility]. Given her complex comorbidities and complex wound requiring wound VAC therapy it would be most advantageous for her to discharge to a [place] [facility] facility. Wound care will follow-up daily during admission. Wound care arrangements will need to be made prior to discharge. A referral for wound care has been placed. PDMP PDMP Reviewed: Not Reviewed Attestations 2 Medical Necessity Statement*: Time Spent in Patient Care: 16 - 35 minutes Evaluation, patching the leak in the wound VAC dressing, education Coding Level of Care Code Acute Code for Chg Fwd Diagnoses Disruption of external operation (surgical) wound, not elsewhere classified, initial encounter T81.31XA Dermatitis associated with moisture L30.8
[2024-06-25 15:41] VITALS: BP 110/63; PULSE 95; RESP 16; TEMP 37; O2SAT 94
--- NOTE | 2024-06-25 16:04 | P.PN_ITS ---
Subjective 2 Medications: Reviewed: Yes Vitals/I&O/Wt Last Vital Signs Temp 98.6 F 06/25/24 15:41 Pulse 95 06/25/24 15:41 Resp 16 06/25/24 15:41 BP 110/63 06/25/24 15:41 Pulse Ox 94 06/25/24 15:41 O2 Del Method Room Air 06/25/24 15:41 O2 Flow Rate 3 06/18/24 20:00 06/25/24 06/25/24 06/25/24 06:59 14:59 22:59 Intake Total 800 / 0 472 / 472 Balance 800 / 0 472 / 472 Weight last 48 hrs Weight 127.913 kg Weight 128.168 kg Physical Exam 2 Narrative: General well-developed well-nourished morbidly obese female in no acute cardiopulmonary stress CV regular rate and rhythm Lungs clear to auscultation bilaterally Data 06/23/24 02:52 06/23/24 02:52 A&P Assessment and plan (1) Post op infection: With Gram negative bacteremia. Currently on vancomycin IV and Cipro p.o. per direction with Dr. Bryson. Change to Zyvox and Cipro on upon discharge. Please refer to Dr. Bryson's last note dated 06/16/2024 Awaiting half-way facility that has capacity to provide wound VAC (2) Status post lumbar spinal fusion: Management per orthopedics. Continue PT (3) Gram-negative bacteremia: Klebsiella pneumonia bacteremia Treatment as above (4) PIPPA (acute kidney injury): Acute kidney injury. Resolved with fluid resuscitation and holding home dose losartan hydrochlorothiazide. Blood pressure improved to 129/64 heart rate 97 today. He is on single agent metoprolol 25 mg twice a day (5) Hyponatremia: Resolved (6) Hyperglycemia: Metformin has been resumed along with insulin glargine 10 units subcu nightly (7) Type 2 diabetes mellitus: As above (8) Hyperlipidemia: On atorvastatin 20 mg p.o. daily as home dose (9) Postoperative anemia due to acute blood loss: Hemoglobin stable as of the will recheck in the along with white count (10) Sleep apnea in adult: Recommend the patient's start CPAP treatment. She is currently on 3 L/min nasal cannula at night at home Start CPAP 7 cmH2O here to titrate to effect Plan Prepare for discharge to halfway-Per case management Continue Lantus 10 units q. H S and metformin. May use home semaglutide Continue sliding scale insulin Check labs for tomorrow Vancomycin being continued and the hospital but changed to Zyvox on discharge. Changed to oral Cipro and continue that here Continue wound VAC PDMP PDMP Reviewed: Not Reviewed Attestations 2 Medical Necessity Statement*: Patient remains in the hospital for wound VAC Coding Level of Care Code 13177 Diagnoses Post op infection T81.40XA Status post lumbar spinal fusion Z98.1 Gram-negative bacteremia R78.81 PIPPA (acute kidney injury) N17.9 Hyponatremia E87.1 Hyperglycemia R73.9 Type 2 diabetes mellitus without complication, without long-term current use of insulin E11.9 Diabetes mellitus care home insulin use: without care home use Diabetes mellitus complication status: without complication Mixed hyperlipidemia E78.2 Hyperlipidemia type: mixed hyperlipidemia Postoperative anemia due to acute blood loss D62 Sleep apnea in adult G47.30 Time Spent (min) 25
[2024-06-25] MEDS: ATORVASTATIN 10 MG TABLET 20 MG PO (20:21)
[2024-06-25] MEDS: insulin glargine 100 units/1 mL 15 UNIT SUBCUT (20:22)
[2024-06-25 20:25] VITALS: BP 112/64; PULSE 84; RESP 18; TEMP 36.6; O2SAT 93
[2024-06-25 21:13] LABS: Glucose Point of Care 114 mg/dL (70-110)
[2024-06-25 21:13] LABS: Glucose Point of Care 203 mg/dL (70-110)
[2024-06-25 21:14] LABS: Glucose Point of Care 164 mg/dL (70-110)
[2024-06-26] VITALS (7 sets, daily range): BP systolic 111–119; BP diastolic 55–70; PULSE 81–111; RESP 16–19; TEMP 36.6–36.9; O2SAT 92–99
[2024-06-26] MEDS: vancomycin 1,500 MG/300 ML PIGGYBACK 200 MG IV ×2 (05:42→18:23)
[2024-06-26] MEDS: cyclobenzaprine 10 mg Tablet PO ×3 (05:43→22:32)
[2024-06-26] MEDS: HYDROcodone-acetaminophen 5-325 mg Tablet 1 TAB PO ×3 (05:43→18:24)
[2024-06-26 06:34] LABS: Glucose Point of Care 151 mg/dL (70-110)
[2024-06-26] MEDS: gabapentin 100 mg Capsule 200 MG PO ×3 (10:18→21:04)
[2024-06-26] MEDS: metformin 500 mg Tablet 1000 MG PO ×2 (10:18→18:23)
[2024-06-26] MEDS: metoprolol tartrate 25 mg Tablet PO ×2 (10:19→21:04)
[2024-06-26] MEDS: insulin lispro 100 unit/1 mL SUBCUT ×3 (10:20→21:04)
[2024-06-26] MEDS: ciprofloxacin 500 mg Tablet PO ×2 (10:26→21:34)
[2024-06-26 11:12] LABS: Glucose Point of Care 201 mg/dL (70-110)
[2024-06-26 11:30] LABS: Anion Gap 16.1 (5-19); Blood Urea Nitrogen 6 mg/dL (8-23); Calcium 8.4 mg/dL (8.5-10.5); Carbon Dioxide 22 mmol/L (22-29); Chloride 100 mmol/L (98-107); Creatinine Clr Calc Pharmacy 192.6021; Glomerular Filtration Rate 162.3 mL/min (90-130); Glucose 171 mg/dL (65-115); Osmolality Calculated 280 mOsm/kg (285-295); Potassium 4.1 mmol/L (3.5-5.1); Sodium 134 mmol/L (136-145)
--- NOTE | 2024-06-26 13:05 | P.PN_ITS ---
Subjective 2 Subjective: Awaiting placement to alf Vitals/I&O/Wt Last Vital Signs Temp 98.3 F 06/26/24 12:00 Pulse 106 H 06/26/24 12:00 Resp 17 06/26/24 12:00 BP 111/55 06/26/24 12:00 Pulse Ox 92 06/26/24 12:00 O2 Del Method Room Air 06/26/24 12:00 O2 Flow Rate 3 06/18/24 20:00 06/25/24 06/26/24 06/26/24 22:59 06:59 14:59 Intake Total 620 / 1092 600 / 600 Output Total 375 / 375 Balance 245 / 717 600 / 600 Weight last 48 hrs Weight 282 lb Weight 282 lb Physical Exam 2 Narrative: Drainage in wound VAC seems to be decreasing. Data 06/23/24 02:52 06/26/24 10:50 A&P Assessment and plan (1) Status post lumbar spinal fusion: Wound care per wound management Discharge planning okay to discharge PDMP PDMP Reviewed: Not Reviewed Attestations 2 Medical Necessity Statement*: Discharge planning okay to discharge Coding Level of Care Code Acute Code for Chg Fwd Diagnoses Status post lumbar spinal fusion Z98.1
[2024-06-26] MEDS: enoxaparin 40 mg/0.4 mL Syringe SUBCUT (13:56)
--- NOTE | 2024-06-26 15:01 | P.PN_ITS ---
Subjective 2 Subjective: Patient evaluated on [facility] today. Sitting in chair comfortably with family at bedside. Wound VAC is functioning well. Dressing perimeter had to be reinforced twice since yesterday. Vitals/I&O/Wt Last Vital Signs Temp 98.3 F 06/26/24 12:00 Pulse 106 H 06/26/24 12:00 Resp 17 06/26/24 12:00 BP 111/55 06/26/24 12:00 Pulse Ox 92 06/26/24 12:00 O2 Del Method Room Air 06/26/24 12:00 O2 Flow Rate 3 06/18/24 20:00 06/26/24 06/26/24 06/26/24 06:59 14:59 22:59 Intake Total 900 / 900 Balance 900 / 900 Weight last 48 hrs Weight 127.913 kg Weight 127.913 kg Physical Exam 2 Const: COMMON NORMALS: no acute distress, patient oriented x3 and alert G ENERAL APPEARANCE: cooperative and comfortable NUTRITIONAL APPEARANCE: obese ORIENTATION/CONSCIOUSNESS: Yes awake, Yes oriented to person, Yes oriented to place and Yes oriented to time HENMT: COMMON NORMALS: Normal external nose present HEAD & SCALP: normal to inspection NOSE: Normal external nose present Eye: GENERAL EYE: appearance normal, both eyes and all related structures Neck/C-Spine: GENERAL: Yes normal visual inspection and Yes trachea midline Chest: CHEST: Yes Symmetrical chest wall rise Resp: COMMON NORMALS: normal respiratory effort and No use of accessory muscles EFFORT & INSPECTION: Yes able to speak in complete sentences and Yes symmetric chest movement Cardio: COMMON NORMALS: regular rate RATE: regular rate Back/Pelvis: OTHER: Wound VAC dressing intact with good seal to midline inferior lower back. Hydrofera Blue dressing over sacrum and left back: Clean dry and intact. Neuro: COMMON NORMALS: patient oriented x3 SENSORIUM/ORIENTATION: Yes alert, Yes oriented to person, Yes oriented to place and Yes oriented to time Psych: COMMON NORMALS: mental status grossly normal, Normal thought process present and speech normal APPEARANCE: Yes grossly normal ATTITUDE: Yes calm ACTIVITY/MOTOR BEHAVIOR: Yes appropriate eye contact SPEECH: Yes normal speech MOOD & AFFECT: Yes euthymic mood THOUGHT PROCESS: Normal thought process present THOUGHT CONTENT: Yes Normal thought content present ATTENTION/CONCENTRATION: Yes attention grossly intact MEMORY/COGNITION: Yes memory grossly intact INSIGHT: Good insight present (Psych) JUDGEMENT: G ood judgement present (Psych) Skin: WOUNDS: Yes wounds noted (Open wounds were not assessed today as dressings remain intact) without odor; without any surrounding erythema Data 06/23/24 02:52 06/26/24 10:50 A&P Assessment and plan (1) Disruption of external operation (surgical) wound, not elsewhere classified, initial encounter: Wound dehiscence to midline lower back status post lumbar fusion on June 04. She remains negative for signs or symptoms of active infection including fevers, chills, nausea, or vomiting. Denies headaches. No erythema was noted to areas visible under VAC drape. Wound VAC dressing in place to midline inferior back. Seal check on wound VAC noted no leaks. 200 mL of drainage noted in canister which was changed overnight. Dressing perimeter was reinforced last night as well as earlier today. I educated nursing staff that if a leak was present again and it could not be patched with good suction and seal achieved, to remove the entire dressing and cover with dry gauze and an ABD pad which will need to be changed frequently when any drainage strikethrough is present on the dressing. I discussed with her the importance of optimized nutrition during wound healing. She drinks 1-2 ensures per day. We also discussed the need to offload the area of dehiscence to promote wound healing while still maintaining all precautions provided by Dr. Castro. If patient is still admitted tomorrow morning, I will plan to change the wound VAC prior to discharge. Will then need to be changed on July 01. (2) Dermatitis associated with moisture: Plan Hydrofera Blue covering the moisture associated skin breakdown to the sacrum. This may be changed with the wound VAC dressing on SundayJune 27 or sooner if soiled or dislodged. It will be important for her to offload this area is much as possible as pressure can complicate healing. Case management is currently working on intermediate facility placement at [facility]. Given her complex comorbidities and complex wound requiring wound VAC therapy it would be most advantageous for her to discharge to a intermediate facility. Wound care will follow-up daily during admission. Will plan to change wound VAC tomorrow if still admitted. Next wound VAC change after this would be July 01. PDMP PDMP Reviewed: Not Reviewed Attestations 2 Medical Necessity Statement*: Time Spent in Patient Care: less than 15 minutes Coding Level of Care Code Acute Code for Chg Fwd Diagnoses Disruption of external operation (surgical) wound, not elsewhere classified, initial encounter T81.31XA Dermatitis associated with moisture L30.8
--- NOTE | 2024-06-26 16:16 | PM.PN ---
Subjective Subjective: Patient says she was not sure if her wound was infected. She has not been up much but reports her left leg is weak and dragging. She and her daughter state that pain is improving the leg since the surgery but weakness in the leg possibly worse. She states she was told that the inflammation in the wound may be causing nerve weakness. She states she did wear the CPAP due to pain at night but does wish to try it. She is agreeable to trying it during the day Medications: Reviewed: Yes Vitals/I&O/Wt Last Vital Signs Temp 98.3 F 06/26/24 12:00 Pulse 106 H 06/26/24 12:00 Resp 17 06/26/24 12:00 BP 111/55 06/26/24 12:00 Pulse Ox 92 06/26/24 12:00 O2 Del Method Room Air 06/26/24 12:00 O2 Flow Rate 3 06/18/24 20:00 06/26/24 06/26/24 06/26/24 06:59 14:59 22:59 Intake Total 900 / 900 Balance 900 / 900 Weight last 48 hrs Weight 127.913 kg Weight 127.913 kg Physical Exam Narrative: General well-developed well-nourished morbidly obese female in no acute cardiopulmonary stress CV regular rate and rhythm Lungs clear to auscultation bilaterally Data 06/23/24 02:52 06/26/24 10:50 A&P Assessment and plan (1) Post op infection: With Gram negative bacteremia. Currently on vancomycin IV and Cipro p.o. per direction with Dr. Bryson. Change to Zyvox and Cipro on upon discharge. Please refer to Dr. Bryson's last note dated 06/16/2024 [facility] to provide wound VAC I counseled patient to walk and do as much as possible. Unless she is told not to be active by her back surgeon she should try and do as much therapy as possible (2) Status post lumbar spinal fusion: Management per orthopedics. Continue PT (3) Gram-negative bacteremia: Klebsiella pneumonia bacteremia Treatment as above. The back wound appears to be the source. Will obtain a wound culture next time wound VAC is change hopefully this is becoming sterile with antibiotic (4) PIPPA (acute kidney injury): Acute kidney injury. Resolved with fluid resuscitation and holding home dose losartan hydrochlorothiazide. Blood pressure improved to 129/64 heart rate 97 today. He is on single agent metoprolol 25 mg twice a day (5) Hyponatremia: Resolved (6) Hyperglycemia: Metformin has been resumed along with insulin glargine 10 units subcu nightly (7) Type 2 diabetes mellitus: As above (8) Hyperlipidemia: On atorvastatin 20 mg p.o. daily as home dose (9) Postoperative anemia due to acute blood loss: Hemoglobin stable as of the will recheck in the along with white count (10) Sleep apnea in adult: Recommend the patient's start CPAP treatment. She is currently on 3 L/min nasal cannula at night at home Start CPAP 7 cmH2O here to titrate to effect if available for APAP machine will have her set at 6-10 Is important the patient treat her sleep apnea for overall health and better recovery. I have asked the therapist to please try again and for the patient to try to get used to the treatment using it twice a day for 2 hours Plan Prepare for discharge to [facility]-Per case management Continue Lantus 10 units q. H S and metformin. May use home semaglutide Continue sliding scale insulin Check labs for tomorrow Vancomycin being continued and the hospital but changed to Zyvox on discharge. 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
[2024-06-26 16:45] LABS: Glucose Point of Care 89 mg/dL (70-110)
[2024-06-26 18:15] LABS: Vancomycin Trough 13.5 ug/mL (10-15)
[2024-06-26 20:16] LABS: Glucose Point of Care 208 mg/dL (70-110)
[2024-06-26] MEDS: ATORVASTATIN 10 MG TABLET 20 MG PO (21:04)
[2024-06-26] MEDS: insulin glargine 100 units/1 mL 22 UNIT SUBCUT (21:34)
[2024-06-27 00:54] VITALS: BP 108/57; PULSE 102; RESP 16; TEMP 36.8
[2024-06-27] MEDS: HYDROcodone-acetaminophen 5-325 mg Tablet 1 TAB PO ×3 (02:57→12:20)
[2024-06-27 05:38] VITALS: BP 120/70; PULSE 101; RESP 14; TEMP 37.3; O2SAT 99
[2024-06-27] MEDS: vancomycin 1,500 MG/300 ML PIGGYBACK 200 MG IV (05:56)
[2024-06-27] MEDS: cyclobenzaprine 10 mg Tablet PO (05:59)
[2024-06-27 06:42] LABS: Glucose Point of Care 147 mg/dL (70-110)
[2024-06-27] MEDS: metformin 500 mg Tablet 1000 MG PO (08:39)
[2024-06-27] MEDS: gabapentin 100 mg Capsule 200 MG PO (08:39)
[2024-06-27] MEDS: metoprolol tartrate 25 mg Tablet PO (08:39)
[2024-06-27] MEDS: ciprofloxacin 500 mg Tablet PO (08:40)
[2024-06-27] MEDS: insulin lispro 100 unit/1 mL SUBCUT ×2 (08:40→12:17)
[2024-06-27 09:06] VITALS: BP 127/75; PULSE 102; RESP 19; TEMP 36.8; O2SAT 94
--- NOTE | 2024-06-27 09:06 | PM.PN ---
Subjective Subjective: Patient sitting in chair with family at bedside upon arrival. manager social services in room as well. Patient planning to discharge to [facility] today. The wound VAC has been leaking since last night. Wound VAC dressing was still in place, though not functioning. Vitals/I&O/Wt Last Vital Signs Temp 99.1 F 06/27/24 05:38 Pulse 101 H 06/27/24 05:38 Resp 14 06/27/24 05:38 BP 120/70 06/27/24 05:38 Pulse Ox 99 06/27/24 05:38 O2 Del Method Room Air 06/26/24 16:00 O2 Flow Rate 3 06/26/24 23:30 06/26/24 06/27/24 06/27/24 22:59 06:59 14:59 Intake Total 420 / 1320 480 / 1800 300 / 300 Balance 420 / 1320 480 / 1800 300 / 300 Weight last 48 hrs Weight 127.913 kg Weight 127.913 kg Physical Exam Const: COMMON NORMALS: no acute distress, patient oriented x3 and alert GENERAL APPEARANCE: cooperative and comfortable NUTRITIONAL APPEARANCE: obese ORIENTATION/CONSCIOUSNESS: Yes awake, Yes oriented to person, Yes oriented to place and Yes oriented to time HENMT: COMMON NORMALS: Normal external nose present HEAD & SCALP: normal to inspection NOSE: Normal external nose present Eye: GENERAL EYE: appearance normal, both eyes and all related structures Neck/C-Spine: GENERAL: Yes normal visual inspection and Yes trachea midline Chest: CHEST: Yes Symmetrical chest wall rise Resp: COMMON NORMALS: normal respiratory effort and No use of accessory muscles EFFORT & INSPECTION: Yes able to speak in complete sentences and Yes symmetric chest movement Cardio: COMMON NORMALS: regular rate RATE: regular rate Back/Pelvis: LUMBAR SPINE/LOWER BACK: Yes other soft tissue findings (Dehisced surgical incision) SACRUM: no erythema and no swelling OTHER: Wound VAC in place upon inspection with leak and is not suctioning Neuro: COMMON NORMALS: patient oriented x3 SENSORIUM/ORIENTATION: Yes alert, Yes oriented to person, Yes oriented to place and Yes oriented to time Psych: COMMON NORMALS: mental status grossly normal, Normal thought process present and speech normal APPEARANCE: Yes grossly normal ATTITUDE: Yes calm ACTIVITY/MOTOR BEHAVIOR: Yes appropriate eye contact SPEECH: Yes normal speech MOOD & AFFECT: Yes euthymic mood THOUGHT PROCESS: Normal thought process present THOUGHT CONTENT: Yes Normal thought content present ATTENTION/CONCENTRATION: Yes attention grossly intact MEMORY/COGNITION: Yes memory grossly intact INSIGHT: Good insight present (Psych) JUDGEMENT: Good judgement present (Psych) Skin: WOUNDS: Yes wounds noted (See wound assessment) Data 06/23/24 02:52 06/26/24 10:50 A&P Assessment and plan (1) Disruption of external operation (surgical) wound, not elsewhere classified, initial encounter: Wound dehiscence to midline lower back status post lumbar fusion on June 04. She remains negative for signs or symptoms of active infection including fevers, chills, nausea, or vomiting. Denies headaches. Wound VAC was leaking and did not have suction upon arrival today. Unfortunately, a moderate amount of moisture was trapped beneath the wound VAC drape. According to the patient's daughter it has been leaking since last night off and on and it has had to be reinforced multiple times overnight. Upon dressing removal, there is further dehiscence of the wound to her midline back. The wound is covered with adherent slough and necrotic tissue. Given the amount of adherent slough, a wound VAC is not indicated at this time. There is no malodor appreciated. The inferior portion is now 4 cm deep as well. In the superior portion of the wound, there are 2 internal sutures which inhibit adequate packing of this wound. I called and spoke with Dr. Castro regarding this. He approved removing the 2 internal sutures. The 2 sutures were removed utilizing forceps and scissors. I recommend Santyl be applied to the entire wound once daily. A lightly saline moistened gauze be packed into the superior portion of the wound. 1/4 inch Nu Gauze should be utilized to pack the deeper areas in the inferior portion of the wound. The packing should be changed 3 times daily and as needed if saturated or dislodged. The very small and superficial dehisced area on her left back appears stable without further decline. Will recommend continuing Hydrofera Blue to this daily. I discussed with her the importance of optimized nutrition during wound healing. She drinks 1-2 ensures per day. We also discussed the need to offload the area of dehiscence to promote wound healing while still maintaining all precautions provided by Dr. Castro. Mrs. Sood may likely need a surgical debridement of the midline inferior dehiscence in the near future. She has an appointment with Dr. Castro on July 01. He states he will evaluate the wound at this time and advise further. (2) Dermatitis associated with moisture: Plan The skin breakdown to the sacral area appears stable without signs or symptoms of active infection. Will recommend continuing Hydrofera Blue daily to this area. I discussed with her that it will be important for her to offload this area is much as possible as pressure can complicate healing. She has a foam cushion which she will bring for use when sitting in the chair. I also encouraged her to use pillows or wedges to alternate pressure. I will follow[facility]up [facility] on July [facility]. PDMP PDMP Reviewed: Not Reviewed Attestations Medical Necessity Statement*: Time Spent in Patient Care: Greater than 35 minutes Evaluating the patient, applying dressing, patient education Coding Level of Care Code Acute Code for Chg Fwd Diagnoses Disruption of external operation (surgical) wound, not elsewhere classified, initial encounter T81.31XA Dermatitis associated with moisture L30.8 Wound Assessment Wound Assessment Wound Number 1 Back: Descriptor: Midline and Inferior Primary Etiology: Dehisced Wound Length (cm): 17.5 cm Width (cm): 1 cm Depth (cm): 4 cm Epithelialization: Small (1-33%) Exudate Amount: Large Drainage Type: Serosanguineous (Thin, clear) Foul Odor After Cleansing: No Slough/Fibrin?: Yes Granulation Amount: None Necrotic Amount: Large (67-100%) Necrotic Type: Adherent Slough Wound Number 2 Sacrum: Cluster Wound: Yes Primary Etiology: MASD Length (cm): 1.2 cm Width (cm): 6 cm Depth (cm): 0.1 cm Epithelialization: Small (1-33%) Tunneling: No Undermining: No Limited to Skin Breakdown: Yes Exudate Amount: Small Drainage Type: Serosanguineous Granulation Amount: Small (1-33%) Granulation Quality: [place] Necrotic Amount: Small (1-33%) Necrotic Type: Adherent Slough Wound Number 3 Back: Descriptor: Left Primary Etiology: Dehisced Wound Length (cm): 0.3 cm Width (cm): 1 cm Depth (cm): 0.2 cm Epithelialization: Small (1-33%) Tunneling: No Undermining: No Limited to Skin Breakdown: Yes Exudate Amount: Small Drainage Type: Serosanguineous Foul Odor After Cleansing: No Slough/Fibrin?: Yes Granulation Amount: Small (1-33%) Granulation Quality: [place] Necrotic Amount: Medium (34-66%) Necrotic Type: Adherent Slough Wound Orders Wound Number 1: Midline lower back Duration: 7 Days Dressing change frequency: Other (3 times daily and as needed if soiled or dislodged) Wound Cleansing: Saline Primary Wound Care Dressing: Santyl, saline moistened gauze Secondary Wound Care Dressing: Dry gauze, ABD pad, secure with tape Bathing/Showering/Hygiene: Do not shower or bathe in tub. Sponge bath only. Off-Loading: Turn and reposition every 2 hours Wound Number 2: Wound #2 and wound #3 Sacrum and left back Duration: 7 Days Dressing change frequency: Daily Wound Cleansing: Saline Primary Wound Care Dressing: Hydrofera Blue ready Secondary Wound Care Dressing: Bordered gauze Bathing/Showering/Hygiene: Do not shower or bathe in tub. Sponge bath only. Off-Loading: Turn and reposition every 2 hours
--- NOTE | 2024-06-27 09:35 | PM.MISC ---
Miscellaneous Note Note: vancomycin discontinued today as completed 2 weeks treatment for [facility] bacteremia, favored contamination along with Klebsiella + blood cx however treated at the time due to rising white count in spite of appropriate gram negative therapy
--- NOTE | 2024-06-27 11:34 | PM.DCS ---
Discharge Providers Date of Admission: 06/12/24 18:36 Date of Discharge: June 27, 2024 Attending Provider at Admission: Laurent Medina DO Attending Provider at Discharge: Laurent Medina DO Primary Care Provider: Candida Harris Diagnoses at Discharge Discharge Diagnosis (1) Post op infection: Status: Acute (2) Status post lumbar spinal fusion: Details from hospital stay: Patient's had a long drawnout course trying to get her discharged to long-term for the last week and a half. At this point she is finally being discharged today wound VAC was changed to wet-to-dry today will see her in the clinic next week. She does not have a wound infection she had 1 blood culture that showed Klebsiella otherwise has been negative. Status: Acute (3) Gram-negative bacteremia: Status: Acute (4) PIPPA (acute kidney injury): Status: Resolved (5) Hyponatremia: Status: Acute (6) Hyperglycemia: Status: Acute (7) Type 2 diabetes mellitus: Status: Acute Qualifiers: Diabetes mellitus long term care social worker insulin use: without halfway use Diabetes mellitus complication status: without complication Qualified Code(s): E11.9 - Type 2 diabetes mellitus without complications (8) Hyperlipidemia: Status: Chronic Qualifiers: Hyperlipidemia type: mixed hyperlipidemia Qualified Code(s): E78.2 - Mixed hyperlipidemia (9) Postoperative anemia due to acute blood loss: Status: Acute (10) Sleep apnea in adult: Status: Acute Reason for Visit Reason for Visit: post op bleeding Hospital Course Hospital Course 06/13/2024 bcx positive for kleb pnuemonia, staph epi repeat bcx today will need ID consultation Sunday will need IV abx for alteast 2 weeks or as per ID recs check CT lumbar spine w/ contrast to rule out hematoma, abscess, potential infection source. pt is 1 week post op, unsure if imaging will be super helpful given recent surgery, discussed at length with radiologist and Dr. Medina. Hemoglobin improved to 8.8, continue to monitor q12h, pressure bandage applied to lumbar incision area continue iv abx vancomycin and cefepime pt complains of constipation, start miralax 17 g daily, docusate senna 100 BID check urine culture stop IV fluids replace IV at left antecubital area due to it leaking. - notified RN 06/14/2024 bcx positive for kleb pnuemonia, staph epi repeat bcx today will need ID consultation Sunday will need IV abx for alteast 2 weeks or as per ID recs Ct lumbar spine: 1. Recent postoperative changes described above. 2. No high-grade central canal stenosis considering hardware artifact. Wide decompressive laminectomies. 3. No subcutaneous fluid collections. 4. Innumerable scattered small punctate foci of air within the paravertebral soft tissues extending to the psoas bilaterally and laminectomy defects. Some of this may be postoperative or due to prior surgical drain or possibly Surgicel. Gas-producing infection is an additional consideration. Discussed CT results with Dr. Medina. post op changes. Pt did have a drain post-op, foci of air most likely 2/2 to that. Hemoglobin improved to 8.8, continue to monitor q12h, pressure bandage applied to lumbar incision area continue iv abx vancomycin and cefepime consitpation: continue miralax 17 g daily, docusate senna 100 BID check urine culture 06/15/2024 continue IV vanc and zosyn await sensitivities from blood culture blood culture pending repeat culture so far neg to date consult ID hB stable lumbar incision does not appear infected continue stool softeners urine culture pending will need NH at or 06/16/2024 Coreg has been on hold since admission. Metoprolol tartrate 12.5 twice daily started yesterday Patient has been tachycardic 116-132 range. Increase metoprolol to 25 twice daily Continue to hold Coreg Order normal saline bolus 500 cc x 1 White count up to 17,000 today. Unclear etiology. Will await recommendations from infectious disease Patient does have gram-negative bacteremia with Klebsiella. Culture is pansensitive. Hemoglobin stable 9.6. Urine culture is pending. Broad-spectrum antibiotics have been stopped. Continue on oral Cipro twice daily. Discussed with ID. Since patient's incision a longer bleeding and hemoglobin is stable I will add DVT prophylaxis with Lovenox 40 daily. 06/17/2024 surgery was 06/04 pt is [address] chest abd pelvis: 1. No acute pulmonary findings. 2. Small left and trace right pleural effusions. 1. No acute findings in the abdomen or pelvis. 2. Soft tissue gas bubbles in the posterior and paravertebral lumbar region. This is presumably from recent spine surgery, although there is no mention of this in the history. Correlation with surgical history is recommended. If the patient's spine surgery was greater than 10 days ago, soft tissue infection in the surgical site can not be excluded. MRI L-spine ordered today WBC 15K procal, crp elevated hb stable most likely wound infection as other sources has been ruled out dicussed with dr. medina, will keep pt npo at midnight incase of surgical intervention planned in am however before making a final decision, will await mri results continue dvt ppx urine culture neg ID on board, appreciate recommendations discussed with ID and primary spine surgeon continue vanc and ceftriaxone 06/18/2024 MRI L-spine negative for abscess, shows postop changes WBC trending down to 13,000 today. Will check Pro-Melyssa CRP in a.m. Continue DVT prophylaxis Urine culture negative Constipation has improved. Will continue MiraLAX. Stop docusate senna. If patient starts to have worsening diarrhea we will stop stool softeners completely. Patient is on hydrocodone/oral opioids Gram-negative and positive bacteremia with Staphylococcus epidermidis and Klebsiella. Wound culture obtained 06/17. Await results Appreciate ID recommendations. Continue to monitor in hospital at this time with IV antibiotics. Patient is not medically ready for discharge. 06/19/2024 MRI L-spine negative for abscess, shows postop changes WBC trending down to 13,000 today. pro-melyssa, crp pending stop stool softeners, c.diff neg Wound culture obtained 06/17. Await results Appreciate ID recommendations. Continue to monitor in hospital at this time with IV antibiotics. will await for ID recommendations 06/20/2024 White count has normalized Pro-Melyssa CRP trending down C. difficile negative Wound culture obtained 06/17 await results Appreciate ID recommendations Patient will be discharged with a wound VAC at this point. She does have serous drainage from wound. Plan to order oral ciprofloxacin 500 twice daily and linezolid 600 twice daily at time of discharge Awaiting placement to rehab. Physical Exam Narrative: Today patient sitting up comfortable in chair continues to have weakness in left leg. Plan will be to see you in clinic next week. Wound was changed by pain with wound care plan is to do wet-to-dry dressing changes 3 times a day. Discharge Data Studies Completed and Pending Completed Studies During Hospitalization Category Date Time Status CT chest abdomen pelvis [CT chest abdpel w/*[id number] Cat Scan 06/16/24 20:13 Completed ] Routine CT lumbar spine w con [id number] Stat Cat Scan 06/13/24 11:59 Completed CXRP [XR chest 1V portable [id number]] Routine Exams 06/17/24 13:05 Completed XR chest 1V portable [id number] Stat Exams 06/12/24 14:56 Completed MR lumbar spine wo/w con [id number] Stat MRI 06/17/24 09:36 Completed Radiology Impressions Lumbar Spine CT 06/13/24 11:59 IMPRESSION: 1. Recent postoperative changes described above. 2. No high-grade central canal stenosis considering hardware artifact. Wide decompressive laminectomies. 3. No subcutaneous fluid collections. 4. Innumerable scattered small punctate foci of air within the paravertebral soft tissues extending to the psoas bilaterally and laminectomy defects. Some of this may be postoperative or due to prior surgical drain or possibly Surgicel. Gas-producing infection is an additional consideration. Chest/Abdomen/Pelvis CT 06/16/24 20:13 IMPRESSION: 1. No acute pulmonary findings. 2. Small left and trace right pleural effusions. IMPRESSION: 1. No acute findings in the abdomen or pelvis. 2. Soft tissue gas bubbles in the posterior and paravertebral lumbar region. This is presumably from recent spine surgery, although there is no mention of this in the history. Correlation with surgical history is recommended. If the patient's spine surgery was greater than 10 days ago, soft tissue infection in the surgical site can not be excluded. Lumbar Spine MRI 06/17/24 09:36 IMPRESSION: Normal expected postoperative changes. I see no evidence abscess. Chest X-Ray 06/17/24 13:05 IMPRESSION: 1. Right-sided PICC line in satisfactory position. 2. Mild cardiomegaly Laboratory Results WBC 9.63 10^3/uL (3.29-11.43) 06/23/24 02:52 RBC 2.67 10^6/uL (3.85-5.65) L 06/23/24 02:52 Hgb 7.50 g/dL (11.27-16.99) L 06/23/24 02:52 Hct 24.9 % (36-47) L 06/23/24 02:52 MCV 93.3 fl (85-98) 06/23/24 02:52 MCH 28.1 pg (27-33) 06/23/24 02:52 MCHC 30.1 g/dL (30-55) 06/23/24 02:52 RDW 15.1 % (12.1-15.1) 06/23/24 02:52 Plt Count 221 10^3/cmm (157-399) 06/23/24 02:52 MPV 11.3 fL (7.4-10.4) H 06/23/24 02:52 Neut % (Auto) 82.3 % 06/23/24 02:52 Lymph % (Auto) 10.2 % 06/23/24 02:52 Frontier % (Auto) 5.6 % 06/23/24 02:52 Eos % (Auto) 0.6 % 06/23/24 02:52 Baso % (Auto) 0.4 % 06/23/24 02:52 Neut # (Auto) 7.92 10^3/uL (1.8-7.7) H 06/23/24 02:52 Lymph # (Auto) 1.0 10^3/uL (0.8-4.8) 06/23/24 02:52 Frontier # (Auto) 0.5 10^3/uL (0.2-0.9) 06/23/24 02:52 Eos # (Auto) 0.1 10^3/uL (0.0-0.8) 06/23/24 02:52 Baso # (Auto) 0.0 10^3/uL (0.0-0.1) 06/23/24 02:52 Nucleated RBC % (auto) 0.3 % 06/23/24 02:52 Nucleated RBCs # 0.0 /100WBC 06/23/24 02:52 ESR 60 mm/hr (0-15) H 06/17/24 05:19 Sodium 134 mmol/L (136-145) L 06/26/24 10:50 Potassium 4.1 mmol/L (3.5-5.1) 06/26/24 10:50 Chloride 100 mmol/L (98-107) 06/26/24 10:50 Carbon Dioxide 22 mmol/L (22-29) 06/26/24 10:50 Anion Gap 16.1 (5-19) 06/26/24 10:50 BUN 6 mg/dL (8-23) L 06/26/24 10:50 Creatinine 0.4 mg/dL (0.5-0.9) L 06/26/24 10:50 GFR Calculation 162.3 mL/min (90-130) H 06/26/24 10:50 Glucose 171 mg/dL (65-115) H 06/26/24 10:50 POC Glucose 147 mg/dL (70-110) H 06/27/24 06:37 Calculated Osmolality 280 mOsm/kg (285-295) L 06/26/24 10:50 Lactic Acid 3.5 mmol/L (0.5-2.2) H 06/12/24 14:25 Lactic Acid (Sepsis) 2.3 mmol/L (0.5-2.2) H 06/12/24 17:19 Calcium 8.4 mg/dL (8.5-10.5) L 06/26/24 10:50 Phosphorus 1.7 mg/dL (2.5-4.5) L 06/13/24 04:30 Magnesium 1.9 mg/dL (1.7-2.3) 06/21/24 06:16 Total Bilirubin 0.7 mg/dL (0.15-1.2) 06/21/24 06:16 AST 15 U/L (0-32) 06/21/24 06:16 ALT 11 U/L (0-33) 06/21/24 06:16 Alkaline Phosphatase 157 U/L (35-105) H 06/21/24 06:16 C-Reactive Protein 124.3 mg/L (0.0-4.9) H 06/19/24 05:03 Total Protein 5.6 g/dL (6.6-8.7) L 06/21/24 06:16 Albumin 2.3 g/dL (3.5-5.2) L 06/21/24 06:16 Globulin 3.3 g/dL (1.3-4.6) 06/21/24 06:16 Procalcitonin 0.68 ng/mL (0-0.5) H 06/19/24 05:03 Urine Color Yellow (Yellow) 06/18/24 17:15 Urine Appearance Clear (CLEAR) 06/18/24 17:15 Urine pH 5.5 (5-7) 06/18/24 17:15 Ur Specific D Hanis 1.014 (1.005-1.030) 06/18/24 17:15 Urine Protein Trace (Negative) A 06/18/24 17:15 Urine Glucose (UA) 1+ (Normal) H 06/18/24 17:15 Urine Ketones Negative (Negative) 06/18/24 17:15 Urine Blood Negative (Negative) 06/18/24 17:15 Urine Nitrate Negative (Negative) 06/18/24 17:15 Urine Bilirubin Negative (Negative) 06/18/24 17:15 Urine Urobilinogen 1.0 mg/dL (Negative) 06/18/24 17:15 Ur Leukocyte Esterase Negative (Negative) 06/18/24 17:15 Urine RBC 0-2 /hpf (0-2) 06/18/24 17:15 Urine WBC 0-5 /hpf (0-5) 06/18/24 17:15 Ur Squamous Epith Cells 0-5 /hpf (0-5) 06/18/24 17:15 Amorphous Sediment Not Reportable 06/18/24 17:15 Urine Bacteria None seen /hpf (NONE) 06/18/24 17:15 Hyaline Casts 2.87 /lpf 06/18/24 17:15 Coarse Granular Casts 5-10 /lpf H 06/12/24 15:48 Nasal MRSA (PCR) Not detected (Not Detecte) 06/12/24 22:22 Vancomycin Trough 13.5 ug/mL (10-15) 06/26/24 17:43 Adenovirus (PCR) Not detected (NOT DETECT) 06/16/24 14:28 C. pneumoniae DNA (PCR) Not detected (NOT DETECT) 06/16/24 14:28 C. difficile (PCR) Negative (Negative) 06/18/24 10:50 Coronavirus 229E (PCR) Not detected (NOT DETECT) 06/16/24 14:28 Hep Bs Antigen Non-reactive (Nonreactive) 06/13/24 04:30 Hep Bs Antibody < 3.5 (11.5-1000) L 06/13/24 04:30 Hepatitis C Antibody Non-reactive (Nonreactive) 06/13/24 04:30 HIV 1&2 Ab & HIV 1 Ag Non-reactive (Non-Reactiv) 06/13/24 04:30 HIV 1&2 Antibody Non-reactive (Non-Reactiv) 06/13/24 04:30 Human Metapneumovir PCR Not detected (NOT DETECT) 06/16/24 14:28 Influenza A (H1) PCR Not detected (NOT DETECT) 06/16/24 14:28 Influ A (H1/09) PCR Not detected (NOT DETECT) 06/16/24 14: Influenza A (H3) PCR Not detected (NOT DETECT) 06/16/24 14: Influenza Type A (PCR) Not detected (NOT DETECT) 06/16/24 14:28 Influenza Type B (PCR) Not detected (NOT DETECT) 06/16/24 14: M. pneumoniae (PCR) Not detected (NOT DETECT) 06/16/24 14: Parainfluenza 1 (PCR) Not detected (NOT DETECT) 06/16/24 14: Parainfluenza 2 (PCR) Not detected (NOT DETECT) 06/16/24 14: Parainfluenza 3 (PCR) Not detected (NOT DETECT) 06/16/24 14:28 Parainfluenza 4 (PCR) Not detected (NOT DETECT) 06/16/24 14:28 RSV Type A (PCR) Not detected (NOT DETECT) 06/16/24 14:28 RSV Type B (PCR) Not detected (NOT DETECT) 06/16/24 14: Entero/Rhino (PCR) Not detected (NOT DETECT) 06/16/24 14: SARS-CoV-2 (PCR) Not detected (NOT DETECT) 06/16/24 14:28 Blood Type A Negative 06/12/24 16:42 Rho(D) Type Rh negative 06/12/24 16:42 Antibody Screen Negative 06/12/24 16:42 Antibody Identification Cancelled 06/12/24 16:42 Crossmatch See Detail 06/12/24 16:42 Vitals Last Vital Signs Temp 98.3 F 06/27/24 09:06 Pulse 102 H 06/27/24 09:06 Resp 19 H 06/27/24 09:06 BP 127/75 06/27/24 09:06 Pulse Ox 94 06/27/24 09:06 O2 Del Method Room Air 06/27/24 09:06 O2 Flow Rate 3 06/26/24 23:30 Discharge Plan Discharge Patient Disposition: Xfer SNF Condition: Stable Prescriptions: New polyethylene glycol 3350 17 gram Powder In Packet 17 g PO DAILY Qty: 14 0RF sennosides-docusate sodium [Stool Softener-Laxative] 8.6-50 mg Tablet 1 tab PO BID Qty: 14 0RF ciprofloxacin HCl [Cipro] 500 mg tablet 500 mg PO BID 14 Days Qty: 28 0RF linezolid 600 mg tablet 600 mg PO Q12H 5 Days Qty: 10 0RF Continued omeprazole 40 mg capsule,delayed release(DR/EC) 40 mg PO DAILY gabapentin 100 mg capsule 200 mg PO BID Ozempic 1 mg/dose (4 mg/3 mL) pen injector 1 mg SUBCUT .WEEKLY metformin 1,000 mg tablet 1,000 mg PO BID pioglitazone [Actos] 45 mg tablet 45 mg PO DAILY glipizide 10 mg tablet 10 mg PO DAILY atorvastatin 20 mg tablet 20 mg PO DAILY cholecalciferol (vitamin D3) 1,250 mcg (50,000 unit) capsule 1,250 mcg PO .WEEKLY methocarbamol 750 mg tablet 750 mg PO Q8H PRN (Reason: pain) Qty: 45 0RF hydrocodone-acetaminophen 10-325 mg tablet 1 tab PO Q4H PRN (Reason: pain) 7 Days Qty: 42 0RF magnesium hydroxide [Milk of Magnesia] 400 mg/5 mL Suspension 30 ml PO DAILY PRN (Reason: Constipation) bisacodyl [Dulcolax (bisacodyl)] 10 mg Suppository 10 mg OR DAILY PRN (Reason: Constipation) Fleet Enema 19-7 gram/118 mL Enema 118 ml OR DAILY PRN (Reason: Constipation) bisacodyl [Dulcolax (bisacodyl)] 5 mg Tablet,Delayed Release (Dr/Ec) 10 mg PO DAILY Discontinued losartan-hydrochlorothiazide 50-12.5 mg tablet 1 tab PO DAILY carvedilol 3.125 mg tablet 3.125 mg PO BID Rx Instructions: must administer with a meal/food Referrals: [facility] [Provider Group, Infectious Disease] - 07/08/24 9:00 am Laurent Medina DO [Physician, Orthopedics] - 07/01/24 2:30 pm Referral Note: Discharge Diet: Cardiac and Diabetic Discharge Activity: As per PT/OT instructions Activity Restrictions/Additional Instructions: Wound Orders: Wound Number 1: Midline lower back Cleanse with normal saline. Apply Santyl into wound with curette, pack with damp saline soaked guaze and cover with ABD. (Dressing change TID or as needed for saturation.) Lower two open areas packed with 1/4 NuGauze packing leaving tail and cover with ABD. (Dressing change TID or as needed for saturation.) Wound Number 2: Wound Number 2 and Wound Number 3: Sacrum and left back Dressing change frequency: Other (with wound dressing change and PRN if soiled or dislodged) Wound Cleansing: Saline Primary Wound Care Dressing: hydrofera blue Secondary Wound Care Dressing: bordered gauze Discharge Attestations Time Spent in Discharge Care*: less than 30 min Quality Metrics Clinical Quality Measures [ No reported AMI, CVA or VTE this stay] Coding Level of Care Code Acute Code for Chg Fwd Diagnoses Post op infection T81.40XA Status post lumbar spinal fusion Z98.1 Gram-negative bacteremia R78.81 PIPPA (acute kidney injury) N17.9 Hyponatremia E87.1 Hyperglycemia R73.9 Type 2 diabetes mellitus without complication, without long-term current use of insulin E11.9 Diabetes mellitus long term care social worker insulin use: without halfway use Diabetes mellitus complication status: without complication Mixed hyperlipidemia E78.2 Hyperlipidemia type: mixed hyperlipidemia Postoperative anemia due to acute blood loss D62 Sleep apnea in adult G47.30
[2024-06-27] MEDS: collagenase oint 30 gm 1 APPLIC TOPICAL (11:49)
--- NOTE | 2024-06-27 11:51 | PM.PN ---
Subjective Subjective: 63-year-old female states she wore the CPAP all night slept well and feels better. She feels more rested. I brought up the clinician menu and looks like she was on 6-10 APAP with a a flex of 3 using a Respironics wisp mask. Her apnea hypopnea index was still 15 but she feels better. She was not on the humidity. Patient states she cannot afford the prescription machine or testing so she is going to buy a used machine. I encouraged her to read about the machines and sleep apnea. Setting of 7-12 APAP with a flex or EPR of 3 would be a good setting to start with Medications: Reviewed: Yes Vitals/I&O/Wt Last Vital Signs Temp 98.3 F 06/27/24 09:06 Pulse 102 H 06/27/24 09:06 Resp 19 H 06/27/24 09:06 BP 127/75 06/27/24 09:06 Pulse Ox 94 06/27/24 09:06 O2 Del Method Room Air 06/27/24 09:06 O2 Flow Rate 3 06/26/24 23:30 06/26/24 06/27/24 06/27/24 22:59 06:59 14:59 Intake Total 420 / 1320 480 / 1800 300 / 300 Balance 420 / 1320 480 / 1800 300 / 300 Weight last 48 hrs Weight 127.913 kg Weight 127.913 kg Physical Exam Narrative: General well-developed well-nourished morbidly obese female in no acute cardiopulmonary stress CV regular rate and rhythm Lungs clear to auscultation bilaterally Back ABD dressings are covering the back currently Data 06/23/24 02:52 06/26/24 10:50 A&P Assessment and plan (1) Post op infection: With Gram negative bacteremia. Currently on vancomycin IV and Cipro p.o. per direction with Dr. Bryson. Change to Zyvox and Cipro on upon discharge. Please refer to Dr. Bryson's last note dated 06/16/2024 Awaiting nursing home facility that has capacity to provide wound VAC I counseled patient to walk and do as much as possible. Unless she is told not to be active by her back surgeon she should try and do as much therapy as possible (2) Status post lumbar spinal fusion: Management per orthopedics. Continue PT (3) Gram-negative bacteremia: Klebsiella pneumonia bacteremia Treatment as above. The back wound would be the most apparent source however the wound culture from 06/17/2024 was negative blood culture from 06/12/2024 was positive for Klebsiella and staph. Continue Cipro and linezolid until follow-up with Dr. Castro and Dr. Bryson (4) Hyperglycemia: Metformin has been resumed along with insulin glargine 22 units subcu nightly (5) Type 2 diabetes mellitus: As above (6) Hyperlipidemia: On atorvastatin 20 mg p.o. daily as home dose (7) Postoperative anemia due to acute blood loss: Hemoglobin stable as of the will recheck in the along with white count (8) Sleep apnea in adult: Recommend the patient's start CPAP treatment. She is currently on 3 L/min nasal cannula at night at home She used APAP 6-10 with a flex of 3 and tolerated it well felt better had reasonably good mask fit without leak 83% of the time and AHI by the machine says 15. Recommend that she get her machine set at 7-12 with a flex or EPR of 3 with a nasal mask. I suspect the leak is from her mouth but is minimal and she has claustrophobia so probably will do well with a nasal mask with a chin strap. She tried to do testing but they requested $1400 co-pay just to do the test and she could not afford that 3 to 4 years ago and so has been untreated Is important the patient treat her sleep apnea for overall health and better recovery. I have asked the therapist to please try again and for the patient to try to get used to the treatment using it twice a day for 2 hours Plan Prepare for discharge to residential-Per case management Continue Lantus 22 units q. H S and metformin. May use home semaglutide Continue sliding scale insulin Zyvox and Cipro at discharge Continue wound VAC Follow-up with Dr. Bryson and Dr. Castro outpt PDMP PDMP Reviewed: Not Reviewed Attestations Medical Necessity Statement*: She is discharged today Coding Level of Care Code 90103 Diagnoses Post op infection T81.40XA Status post lumbar spinal fusion Z98.1 Gram-negative bacteremia R78.81 Hyperglycemia R73.9 Type 2 diabetes mellitus without complication, without long-term current use of insulin E11.9 Diabetes mellitus complication status: without complication Diabetes mellitus continuous churn buttermaker insulin use: without continuous churn buttermaker use Mixed hyperlipidemia E78.2 Hyperlipidemia type: mixed hyperlipidemia Postoperative anemia due to acute blood loss D62 Sleep apnea in adult G47.30 Time Spent (min) 28
[2024-06-27 12:00] LABS: Glucose Point of Care 163 mg/dL (70-110)
[2024-06-27] MEDS: enoxaparin 40 mg/0.4 mL Syringe SUBCUT (12:17)
--- NOTE | 2024-06-27 14:06 | PC.NURSE ---
Late note Rounded with wound care nurse at 1000 am and helped with dressing change. See wound care nurse practitioner's documentation. Called report to Emilia TILLMAN at [facility] to give report at 1330. Removed PICC line to patient's right upper arm. Cath intact patient tolerated well. Family in room packing belongings up just waiting on [facility] to come get the patient for discharge.
[2024-06-27 14:09] VITALS: BP 127/75; PULSE 102; RESP 19; TEMP 36.8; O2SAT 94
[2024-06-27 14:27] LABS: SARS Covid-2 Antigen Negative (Negative)
== END 2024-06-27 15:45 | disposition skilled nursing facility (03) | DRG 863 ==
LOC: ER 17:15 → MEDSURG 18:36
PROVIDERS: Internal Medicine; Student in an Organized Health Care Education/Training Program; Admitting Provider Orthopaedic Surgery; Emergency Provider Student in an Organized Health Care Education/Training Program; PCP Nurse Practitioner Family; Visit Provider Orthopaedic Surgery
DX: T81.42XA Infection following a procedure, deep incisional surgical site, initial encounter (principal); D62 Acute posthemorrhagic anemia; Z68.43 Body mass index [BMI] 50.0-59.9, adult; T81.328A Disruption or dehiscence of closure of other specified internal operation (surgical) wound, initial encounter; E87.1 Hypo-osmolality and hyponatremia; N17.9 Acute kidney failure, unspecified; E87.20 Acidosis, unspecified; B96.1 Klebsiella pneumoniae [K. pneumoniae] as the cause of diseases classified elsewhere; B95.8 Unspecified staphylococcus as the cause of diseases classified elsewhere; E78.2 Mixed hyperlipidemia; G47.30 Sleep apnea, unspecified; E11.65 Type 2 diabetes mellitus with hyperglycemia; E66.01 Morbid (severe) obesity due to excess calories; L30.9 Dermatitis, unspecified; R19.7 Diarrhea, unspecified; M62.830 Muscle spasm of back; R79.82 Elevated C-reactive protein (CRP); K59.00 Constipation, unspecified; E86.1 Hypovolemia; I10 Essential (primary) hypertension; R00.0 Tachycardia, unspecified; Z91.190 Patient's noncompliance with other medical treatment and regimen due to financial hardship; Z79.4 Long term (current) use of insulin; Z79.84 Long term (current) use of oral hypoglycemic drugs; Z98.1 Arthrodesis status; Z79.85 Long-term (current) use of injectable non-insulin antidiabetic drugs
CPT/HCPCS: 36415; 36416; 36430; 36573; 71045; 71260; 72132; 72158; 74177; 80048; 80053; 80202; 81001; 82962; 83605; 83735; 84100; 84145; 85014; 85018; 85025; 85651; 86140; 86706; 86803; 86850; 86900; 86920; 87040; 87070; 87077; 87086; 87150; 87186; 87205; 87340; 87426; 87486; 87493; 87581; 87633; 87806; 93005; 94660; 96365; 96367; 96372; 97110; 97116; 97161; 97167; 97530; 97535; 99285; 99291; 99292; A9281; J0692; J0696; J1171; J1650; J1815; J2060; J2270; J2543; J3370; J3372; J3475; J7030; J7050; J9999; P9016; P9040

== ENCOUNTER 2024-07-02 14:21 | Day surgery (SDC) | payer BC, SELFPAY ==
[2024-07-02] VITALS (10 sets, daily range): BP systolic 104–145; BP diastolic 57–86; PULSE 107–127; RESP 14–18; TEMP 36.4–36.6; O2SAT 93–96; BMI 42.0
--- NOTE | 2024-07-02 15:02 | ANES.PREANE2 ---
Pre-Anesthetic Assessment Height/Weight: Height 1.65 m Weight 114.759 kg O2 Del Method Room Air 07/02/24 14:50 Preop Diagnosis: Draining spine wound Operation Date: 07/02/24 17:10 Proposed Procedures p Incision and Drainage of Spine Incision and Drainage of Back(Not Applicable) - Laurent Castro, DO Familial anesthetic complications: None Was Beta Marco taken within 24 hours: N/A Was Clonidine taken within 24 hours: N/A Last intake: Intake Last Liquid Date 07/01/24 Last Liquid Time 17:30 Last Solid Date 07/01/24 Last Solid Time 17:30 Social No alcohol and No tobacco Exam alert, oriented x 3, clear to auscultation bilaterally and regular rate & rhythm Pulmonary Sleep Apnea CV/HEM Coronary Artery Disease GI Gastroesophageal Reflux Disease Metabolic Diabetes Mellitus, Hyperlipidemia and Morbid Obesity Anesthetic Plan ASA status: 4 Anesthesia: General Risk of > 500 ml blood loss (7ml/kg in children): No Medications/Allergies Home Medications ?Medication ?Instructions ?Recorded ?Confirmed ?Last Taken ?Type atorvastatin 20 mg tablet 20 mg PO DAILY 08/18/23 07/01/24 07/01/24 History glipizide 10 mg tablet 10 mg PO DAILY 08/18/23 07/01/24 07/01/24 History metformin 1,000 mg tablet 1,000 mg PO BID 08/18/23 07/01/24 07/01/24 History methocarbamol 750 mg tablet 750 mg PO Q8H PRN pain #45 tabs 08/18/23 07/01/24 06/12/24 Rx pioglitazone 45 mg tablet (Actos) 45 mg PO DAILY 08/18/23 07/01/24 06/12/24 History gabapentin 100 mg capsule 200 mg PO BID 04/22/24 07/01/24 07/01/24 History omeprazole 40 mg capsule,delayed 40 mg PO DAILY 04/22/24 07/01/24 07/01/24 History release semaglutide 1 mg/dose (4 mg/3 mL) 1 mg SUBCUT .WEEKLY 04/22/24 07/01/24 05/25/24 History subcutaneous pen injector (Ozempic) bisacodyl 10 mg rectal suppository 10 mg TX DAILY PRN Constipation 06/12/24 07/01/24 Unknown History (Dulcolax (bisacodyl)) bisacodyl 5 mg tablet,delayed 10 mg PO DAILY 06/12/24 07/01/24 Unknown History release (Dulcolax (bisacodyl)) magnesium hydroxide 400 mg/5 mL 30 ml PO DAILY PRN Constipation 06/12/24 07/01/24 Unknown History oral suspension (Milk of Magnesia) sodium phosphates 19 gram-7 118 ml TX DAILY PRN Constipation 06/12/24 07/01/24 Unknown History gram/118 mL enema (Fleet Enema) polyethylene glycol 3350 17 gram 17 g PO DAILY #14 ea 06/15/24 07/01/24 Unknown Rx oral powder packet sennosides 8.6 mg-docusate sodium 1 tab PO BID #14 tabs 06/15/24 07/01/24 Unknown Rx 50 mg tablet (Stool Softener-Laxative) collagenase clostridium histo. 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
[2024-07-02 15:05] LABS: Glucose Point of Care 100 mg/dL (70-110)
[2024-07-02] MEDS: sodium chloride 0.9% 1,000 ML 30 ML IV (15:21)
--- NOTE | 2024-07-02 16:07 | W.PM.OPSUD ---
Surgery/Procedure H&P Update DATE OF PROCEDURE: July 02, 2024 DATE H&P PERFORMED: 07/01/24 H&P UPDATE INFORMATION: I have reviewed H&P completed within last 30 days, I have examined patient prior to procedure and No changes to prior documentation PREOP DIAGNOSIS: Draining spine wound PLANNED PROCEDURE: Operation Date: 07/02/24 17:10 Proposed Procedures p Incision and Drainage of Spine Incision and Drainage of Back(Not Applicable) - Laurent Castro, DO
[2024-07-02] MEDS: ceFAZolin 2,000 mg SDV 2000 MG IVP (16:24)
--- NOTE | 2024-07-02 17:33 | SUR.OPER ---
wound vac from detention applied to pt by Dr. Castro
--- NOTE | 2024-07-02 17:35 | PM.OP ---
Operative Report Date of procedure: July 02, 2024 Pre-op diagnosis: Draining back wound Procedure done: Irrigation debridement of back wound down to muscle and fascia that is 24 cm x 4 cm x 3 and half centimeters deep. Surgeon: Laurent Castro DO Estimated blood loss (mL): 300 Procedure: Irrigation debridement of back wound down to muscle and fascia that is 24 cm x 4 cm x 3 and half centimeters deep. Patient brought the op suite after an anesthesia i was placed in prone position. All areas appear well-padded. Patient's prepped a muscle fashion. Wound was opened was excised extended distally fascia was also opened. Deep cultures were taken. As well as superficial cultures. The soft tissue was debrided with sharp dissection to bleeding tissue all necrotic tissue was debrided. Wound was then irrigated 3 L of saline. The deep layer was closed with PDS suture. And then wound VAC was placed into the wound above the thoracolumbar fascia. And sealed off. Wound VAC is working properly.
--- NOTE | 2024-07-02 18:45 | ANE.PACU2 ---
Inpatient post-anesthesia follow up: Airway intact: Yes Vital signs: Temperature 97.5 F Pulse Rate 108 Respiratory Rate 18 Blood Pressure 134/64 Pulse Oximetry 95 Oxygen Delivery Me thod Room Air Oxygen Flow Rate Fraction of Inspir ed Oxygen Hydration adequate: Yes Nausea and vomiting: No Pain level: 1 Mental status: Baseline
== END 2024-07-02 18:45 ==
PROVIDERS: PCP Nurse Practitioner Family; Visit Provider Orthopaedic Surgery
PROC: (CPT 10180; principal; 2024-07-02 17:00)
DX: T81.31XA Disruption of external operation (surgical) wound, not elsewhere classified, initial encounter (principal); L30.8 Other specified dermatitis; K21.9 Gastro-esophageal reflux disease without esophagitis; Z79.84 Long term (current) use of oral hypoglycemic drugs; M43.20 Fusion of spine, site unspecified; E11.9 Type 2 diabetes mellitus without complications; E78.5 Hyperlipidemia, unspecified; E66.9 Obesity, unspecified; Z68.41 Body mass index [BMI] 40.0-44.9, adult; I10 Essential (primary) hypertension; G47.30 Sleep apnea, unspecified
CPT/HCPCS: 10180; 36416; 82962; 87070; 87075; 87205; C1776; J0690; J1100; J1171; J2405; J2704; J2710; J3010; J3490; J7030; J9999

== ENCOUNTER 2024-07-04 19:50 | Inpatient (IN) | payer BC, SELFPAY ==
[2024-07-04] VITALS (20 sets, daily range): BP systolic 105–173; BP diastolic 62–88; PULSE 82–112; RESP 16–20; TEMP 36.1–36.7; O2SAT 93–99; BMI 42.0
[2024-07-04] MEDS: sodium chloride 0.9% 1,000 ML 30 ML IV (14:00)
[2024-07-04 14:10] LABS: Glucose Point of Care 159 mg/dL (70-110)
--- NOTE | 2024-07-04 14:30 | ANES.PREANE2 ---
Pre-Anesthetic Assessment Height/Weight: Height 5 ft 5 in Weight 253 lb Temp Pulse Resp BP Pulse Ox O2 Del Method 97 F L 112 H 18 135/62 97 Room Air 07/04/24 13:48 07/04/24 13:48 07/04/24 13:48 07/04/24 13:48 07/04/24 13:48 07/04/24 14:09 Preop Diagnosis: Open spinal wound Operation Date: 07/04/24 14:45 Proposed Procedures p wound vac exchage(Not Applicable) - Laurent Castro, DO Was Beta Marco taken within 24 hours: N/A Was Clonidine taken within 24 hours: N/A Last intake: Intake Last Liquid Date 07/03/24 Last Liquid Time 23:59 Last Solid Date 07/03/24 Last Solid Time 07:30 Social No alcohol and No tobacco Exam alert, oriented x 3, clear to auscultation bilaterally and regular rate & rhythm Airway Submandibular: within normal limits Cervical ROM: within normal limits Mallampati: Class III Dentition: full Anesthetic Plan ASA status: 3 Anesthesia: General Other: No prior issues with anesthesia NPO since yesterday evening Patient recently had similar procedure performed on 07/02/2024 under [place] without issues History of GERD, controlled with omeprazole Patient takes semaglutide injectable weekly NIDDM, preop BS 159 RAQUEL EKG showing sinus tachycardia Plan for general anesthesia Medications/Allergies Home Medications ?Medication ?Instructions ?Recorded ?Confirmed ?Last Taken ?Type atorvastatin 20 mg tablet 20 mg PO DAILY 08/18/23 07/03/24 07/03/24 History glipizide 10 mg tablet 10 mg PO DAILY 08/18/23 07/03/24 07/03/24 History metformin 1,000 mg tablet 1,000 mg PO BID 08/18/23 07/03/24 07/03/24 History methocarbamol 750 mg tablet 750 mg PO Q8H PRN pain #45 tabs 08/18/23 07/03/24 07/04/24 07:30 Rx pioglitazone 45 mg tablet (Actos) 45 mg PO DAILY 08/18/23 07/03/24 07/03/24 History gabapentin 100 mg capsule 200 mg PO BID 04/22/24 07/03/24 07/03/24 History omeprazole 40 mg capsule,delayed 40 mg PO DAILY 04/22/24 07/03/24 07/03/24 History release semaglutide 1 mg/dose (4 mg/3 mL) 1 mg SUBCUT .WEEKLY 04/22/24 07/03/24 05/25/24 History subcutaneous pen injector (Ozempic) bisacodyl 10 mg rectal suppository 10 mg IA DAILY PRN Constipation 06/12/24 07/03/24 Unknown History (Dulcolax (bisacodyl)) bisacodyl 5 mg tablet,delayed 10 mg PO DAILY 06/12/24 07/03/24 Unknown History release (Dulcolax (bisacodyl)) magnesium hydroxide 400 mg/5 mL 30 ml PO DAILY PRN Constipation 06/12/24 07/03/24 Unknown History oral suspension (Milk of Magnesia) sodium phosphates 19 gram-7 118 ml IA DAILY PRN Constipation 06/12/24 07/03/24 Unknown History gram/118 mL enema (Fleet Enema) polyethylene glycol 3350 17 gram 17 g PO DAILY #14 ea 06/15/24 07/03/24 Unknown Rx oral powder packet sennosides 8.6 mg-docusate sodium 1 tab PO BID #14 tabs 06/15/24 07/04/24 Unknown Rx 50 mg tablet (Stool Softener-Laxative) collagenase clostridium histo. 250 1 applic topical DAILY #30 grams 06/27/24 07/03/24 07/01/24 Rx unit/gram topical ointment (Santyl) hydrocodone 5 mg-acetaminophen 325 1 tab PO Q4H PRN Pain 07/04/24 07/04/24 07/04/24 07:30 History mg tablet Allergies Allergy/AdvReac Type Severity Reaction Status Date / Time codeine Allergy ADR-Nausea Verified 07/03/24 13:46 Current Medications Generic Name Dose Route Start Last Admin Trade Name Freq PRN Reason Stop Dose Admin Sodium Chloride 1,000 mls @ 30 mls/hr 07/04/24 13:30 07/04/24 14:00 Sodium Chloride 0.9% IV 07/05/24 13:29 30 mls/hr .Q24H SONG Administration PFSH Anesthesia Medical History Sleep apnea in adult Type 2 diabetes mellitus Hyperlipidemia GERD (gastroesophageal reflux disease) Hypertension Diabetes mellitus Surgical History History of back surgery Social History Smoking and tobacco/nicotine status: never used tobacco/nicotine 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
--- NOTE | 2024-07-04 14:39 | W.PM.OPSUD ---
Surgery/Procedure H&P Update DATE OF PROCEDURE: July 04, 2024 DATE H&P PERFORMED: 07/02/24 H&P UPDATE INFORMATION: I have reviewed H&P completed within last 30 days, I have examined patient prior to procedure and No changes to prior documentation PREOP DIAGNOSIS: Open spinal wound PLANNED PROCEDURE: Operation Date: 07/04/24 14:45 Proposed Procedures p wound vac exchage(Not Applicable) - Laurent Castro DO
[2024-07-04] MEDS: fentaNYL 50 mcg/mL INJ 2mL IVP (14:41)
[2024-07-04] MEDS: ceFAZolin 2,000 mg SDV 2000 MG IVP ×2 (16:29→23:23)
[2024-07-04 17:32] LABS: Basophils % 0.5 %; Eosinophils # 0.1 10^3/uL (0.0-0.8); Eosinophils % 0.8 %; Hematocrit 25.1 % (36-47); Lymphocytes # 1.6 10^3/uL (0.8-4.8); Lymphocytes % 20.7 %; Mean Corpuscular HGB Conc 30.3 g/dL (30-55); Mean Corpuscular Hemoglobin 27.5 pg (27-33); Mean Corpuscular Volume 90.9 fl (85-98); Mean Platelet Volume 8.5 fL (7.4-10.4); Monocytes # 0.6 10^3/uL (0.2-0.9); Monocytes % 8.1 %; Neutrophils % 68.2 %; Nucleated Red Blood Cells % 0 %; Platelet Count 303 10^3/cmm (157-399); Red Blood Count 2.76 10^6/uL (3.85-5.65); Red Cell Distribution Width 14.6 % (12.1-15.1); White Blood Count 7.49 10^3/uL (3.29-11.43)
[2024-07-04] MEDS: VANCOMYCIN ADD-Vantage 1,000 MG VIAL 1000 MG XX (18:20)
--- NOTE | 2024-07-04 18:35 | XR_ITS ---
WS: [id number] XR lumbar spine 2-3V* 30700 REASON FOR EXAM: LUMBAR TO PELVIS REVISION; WOUND VAC REPLACEMENT; OR PICS FINDINGS: Extension of previous posterior lumbar fusion (S2-L2) with placement of pedicle screws at L1. Surgical appliances intact and in proper position and alignment. XR/XR lumbar spine 2-3V* [id number] IMPRESSION: Extension of previous posterior pelvic lumbar fusion.
--- NOTE | 2024-07-04 19:22 | P.OP_ITS ---
Operative Report Date of procedure: July 04, 2024 Pre-op diagnosis: 1. Instability at L1-L2 level 2. complex wound 24 cm x 3-1/2 cm deep by 4 cm wide Procedure done: 1. Instrumentation from L1 to the pelvis 2. Irrigation debridement down to muscle and fascia of spine wound 3 layered closure of complex wound 24 cm x 3-1/2 cm deep by 4 cm wide 4. Removal of deep hardware from spine 5. L1/L2 laminectomy and facetectomy Surgeon: Laurent Castro DO Estimated blood loss (mL): 400 Procedure: 1. Instrumentation from L1 to the pelvis 2. Irrigation debridement down to muscle and fascia of spine wound 3 layered closure of complex wound 24 cm x 3-1/2 cm deep by 4 cm wide 4. Removal of deep hardware from spine 5. L1/2 laminectomy with facetectomies Patient brought the op suite after undergoing anesthesia was placed in the prone position. All areas impingement well-padded. Patient's prepped draped normal sterile fashion. Wound VAC is removed. The wound bed had good bleeding tissue throughout. The wound was debrided of any necrotic tissue with sharp dissection. 2 stitches were removed from the thoracolumbar fascia to see if there is fluid deep. There was the stitches were then removed the thoracolumbar fascia was then opened. There was cloudy fluid. Cultures were taken. At this point the wound was irrigated out was noticed at the L2 screw was loose and there was instability and seems like there is fluid coming from the L1-L2 joint. Facet joint. This looks worse than the last time explored wound. At this point it was elected to remove the hardware which were the rods and caps. This was done bilaterally. The screws were left in except for the L2 screws were removed they are significantly loose. At this point is elected to do an L1/2 laminectomy. And facetectomy. This was done using high-speed bur and Kerrison rongeur. The lamina was removed along with the ligamentum flavum. The L2 screw nerve was explored around the L2 pedicles. The L1 nerve was explored underneath the facet joint. [place] to be intact. The disc space of L T3 was explored Surgiflo was injected and it seemed to come out of the other side. Either further confirming there is instability at the L1-2 level. Next pedicle screws were placed at L1. This was done using C-arm guidance. Awl was inserted into the L1 pedicle bilaterally followed by pedicle feeler followed by a 45 mm screw on the right side and a 50 mm screw on the left side. These were both 6 5 screws from [employer]. The DuraSeal was then used where there is any fluid did not see any obvious dural tears but there was fluid that would well up in the L1-2 area. Selected placing DuraSeal to possibly seal if any fluid is leaking. Next tenderness brought to placing the rods the rods were connected from L1 to the pelvis. Screw caps were torqued into position. This was done bilaterally. Wound was then closed in a layered fashion. Deep drain was placed vancomycin powder was placed the thoracolumbar fascia was closed with 0 PDS. A superficial drain was placed on the thoracolumbar fascia and 0 PDS was used to close soft tissue over the drain. An anterior 0 PDS was then used to close the skin. Followed by nylon. Wound was closed with a myles dressing. Patient was then extubated and transferred to the PACU in stable condition.
--- NOTE | 2024-07-04 20:25 | ANE.PACU2 ---
Inpatient post-anesthesia follow up: Airway intact: Yes Vital signs: Temperature 98.1 F Pulse Rate 106 Respiratory Rate 18 Blood Pressure 144/68 Pulse Oximetry 95 Oxygen Delivery Me thod Room Air Oxygen Flow Rate 2 Fraction of Inspir ed Oxygen Hydration adequate: Yes Nausea and vomiting: No Pain level: 1 Mental status: Baseline
[2024-07-04] MEDS: ketorolac 30 mg/mL INJ IVP (21:02)
[2024-07-04] MEDS: lactated ringers 1,000 ML 90 ML IV (21:04)
--- NOTE | 2024-07-04 21:39 | P.CONIM_ITS ---
Providers/Reason For Consult 2 Consulting Physician/Specialty*: Internal medicine hospitalist Reason for Consult*: Diabetes and sleep apnea Requesting Physician: Laurent Castro DO Attending Physician: Laurent Castro DO Primary Care Provider: Candida Harris History of Present Illness History of Present Illness Kathy Sood is a 63 year old female with morbid obesity, diabetes, sleep apnea and spinal stenosis. She is battling a draining wound incision in her lower back and last hospitalization grew Klebsiella pneumonia a and Staphylococcus epidermis in the blood. Wound cultures have been negative however and urine samples also negative for infection. Wound culture was done 06/17, 07/02 and now 07/04/2024. Patient states she went back to the office 2 days after discharge to [facility] with wet-to-dry dressings and Dr. Castro recommended surgery which on consist of irrigation and debridement and opening of the wound to 24 cm x 4 x 3 cm sharp debridement to bleeding 3 L washout and wound VAC replaced with estimated blood loss of 300 cc. Patient went back to surgery on and necrotic tissue was removed cloudy fluid sampled and L1 pedicle screw noted to be loose. She had that removed as well as the old hardware and L1 pedicle screw placed in new fusion hardware from L1 to sacrum. Vancomycin powder was placed cultures were sent and she is now admitted for wound care and her drains. She is on IV antibiotics with cefazolin. On 06/12/2024 is when the patient's blood culture x 1 set grew Klebsiella pneumonia and staph coccus epidermidis however the second blood culture was negative on that day and 2 blood cultures done 06/13/2024 were also negative. The patient is agreeable to using CPAP and states that helped her to rest. Review of Systems 2 Narrative: General No fevers or chills no sweats Cardiovascular no chest pain or palpitations Medications/Allergies Home Medications ?Medication ?Instructions ?Recorded ?Confirmed ?Last Taken ?Type atorvastatin 20 mg tablet 20 mg PO DAILY 08/18/2306/0607/03/24 History glipizide 10 mg tablet 10 mg PO DAILY 08/18/2306/0607/03/24 History metformin 1,000 mg tablet 1,000 mg PO BID 08/18/2307/03/24 History methocarbamol 750 mg tablet 750 mg PO Q8H PRN pain #45 tabs 08/18/23 07/03/24 07/04/24 07:30 Rx pioglitazone 45 mg tablet (Actos) 45 mg PO DAILY 08/1707/03/24 07/03/24 History gabapentin 100 mg capsule 200 mg PO BID 04/22/2407/0307/03/24 History omeprazole 40 mg capsule,delayed 40 mg PO DAILY 07/03/24 07/03/24 History release semaglutide 1 mg/dose (4 mg/3 mL) 1 mg SUBCUT .WEEKLY 04/22/24 07/03/24 05/25/24 History subcutaneous pen injector (Ozempic) bisacodyl 10 mg rectal suppository 10 mg IN DAILY PRN Constipation 06/12/24 07/03/24 Unknown History (Dulcolax (bisacodyl)) bisacodyl 5 mg tablet,delayed 10 mg PO DAILY 06/12/24 07/03/24 Unknown History release (Dulcolax (bisacodyl)) magnesium hydroxide 400 mg/5 mL 30 ml PO DAILY PRN Con stipation 06/12/24 07/03/24 Unknown History oral suspension (Milk of Magnesia) sodium phosphates 19 gram-7 118 ml IN DAILY PRN Consti pation 06/12/24 07/03/24 Unknown History gram/118 mL enema (Fleet Enema) polyethylene glycol 3350 17 gram 17 g PO DAILY #14 ea 06/15/24 07/03/24 Unknown Rx oral powder packet sennosides 8.6 mg-docusate sodium 1 tab PO BID #14 tab s 06/15/24 07/04/24 Unknown Rx 50 mg tablet (Stool Softener-Laxative) collagenase clostridium histo. 250 1 applic topical DA NIKKI #30 grams 06/27/24 07/03/24 07/01/24 Rx unit/gram topical ointment (Santyl) hydrocodone 5 mg-acetaminophen 325 1 tab PO Q4H PRN Pa in 07/04/24 07/04/24 07/04/24 07:30 History mg tablet Allergies Allergy/AdvReac Type Severity Reaction Status Date / Time codeine Allergy ADR-Nausea Verified 07/03/24 13:46 Current Medications Generic Name Dose Route Start Last Admin Trade Name Freq PRN Reason Stop Dose Admin Lactated Ringer's 1,000 mls @ 90 mls/hr 07/04/24 19:15 07/04/24 21:04 Lactated Ringers IV 90 mls/hr .[id number] SONG Administration Ketorolac Tromethamine 30 mg 07/04/24 19:12 07/04/24 21:02 Ketorolac 30 Mg/Ml Inj IVP 30 mg Q6H PRN Administration BREAKTHROUGH PAIN PFSH Acute 2 PFSH: Medical History Sleep apnea in adult Type 2 diabetes mellitus Hyperlipidemia GERD (gastroesophageal reflux disease) Hypertension Diabetes mellitus Surgical History History of back surgery Social History Smoking and tobacco/nicotine status: never used tobacco/nicotine 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 Vitals/I&O/Wt Last Vital Signs Temp 97.4 F L 07/04/24 20:25 Pulse 100 07/04/24 20:25 Resp 16 07/04/24 20:25 BP 142/72 07/04/24 20:25 Pulse Ox 97 07/04/24 20:25 O2 Del Method Nasal Cannula 07/04/24 20:25 O2 Flow Rate 2 07/04/24 20:25 07/04/24 07/04/24 07/04/24 06:59 14:59 22:59 Intake Total 600 / 600 Output Total 400 / 400 Balance 200 / 200 Weight last 48 hrs Weight 114.759 kg Physical Exam 2 Narrative: General well-developed well-nourished morbidly obese female in no acute cardiopulmonary stress face is little puffy compared to last time CV regular rate and rhythm Lungs clear to auscultation bilaterally Abdomen soft nontender Back is with a binder in place I did not remove this Urinary Catheter Management: Berger: Cath Placed During This Visit: yes Urinary Catheter Date of Insertion: 07/04/24 Urinary Catheter Time of Insertion: 19:44 Data 07/04/24 17:23 A&P Assessment and plan (1) Disruption of external operation (surgical) wound, not elsewhere classified, initial encounter: Patient is on antibiotics for suspected wound infection but the cultures of all thus far been negative from the wound itself. Will leave antibiotic choice to Dr. Castro and infectious disease physician Dr. Bryson. (2) Type 2 diabetes mellitus: Start sliding scale insulin low scale and a 2000-calorie ADA diet. Continue pioglitazone and metformin as well. Will have low threshold for adding low-dose Lantus with blood sugar goals 100-150. (3) Sleep apnea in adult: Start CPAP at 8 or if available APAP at 7-12 with a flex or expiratory pressure relief at 3. Use Respironics nasal wisp mask and O2 at 24%. 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
[2024-07-04 22:05] LABS: Glucose Point of Care 218 mg/dL (70-110)
[2024-07-04] MEDS: HYDROcodone-acetaminophen 5-325 mg Tablet PO (22:41)
[2024-07-04] MEDS: methocarbamol 750 mg Tablet PO (22:41)
[2024-07-05] VITALS (16 sets, daily range): BP systolic 102–155; BP diastolic 49–77; PULSE 68–119; RESP 16–20; TEMP 36.4–37.1; O2SAT 93–99
[2024-07-05] MEDS: HYDROcodone-acetaminophen 5-325 mg Tablet PO ×4 (02:50→19:38)
[2024-07-05] MEDS: ceFAZolin 2,000 mg SDV 2000 MG IVP ×2 (06:30→15:06)
[2024-07-05 06:53] LABS: Glucose Point of Care 139 mg/dL (70-110)
[2024-07-05 07:17] LABS: Basophils % 0.4 %; Eosinophils % 0.2 %; Hematocrit 27.9 % (36-47); Lymphocytes # 1.1 10^3/uL (0.8-4.8); Lymphocytes % 14.1 %; Mean Corpuscular HGB Conc 30.5 g/dL (30-55); Mean Corpuscular Hemoglobin 26.6 pg (27-33); Mean Corpuscular Volume 87.2 fl (85-98); Mean Platelet Volume 9.9 fL (7.4-10.4); Monocytes # 0.5 10^3/uL (0.2-0.9); Monocytes % 6.4 %; Neutrophils # 6.18 10^3/uL (1.8-7.7); Neutrophils % 76.9 %; Nucleated Red Blood Cells % 0 %; Platelet Count 257 10^3/cmm (157-399); White Blood Count 8.03 10^3/uL (3.29-11.43)
[2024-07-05 07:38] LABS: Blood Urea Nitrogen 7 mg/dL (8-23); Calcium 8.1 mg/dL (8.5-10.5); Carbon Dioxide 26 mmol/L (22-29); Chloride 100 mmol/L (98-107); Glomerular Filtration Rate 162.3 mL/min (90-130); Glucose 134 mg/dL (65-115); Osmolality Calculated 280 mOsm/kg (285-295); Sodium 135 mmol/L (136-145)
[2024-07-05 07:39] LABS: Anion Gap 13.3 (5-19); Creatinine Clr Calc Pharmacy 190.3227; Potassium 4.3 mmol/L (3.5-5.1)
[2024-07-05] MEDS: pioglitazone 30 mg Tablet 45 MG PO (08:45)
[2024-07-05] MEDS: pantoprazole DR 40 mg Tablet PO (08:45)
[2024-07-05] MEDS: losartan 50 mg Tablet 25 MG PO (08:46)
[2024-07-05] MEDS: gabapentin 100 mg Capsule 200 MG PO ×2 (08:46→17:19)
[2024-07-05] MEDS: atorvastatin 40 mg Tablet 20 MG PO (08:46)
[2024-07-05] MEDS: lactated ringers 1,000 ML 90 ML IV (08:46)
[2024-07-05] MEDS: metformin 500 mg Tablet 1000 MG PO ×2 (08:46→17:19)
--- NOTE | 2024-07-05 10:57 | PC.CHAP ---
Pastoral Care Encounter/Spiritual Assessment Type of Contact [] Declined production planner scheduler visit [] Patient/Family/Request visit [] Outpatient visit [] Follow-up visit [] Physician referral [] Code/Alert [x] Routine visit [] Staff referral [] Actively dying [] Patient sleeping [] Family support [] [] Out of room [] Palliative care [] [x] Receiving care in room [] Pre-surgical visit [] Trauma [] Long length of stay [] ICU visit [] Other: Relational/Emotional Strength [] Patient feels connected with others/family/visitors/staff [] Distress [] Loneliness/isolation [] Abandonment Spirituality of Patient [] Person of [place] [] Attends Confucianism of their [place] [] Believes in Prayer [] Reads Bible or Orthodox materials [] There are Spiritual issues to be addressed Poultry Veterinarian Interventions [] Prayer [] Active listening [] Non-anxious presence [] Spiritual/emotional support [] Crisis/trauma care [] Spiritual counseling [] Bereavement support [] Provided bereavement packet [] Provided Bible/devotional materials [] Provided toy/stuffed animal, coloring book to patient or family member [] Provided Communion [] Anointing/[place] [] Salvation [] Completed spiritual assessment [] Other: Impact on Illness or Injury [] Angry [] Fearful [] Anxious [] Often cries [] Exhaustion [] Unable to work [] Unable to attend scientology [] Unable to walk/stand [] Unable to read [] Unable to drive [] Unable to eat/drink [] Unable to sleep [] Unable to be with family [] Patient intubated [] Other: Summary Time spent with patient
[2024-07-05 11:19] LABS: Glucose Point of Care 197 mg/dL (70-110)
[2024-07-05] MEDS: insulin lispro 100 unit/1 mL SUBCUT ×3 (11:50→21:15)
[2024-07-05] MEDS: ketorolac 30 mg/mL INJ IVP ×2 (11:54→21:16)
--- NOTE | 2024-07-05 12:34 | P.PN_ITS ---
Subjective 2 Subjective: Patient with postop day 1 from irrigation debridement and extension of her lumbar fusion. She is in pain was controlled with lying down she was able to sit at the bedside but had considerable pain and spasm. At this point she did state that her left leg did feel better. Vitals/I&O/Wt Last Vital Signs Temp 98.1 F 07/05/24 12:00 Pulse 110 H 07/05/24 12:00 Resp 19 H 07/05/24 12:00 BP 132/75 07/05/24 12:00 Pulse Ox 94 07/05/24 12:00 O2 Del Method Room Air 07/05/24 12:00 O2 Flow Rate 2 07/04/24 20:25 07/04/24 07/05/24 07/05/24 22:59 06:59 14:59 Intake Total 1600 / 1600 700 / 2300 1120 / 1120 Output Total 400 / 400 550 / 950 Balance 1200 / 1200 150 / 1350 1120 / 1120 Weight last 48 hrs Weight 261 lb 6.4 oz Weight 253 lb Weight 253 lb Physical Exam 2 Narrative: 1 drain is been emptied the drain has no t been minimal drainage in both drains right now. Urinary Catheter Management: Berger: Cath Placed During This Visit: yes Reason for Continuing Indwelling Catheter: Required Immobilization for Trauma or Surgery or Anesthesia Urinary Catheter Date of Insertion: 07/04/24 Urinary Catheter Time of Insertion: 19:44 Data 07/05/24 06:46 07/05/24 06:46 Micro: Microbiology 07/04/24 16:56 Gram Stain - Final Back A&P Assessment and plan (1) Status post lumbar spinal fusion: Postop day 1 lumbar fusion irrigation debridement. Cultures are still pending. Patient can take off her corset Up with physical therapy Will keep drains in at this time. Keep Berger for at least 1 more day. PDMP PDMP Reviewed: Not Reviewed Attestations 2 Medical Necessity Statement*: Pain control Coding Level of Care Code Acute Code for Chg Fwd Diagnoses Status post lumbar spinal fusion Z98.1
--- NOTE | 2024-07-05 14:57 | P.PN_ITS ---
Subjective 2 Subjective: Patient was seen this morning, denies any fevers, chills, no cough, no lightheadedness, no dizziness, does report back spasms Vitals/I&O/Wt Last Vital Signs Temp 98.1 F 07/05/24 12:00 Pulse 110 H 07/05/24 12:00 Resp 19 H 07/05/24 12:00 BP 132/75 07/05/24 12:00 Pulse Ox 94 07/05/24 12:00 O2 Del Method Room Air 07/05/24 12:00 O2 Flow Rate 2 07/04/24 20:25 07/04/24 07/05/24 07/05/24 22:59 06:59 14:59 Intake Total 1600 / 1600 700 / 2300 1360 / 1360 Output Total 400 / 400 550 / 950 Balance 1200 / 1200 150 / 1350 1360 / 1360 Weight last 48 hrs Weight 118.569 kg Weight 114.759 kg Weight 114.759 kg Physical Exam 2 Const: COMMON NORMALS: no acute distress and patient oriented x3 Neck/C-Spine: COMMON NORMALS: no JVD Resp: COMMON NORMALS: normal respiratory effort, No retractions, No use of accessory muscles and clear to auscultation bilaterally AUSCULTATION: clear to auscultation bilaterally Cardio: COMMON NORMALS: no JVD, regular rate, regular rhythm, S1 normal heart sound present and S2 normal heart sound present RATE: regular rate RHYTHM: regular rhythm HEART SOUNDS: S1 normal heart sound present and S2 normal heart sound present GI: COMMON NORMALS: Normal to inspection, nondistended, normoactive bowel sounds present and non-tender Extremity: COMMON NORMALS: no pedal edema Neuro: COMMON NORMALS: patient oriented x3 Psych: COMMON NORMALS: mental status grossly normal Urinary Catheter Management: Berger: Cath Placed During This Visit: yes Reason for Continuing Indwelling Catheter: Required Immobilization for Trauma or Surgery or Anesthesia Urinary Catheter Date of Insertion: 07/04/24 Urinary Catheter Time of Insertion: 19:44 Data 07/05/24 06:46 07/05/24 06:46 Micro: Microbiology 07/04/24 16:56 Gram Stain - Final Back A&P Assessment and plan (1) Disruption of external operation (surgical) wound, not elsewhere classified, initial encounter: (2) Type 2 diabetes mellitus: (3) Sleep apnea in adult: (4) Hypertension: (5) Status post lumbar spinal fusion: Plan Patient with history of elective L5-S1 interbody fusion with posterior lateral fusion with instrumentation for lumbar stenosis and neurogenic claudication June 04, 2024 -With history of irrigation debridement of back wound down to the muscle and fascia 24 x 4 x 3 cm July 02, 2024 -Now status post Status post lumbar spinal fusion July 04, 2024 1. Instrumentation from L1 to the pelvis 2. Irrigation debridement down to muscle and fascia of spine wound 3 layered closure of complex wound 24 cm x 3-1/2 cm deep by 4 cm wide 4. Removal of deep hardware from spine 5. L1/2 laminectomy with facetectomies -During last hospitalization was discharged with Cipro and linezolid Plan -Surgical cultures pending - Drains in place -Has received postoperative cefazolin -Continue vancomycin -Continue Rocephin -Monitor clinical status -On gabapentin 200 mg twice daily -Hydrocodone 5-325 1 to 2 tablets every 4 hours as needed - Continue Toradol 30 mg IV push every 6 hours as needed -Robaxin 750 mg p.o. 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
[2024-07-05] MEDS: methocarbamol 750 mg Tablet PO ×2 (15:14→23:14)
--- NOTE | 2024-07-05 16:20 | PHA.VACGOAL ---
Vancomycin Goal - Goal Vancomycin Goal:: 10-15 mg/L Vancomycin Indication:: SSTI - Therapy Current therapy:: Other Antibiotic (CEFTRIAXONE) Day of therpy:: Day [1]of [] . Actual body weight (kg): 118.569 kg - Data Labs: WBC 8.03 10^3/uL (3.29-11.43) 07/05/24 06:46 RBC 3.20 10^6/uL (3.85-5.65) L 07/05/24 06:46 Hgb 8.50 g/dL (11.27-16.99) L 07/05/24 06:46 Hct 27.9 % (36-47) L 07/05/24 06:46 MCV 87.2 fl (85-98) 07/05/24 06:46 MCH 26.6 pg (27-33) L 07/05/24 06:46 MCHC 30.5 g/dL (30-55) 07/05/24 06:46 RDW 17.0 % (12.1-15.1) H 07/05/24 06:46 Sodium 135 mmol/L (136-145) L 07/05/24 06:46 Potassium 4.3 mmol/L (3.5-5.1) 07/05/24 06:46 Chloride 100 mmol/L (98-107) 07/05/24 06:46 Carbon Dioxide 26 mmol/L (22-29) 07/05/24 06:46 Anion Gap 13.3 (5-19) 07/05/24 06:46 BUN 7 mg/dL (8-23) L 07/05/24 06:46 Creatinine 0.4 mg/dL (0.5-0.9) L 07/05/24 06:46 GFR Calculation 162.3 mL/min (90-130) H 07/05/24 06:46 Treatment plan:: new consult Regimen:: New start vancomycin for surgical wound infection. Started on maintenance dose of 1500 mg q12h.
[2024-07-05 16:25] LABS: Glucose Point of Care 184 mg/dL (70-110)
[2024-07-05] MEDS: cefTRIAXone 1,000 mg SDV 1000 MG IVP (16:43)
[2024-07-05] MEDS: vancomycin 1,500 MG/300 ML PIGGYBACK 200 MG IV (16:51)
[2024-07-05 19:56] LABS: Glucose Point of Care 226 mg/dL (70-110)
[2024-07-06] VITALS (8 sets, daily range): BP systolic 126–176; BP diastolic 68–99; PULSE 68–120; RESP 16–19; TEMP 36.5–36.7; O2SAT 93–97; BMI 43.1
[2024-07-06] MEDS: HYDROcodone-acetaminophen 5-325 mg Tablet PO ×6 (00:20→20:59)
[2024-07-06] MEDS: vancomycin 1,500 MG/300 ML PIGGYBACK 200 MG IV ×2 (04:21→17:21)
[2024-07-06 05:38] LABS: Basophils % 0.4 %; Eosinophils # 0.2 10^3/uL (0.0-0.8); Eosinophils % 2.3 %; Hematocrit 27.2 % (36-47); Lymphocytes # 1.2 10^3/uL (0.8-4.8); Lymphocytes % 17.2 %; Mean Corpuscular HGB Conc 30.5 g/dL (30-55); Mean Corpuscular Hemoglobin 27.3 pg (27-33); Mean Corpuscular Volume 89.5 fl (85-98); Mean Platelet Volume 8.7 fL (7.4-10.4); Monocytes # 0.6 10^3/uL (0.2-0.9); Monocytes % 9.1 %; Neutrophils # 4.86 10^3/uL (1.8-7.7); Neutrophils % 68.9 %; Nucleated Red Blood Cells % 0 %; Platelet Count 247 10^3/cmm (157-399); Red Blood Count 3.04 10^6/uL (3.85-5.65); Red Cell Distribution Width 17.5 % (12.1-15.1); White Blood Count 7.05 10^3/uL (3.29-11.43)
[2024-07-06 06:07] LABS: Blood Urea Nitrogen 8 mg/dL (8-23); Calcium 7.9 mg/dL (8.5-10.5); Carbon Dioxide 25 mmol/L (22-29); Creatinine Clr Calc Pharmacy 253.7636; Glomerular Filtration Rate 226.2 mL/min (90-130); Glucose 149 mg/dL (65-115)
[2024-07-06 06:28] LABS: Anion Gap 11.3 (5-19); Chloride 104 mmol/L (98-107); Osmolality Calculated 283 mOsm/kg (285-295); Potassium 4.3 mmol/L (3.5-5.1); Sodium 136 mmol/L (136-145)
[2024-07-06 06:35] LABS: Glucose Point of Care 170 mg/dL (70-110)
[2024-07-06] MEDS: insulin lispro 100 unit/1 mL SUBCUT ×3 (08:22→21:05)
[2024-07-06] MEDS: gabapentin 100 mg Capsule 200 MG PO ×2 (08:23→17:20)
[2024-07-06] MEDS: metformin 500 mg Tablet 1000 MG PO ×2 (08:23→17:20)
[2024-07-06] MEDS: losartan 50 mg Tablet 25 MG PO (08:23)
[2024-07-06] MEDS: pantoprazole DR 40 mg Tablet PO (08:23)
[2024-07-06] MEDS: pioglitazone 30 mg Tablet 45 MG PO (08:24)
[2024-07-06] MEDS: atorvastatin 40 mg Tablet 20 MG PO (08:24)
[2024-07-06] MEDS: methocarbamol 750 mg Tablet PO ×2 (11:23→20:16)
[2024-07-06] MEDS: ketorolac 30 mg/mL INJ IVP (11:24)
[2024-07-06 11:46] LABS: Glucose Point of Care 127 mg/dL (70-110)
--- NOTE | 2024-07-06 12:55 | P.PN_ITS ---
Subjective 2 Subjective: Patient pain is improved today drain still having some drainage. Vitals/I&O/Wt Last Vital Signs Temp 98.1 F 07/06/24 11:29 Pulse 105 H 07/06/24 11:29 Resp 19 H 07/06/24 11:29 BP 129/71 07/06/24 11:29 Pulse Ox 95 07/06/24 11:29 O2 Del Method Room Air 07/06/24 11:29 O2 Flow Rate 2 07/04/24 20:25 07/05/24 07/06/24 07/06/24 22:59 06:59 14:59 Intake Total 1132.5 / 2492.5 300 / 2792.5 480 / 480 Output Total 1125 / 1125 1250 / 2375 Balance 7.5 / 1367.5 -950 / 417.5 480 / 480 Weight last 48 hrs Weight 259 lb Weight 261 lb 6.4 oz Weight 253 lb Weight 253 lb Physical Exam 2 Narrative: Wound is clean dry and intact at this point. Will leave drains in 1 more day Urinary Catheter Management: Berger: Cath Placed During This Visit: yes Reason for Continuing Indwelling Catheter: Assist Healing of Perineal & Sacral Wounds- Incontinent Patients Urinary Catheter Date of Insertion: 07/04/24 Urinary Catheter Time of Insertion: 19:44 Data 07/06/24 05:16 07/06/24 05:16 Micro: Microbiology 07/04/24 16:56 Gram Stain - Final Back Wound Culture - Preliminary A&P Assessment and plan (1) Status post lumbar spinal fusion: Patient is postop day #2 with I&D and fusion. Cultures are pending Will leave drains in 1 more day Up with therapy PDMP PDMP Reviewed: Not Reviewed Attestations 2 Medical Necessity Statement*: Pain control Coding Level of Care Code Acute Code for Chg Fwd Diagnoses Status post lumbar spinal fusion Z98.1
--- NOTE | 2024-07-06 14:00 | P.PN_ITS ---
Subjective 2 Subjective: Patient was seen this morning, currently alert oriented x 3, following all commands, no fevers, chills, no cough, no nausea, no vomiting Vitals/I&O/Wt Last Vital Signs Temp 98.1 F 07/06/24 11:29 Pulse 105 H 07/06/24 11:29 Resp 19 H 07/06/24 11:29 BP 129/71 07/06/24 11:29 Pulse Ox 95 07/06/24 11:29 O2 Del Method Room Air 07/06/24 11:29 O2 Flow Rate 2 07/04/24 20:25 07/05/24 07/06/24 07/06/24 22:59 06:59 14:59 Intake Total 1132.5 / 2492.5 300 / 2792.5 480 / 480 Output Total 1125 / 1125 1250 / 2375 Balance 7.5 / 1367.5 -950 / 417.5 480 / 480 Weight last 48 hrs Weight 117.48 kg Weight 118.569 kg Weight 114.759 kg Physical Exam 2 Const: COMMON NORMALS: no acute distress and patient oriented x3 Resp: COMMON NORMALS: normal respiratory effort, No retractions, No use of accessory muscles and clear to auscultation bilaterally AUSCULTATION: clear to auscultation bilaterally Cardio: COMMON NORMALS: regular rate, regular rhythm, S1 normal heart sound present and S2 normal heart sound present RATE: regular rate RHYTHM: r egular rhythm HEART SOUNDS: S1 normal heart sound present and S2 normal heart sound present GI: COMMON NORMALS: Normal to inspection, nondistended, normoactive bowel sounds present and non-tender Extremity: COMMON NORMALS: no pedal edema Neuro: COMMON NORMALS: patient oriented x3 Psych: COMMON NORMALS: mental status grossly normal Urinary Catheter Management: Berger: Cath Placed During This Visit: yes Reason for Continuing Indwelling Catheter: Assist Healing of Perineal & Sacral Wounds- Incontinent Patients Urinary Catheter Date of Insertion: 07/04/24 Urinary Catheter Time of Insertion: 19:44 Data 07/06/24 05:16 07/06/24 05:16 Micro: Microbiology 07/04/24 16:56 Gram Stain - Final Back Wound Culture - Preliminary A&P Assessment and plan (1) Disruption of external operation (surgical) wound, not elsewhere classified, initial encounter: (2) Type 2 diabetes mellitus: (3) Sleep apnea in adult: (4) Hypertension: (5) Status post lumbar spinal fusion: Plan Patient with history of elective L5-S1 interbody fusion with posterior lateral fusion with instrumentation for lumbar stenosis and neurogenic claudication June 04, 2024 -With history of irrigation debridement of back wound down to the muscle and fascia 24 x 4 x 3 cm July 02, 2024 -Now status post Status post lumbar spinal fusion July 04, 2024 1. Instrumentation from L1 to the pelvis 2. Irrigation debridement down to muscle and fascia of spine wound 3 layered closure of complex wound 24 cm x 3-1/2 cm deep by 4 cm wide 4. Removal of deep hardware from spine 5. L1/2 laminectomy with facetectomies -During last hospitalization was discharged with Cipro and linezolid Plan -Surgical cultures pending - Drains in place -Has received postoperative cefazolin -Continue vancomycin -Continue Rocephin -Monitor clinical status -On gabapentin 200 mg twice daily -Hydrocodone 5-325 1 to 2 tablets every 4 hours as needed - Continue Toradol 30 mg IV push every 6 hours as needed -Robaxin 750 mg p.o. 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
--- NOTE | 2024-07-06 14:06 | PM.CONSULT ---
Providers/Reason For Consult Consulting Physician/Specialty*: Cassandra bryson MD / Infectious Disease Reason for Consult*: wound dehiscnece, recent bacteremia Requesting Physician: Mauricio Frederick MD Attending Physician: Laurent Castro DO Primary Care Provider: Candida Harris History of Present Illness History of Present Illness Kathy Sood is a 63 year old female who underwent an elective L5-S1 interbody fusion with posterolateral fusion with instrumentation for diagnosis of lumbar stenosis with neurogenic claudication on June 04, 2024. She returned to the emergency room on June 12, 2024 with increased bleeding at the surgical site which started a day prior. SHe was found to be febrile in the emergency room and admitted due to concern for infection. A blood culture from admission returned positive for Klebsiella pneumoniae and Staph epidermidis in 1 out of [address] with contrast was performed which showed multiple scattered small punctate foci of air within the paravertebral soft tissues extending to the psoas bilaterally and laminectomy defects. These were considered to be postoperative changes versus related to prior surgical drain. Course was marked by excessive discharge from the wound site and wound dehiscence for which patient eventually discharged with a wound VAC on June 27, 2024. She received treatment with IV ceftriaxone and IV vancomycin for 2 weeks during course of the admission which transitioned to oral ciprofloxacin at the time of discharge. She followed up with Dr. Castro on 10/01/2024 where she was found to have dehiscence of the superior incision site and more necrotic tissue which was extending deeper now. She was taken today operating room on 10/02/2024 for I&D of the back wound down to the muscle fascia. Wound VAC was applied. Operating room cultures from yesterday were without any bacterial growth. She went back to the operating room on 07/04/2024 for debridement of necrotic tissue and on this day was found to have a loose L1 pedicle screw. Per review of op note from this day cloudy fluid was encountered deep to the thoracolumbar fascia from which cultures were taken. L2 screw was noted to be loose and unstable and fluid was encountered from the L1-L2 facet joint. Which appeared to be worse when the wound was last explored on July 02. Rods and caps were also replaced at this time... Ordered screws were left in place with the exception of L2 which was removed completely. L1-L2 laminectomy was performed. No obvious dural tears were encountered however DuraSeal was applied in case of possibility of CSF leak. Wound has now been closed in a layered fashion and vancomycin powder was applied. Cultures taken from July 04, 2024 with thus far negative to date. Prior to current admission patient was continuing [facility]iprofloxacin at [facility]. She had also had 3 days of linezolid. Patient is afberile, no leukocytosis. Review of Systems General: Reports: 10 or more systems reviewed and unremarkable except in HPI and below Const: Denies: fever(s), chills or body aches Eyes: Denies: change in vision, blurry vision or photophobia ENMT: Reports: hoarseness; Denies: throat pain, enlarged tonsils, odynophagia or nasal congestion Card: Denies: chest pain, palpitations, irregular heart rhythm, edema, swelling of feet/ankles, lightheadedness, pre-syncope, dyspnea on exertion or orthopnea Resp: Denies: dyspnea, productive cough, non-productive cough, wheezing, stridor, pain on inspiration, change in phlegm color, hemoptysis or chest congestion GI: Denies: abdominal pain, nausea, vomiting, hematemesis, coffee ground emesis, dysphagia, heartburn, diarrhea, constipation, GI cramping, change in stool character, hematochezia or melena : Denies: flank pain, difficulty voiding, dysuria, urinary frequency, urinary urgency, urinary hesitancy or hematuria Musc: Denies: neck pain, back pain, extremity pain, joint swelling, joint warmth or deformity Neuro: Denies: headache(s), numbness in extremities, weakness in extremities, sensory changes, difficulty walking, frequent falls, dizziness, vertigo, behavioral changes, Slurred speech present or seizure-like activity Psych: Denies: anxiety, depression, suicidal ideation or homicidal ideation Endo: Denies: polyuria, polydipsia, tired all the time, cold intolerance or hot flashes Terence/Lymph: Denies: easy bruising or easy bleeding Medications/Allergies Home Medications ?Medication ?Instructions ?Recorded ?Confirmed ?Last Taken ?Type atorvastatin 20 mg tablet 20 mg PO DAILY 08/18/23 07/03/24 07/03/24 History glipizide 10 mg tablet 10 mg PO DAILY 08/18/23 07/03/24 07/03/24 History metformin 1,000 mg tablet 1,000 mg PO BID 08/18/23 07/03/24 07/03/24 History methocarbamol 750 mg tablet 750 mg PO Q8H PRN pain #45 tabs 08/18/23 07/03/24 07/04/24 07:30 Rx pioglitazone 45 mg tablet (Actos) 45 mg PO DAILY 08/18/23 07/03/24 07/03/24 History gabapentin 100 mg capsule 200 mg PO BID 04/22/24 07/03/24 07/03/24 History omeprazole 40 mg capsule,delayed 40 mg PO DAILY 04/22/24 07/03/24 07/03/24 History release semaglutide 1 mg/dose (4 mg/3 mL) 1 mg SUBCUT .WEEKLY 04/22/24 07/03/24 05/25/24 History subcutaneous pen injector (Ozempic) bisacodyl 10 mg rectal suppository 10 mg LA DAILY PRN Constipation 06/12/24 07/03/24 Unknown History (Dulcolax (bisacodyl)) bisacodyl 5 mg tablet,delayed 10 mg PO DAILY 06/12/24 07/03/24 Unknown History release (Dulcolax (bisacodyl)) magnesium hydroxide 400 mg/5 mL 30 ml PO DAILY PRN Constipation 06/12/24 07/03/24 Unknown History oral suspension (Milk of Magnesia) sodium phosphates 19 gram-7 118 ml LA DAILY PRN Constipation 06/12/24 07/03/24 Unknown History gram/118 mL enema (Fleet Enema) polyethylene glycol 3350 17 gram 17 g PO DAILY #14 ea 06/15/24 07/03/24 Unknown Rx oral powder packet sennosides 8.6 mg-docusate sodium 1 tab PO BID #14 tabs 06/15/24 07/04/24 Unknown Rx 50 mg tablet (Stool Softener-Laxative) collagenase clostridium histo. 250 1 applic topical DAILY #30 grams 06/27/24 07/03/24 07/01/24 Rx unit/gram topical ointment (Santyl) hydrocodone 5 mg-acetaminophen 325 1 tab PO Q4H PRN Pain 07/04/24 07/04/24 07/04/24 07:30 History mg tablet Allergies Allergy/AdvReac Type Severity Reaction Status Date / Time codeine Allergy ADR-Nausea Verified 07/03/24 13:46 Current Medications Generic Name Dose Route Start Last Admin Trade Name [place] PRN Reason Stop Dose Admin Hydrocodone Bitart/Acetaminophen 1 - 2 tab 07/04/24 19:12 07/06/24 12:42 Hydrocodone-Acetaminophen 5-325 Mg Tablet PO 1 tab Q4H PRN Administration MODERATE TO SEVERE PAIN Atorvastatin Calcium 20 mg 07/05/24 09:00 07/06/24 08:24 Atorvastatin 40 Mg Tablet PO 20 mg DAILY SONG Administration Bisacodyl 10 mg 07/05/24 09:00 07/06/24 08:24 Bisacodyl 5 Mg Tablet PO Not Given DAILY SONG Ceftriaxone Sodium 1,000 mg 07/05/24 15:15 07/05/24 16:43 Ceftriaxone 1,000 Mg Sdv IVP 1,000 mg Q24H SONG Administration Protocol Collagenase 1 applic 07/05/24 09:00 07/06/24 08:24 Collagenase Oint 30 Gm TOPICAL Not Given DAILY SONG Docusate Sodium 100 mg 07/05/24 09:00 07/06/24 08:24 Docusate Sodium 100 Mg Capsule PO Not Given BID SONG Gabapentin 200 mg 07/05/24 09:00 07/06/24 08:23 Gabapentin 100 Mg Capsule PO 200 mg BID SONG Administration Vancomycin HCl 1,500 mg in 300 mls @ 200 mls/hr 07/05/24 16:30 07/06/24 06:30 Vancocin IV Infused Q12H SONG Infusion Insulin Human Lispro 0 unit 07/05/24 08:00 07/06/24 11:49 Insulin Lispro 100 Unit/1 Ml SUBCUT Not Given WM&BEDTIME SONG Protocol Losartan Potassium 25 mg 07/04/24 21:53 07/06/24 08:23 Losartan 50 Mg Tablet PO 25 mg DAILY SONG Administration Metformin HCl 1,000 mg 07/05/24 09:00 07/06/24 08:23 Metformin 500 Mg Tablet PO 1,000 mg BID SONG Administration Methocarbamol 750 mg 07/04/24 19:19 07/06/24 11:23 Methocarbamol 750 Mg Tablet PO 750 mg Q8H PRN Administration PAIN Pantoprazole Sodium 40 mg 07/05/24 09:00 07/06/24 08:[address] 40 Mg Tablet PO 40 mg DAILY SONG Administration Pioglitazone HCl 45 mg 07/05/24 09:00 07/06/24 08:24 Pioglitazone 30 Mg Tablet PO 45 mg DAILY SONG Administration Polyethylene Glycol 17 gm 07/05/24 09:00 07/06/24 08:25 Polyethylene Glycol 3350 Pkt 17 Gm PO Not Given DAILY SONG Senna/Docusate Sodium 1 tab 07/05/24 09:00 07/06/24 08:25 Sennosides-Docusate Tablet PO Not Given BID SONG PFSH Acute PFSH: Medical History Sleep apnea in adult Type 2 diabetes mellitus Hyperlipidemia GERD (gastroesophageal reflux disease) Hypertension Diabetes mellitus Surgical History History of back surgery Social History Smoking and tobacco/nicotine status: never used tobacco/nicotine 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 Vitals/I&O/Wt Last Vital Signs Temp 98.1 F 07/06/24 11:29 Pulse 105 H 07/06/24 11:29 Resp 19 H 07/06/24 11:29 BP 129/71 07/06/24 11:29 Pulse Ox 95 07/06/24 11:29 O2 Del Method Room Air 07/06/24 11:29 O2 Flow Rate 2 07/04/24 20:25 07/05/24 07/06/24 07/06/24 22:59 06:59 14:59 Intake Total 1132.5 / 2492.5 300 / 2792.5 480 / 480 Output Total 1125 / 1125 1250 / 2375 Balance 7.5 / 1367.5 -950 / 417.5 480 / 480 Weight last 48 hrs Weight 117.48 kg Weight 118.569 kg Weight 114.759 kg Physical Exam Narrative: General: No acute distress, AO x3 HEENT: PERRLA, pupils bilaterally equal and reactive, pallors not present Chest: Normal vesicular breath sounds, no added sounds, equal good air entry bilaterally CVS: S1-S2 regular, no murmurs, no tachycardia, no gallops, no rubs Abdomen: Soft, nontender, no organomegaly, bowel sounds present Neuro: No focal deficits, no facial deformity, AO x3, power 5/5 in all limbs Urinary Catheter Management: Berger: Cath Placed During This Visit: yes Reason for Continuing Indwelling Catheter: Assist Healing of Perineal & Sacral Wounds- Incontinent Patients Urinary Catheter Date of Insertion: 07/04/24 Urinary Catheter Time of Insertion: 19:44 Data 07/06/24 05:16 07/06/24 05:16 Micro: Microbiology 07/04/24 16:56 Gram Stain - Final Back Wound Culture - Preliminary NAME: Kathy Sood LOC: [facility] U #: [id number] AGE/SX: 63/F ROOM: [facility] RE07/04/[address]: Laurent Castro DO : 1960 BED: 1 DIS: FAX #: STATUS: ADM ENMANUEL TLOC: Spec #: [id number] Isaias: 07/04/24 Status: RES Req #: [id number] Recd: 07/04/[address]: Laurent Castro DO Src: Back SpDesc: Ordered: WC and GS, Anaer Comments: Comment back wound Procedure Result Verified Site Gram Stain Final 07/05/24-1199 Result MANY WHITE BLOOD CELLS NO ORGANISMS SEEN Anaerobic Culture PENDING Wound Culture Preliminary 07/06/24-1252 FEW MIXED SUPERFICIAL ASIM ON DAY 1 NAME: Kathy Sood LOC: [place] U #: [id number] AGE/SX: 63/F ROOM: RE07/02/[address]: Laurent Castro DO : 1960 BED: DIS: FAX #: STATUS: DEP SDC TLOC: Spec #: [id number] Isaias: 07/02/24 Status: RES Req #: [id number] Recd: 07/03/[address]: Laurent Castro DO Src: Back SpDesc: Ordered: WC and GS, Anaer Comments: Comment back wound Procedure Result Verified Site Gram Stain Final 07/03/24-1104 Result SCANT POLYMORPHONUCLEAR NEUTROPHILS NO ORGANISMS SEEN Anaerobic Culture Preliminary 07/05/24-1746 NO ANAEROBES ISOLATED ON DAY 2 Anaerobic Culture Preliminary (changed) 07/04/24-1720 NO ANAEROBES ISOLATED ON DAY 1 Wound Culture Final 07/06/24-1256 FEW MIXED SUPERFICIAL ASIM ON DAY 3 Wound Culture Preliminary (changed) 07/05/24-1755 FEW MIXED SUPERFICIAL ASIM ON DAY 2 Wound Culture Preliminary (changed) 07/04/24-1332 FEW MIXED SUPERFICIAL ASIM ON DAY 1 NAME: Kathy Sood LOC: [facility] #: [id number] AGE/SX: 63/F ROOM: [facility] RE06/12/[address]: Laurent Castro DO : 1960 BED: 1 DIS: 06/27/24 FAX #: STATUS: DIS IN TLOC: Spec #: [id number] Isaias: 06/17/24-1512 Status: COMP Req #: [id number] Recd: 06/17/24-[address]: Taya Shell MD Src: Other Sour SpDesc: Ordered: Wound Procedure Result Verified Site Wound Culture Final 06/20/24-1622 FEW MIXED SUPERFICIAL ASIM ON DAY 3 Wound Culture Preliminary (changed) 06/19/24-1228 FEW MIXED SUPERFICIAL ASIM ON DAY 2 Wound Culture Preliminary (changed) 06/18/24-1148 SCANT MIXED SUPERFICIAL ASIM ON DAY 1 Other data: Ordering Provider/Ordering MD: Taya Shell MD Date of Service: 06/17/24 Procedure(s): MR lumbar spine wo/w con [id number] Accession Number(s): [id number] Report Number: [id number] PROCEDURE INFORMATION: Exam: MR Lumbar Spine Without and With Contrast Exam date and time: 06/17/2024 4:05 PM Age: 63 years old Clinical indication: Abnormal findings; Abnormal lab test; Other; Leukocytosis, high crp; Prior surgery; Surgery date: <1 month; Surgery type: Low back 06/04/24; Low back surgery 06/04/24. Post op infection; Additional info: Post op infection, leukocytosis, high crp, procal TECHNIQUE: Imaging protocol: Magnetic resonance imaging of the lumbar spine without and with contrast. Contrast material: MULTIHANCE; Contrast volume: 20 ml; Contrast route: INTRAVENOUS (IV); COMPARISON: CT lumbar spine w con [id number] 06/13/2024 1:14 PM FINDINGS: Bones/joints: There is evidence of recent posterior decompression and fusion surgery from L2-S1. The metallic hardware appear to be in good position and overall bony alignment is normal. Spinal cord: Visualized cord, conus medullaris and cauda equina are unremarkable without compression. L1-L2: No significant disc bulge or herniation. No severe spinal canal stenosis. No significant neural foraminal narrowing. L2-L3: No significant disc bulge or herniation. No severe spinal canal stenosis. No significant neural foraminal narrowing. L3-L4: No significant disc bulge or herniation. No severe spinal canal stenosis. No significant neural foraminal narrowing. L4-L5: No significant disc bulge or herniation. No severe spinal canal stenosis. No significant neural foraminal narrowing. L5-S1: No significant disc bulge or herniation. No severe spinal canal stenosis. No significant neural foraminal narrowing. Soft tissues: There is soft tissue edema noted in the surgical bed extending down to the posterior epidural space. However, I see no fluid collection. MR/MR lumbar spine wo/w con [id number] IMPRESSION: Normal expected postoperative changes. I see no evidence abscess. A&P Assessment and plan (1) Hardware complicating wound infection: (2) Wound dehiscence: Plan 63-year-old lady with recent past medical history as noted above, currently admitted to the hospital with wound dehiscence which has failed to heal appropriately. Thereafter also noted to have loosened hardware. Status post OR intervention on July 05, 2024 most recently Deep wound cultures taken deep to the thoracolumbar fascia are currently reflected as superficial skin asim. Discussed with the critical access hospital that this is a deep or surgical specimen and therefore will need to further evaluate any bacteria that may be growing on the specimen. Per preliminary micro results, this appears to be gamma hemolytic gram-positive organism ? Enterococcus?. Awaiting further growth on cultures and identification. Of note patient was on ciprofloxacin at the time of obtaining these cultures and also had had a recent extended course of ciprofloxacin and linezolid/IV vancomycin previously. Continue empiric ceftriaxone and vancomycin for now. Obtain blood culture Obtain inflammatory markers including ESR and CRP Would anticipate discharge on 6 weeks of IV antibiotics given complicated wound dehiscence and deep wound infection with underlying hardware complicating. Final antibiotic selection to be dependent on organism isolated Will continue to follow PDMP PDMP Reviewed: Not Reviewed Consult Attestations Medical Necessity Statement: Per admitting Coding Level of Care Code Acute Code for Chg Fwd Diagnoses Hardware complicating wound infection T84.7XXA Wound dehiscence T81.30XA
[2024-07-06 14:36] LABS: Erythrocyte Sedimentation Rate 19 mm/hr (0-15)
[2024-07-06 14:42] LABS: C Reactive Protein 36.4 mg/L (0.0-4.9)
[2024-07-06 16:36] LABS: Glucose Point of Care 195 mg/dL (70-110)
[2024-07-06] MEDS: cefTRIAXone 1,000 mg SDV 1000 MG IVP (17:21)
[2024-07-06] MEDS: enoxaparin 40 mg/0.4 mL Syringe SUBCUT (20:16)
[2024-07-06 20:56] LABS: Glucose Point of Care 175 mg/dL (70-110)
[2024-07-07] MEDS: HYDROcodone-acetaminophen 5-325 mg Tablet PO ×4 (00:42→15:22)
[2024-07-07 03:51] VITALS: BP 124/68; PULSE 81; RESP 17; TEMP 36.7; O2SAT 94
[2024-07-07 03:59] LABS: Basophils # 0.1 10^3/uL (0.0-0.1); Basophils % 0.7 %; Eosinophils # 0.2 10^3/uL (0.0-0.8); Eosinophils % 2.2 %; Hematocrit 28.5 % (36-47); Lymphocytes # 1.6 10^3/uL (0.8-4.8); Lymphocytes % 21.5 %; Mean Corpuscular HGB Conc 30.9 g/dL (30-55); Mean Corpuscular Hemoglobin 27.5 pg (27-33); Mean Corpuscular Volume 89.1 fl (85-98); Mean Platelet Volume 8.8 fL (7.4-10.4); Monocytes # 0.6 10^3/uL (0.2-0.9); Monocytes % 8.2 %; Neutrophils % 65.9 %; Nucleated Red Blood Cells % 0 %; Platelet Count 281 10^3/cmm (157-399); Red Cell Distribution Width 16.9 % (12.1-15.1); White Blood Count 7.58 10^3/uL (3.29-11.43)
[2024-07-07 04:13] LABS: Erythrocyte Sedimentation Rate 35 mm/hr (0-15)
[2024-07-07 04:24] LABS: Vancomycin Trough 13.2 ug/mL (10-15)
[2024-07-07 04:26] LABS: Anion Gap 11.5 (5-19); Blood Urea Nitrogen 8 mg/dL (8-23); Calcium 8.1 mg/dL (8.5-10.5); Carbon Dioxide 27 mmol/L (22-29); Chloride 105 mmol/L (98-107); Creatine Phosphokinase 32 U/L (26-192); Creatinine Clr Calc Pharmacy 252.4094; Glomerular Filtration Rate 226.2 mL/min (90-130); Glucose 142 mg/dL (65-115); Osmolality Calculated 289 mOsm/kg (285-295); Potassium 4.5 mmol/L (3.5-5.1); Sodium 139 mmol/L (136-145)
[2024-07-07] MEDS: vancomycin 1,500 MG/300 ML PIGGYBACK 200 MG IV (04:28)
[2024-07-07] MEDS: methocarbamol 750 mg Tablet PO ×2 (04:28→12:11)
[2024-07-07 04:29] LABS: C Reactive Protein 54.4 mg/L (0.0-4.9)
[2024-07-07 08:00] VITALS: BP 135/80; PULSE 109; RESP 16; TEMP 36.8; O2SAT 96
[2024-07-07 08:42] LABS: Glucose Point of Care 154 mg/dL (70-110)
--- NOTE | 2024-07-07 09:45 | P.PN_ITS ---
Subjective 2 Subjective: Patient had just recently tried to work with therapy but is having spasming down her right leg. Which is different than last surgery patient is having spasm going on the left leg. Vitals/I&O/Wt Last Vital Signs Temp 98.3 F 07/07/24 08:00 Pulse 109 H 07/07/24 08:00 Resp 16 07/07/24 08:00 BP 135/80 07/07/24 08:00 Pulse Ox 96 07/07/24 08:00 O2 Del Method Room Air 07/07/24 08:00 O2 Flow Rate 2 07/04/24 20:25 FiO2 21 07/06/24 21:00 07/06/24 07/07/24 07/07/24 22:59 06:59 14:59 Intake Total 660 / 1140 480 / 1620 Output Total 1350 / 1350 450 / 1800 Balance -690 / -210 30 / -180 Weight last 48 hrs Weight 259 lb Weight 259 lb Physical Exam 2 Narrative: Resting in chair. Plan to change dressing today and pull the drains. Urinary Catheter Management: Berger: Cath Placed During This Visit: yes Reason for Continuing Indwelling Catheter: Acute Urinary Retention or Obstruction Urinary Catheter Date of Insertion: 07/04/24 Urinary Catheter Time of Insertion: 19:44 Data 07/07/24 03:32 07/07/24 03:32 Micro: Microbiology 07/04/24 16:56 Gram Stain - Final Back Anaerobic Culture - Preliminary Wound Culture - Preliminary 07/06/24 15:29 Blood Culture - Preliminary Blood SPECIMEN COLLECTED 07/06/24 15:28 Blood Culture - Preliminary Blood SPECIMEN COLLECTED A&P Assessment and plan (1) Status post lumbar spinal fusion: Patient likely to get PICC line today. Will plan to pull the drains in try to change the dressing today as well Added Valium for muscle spasm. PDMP PDMP Reviewed: Not Reviewed Attestations 2 Medical Necessity Statement*: Pain control Coding Level of Care Code Acute Code for Chg Fwd Diagnoses Status post lumbar spinal fusion Z98.1
--- NOTE | 2024-07-07 09:49 | PC.CHAP ---
Pastoral Care Encounter/Spiritual Assessment Type of Contact [] Declined freelance web designer visit [] Patient/Family/Request visit [] Outpatient visit [] Follow-up visit [] Physician referral [] Code/Alert [x] Routine visit [] Staff referral [] Actively dying [] Patient sleeping [] Family support [] [] Out of room [] Palliative care [] [x] Receiving care in room [] Pre-surgical visit [] Trauma [] Long length of stay [] ICU visit [] Other: Relational/Emotional Strength [] Patient feels connected with others/family/visitors/staff [] Distress [] Loneliness/isolation [] Abandonment Spirituality of Patient [] Person of [place] [] Attends Gnosticist of their [place] [] Believes in Prayer [] Reads Bible or Yarsani materials [] There are Spiritual issues to be addressed Telecommunications Cable Jointer Interventions [x] Prayer [] Active listening [] Non-anxious presence [] Spiritual/emotional support [] Crisis/trauma care [] Spiritual counseling [] Bereavement support [] Provided bereavement packet [] Provided Bible/devotional materials [] Provided toy/stuffed animal, coloring book to patient or family member [] Provided Communion [] Anointing/[place] [] Salvation [] Completed spiritual assessment [] Other: Impact on Illness or Injury [] Angry [] Fearful [] Anxious [] Often cries [] Exhaustion [] Unable to work [] Unable to attend methodist [] Unable to walk/stand [] Unable to read [] Unable to drive [] Unable to eat/drink [] Unable to sleep [] Unable to be with family [] Patient intubated [] Other: Summary Time spent with patient
[2024-07-07] MEDS: gabapentin 100 mg Capsule 200 MG PO (09:55)
[2024-07-07] MEDS: losartan 50 mg Tablet 25 MG PO (09:55)
[2024-07-07] MEDS: pioglitazone 30 mg Tablet 45 MG PO (09:55)
[2024-07-07] MEDS: atorvastatin 40 mg Tablet 20 MG PO (09:55)
[2024-07-07 09:56] VITALS: RESP 16
[2024-07-07] MEDS: metformin 500 mg Tablet 1000 MG PO (09:56)
[2024-07-07] MEDS: insulin lispro 100 unit/1 mL SUBCUT ×2 (09:56→12:09)
[2024-07-07] MEDS: pantoprazole DR 40 mg Tablet PO (09:56)
[2024-07-07] MEDS: morphine 4 mg/mL SDV 1 mL 2 MG IVP (09:56)
--- NOTE | 2024-07-07 10:26 | XR_ITS ---
WS: [id number] XR chest 1V portable [id number] REASON FOR EXAM: Post PICC insertion FINDINGS: A right arm PICC line has been placed. The tip is in the distal SVC in a position appropriate for use. The PICC line position was given to the x-ray technologist over the phone at 11:10 a.m. XR/XR chest 1V portable [id number] IMPRESSION: Right arm PICC line placed in proper position as above.
[2024-07-07] MEDS: diazePAM 5 mg Tablet PO (10:41)
--- NOTE | 2024-07-07 11:40 | PICC.NOTE ---
Single lumen PICC placed to right basilic vein. Referred to vascular access nurse for PICC placement due to need for IV antibiotics x 6 weeks. Risks and benefits discussed and informed consent obtained from patient. Right arm assessed with right basilic vein measuring 4.2 mm, straight, and apparent best choice for placement. Using sterile technique and MST, right basilic vein accessed x 1 stick. Mid-arm circumference measured 10 cm from right AC 31 cm. Trimmed cath 41 cm with 0 cm external length noted. CXR shows tip in distal SVC, in good position for use per radiologist. Line secured with stat-lock. Insertion site covered with Biopatch and TSM. Report given to bedside nurse, GURVINDER Eduardo.
[2024-07-07 11:51] LABS: Glucose Point of Care 183 mg/dL (70-110)
--- NOTE | 2024-07-07 12:09 | PM.PN ---
Subjective Subjective: Patient was seen this morning, currently alert oriented x 3, following all commands, denies any fevers, no chills, no cough Vitals/I&O/Wt Last Vital Signs Temp 98.3 F 07/07/24 08:00 Pulse 109 H 07/07/24 08:00 Resp 16 07/07/24 09:56 BP 135/80 07/07/24 08:00 Pulse Ox 96 07/07/24 08:00 O2 Del Method Room Air 07/07/24 08:00 O2 Flow Rate 2 07/04/24 20:25 FiO2 21 07/06/24 21:00 07/06/24 07/07/24 07/07/24 22:59 06:59 14:59 Intake Total 660 / 1140 480 / 1620 240 / 240 Output Total 1350 / 1350 450 / 1800 Balance -690 / -210 30 / -180 240 / 240 Weight last 48 hrs Weight 117.48 kg Weight 117.48 kg Physical Exam Const: COMMON NORMALS: no acute distress and patient oriented x3 Resp: COMMON NORMALS: normal respiratory effort, No retractions, No use of accessory muscles and clear to auscultation bilaterally AUSCULTATION: clear to auscultation bilaterally Cardio: COMMON NORMALS: regular rate, regular rhythm, S1 normal heart sound present and S2 normal heart sound present RATE: regular rate RHYTHM: regular rhythm HEART SOUNDS: S1 normal heart sound present and S2 normal heart sound present GI: COMMON NORMALS: Normal to inspection, nondistended, normoactive bowel sounds present and non-tender Extremity: COMMON NORMALS: no pedal edema Neuro: COMMON NORMALS: patient oriented x3 Psych: COMMON NORMALS: mental status grossly normal Urinary Catheter Management: Berger: Cath Placed During This Visit: yes Reason for Continuing Indwelling Catheter: Acute Urinary Retention or Obstruction Urinary Catheter Date of Insertion: 07/04/24 Urinary Catheter Time of Insertion: 19:44 Data 07/07/24 03:32 07/07/24 03:32 Micro: Microbiology 07/04/24 16:56 Gram Stain - Final Back Anaerobic Culture - Preliminary Wound Culture - Preliminary 07/06/24 15:29 Blood Culture - Preliminary Blood SPECIMEN COLLECTED 07/06/24 15:28 Blood Culture - Preliminary Blood SPECIMEN COLLECTED A&P Assessment and plan (1) Disruption of external operation (surgical) wound, not elsewhere classified, initial encounter: (2) Type 2 diabetes mellitus: (3) Sleep apnea in adult: (4) Hypertension: (5) Status post lumbar spinal fusion: Plan Patient with history of elective L5-S1 interbody fusion with posterior lateral fusion with instrumentation for lumbar stenosis and neurogenic claudication June 04, 2024 -With history of irrigation debridement of back wound down to the muscle and fascia 24 x 4 x 3 cm July 02, 2024 -Now status post Status post lumbar spinal fusion July 04, 2024 1. Instrumentation from L1 to the pelvis 2. Irrigation debridement down to muscle and fascia of spine wound 3 layered closure of complex wound 24 cm x 3-1/2 cm deep by 4 cm wide 4. Removal of deep hardware from spine 5. L1/2 laminectomy with facetectomies -During last hospitalization was discharged with Cipro and linezolid Plan -Surgical cultures so far no growth - Drains in place, will be removed today -Has received postoperative cefazolin -Continue vancomycin on discharge, 1 g IV, 12 hours for 6 weeks, stop date 08/16/2024 -Monitor clinical status -On gabapentin 200 mg twice daily -Hydrocodone 5-325 1 to 2 tablets every 4 hours as needed -Type 2 diabetes mellitus low-dose sliding scale -Full code -SCDs for DVT prophylaxis, Lovenox currently on hold PDMP PDMP Reviewed: Not Reviewed Attestations Medical Necessity Statement*: Patient will be discharged today Diagnoses Disruption of external operation (surgical) wound, not elsewhere classified, initial encounter T81.31XA Type 2 diabetes mellitus without complication, without long-term current use of insulin E11.9 Diabetes mellitus extermination inspector insulin use: without extermination inspector use Diabetes mellitus complication status: without complication Sleep apnea in adult G47.30 Hypertension I10 Status post lumbar spinal fusion Z98.1
--- NOTE | 2024-07-07 16:20 | PC.NURSE ---
Report called to Camilla at [facility]. All questions answered.
--- NOTE | 2024-07-07 16:27 | PC.NURSE ---
Both hemovac drains removed and HERBER dressing placed over incision site per 's instructions. Peripheral IV removed and catheter removed.
[2024-07-07 16:56] LABS: Glucose Point of Care 167 mg/dL (70-110)
[2024-07-07 17:23] VITALS: BP 135/80; PULSE 109; RESP 16; TEMP 36.8; O2SAT 96
--- NOTE | 2024-07-11 11:39 | P.DS_ITS ---
Discharge Providers Date of Admission: 07/04/24 21:06 Date of Discharge: July 07, 2024 Attending Provider at Admission: Laurent Castro DO Attending Provider at Discharge: Laurent Castro DO Primary Care Provider: Candida Harris Diagnoses at Discharge Discharge Diagnosis (1) Disruption of external operation (surgical) wound, not elsewhere classified, initial encounter: Status: Acute (2) Type 2 diabetes mellitus: Status: Acute Qualifiers: Diabetes mellitus halfway insulin use: without halfway use Diabetes mellitus complication status: without complication Qualified Code(s): E11.9 - T ype 2 diabetes mellitus without complications (3) Sleep apnea in adult: Status: Acute (4) Hypertension: Status: Acute (5) Status post lumbar spinal fusion: Status: Acute Reason for Visit Reason for Visit: [id number] Physical Exam Urinary Catheter Management: Berger: Cath Placed During This Visit: yes, but has since been removed by the nurse Reason for Continuing Indwelling Catheter: Decision to DC Catheter Urinary Catheter Date of Insertion: 07/04/24 Urinary Catheter Time of Insertion: 19:44 Date Urinary Catheter Removed: 07/07/24 Time Urinary Catheter Discontinued: 15:00 Discharge Data Studies Completed and Pending Completed Studies During Hospitalization Category Date Time Status CXRP [XR chest 1V portable [id number]] Routine Exams 07/07/24 10:26 Completed XR lumbar spine 2-3V* [id number] Routine Exams 07/04/24 18:35 Completed Pending at discharge Category Date Time Status Anaerobic Culture Routine Lab 07/04/24 16:56 Results Blood Culture Stat Lab 07/06/24 15:29 Results Wound Culture and Gram Stain Routine Lab 07/04/24 16:56 Results Radiology Impressions Lumbar Spine X-Ray 07/04/24 18:35 IMPRESSION: Extension of previous posterior pelvic lumbar fusion. Chest X-Ray 07/07/24 10:26 IMPRESSION: Right arm PICC line placed in proper position as above. Laboratory Results WBC 7.58 10^3/uL (3.29-11.43) 07/07/24 03:32 RBC 3.20 10^6/uL (3.85-5.65) L 07/07/24 03:32 Hgb 8.80 g/dL (11.27-16.99) L 07/07/24 03:32 Hct 28.5 % (36-47) L 07/07/24 03:32 MCV 89.1 fl (85-98) 07/07/24 03:32 MCH 27.5 pg (27-33) 07/07/24 03:32 MCHC 30.9 g/dL (30-55) 07/07/24 03:32 RDW 16.9 % (12.1-15.1) H 07/07/24 03:32 Plt Count 281 10^3/cmm (157-399) 07/07/24 03:32 MPV 8.8 fL (7.4-10.4) 07/07/24 03:32 Neut % (Auto) 65.9 % 07/07/24 03:32 Lymph % (Auto) 21.5 % 07/07/24 03:32 [place] % (Auto) 8.2 % 07/07/24 03:32 Eos % (Auto) 2.2 % 07/07/24 03:32 Baso % (Auto) 0.7 % 07/07/24 03:32 Neut # (Auto) 5.00 10^3/uL (1.8-7.7) 07/07/24 03:32 Lymph # (Auto) 1.6 10^3/uL (0.8-4.8) 07/07/24 03:32 [place] # (Auto) 0.6 10^3/uL (0.2-0.9) 07/07/24 03:32 Eos # (Auto) 0.2 10^3/uL (0.0-0.8) 07/07/24 03:32 Baso # (Auto) 0.1 10^3/uL (0.0-0.1) 07/07/24 03:32 Nucleated RBC % (auto) 0 % 07/07/24 03:32 Nucleated RBCs # 0.0 /100WBC 07/07/24 03:32 ESR 35 mm/hr (0-15) H 07/07/24 03:32 Sodium 139 mmol/L (136-145) 07/07/24 03:32 Potassium 4.5 mmol/L (3.5-5.1) 07/07/24 03:32 Chloride 105 mmol/L (98-107) 07/07/24 03:32 Carbon Dioxide 27 mmol/L (22-29) 07/07/24 03:32 Anion Gap 11.5 (5-19) 07/07/24 03:32 BUN 8 mg/dL (8-23) 07/07/24 03:32 Creatinine 0.3 mg/dL (0.5-0.9) L 07/07/24 03:32 GFR Calculation 226.2 mL/min (90-130) H 07/07/24 03:32 Glucose 142 mg/dL (65-115) H 07/07/24 03:32 POC Glucose 167 mg/dL (70-110) H 07/07/24 16:50 Calculated Osmolality 289 mOsm/kg (285-295) 07/07/24 03:32 Calcium 8.1 mg/dL (8.5-10.5) L 07/07/24 03:32 Creatine Kinase 32 U/L (26-192) 07/07/24 03:32 C-Reactive Protein 54.4 mg/L (0.0-4.9) H 07/07/24 03:32 Vancomycin Trough 13.2 ug/mL (10-15) 07/07/24 03:32 Blood Type A Negative 07/04/24 17:38 Rho(D) Type Rh negative 07/04/24 17:38 Antibody Screen Positive 07/04/24 17:38 Antibody Identification Anti-Fya 07/04/24 17:38 Antigen Identification Fya Antigen - NEGATIVE 07/04/24 17:38 Crossmatch See Detail 07/04/24 17:38 Vitals Last Vital Signs Temp 98.3 F 07/07/24 17:23 Pulse 109 H 07/07/24 17:23 Resp 16 07/07/24 17:23 BP 135/80 07/07/24 17:23 Pulse Ox 96 07/07/24 17:23 O2 Del Method Room Air 07/07/24 08:00 O2 Flow Rate 2 07/04/24 20:25 FiO2 21 07/06/24 21:00 Discharge Plan Discharge Patient Disposition: Xfer SNF Condition: Stable Prescriptions: New losartan 50 mg Tablet 25 mg PO DAILY 30 Days Qty: 30 0RF docusate sodium 100 mg Capsule 100 mg PO BID 30 Days Qty: 60 0RF insulin lispro [Humalog U-100 Insulin] 100 unit/mL Solution See Rx Instructions .ROUTE .COMPLEX Qty: 10 0RF Rx Instructions: Inject, subcut, 3 times daily, after meals, based on low dose insulin sliding scale provided vancomycin-diluent combo no.1 1.5 gram/300 mL Piggyback 1,000 mg continuous IV infusion Q12H Qty: 1800 0RF Rx Instructions: Stop date 08/16/2024 Continued omeprazole 40 mg capsule,delayed release(DR/EC) 40 mg PO DAILY gabapentin 100 mg capsule 200 mg PO BID Ozempic 1 mg/dose (4 mg/3 mL) pen injector 1 mg SUBCUT .WEEKLY metformin 1,000 mg tablet 1,000 mg PO BID pioglitazone [Actos] 45 mg tablet 45 mg PO DAILY glipizide 10 mg tablet 10 mg PO DAILY atorvastatin 20 mg tablet 20 mg PO DAILY methocarbamol 750 mg tablet 750 mg PO Q8H PRN (Reason: pain) Qty: 45 0RF magnesium hydroxide [Milk of Magnesia] 400 mg/5 mL Suspension 30 ml PO DAILY PRN (Reason: Constipation) bisacodyl [Dulcolax (bisacodyl)] 10 mg Suppository 10 mg LA DAILY PRN (Reason: Constipation) Fleet Enema 19-7 gram/118 mL Enema 118 ml LA DAILY PRN (Reason: Constipation) bisacodyl [Dulcolax (bisacodyl)] 5 mg Tablet,Delayed Release (Dr/Ec) 10 mg PO DAILY polyethylene glycol 3350 17 gram Powder In Packet 17 g PO DAILY Qty: 14 0RF sennosides-docusate sodium [Stool Softener-Laxative] 8.6-50 mg Tablet 1 tab PO BID Qty: 14 0RF Santyl 250 unit/gram ointment 1 applic topical DAILY Qty: 30 0RF hydrocodone-acetaminophen 5-325 mg Tablet 1 tab PO Q4H PRN (Reason: Pain) No Action (DME) Wound dressing 3x daily with ABD pads See Rx Instructions .Route .MEDSUPPLY Qty: 1 0RF Rx Instructions: As directed Discharge Orders: Discharge Order (Routine); Ordered 07/07/24 Ordered By: Mauricio Frederick Referrals: [facility] [Outside] Discharge Diet: Cardiac Discharge Activity: Resume usual activity Patient Instructions: Acute Wound Care (DC), Opioid Safety, Post Anesthesia Care Discharge Attestations Time Spent in Discharge Care*: less than 30 min Quality Metrics Clinical Quality Measures [ No reported AMI, CVA or VTE this stay] Coding Level of Care Code Acute Code for Chg Fwd Diagnoses Disruption of external operation (surgical) wound, not elsewhere classified, initial encounter T81.31XA Type 2 diabetes mellitus without complication, without long-term current use of insulin E11.9 Diabetes mellitus halfway insulin use: without halfway use Diabetes mellitus complication status: without complication Sleep apnea in adult G47.30 Hypertension I10 Status post lumbar spinal fusion Z98.1
== END 2024-07-07 17:00 | disposition skilled nursing facility (03) | DRG 451 ==
LOC: MEDSURG 19:51
PROVIDERS: Family Medicine; Internal Medicine; Student in an Organized Health Care Education/Training Program; Admitting Provider Orthopaedic Surgery; PCP Nurse Practitioner Family; Visit Provider Orthopaedic Surgery
PROC: 0JB70ZZ Excision of Back Subcutaneous Tissue and Fascia, Open Approach (ICD-10-PCS; principal; 2024-07-04 14:35)
PROC: 0JB70ZZ Excision of Back Subcutaneous Tissue and Fascia, Open Approach (ICD-10-PCS; 2024-07-04 14:35)
DX: T84.226A Displacement of internal fixation device of vertebrae, initial encounter (principal); T81.42XA Infection following a procedure, deep incisional surgical site, initial encounter; T81.328A Disruption or dehiscence of closure of other specified internal operation (surgical) wound, initial encounter; Z68.41 Body mass index [BMI] 40.0-44.9, adult; Y79.8 Miscellaneous orthopedic devices associated with adverse incidents, not elsewhere classified; E11.9 Type 2 diabetes mellitus without complications; G47.33 Obstructive sleep apnea (adult) (pediatric); I10 Essential (primary) hypertension; K21.9 Gastro-esophageal reflux disease without esophagitis; R00.0 Tachycardia, unspecified; E78.5 Hyperlipidemia, unspecified; M62.838 Other muscle spasm; E66.01 Morbid (severe) obesity due to excess calories; Z98.1 Arthrodesis status; Z79.85 Long-term (current) use of injectable non-insulin antidiabetic drugs; Z79.84 Long term (current) use of oral hypoglycemic drugs; Z79.891 Long term (current) use of opiate analgesic
CPT/HCPCS: 36415; 36416; 36430; 36573; 51702; 71045; 72100; 76000; 80048; 80202; 80503; 82550; 82962; 85025; 85651; 86140; 86850; 86870; 86900; 86902; 86920; 87040; 87070; 87075; 87077; 87186; 87205; 94660; 96372; 97110; 97162; 97530; C1713; C9358; G0378; J0690; J0696; J1171; J1650; J1815; J1885; J2270; J2704; J3010; J3370; J3490; J7030; J7120; J9999; P9016

== ENCOUNTER → 2024-07-24 12:43 | Outpatient (BNVA) | payer BC, SELFPAY | PROVIDERS: PCP Nurse Practitioner Family; Visit Provider Orthopaedic Surgery | DX: Z98.890 Other specified postprocedural states (principal); M54.9 Dorsalgia, unspecified; Z98.1 Arthrodesis status | CPT/HCPCS: 72100 ==

== ENCOUNTER → 2024-08-07 11:14 | Outpatient (BNVA) | payer BC, SELFPAY | PROVIDERS: PCP Nurse Practitioner Family; Visit Provider Orthopaedic Surgery | DX: Z98.890 Other specified postprocedural states (principal); T84.7XXA Infection and inflammatory reaction due to other internal orthopedic prosthetic devices, implants and grafts, initial encounter; Z98.1 Arthrodesis status; X58.XXXA Exposure to other specified factors, initial encounter | CPT/HCPCS: 72100 ==

== ENCOUNTER 2024-08-22 08:52 | Outpatient (CLI) | payer BC, SELFPAY ==
--- NOTE | 2024-08-22 09:00 | CTR_ITS ---
PROCEDURE INFORMATION: Exam: CT Lumbar Spine Without Contrast Exam date and time: 08/22/2024 9:19 AM Age: 63 years old Clinical indication: Prior surgery; Surgery date: 1-6 months; Surgery type: Lumbar fusionx2 06/04/24, 07/04/24; Continued low back pain following surgery, also left leg numbness and tingling following surgery; Additional info: Lumbar pain TECHNIQUE: Imaging protocol: Computed tomography of the lumbar spine without contrast. Radiation optimization: All CT scans at this facility use at least one of these dose optimization techniques: automated exposure control; mA and/or kV adjustment per patient size (includes targeted exams where dose is matched to clinical indication); or iterative reconstruction. COMPARISON: 1. MR lumbar spine wo/w con [id number] 06/17/2024 4:05 PM 2. CR XR lumbar spine 2-3V* [id number] 08/07/2024 11:33 AM RADIATION DOSE METRICS: Total DLP (mGy-cm): 1463.87 FINDINGS: Bones/joints: Since the prior study there has been interval destruction of the upper half of the L2 vertebral body with anterior slippage of the lower half of L2 with respect to L1 measuring approximately 19 mm. There has been interval removal of L2 pedicle screws since the prior examination. The patient is post laminectomy from L2 to L5 and posterior fixation. Pedicle screws at L1, L3, L4, L5 and S1 with interbody spacer devices at L2-L3, L3-L4 and methylmethacrylate filling the L5-S1 space. Indwelling metallic surgical hardware causes beam hardening artifact, somewhat limiting assessment. Soft tissue and air is noted within the laminectomy bed, presumably related to recent intervention. The configuration is not significantly changed when compared the recent lumbar radiograph. Soft tissues: See above. CT/CT lumbar spine wo con* [id number] IMPRESSION: Postsurgical changes noted. Interval revision of lumbar fixation hardware, notably removal the L2 pedicle screws. Again noted is destruction of the upper L2 vertebral body with anterior slippage relative to L1. Configuration not significantly changed when compared with the prior radiograph. MRI of the lumbar spine with and without intravenous contrast may be performed to better assess the soft tissues.
== END 2024-08-22 08:53 | disposition home or self-care (01) ==
LOC: RAD 08:53
PROVIDERS: PCP Nurse Practitioner Family; Visit Provider Orthopaedic Surgery
DX: M54.50 Low back pain, unspecified (principal); Z98.1 Arthrodesis status
CPT/HCPCS: 72131

== ENCOUNTER → 2024-10-07 11:00 | Outpatient (BNVA) | payer BC, SELFPAY | PROVIDERS: Visit Provider Orthopaedic Surgery | DX: Z98.1 Arthrodesis status (principal); S32.020A Wedge compression fracture of second lumbar vertebra, initial encounter for closed fracture; X58.XXXA Exposure to other specified factors, initial encounter | CPT/HCPCS: 72100 ==

== ENCOUNTER → 2024-10-21 10:13 | Outpatient (BNVA) | payer BC, SELFPAY | PROVIDERS: Visit Provider Orthopaedic Surgery | DX: Z47.89 Encounter for other orthopedic aftercare (principal); Z98.1 Arthrodesis status | CPT/HCPCS: 72100 ==

== ENCOUNTER 2024-11-04 13:03 | Outpatient (RCR) | payer BC, SELFPAY | END 2024-11-04 23:59 | disposition home or self-care (01) | LOC: SPT 13:03 | PROVIDERS: Visit Provider Orthopaedic Surgery | DX: M54.9 Dorsalgia, unspecified (principal) | CPT/HCPCS: 97161 ==

== ENCOUNTER 2024-11-05 05:00 | Outpatient (RCR) | payer BC, SELFPAY | END 2024-12-05 23:59 | disposition home or self-care (01) | LOC: SPT 05:00 | PROVIDERS: Visit Provider Orthopaedic Surgery | DX: M54.9 Dorsalgia, unspecified (principal) | CPT/HCPCS: 97110; 97530 ==

== ENCOUNTER → 2024-11-20 15:45 | Outpatient (BNVA) | payer BC, SELFPAY | PROVIDERS: Visit Provider Orthopaedic Surgery | DX: Z47.89 Encounter for other orthopedic aftercare (principal); Z98.1 Arthrodesis status | CPT/HCPCS: 72100 ==

== ENCOUNTER 2025-01-05 06:30 | Outpatient (RCR) | payer BC, OTHER, SELFPAY | END 2025-02-04 23:59 | disposition home or self-care (01) | LOC: SPT 06:30 | PROVIDERS: Family Provider Family Medicine; PCP Family Medicine; Visit Provider Orthopaedic Surgery | DX: M54.9 Dorsalgia, unspecified (principal) | CPT/HCPCS: 97530 ==

== ENCOUNTER → 2025-01-22 13:25 | Outpatient (BNVA) | payer BC, OTHER, SELFPAY | PROVIDERS: Family Provider Family Medicine; PCP Family Medicine; Visit Provider Orthopaedic Surgery | DX: Z47.89 Encounter for other orthopedic aftercare (principal); Z98.1 Arthrodesis status; M54.9 Dorsalgia, unspecified | CPT/HCPCS: 72100 ==

== ENCOUNTER 2025-01-26 09:44 | Outpatient (CLI) | payer BC, OTHER, SELFPAY ==
--- NOTE | 2025-01-26 10:00 | CT_ITS ---
WS: [id number] CT LUMBAR SPINE, noncontrast. HISTORY: LEFT leg pain since surgery. Prior back surgery in May and June 2024. Spasms. TECHNIQUE: Contiguous 2.0 mm axial imaging are performed. Sagittal and coronal reformats are submitted and reviewed. All CT scans at [facility] use at least one of these dose optimization techniques: automated exposure control; mA and/or kV adjustment per patient size (includes targeted exams where dose is matched to clinical indication); or iterative reconstruction. IV contrast: None DLP: 1100.81 mGy.cm COMPARISON: 08/22/2024, 06/13/2024 Quality this examination is compromised by body habitus and the hardware. Posterior fusion hardware extends from L1-S1. Interbody disc spacers at L2-3 and L3-4. Methylmethacrylate at L5-S1 and the disc space is stable. Reidentified is significant destruction of the L1 and L2 vertebral bodies which is new since 06/13/2024 and probably no progression since 08/22/2024. L2 is anteriorly positioned with respect to L1. Anterolisthesis by 16 mm. There is a component of the L2 vertebral body which is displaced posteriorly into the thecal sac on the LEFT. This component demonstrates retrolisthesis by 10 mm into the thecal sac which is similar to the prior study. There is complete loss of the inferior endplate of L1. Marked deformity of the L2 vertebral body. There is partial invagination of L1 into the superior end of L2. T12-L1: LEFT paracentral osteophyte. Mild facet arthritis. L1-2: Marked destruction of the endplates. Increased soft tissue and bone fragments encroach upon the ventral thecal sac. There is a large posterior laminectomy defect. Thecal sac is being deformed. There are fluid collections in soft tissue heterogeneity along the laminectomy site and the surgical tract. Without IV contrast cannot evaluate for an enhancing collection. There is a component of stenosis on the LEFT foramen. LEFT foraminal stenosis due to combination of soft tissue, displaced bone fragments and anterolisthesis of L2. L2-3: Postoperative changes centrally. At least mild foraminal stenosis. L3-4: Continued postoperative changes posteriorly. There is fluid and soft tissue infiltration. L4-5: Postoperative changes posteriorly. Large laminectomy defects. Fluid and soft tissue infiltration. L5-S1: At least mild foraminal stenosis. Atherosclerosis aorta. CT/CT lumbar spine wo con* [id number] IMPRESSION: 1. Marked destruction of the L2 vertebral body and the inferior endplate of L1 . Similar to 08/22/2024. Invagination of the inferior endplate of L1 into the agrawal perior endplate of L2. 2. Reidentified is anterolisthesis of L2 with comparison to L4 1. 3. Bone fragment extends into the LEFT foramen at L1-2 as noted on the prior s tudy. 4. Status post lumbar fusion extending from L1-S1 as seen on the prior study. 5. Extensive postoperative soft tissue changes and fluid along the surgical si te in the laminectomy defects. Without IV contrast cannot comment on areas of e nhancement or abscess formation. 6. LEFT foraminal stenosis at L1-2 due to combination of soft tissue, bone fra gment and anterolisthesis of L2. Consider evaluation by MRI with and without contrast.
== END 2025-01-26 09:45 | disposition home or self-care (01) ==
LOC: RAD 09:50
PROVIDERS: Family Provider Family Medicine; PCP Family Medicine; Visit Provider Orthopaedic Surgery
DX: M43.16 Spondylolisthesis, lumbar region (principal); Z98.1 Arthrodesis status; M54.16 Radiculopathy, lumbar region; M99.63 Osseous and subluxation stenosis of intervertebral foramina of lumbar region
CPT/HCPCS: 72131